=== PATIENT | female | born 1960 | race Caucasian/White ===

== ENCOUNTER 2020-04-21 12:25 | Outpatient (REF) | payer OTHER, SELFPAY | END 2020-04-21 12:26 | disposition home or self-care (01) | LOC: HO.LAB 12:25 | PROVIDERS: Visit Provider Internal Medicine | DX: Z20.828 Contact with and (suspected) exposure to other viral communicable diseases (principal) | CPT/HCPCS: 87635 ==

== ENCOUNTER 2020-09-15 10:55 | Outpatient (REF) | payer OTHER, SELFPAY | END 2020-09-15 10:56 | disposition home or self-care (01) | LOC: HO.LAB 10:55 | PROVIDERS: Visit Provider Internal Medicine | DX: Z20.822 Contact with and (suspected) exposure to COVID-19 (principal) | CPT/HCPCS: 36415; C9803; U0003; U0005 ==

== ENCOUNTER 2022-01-20 13:38 | Outpatient (REF) | payer OTHER, SELFPAY ==
[2022-01-21 10:22] LABS: Binax Internal Control QC Valid; Binax Now Covid-19 Ag Negative (Negative)
== END 2022-01-20 13:39 | disposition home or self-care (01) ==
LOC: HO.HMGCLDS 13:38
DX: Z20.822 Contact with and (suspected) exposure to COVID-19 (principal); R51.9 Headache, unspecified
CPT/HCPCS: 87811; C9803

== ENCOUNTER 2022-02-22 10:15 | Outpatient (REF) | payer OTHER, SELFPAY ==
[2022-02-22 11:00] LABS: Binax Now Covid-19 Ag Negative (Negative)
[2022-02-22 11:01] LABS: Binax Internal Control QC Valid
== END 2022-02-22 10:16 | disposition home or self-care (01) ==
LOC: HO.HMGCLDS 10:15
PROVIDERS: PCP Internal Medicine; Visit Provider Nurse Practitioner Family
DX: Z20.822 Contact with and (suspected) exposure to COVID-19 (principal)
CPT/HCPCS: 87811; C9803

== ENCOUNTER 2022-11-14 08:43 | Outpatient (REF) | payer OTHER, MEDICAID, SELFPAY ==
--- NOTE | ~2022-11-14 | XR_ITS ---
EXAMINATION: XR KNEE, RIGHT XR KNEE AP STANDING CLINICAL INFORMATION: Pain. COMPARISON: Radiographs dated 03/28/2019. TECHNIQUE: Lateral and axial of the right knee were obtained. AP bilateral standing view of the knees was obtained. FINDINGS: Bony mineralization is normal. The lateral and medial joint space compartments of the right knee are well-maintained and show mild peripheral osteophyte formation. The lateral and medial joint space compartments of the left knee are well-maintained. There is mild peripheral osteophyte formation of the lateral joint space compartment of the left knee. No fracture or dislocation is seen. There is no significant varus or valgus configuration bilaterally. Very mild bilateral tibial bowing is noted. XR/XR knee RT 2V IMPRESSION: 1. There is mild osteoarthritic change of the lateral and medial joint space compartments of the right knee, most pronounced in the lateral joint space compartment. 2. There is mild osteoarthritic change of the lateral joint space compartment of the left knee.
--- NOTE | ~2022-11-14 | XR_ITS ---
EXAMINATION: XR KNEE, RIGHT XR KNEE AP STANDING CLINICAL INFORMATION: Pain. COMPARISON: Radiographs dated 03/28/2019. TECHNIQUE: Lateral and axial of the right knee were obtained. AP bilateral standing view of the knees was obtained. FINDINGS: Bony mineralization is normal. The lateral and medial joint space compartments of the right knee are well-maintained and show mild peripheral osteophyte formation. The lateral and medial joint space compartments of the left knee are well-maintained. There is mild peripheral osteophyte formation of the lateral joint space compartment of the left knee. No fracture or dislocation is seen. There is no significant varus or valgus configuration bilaterally. Very mild bilateral tibial bowing is noted. XR/XR knee standing BI IMPRESSION: 1. There is mild osteoarthritic change of the lateral and medial joint space compartments of the right knee, most pronounced in the lateral joint space compartment. 2. There is mild osteoarthritic change of the lateral joint space compartment of the left knee.
== END 2022-11-14 08:44 | disposition home or self-care (01) ==
LOC: HO.HOSX 08:43
PROVIDERS: Visit Provider Orthopaedic Surgery
DX: M17.11 Unilateral primary osteoarthritis, right knee (principal); E11.9 Type 2 diabetes mellitus without complications; M21.061 Valgus deformity, not elsewhere classified, right knee
CPT/HCPCS: 73560; 73565; 99212

== ENCOUNTER 2023-01-03 12:45 | Outpatient (REF) | payer OTHER, MEDICAID, SELFPAY ==
--- NOTE | 2023-01-03 14:07 | ECG_ITS ---
Test Reason : PREOP Blood Pressure : / mmHG Vent. Rate : 079 BPM Atrial Rate : 079 BPM P-R Int : 142 ms QRS Dur : 090 ms QT Int : 410 ms P-R-T Axes : 068 -16 028 degrees QTc Int : 470 ms Normal sinus rhythm Normal ECG No previous ECGs available Referred By: Fadi Guerra Electronically Signed By:NABOR WORKMAN
[2023-01-03 14:28] LABS: MANUAL DIFF FLAG NO
[2023-01-03 15:20] LABS: Basophils Absolute Auto 0.1 X10*3/uL (0.0-0.2); Basophils Percent Auto 0.6 % (0-2); Eosinophils Absolute Auto 0.2 X10*3/uL (0.0-0.4); Eosinophils Percent Auto 1.8 % (0-4); Hematocrit 40.4 % (37.0-47.0); Hemoglobin 12.5 g/dl (12.0-16.0); Imm Gran Abs Auto 0.04 X10*3/uL (0.00-0.03); Imm Gran Pct Auto 0.4 % (0.0-0.4); Lymphocytes Absolute Auto 3.5 X10*3/uL (1.2-4.9); Lymphocytes Percent Auto 32.8 % (20-40); Mean Corpuscular HGB Conc 30.9 g/dl (31.0-35.0); Mean Corpuscular Hemoglobin 27.7 pg (27.0-33.0); Mean Corpuscular Volume 89.6 fL (80.0-98.0); Mean Platelet Volume 9.5 fL (9.4-12.3); Monocytes Absolute Auto 0.7 X10*3/uL (0.1-1.2); Monocytes Percent Auto 6.4 % (2-11); Neutrophils Absolute Auto 6.1 x10*3/uL (2.0-8.3); Platelet Count 283 X10*3/uL (160-400); Red Blood Count 4.51 X10*6/uL (4.20-5.50); Red Cell Distribution Width 13.1 % (11.0-16.0); White Blood Count 10.6 X10*3/uL (4.8-10.8)
[2023-01-03 15:37] LABS: Estimated Average Glucose 137 mg/dL; Hemoglobin A1c % 6.4 %
[2023-01-03 16:04] LABS: Anion Gap 13 (12-20); Blood Urea Nitrogen 15 mg/dL (9-16); Calcium 9.8 mg/dL (8.4-10.2); Carbon Dioxide 29 mmol/L (22-29); Chloride 103 mmol/L (96-108); Estimated Glomerular Filt Rate > 60; Glucose Random 85 mg/dL (60-115); Potassium 4.2 mmol/L (3.3-5.1); Sodium 141 mmol/L (135-145)
== END 2023-01-03 12:46 | disposition home or self-care (01) ==
LOC: HO.LAB 12:45
PROVIDERS: PCP Internal Medicine; Visit Provider Orthopaedic Surgery
DX: Z01.810 Encounter for preprocedural cardiovascular examination (principal); Z01.812 Encounter for preprocedural laboratory examination; M21.061 Valgus deformity, not elsewhere classified, right knee
CPT/HCPCS: 36415; 80048; 83036; 85025; 93005

== ENCOUNTER 2023-01-25 09:59 | Outpatient (RCR) | payer OTHER, MEDICAID, SELFPAY | END 2023-05-12 08:57 | disposition home or self-care (01) | LOC: HO.PT 09:59 | PROVIDERS: PCP Internal Medicine; Visit Provider Orthopaedic Surgery | DX: M21.061 Valgus deformity, not elsewhere classified, right knee (principal) ==

== ENCOUNTER 2023-01-25 15:30 | Outpatient (RCR) | payer OTHER, MEDICAID, SELFPAY ==
--- NOTE | 2023-01-25 11:36 | MHC.PT.EP ---
[facility] [place] Office [place] Office [place] Office [address] Erasm[address] Mart [address] [phone] F: [phone] F: [phone] F: [phone] F: [phone] Physical Therapy Plan of Care Date of Evaluation: Date of Surgery: 01/31/23 Diagnosis: PREHAB FOR Rt TKA Assessment: 62 YO FEMALE REF TO PT FOR PREHAB FOR SCHED Rt TKR 01/31/23 AT [facility] [place] 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 OBJECTIVELY, SHE HAS DECR ROM Rt KNEE/ ANKLE, STRENGHT DEFICITS LUMBOPELVIC/ PROX LEs, (+) LLI, GENU VALGUS COLLAPSE, AND FLUCTUATING/ LIMITING Rt KNEE PAIN. SHE IS CURRENTLY AMB W/O ASST DEVICES. HER OVERALL ADLs ARE IMPACTED BY HER Rt KNEE PAIN. THE Pt BENEFITTED FROM THE ABOVE EDUC SESSION RE TKR POST-OP COURSE, THER EXER, PREP EXER, STAIR NAVIGATION, AND USAGE ASST DEVICES. THE Pt IS DISCHARGED TODAY W HER PREHAB EXER , SHE FEELS SHE DOES NOT REQUIRE ANY ADD'L PRE-OP PT, AND IS SCHED FOR HER SURGERY NEXT WEEK, 01/31/23 Frequency and Duration: The patient will be seen NO FURTHER Short Term Goals: Pt MET HER GOALS TODAY AT HER [facility] Alf Goals: N/A Treatment Plan: Modalities to reduce pain, spasms and effusion. Manual therapy to restore motion and function. Therapeutic exercise to improve strength and flexibility. Neuromuscular re-education for posture and balance. Therapeutic activities to return to functional activities of daily living. Electronically signed by: JN DELGADILLO,PT Please sign and return to therapist. Thank you for your referral.
--- NOTE | 2023-01-25 11:41 | MHC.PT.DC ---
[facility] [place] Office [place] Office [place] Office [address] Er[address] Mart [address] [facility] [phone] F: [phone] F: [phone] F: [phone] F: [phone] Physical Therapy Discharge Report Diagnosis: PREHAB FOR Rt TKA Date of Surgery: 01/31/23 Date of Evaluation: 01/25/23 Date of Discharge: 01/25/23 Treatments to Date: 1 Cancellations to Date: 0 No Shows to Date: 0 Discharge Status: Achieved Goals Improved Function Independent with HEP Discharge Summary: THE Pt IS MOTIVATED FOR HER Rt TKR SURGERY AND HAS MET HER PRE-OP PT GOALS AT THIS TIME. SHE HAS A APPROP COMPREHENSION OF HER POST-OP PT COURSE AND FOCUS. Electronically signed by: JN DELGADILLO,PT Please sign and return to therapist. Thank you for your referral.
--- NOTE | 2023-01-26 07:43 | MHC.PT.DC ---
[facility] [place] Office [place] Office [place] Office [address] Mart [address] [phone] F: [phone] F: [phone] F: [phone] F: [phone] Physical Therapy Discharge Report Diagnosis: PREHAB FOR Rt TKA Date of Surgery: 01/31/23 Date of Evaluation: 01/25/23 Date of Discharge: 01/25/23 Treatments to Date: 1 Cancellations to Date: 0 No Shows to Date: 0 Discharge Status: Achieved Goals Improved Function Independent with HEP Discharge Summary: THE Pt IS MOTIVATED FOR HER Rt TKR SURGERY AND HAS MET HER PRE-OP PT GOALS AT THIS TIME. SHE HAS APPROP COMPREHENSION OF HER POST-OP PT COURSE AND ROM GOALS/ PAIN MGMT TECHN. Electronically signed by: JN DELGADILLO,PT Please sign and return to therapist. Thank you for your referral.
== END 2023-01-26 07:43 | disposition home or self-care (01) ==
LOC: HO.PT 15:30
PROVIDERS: PCP Internal Medicine; Visit Provider Physician Assistant
DX: M21.061 Valgus deformity, not elsewhere classified, right knee (principal)

== ENCOUNTER 2023-01-26 11:55 | Outpatient (AMB) | payer OTHER, MEDICAID, SELFPAY ==
[2023-01-26 12:37] VITALS: BMI 37.9
--- NOTE | 2023-01-26 12:37 | MHC.OFFVIS ---
Intake Vital Signs 01/26/23 12:37 Height 5 ft 4 in Weight 221 lb BMI 37.9 Intake Visit Reasons: Preop RT TKA 02/01/23 NE Intake Note: Nohemi is a 62 year old female who presents today for a pre op appointment for her right TKA, 02/01/23 NE. Allergies ibuprofen [IBUPROFEN] Allergy (Intermediate, Verified 01/26/23 12:38) exacerbates asthma oxaprozin [From DAYPRO] Allergy (Intermediate, Verified 01/26/23 12:38) exacerbates asthma Penicillins [PCN] Allergy (Intermediate, Verified 01/26/23 12:38) RASH HPI Preop RT TKA 02/01/23 NE HPI Details 62-year-old female who presents in the office today for her preoperative history and physical exam prior to a right total knee arthroplasty to be performed on 02/01/[address] Guerra. 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 Patient has an allergy history, as follows: -Oxaprozin -Ibuprofen; asthma/affects breathing -Penicillin; rash Patient is currently taking, as follows: -Albuterol sulfate 90 mcg/actuation -Atorvastatin 20 mg PO daily -Fluticasone furoate-vilanterol 200-25 mcg inhalation daily -Fluticasone propionate 50 mcg/actuation intranasal -Loratadine 10 mg PO daily -Meloxicam 15 mg PO daily -Montelukast 10 mg PO daily -Oxybutynin chloride ER 10 mg PO daily -Tramadol 50 mg PO TID PRN -Umeclidinium 62.5 mcg/actuation inhalation daily Patient has a medical history, as follows: -Diabetes mellitus -Headaches Patient has no known surgical history. 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 Review of Systems Const All systems reviewed & are unremarkable except as noted in HPI and below Physical Exam Vital Signs: BMI result Body Mass Index 37.9 Const General: cooperative and no acute distress Orientation/consciousness: patient oriented x3 HEENT Head: Yes normocephalic and Yes atraumatic Eyes EOM: EOMs intact bilaterally Neck Neck: Yes normal visual inspection and Yes no lymphadenopathy Resp Effort & Inspection: normal respiratory effort and able to speak in complete sentences Cardio Jugular venous distension: no JVD Rate: regular rate Peripheral pulses: Peripheral pulses 2+ throughout GI Inspection: Yes normal to inspection Palpation (GI): Soft to palpation Skin General skin exam: no rashes or lesions noted Lesions: no lesions Rashes: no rashes Neuro General: patient oriented x3 Extrem Other: Right Knee: TTP lateral compartment 15-20 degree valgus alignment Psych Appearance: grossly normal Affect: normal affect Attitude: cooperative Assessment & Plan Assessment & Plan (1) Osteoarthritis of right knee: Code(s): M17.11 - Unilateral primary osteoarthritis, right knee (2) Diabetes mellitus: Code(s): E11.9 - Type 2 diabetes mellitus without complications (3) Valgus deformity, not elsewhere classified, right knee: Code(s): M21.061 - Valgus deformity, not elsewhere classified, right knee Plan Ms. Jackson is a 62-year-old female who presents in the office today for her preoperative history and physical exam prior to a right total knee arthroplasty to be performed on 02/01/[address] Guerra. 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 Patient has an allergy history, as follows: -Oxaprozin -Ibuprofen; asthma/affects breathing -Penicillin; rash Patient is currently taking, as follows: -Albuterol sulfate 90 mcg/actuation -Atorvastatin 20 mg PO daily -Fluticasone furoate-vilanterol 200-25 mcg inhalation daily -Fluticasone propionate 50 mcg/actuation intranasal -Loratadine 10 mg PO daily -Meloxicam 15 mg PO daily -Montelukast 10 mg PO daily -Oxybutynin chloride ER 10 mg PO daily -Tramadol 50 mg PO TID PRN -Umeclidinium 62.5 mcg/actuation inhalation daily Patient has a medical history, as follows: -Diabetes mellitus -Headaches Patient has no known surgical history. I discussed in detail the procedure and what to expect pre and post operatively. We discussed the risks, benefits and alternatives to the surgery as well as the rehabilitation course. The risks; which include, but are not limited to infection, bleeding, nerve injury, ongoing pain, swelling, and stiffness, perioperative risk of injury to bones and soft tissues, and blood clots. I have answered all questions and with their understanding they have consented to move forward with a right total knee arthroplasty to be performed on 02/01/[address] Fadi Guerra. Follow up will be at the post operative appointment on 02/17/2023 at 12:45 pm, or sooner if needed. Patient can go on aspirin for DVT prophylactic. Patient Instructions: Scribed for Eloise Almodovar PA-C by Ashely Paz medical services assistant, on 01/26/2023 at 12:36 pm, EST. Your attestation Coding Level of Care Code Global (90778) Diagnoses Osteoarthritis of right knee M17.11 Diabetes mellitus E11.9 Valgus deformity, not elsewhere classified, right knee M21.061
== END 2023-01-26 13:37 | disposition home or self-care (01) ==
PROVIDERS: Visit Provider Physician Assistant
DX: M17.11 Unilateral primary osteoarthritis, right knee (principal); E11.9 Type 2 diabetes mellitus without complications; M21.061 Valgus deformity, not elsewhere classified, right knee
CPT/HCPCS: 99024

== ENCOUNTER → 2023-01-26 11:55 | Outpatient (BNVA) | payer OTHER, MEDICAID, SELFPAY | PROVIDERS: Visit Provider Physician Assistant ==

== ENCOUNTER 2023-01-31 07:23 | Inpatient (IN) | payer OTHER, MEDICAID, SELFPAY ==
[2023-01-25 12:02] VITALS: BP 116/81; PULSE 96; RESP 18; O2SAT 95; BMI 38.9
[2023-01-25 14:12] LABS: MRSA Nasal PCR NEGATIVE (Negative); SA Nasal PCR POSITIVE (Negative)
--- NOTE | 2023-01-30 09:34 | HO.ANESPROP2 ---
Documented by User: Avelina Ferrer NP 01/30/23 09:37 HPI - Anesthesia Eval Consult details Narrative: 62yo F for Right Knee Replacement Total Medically optimized PMFSH Active Problems Active Problems: All Active Problems (Updated 01/25/23 @ 12:01 by Geovanna Chamberlain RN) Screening examination for infectious disease (Acute) Osteoarthritis of right knee (Acute) Diabetes mellitus (Acute) Valgus deformity, not elsewhere classified, right knee (Acute) Headache (Acute) Past Medical History Medical History Asthma COPD (chronic obstructive pulmonary disease) Diabetes Elevated cholesterol Headache HTN (hypertension) Osteoarthritis Steatosis, liver Surgical History Surgical History H/O colonoscopy Hx of bilateral cataract extraction Hx of section Hx of laparoscopic gastric banding Social History Social History Are you a primary respite care provider to a significant other at home: No Do you presently have visiting nurse or other home services: No Patient Tobacco Use Status: Former Tobacco user Quit Date: 2007 Tobacco use type: Cigarette Years Smoked: 35 Smoked in Last 30 Days: No Use of substances other than those prescribed or required for medical reasons: No Have you been hit, kicked, punched, or otherwise hurt by someone within the past year? 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 Allergies Allergy/AdvReac Type Severity Reaction Status Date / Time ibuprofen [IBUPROFEN] Allergy Intermediate exacerbates Verified 01/26/23 12:38 asthma oxaprozin [From DAYPRO] Allergy Intermediate exacerbates Verified 01/26/23 12:38 asthma Penicillins [PCN] Allergy Intermediate RASH Verified 01/26/23 12:38 Home Medications Medication Instructions Recorded Confirmed Last Taken Type albuterol sulfate 90 mcg/actuation 90 mcg inhalation Q4H PRN 01/20/22 01/24/23 Unknown History aerosol inhaler (Ventolin HFA) Shortness Of Breath blood sugar diagnostic (FreeStyle #10 ea 01/20/22 01/04/23 Unknown History Lite Strips) blood-glucose meter (FreeStyle #1 ea 01/20/22 01/04/23 Unknown History [place] Lite kit) fluticasone propionate 50 1 spray intranasal DAILY 01/20/22 01/24/23 Unknown History mcg/actuation nasal spray,suspension lancets 28 gauge (FreeStyle #100 ea 01/20/22 01/04/23 Unknown History Lancets) loratadine 10 mg tablet 10 mg PO DAILY 01/20/22 01/24/23 Unknown History meloxicam 15 mg tablet 15 mg PO DAILY 01/20/22 01/25/23 01/11/23 History tramadol 50 mg tablet 50 mg PO TID PRN Pain 01/20/22 01/24/23 Unknown History atorvastatin 20 mg tablet 20 mg PO DAILY 11/14/22 01/24/23 Unknown History cholecalciferol (vitamin D3) 1,250 1,250 mcg PO QWEEK 01/24/23 01/24/23 Unknown History mcg (50,000 unit) capsule budesonide-formoterol HFA 160 1 inh inhalation BID 01/25/23 01/25/23 Unknown History mcg-4.5 mcg/actuation aerosol inhaler (Symbicort) dupilumab 200 mg/1.14 mL 200 mg subcut Q2W 01/25/23 01/25/23 Unknown History subcutaneous pen injector (Dupixent) oxybutynin chloride 5 mg tablet 5 mg PO BEDTIME 01/25/23 01/25/23 Unknown History Exam Exam Date and Time: January 30, 2023 0934 Height,Weight and Vital Signs: Height 5 ft 3 in Weight 99.6 kg Last Vital Signs Pulse 96 01/25/23 12:02 Resp 18 01/25/23 12:02 BP 116/81 01/25/23 12:02 Pulse Ox 95 01/25/23 12:02 O2 Del Method Room Air 01/25/23 12:02 Pertinent Lab Results Pertinent Lab Results: Laboratory Tests 01/25/23 01/25/23 12:20 12:58 Nasal Screen MRSA (PCR) NEGATIVE Nasal S. aureus Screen POSITIVE A Nasal MRSA/S.aureus Interp SEE NOTE Blood Type O Positive Antibody Screen NEGATIVE Laboratory Tests 01/03/23 01/03/23 14:27 14:27 WBC 10.6 Hgb 12.5 Hct 40.4 Plt Count 283 Sodium 141 Potassium 4.2 Chloride 103 Carbon Dioxide 29 BUN 15 Creatinine 0.71 Narrative Narrative: EKG 12/2022 Vent. Rate : 079 BPM ? ? Atrial Rate : 079 BPM ?? P-R Int : 142 ms? QRS Dur : 090 ms ? ? QT Int : 410 ms ? ? ? P-R-T Axes : 068 -16 028 degrees ?? QTc Int : 470 ms ? Normal sinus rhythm Normal ECG No previous ECGs available Assessment and Plan Assessment Anesthesia Assessment: Chart Reviewed Documented by User: Doc Becker MD 01/31/23 07:54 PMFSH Past Medical History Medical History Asthma COPD (chronic obstructive pulmonary disease) Diabetes Elevated cholesterol Headache HTN (hypertension) Osteoarthritis Steatosis, liver Family History Family history of problems with anesthesia: No Surgical History Surgical History H/O colonoscopy Hx of bilateral cataract extraction Hx of section Hx of laparoscopic gastric banding History of Problems with Anesthesia: No Social History Social History Are you a primary respite care provider to a significant other at home: No Do you presently have visiting nurse or other home services: No Patient Tobacco Use Status: Former Tobacco user Quit Date: 2007 Tobacco use type: Cigarette Years Smoked: 35 Smoked in Last 30 Days: No Use of substances other than those prescribed or required for medical reasons: No Have you been hit, kicked, punched, or otherwise hurt by someone within the past year? 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 Allergies Allergy/AdvReac Type Severity Reaction Status Date / Time ibuprofen [IBUPROFEN] Allergy Intermediate exacerbates Verified 01/26/23 12:38 asthma oxaprozin [From DAYPRO] Allergy Intermediate exacerbates Verified 01/26/23 12:38 asthma Penicillins [PCN] Allergy Intermediate RASH Verified 01/26/23 12:38 Home Medications Medication Instructions Recorded Confirmed Last Taken Type albuterol sulfate 90 mcg/actuation 90 mcg inhalation Q4H PRN 01/20/22 01/24/23 Unknown History aerosol inhaler (Ventolin HFA) Shortness Of Breath blood sugar diagnostic (FreeStyle #10 ea 01/20/22 01/04/23 Unknown History Lite Strips) blood-glucose meter (FreeStyle #1 ea 01/20/22 01/04/23 Unknown History [place] Lite kit) fluticasone propionate 50 1 spray intranasal DAILY 01/20/22 01/24/23 Unknown History mcg/actuation nasal spray,suspension lancets 28 gauge (FreeStyle #100 ea 01/20/22 01/04/23 Unknown History Lancets) loratadine 10 mg tablet 10 mg PO DAILY 01/20/22 01/24/23 Unknown History meloxicam 15 mg tablet 15 mg PO DAILY 01/20/22 01/25/23 01/11/23 History tramadol 50 mg tablet 50 mg PO TID PRN Pain 01/20/22 01/24/23 Unknown History atorvastatin 20 mg tablet 20 mg PO DAILY 11/14/22 01/24/23 Unknown History cholecalciferol (vitamin D3) 1,250 1,250 mcg PO QWEEK 01/24/23 01/24/23 Unknown History mcg (50,000 unit) capsule budesonide-formoterol HFA 160 1 inh inhalation BID 01/25/23 01/25/23 Unknown History mcg-4.5 mcg/actuation aerosol inhaler (Symbicort) dupilumab 200 mg/1.14 mL 200 mg subcut Q2W 01/25/23 01/25/23 Unknown History subcutaneous pen injector (Dupixent) oxybutynin chloride 5 mg tablet 5 mg PO BEDTIME 01/25/23 01/25/23 Unknown History Exam Airway Mallampati Class: II TM Dist: >3cm Neck ROM: Limited Heart: rrr Lungs: cta Assessment and Plan Assessment Anesthesia Assessment: Anesthesia Plan Discussed Final Anesthetic Review Family History of Problems with Anesthesia: No History of Problems with Anesthesia: No NPO: Yes ASA Class: III Final Preanesthetic Review: No Changes in Pt Med Stat, Consent Obtained/Reviewed and Anes Risks/Benef Reviewed Patient Risk: Intermediate Procedure Risk: Intermediate Anesthetic Plan Anesthetic Plan: Spinal, Regional Block and Agree w/ Assess. and Plan Disposition: Standard PACU
[2023-01-31] VITALS (13 sets, daily range): BP systolic 101–141; BP diastolic 61–93; PULSE 72–94; RESP 14–18; TEMP 35.8–37.1; O2SAT 94–100
--- NOTE | ~2023-01-31 | XR_ITS ---
EXAMINATION: XR KNEE, RIGHT CLINICAL INFORMATION: Right total knee replacement. COMPARISON: 11/14/2022 TECHNIQUE: Four views of the right knee. FINDINGS: Right total knee replacement has been performed. Prosthetic components appear appropriate in position without evidence of loosening. Alignment is satisfactory. Ghost tract is seen medial tibial plateau. Soft tissue air and joint effusion with surgical skin adela seen in the immediate postoperative state. XR/XR knee RT 2V IMPRESSION: Post operative right total knee replacement.
--- OUTSIDE RECORDS SUMMARY | 2023-01-31 07:31 | XMS_ITS | Continuity of Care Document ---
Author Name Unknown Organization [facility] Address [address] [place] [address]- Care Team Providers Care Sheet Metal Journeyman Name Role Phone Kath QUINN, Angy Primary Care Physician Encounter [facility] [place] Date(s): 09/20/21 - 10/20/21 [facility] [address] [place] [address]- Allergies, Adverse Reactions, Alerts Substance Reaction Severity Status ibuprofen SOB Active penicillins 1 rash Active DayQuil Resolved Daypro Rash Active 1Rash Immunizations Given and Recorded Vaccine Date Status Refusal Reason SARS-CoV-2 (COVID-19) mRNA BNT-162b2 vac 05/31/21 Recorded SARS-CoV-2 (COVID-19) mRNA BNT-162b2 vac 11/26/20 Recorded SARS-CoV-2 (COVID-19) mRNA BNT-162b2 vac 10/14/20 Recorded influenza virus vaccine, inactivated 04/17/21 Santy rded influenza virus vaccine, inactivated 04/15/20 Santy rded influenza virus vaccine, inactivated 05/20/19 Santy rded influenza virus vaccine, inactivated 04/10/18 Santy rded influenza virus vaccine, inactivated 1 03/27/17 Gi kristen influenza virus vaccine, inactivated 05/04/16 Santy rded influenza virus vaccine, inactivated 2 04/11/09 Gi kristen influenza virus vaccine, inactivated 05/26/07 Give n zoster vaccine, inactivated 01/22/19 Recorded zoster vaccine, inactivated 10/22/18 Recorded pneumococcal 23-valent vaccine 07/12/17 Given tetanus/diphtheria/pertussis, acel(Tdap) 08/05/15 Given Not Given Vaccine Date Status Refusal Reason pneumococcal 23-valent vaccine 09/05/13 Not Given Patient Refuses [facility]: vis 02/24/09 Medications buPROPion 150 mg/12 hours (SR) oral tablet, extended release 1 tablet = 150 mg, By Mouth, 2 times a day, Take once a day for the first 3 days, # 60 tablet, 1 Refills, Maintenance, 01/13/21 11:25:00 EDT, ER Tablet, [facility]/pharmacy #[id number], Partial fill upon patient request if the prescription is for a schedule II opi... Start Date: 01/13/21 Status: Ordered Freestyle Lite Lancets See Instructions, # 100 each, Refills 5, Tot. Refills 5, Maintenance, USE TO CHECK GLUCOSE ONCE DAILY, DX E11.9, 02/26/21 10:37:00 EDT, Supply, 162.3, cm, 02/10/21 7:41:00 EDT, Height, 93, kg, 11/26/19 8:56:00 EDT, Dry Weight Start Date: 02/26/21 Status: Ordered Freestyle Lite Monitor See Instructions, # 1 each, Maintenance, USE TO CHECK GLUCOSE ONCE DAILY, DX E11.9, 02/26/21 10:36:00 EDT, Supply, 162.3, cm, 02/10/21 7:41:00 EDT, Height, 93, kg, 11/26/19 8:56:00 EDT, Dry Weight Start Date: 02/26/21 Status: Ordered Freestyle Lite Test Strips See Instructions, # 100 each, Refills 5, Tot. Refills 5, Maintenance, USE TO CHECK GLUCOSE ONCE DAILY, DX E11.9, 02/26/21 10:36:00 EDT, Supply, 162.3, cm, 02/10/21 7:41:00 EDT, Height, 93, kg, 11/26/19 8:56:00 EDT, Dry Weight Start Date: 02/26/21 Status: Ordered levocetirizine 5 mg oral tablet 1 tablet = 5 mg, By Mouth, Daily in PM, # 30 tablet, 5 Refills, Maintenance, 12/10/20 12:48:00 EDT,Tablet, [facility]/pharmacy #[id number], Partial fill upon patient request if the prescription is for a scheduleII opioid drug., 1 tablet By Mouth Daily in PM, 163... Start Date: 12/10/20 Status: Ordered meloxicam 15 mg oral tablet 1 tablet, By Mouth, Daily, # 30 tablet, 5 Refills, 08/06/21 10:23:00 EST, [facility]/pharmacy #[id number], 162.3, cm, 04/16/21 8:01:00 EDT, Height, 93, kg, 11/26/19 8:56:00 EDT, Dry Weight Start Date: 08/06/21 Status: Ordered oxybutynin 10 mg/24 hr oral tablet, extended release 1 tablet, By Mouth, Daily, # 90 tablet, 2 Refills, 10/07/21 16:41:00 EDT, [facility]/pharmacy #[id number], 162.3, cm, 10/04/21 13:55:00 EDT, Height, 93, kg, 11/26/19 8:56:00 EDT, Dry Weight Start Date: 10/07/21 Status: Ordered sodium chloride 0.9% nasal spray 1 sprays, Nares, Both, Every 30 minutes, PRN for dry nasal passages, # 45 mL, 1 Refills, Maintenance, 02/10/21 8:48:00 EDT, [place], [facility]/pharmacy #[id number], Partial fill upon patient request if the prescription is for a schedule II opioid drug., 1 sprays Na... Start Date: 02/10/21 Status: Ordered Symbicort 160mcg/4.5mcg Inhaler 2, puffs, Inhalation, 2 times a day, # 1 each, Refills 5, Tot. Refills 5, Maintenance, 07/15/20 11:47:00 EST, Inhaler, Route to Pharmacy Electronically, [id number], [facility]/pharmacy #[id number], 163, cm, 07/15/20 11:23:00 EST, Height,... Start Date: 07/15/20 Status: Ordered traMADol 50 mg oral tablet 1 tablet = 50 mg, By Mouth, Every 8 hours, PRN as needed for pain, HYPERBARIC TECHNOLOGIST CHECKED, # 90 tablet, 0 Refills, Maintenance, 09/09/21 11:53:00 EST, Tablet, [facility]/pharmacy #[id number], 162.3, cm, 08/06/21 12:17:00 EST, Height, 93, kg, 11/26/19 8:56:00 EDT, Dry Weight Start Date: 09/09/21 Status: Ordered Ventolin HFA 108 mcg/inh inhalation aerosol with adapter 1 puffs, Inhalation, 4 times a day, PRN NEEDED FOR WHEEZING, # 54 each, 1 Refills, [id number], 162.3, cm, 04/16/21 8:01:00 EDT, Height, 93, kg, 11/26/19 8:56:00 EDT, Dry Weight Start Date: 07/28/21 Status: Ordered Problem List Condition Effective Dates Status Health Status Inform ant Allergic rhinitis(Confirmed) Active Asthma(Confirmed) Active Brain concussion(Confirmed) Active Hyperlipidemia(Confirmed) Active Hypertension(Confirmed) 2003 Active Injury of head or neck super ficial nerve(Confirmed) Active Microscopic hematuria(Confirmed) 2017 Active Obesity(Confirmed) Active Osteoarthritis of right knee(Confirmed) 2018 Active Paraesophageal hiatal hernia(Confirmed) Active Steatosis of liver(Confirmed) Active Diabetes type 2, controlled(Confirmed) Active Vertigo(Confirmed) 2013 Active Social History Social History Type Response Smoking Status Former smoker; Other : Quit 1994; entered on: 08/05/15 Sex
--- OUTSIDE RECORDS SUMMARY | 2023-01-31 07:31 | XMS_ITS | Continuity of Care Document ---
Author Name Unknown Organization [facility] Adult Address [address] [place] [address]- Care Team Providers Care Engineer Steam Name Role Phone Kath QUINN, [place] Primary Care Physician [place] [facility] [place]22 - 07/24/22 [facility] [address] [place] [address]- Allergies, Adverse Reactions, Alerts Substance Reaction Severity Status ibuprofen SOB Active penicillins 1 rash Active Daypro Rash Active DayQuil Resolved 1Rash Immunizations Given and Recorded Vaccine Date [...] [facility]: vis 02/24/09 Medications atorvastatin 20 mg oral tablet 1 tablet, By Mouth, Daily, # 90 tablet, 1 Refills, Maintenance, 07/04/22 14:31:00 EST, [id number], 162.3, cm, 06/16/22 14:20:00 EST, Height Start Date: 07/04/22 Status: Ordered buPROPion 150 mg/12 hours (SR) oral tablet, extended release 1 tablet = 150 mg, By Mouth, 2 times a day, Take once a day for the first 3 days, # 60 tablet, 1 Refills, Maintenance, 01/13/21 11:25:00 EDT, ER Tablet, [facility]/pharmacy #[id number], Partial fill upon patient request if [...] TO CHECK GLUCOSE ONCE DAILY, DX E11.9, 01/20/22 14:57:00 EDT, Supply, 162.3, cm, 10/04/21 13:55:00 EDT, Height Start Date: 01/20/22 Status: Ordered Freestyle Lite Test Strips See [...] tablet, 5 Refills, Maintenance, 12/10/20 12:48:00 EDT,Tablet, [facility]/pharmacy #[id number], Partial fill upon patient request if the prescription is for a scheduleII opioid drug., 1 tablet By Mouth Daily in PM, 163... Start Date: 12/10/20 Status: Ordered meloxicam 15 mg oral tablet 1 tablet, By Mouth, Daily, # 30 tablet, 4 Refills, Maintenance, 06/10/22 8:44:00 EST, [id number], 162.3, cm, 02/23/22 15:56:00 EDT, Height Start Date: 06/10/22 Status: Ordered oxybutynin 10 mg/24 hr oral tablet, extended release 1 tablet, By Mouth, Daily, # 90 tablet, 2 Refills, 10/07/21 16:41:00 EDT, [facility]/pharmacy #[id number], 162.3, cm, 10/04/21 13:55:00 EDT, Height, 93, kg, 11/26/19 8:56:00 EDT, Dry Weight Start Date: 10/07/21 Status: Ordered sodium chloride 0.9% nasal spray 1 sprays, Nares, Both, Every 30 minutes, PRN for dry nasal passages, # 45 mL, 1 Refills, Maintenance, 02/10/21 8:48:00 EDT, [place], [facility]/pharmacy #[id number], Partial fill upon patient request if the prescription is for a schedule II opioid drug., 1 sprays Na... Start Date: 02/10/21 Status: Ordered Symbicort 160mcg/4.5mcg Inhaler 2, puffs, Inhalation, 2 times a day, # 1 each, Refills 5, Tot. Refills 5, Maintenance, 07/15/20 11:47:00 EST, Inhaler, Route to Pharmacy Electronically, [id number], [facility]/pharmacy #[id number], 163, cm, 07/15/20 11:23:00 EST, Height,... Start Date: 07/15/20 Status: Ordered traMADol 50 mg oral tablet 1 tablet = 50 mg, By Mouth, Every 8 hours, PRN as needed for pain, BI TRI OPERATOR CHECKED, # 90 tablet, 0 Refills, Maintenance, 07/22/22 14:01:00 EST, Tablet, [id number], 162.3, cm, 06/16/22 14:20:00 EST, Height Start Date: 07/22/22 Status: Ordered Ventolin HFA 108 mcg/inh inhalation aerosol with adapter 1 puffs, Inhalation, 4 times a day, PRN NEEDED FOR WHEEZING, # 54 each, 1 Refills, [facility], 162.3, cm, 04/16/21 8:01:00 EDT, Height, 93, kg, 11/26/19 8:56:00 EDT, Dry Weight Start Date: 07/28/21 Status: Ordered Problem List Condition Confirmation Course Effective Dates Status H ealth Status Informant Allergic rhinitis Confirmed Active Asthma Confirmed Active Brain concussion Confirmed Active Hyperlipidemia Confirmed Active Hypertension Confirmed 2003 Active Injury of head or neck superficial nerve Confirmed Active Microscopic hematuria Confirmed 2017 Active Obese class II Confirmed Active Obesity Confirmed Active Osteoarthritis of right knee Confirmed 2017 Active Paraesophageal hiatal hernia Confirmed Active Steatosis of liver Confirmed Active Diabetes type 2, controlled Confirmed Active Vertigo Confirmed 2013 Active Social History Social History Type Response Smoking Status Former smoker; Other : Quit 1994; entered on: 08/05/15 Sex Patient Care team information Care Team Personnel Name: Kath QUINN, Angy Position: S Primary Care Physician Member Role: PCP Address: Address: [address] [place] [address]- Care Team Related Persons Name: DHRUV HSU Address: [place] [address] Name: TOMASA DUBOIS Address: [place] [address]
--- OUTSIDE RECORDS SUMMARY | 2023-01-31 07:31 | XMS_ITS | Continuity of Care Document ---
Author Name Unknown Organization [facility] Adult Address [address] [place] [address]- Care Team Providers Care Survey Technologist Name Role Phone Kath QUINN, [place] Primary Care Physician Encounter [facility] [place] Date(s): 02/19/21 - 03/21/21 [facility] [address] [place] [address]- Allergies, Adverse Reactions, Alerts Substance Reaction Severity Status ibuprofen SOB Active penicillins 1 rash Active Daypro Rash Active DayQuil Resolved 1Rash Immunizations Given and Recorded Vaccine Date Status Refusal Reason SARS-CoV-2 (COVID-19) mRNA BNT-162b2 vac 11/26/20 Recorded SARS-CoV-2 (COVID-19) mRNA BNT-162b2 vac 10/14/20 Recorded influenza virus vaccine, inactivated 04/15/20 Santy rded [...] Note: [facility] 2[facility]: vis 02/24/09 Medications albuterol 0.083% inhalation solution 3 mL = 2.5 mg, Inhalation, Every 6 hours, PRN for wheezing, # 100 each, 1 Refills, Maintenance, 11/04/20 11:49:00 EDT, Solution, [facility]/pharmacy #[id number], 163, cm, 11/03/20 13:05:00 EDT, Height, 93, kg, 11/26/19 8:56:00 EDT, Dry Weight Start Date: 11/04/20 Status: Ordered buPROPion 150 mg/12 hours (SR) oral tablet, extended release 1 tablet = 150 mg, By Mouth, 2 times a day, Take once a day for the first 3 days, # 60 tablet, 1 Refills, Maintenance, 01/13/21 11:25:00 EDT, ER Tablet, [facility]/pharmacy #[id number], Partial fill upon patient request if [...] tablet, 5 Refills, Maintenance, 12/10/20 12:48:00 EDT,Tablet, [facility]/pharmacy #[id number], Partial fill upon patient request if the prescription is for a scheduleII opioid drug., 1 tablet By Mouth Daily in PM, 163... Start Date: 12/10/20 Status: Ordered meloxicam 15 mg oral tablet 1 tablet, By Mouth, Daily, # 30 tablet, 0 Refills, [facility], 162.3, cm, 02/10/21 7:41:00 EDT, Height, 93, kg, 11/26/19 8:56:00 EDT, Dry Weight Start Date: 03/05/21 Status: Ordered oxybutynin 10 mg/24 hr oral tablet, extended release 1 tablet = 10 mg, By Mouth, Daily, # 30 tablet, 5 Refills, Maintenance, 01/11/21 8:40:00 EDT, ER Tablet, [facility]/pharmacy #[id number], Partial fill upon patient request if the prescription is for a schedule IIopioid drug., 163, cm, 11/10/20 17:34:00 EDT, Heigh... Start Date: 01/11/21 Status: Ordered sodium chloride 0.9% nasal spray 1 sprays, Nares, Both, Every 30 minutes, PRN for dry nasal passages, # 45 mL, 1 Refills, Maintenance, 02/10/21 8:48:00 EDT, [place], [facility]/pharmacy #[id number], Partial fill upon patient request if the prescription is for a schedule II opioid drug., 1 sprays Na... Start Date: 02/10/21 Status: Ordered Symbicort 160mcg/4.5mcg Inhaler 2, puffs, Inhalation, 2 times a day, # 1 each, Refills 5, Tot. Refills 5, Maintenance, 07/15/20 11:47:00 EST, Inhaler, Route to Pharmacy Electronically, [id number], [facility]/pharmacy #[id number], 163, cm, 07/15/20 11:23:00 EST, Height,... Start Date: 07/15/20 Status: Ordered traMADol 50 mg oral tablet 1 tablet = 50 mg, By Mouth, Every 8 hours, PRN as needed for pain, CIGAR HEAD HOLER CHECKED, # 90 tablet, 0 Refills, Maintenance, 02/19/21 15:31:00 EDT, Tablet, [facility]/pharmacy #[id number], 162.3, cm, 02/10/21 7:41:00 EDT, Height, 93, kg, 11/26/19 8:56:00 EDT, Dry Weight Start Date: 02/19/21 Status: Ordered Ventolin HFA 108 mcg/inh inhalation aerosol with adapter 1 puffs = 90 mcg, Inhalation, 4 times a day, PRN for wheezing, # 3 each, 1 Refills, Maintenance, 12/17/20 10:28:00 EDT, Inhaler, [facility]/pharmacy #[id number], 163, cm, 11/10/20 17:34:00 EDT, Height, 93, kg, 11/26/19 8:56:00 EDT, Dry Weight Start Date: 12/17/20 Stop Date: 06/15/21 Status: Ordered Problem List Condition Effective Dates Status Health Status Inform ant Allergic rhinitis(Confirmed) Active Asthma(Confirmed) Active Brain concussion(Confirmed) Active Hyperlipidemia(Confirmed) Active Hypertension(Confirmed) 2003 Active IFG (impaired fasting glucose)(Confirmed) Active Injury of head or neck super ficial nerve(Confirmed) Active Microscopic hematuria(Confirmed) 2017 Active Obesity(Confirmed) Active Osteoarthritis of right knee(Confirmed) 2018 Active Steatosis of liver(Confirmed) Active Diabetes type 2, controlled(Confirmed) Active Vertigo(Confirmed) 2013 Active Social History Social History Type Response Smoking Status Former smoker; Other : Quit 1994; entered on: 08/05/15 Sex
--- OUTSIDE RECORDS SUMMARY | 2023-01-31 07:31 | XMS_ITS | Continuity of Care Document ---
Author Name Unknown Organization [facility] Adult Address [address] [place] [address]- Care Team Providers Care Silica Mixer Operator Name Role Phone Kath QUINN, Angy Primary Care Physician [place] [facility] [place]25/19 [facility] [address] [place] [id number] Encounter Diagnosis Hypertension(Discharge Diagnosis) - 12/18/19 Hyperlipidemia(Discharge Diagnosis) - 12/18/19 Osteoarthritis of right knee(Discharge Diagnosis) - 12/18/19 Asthma(Discharge Diagnosis) - 12/18/19 Attending Physician: Kath QUINN, Angy Allergies, Adverse Reactions, Alerts Substance Reaction Severity Status ibuprofen SOB Active penicillins 1 rash Active Daypro Rash Active DayQuil Resolved 1Rash Immunizations Given and Recorded Vaccine Date Status Refusal Reason pneumococcal 23-valent vaccine 07/12/17 Given influenza virus vaccine, inactivated 1 03/27/17 Gi kristen influenza virus vaccine, inactivated 05/04/16 Santy rded influenza virus vaccine, inactivated 2 04/11/09 Gi kristen influenza virus vaccine, inactivated 05/26/07 Give n tetanus/diphtheria/pertussis, acel(Tdap) 08/05/15 Given Not Given Vaccine Date Status Refusal Reason pneumococcal 23-valent vaccine 09/05/13 Not Given Patient Refuses [facility]: vis 02/24/09 Medications albuterol 0.083% inhalation solution Neb, Every 6 hours, prn, 0 Refills, Maintenance, 02/11/19 11:47:59 EDT Start Date: 02/11/19 Status: Ordered meloxicam 15 mg oral tablet 1 tablet = 15 mg, TAKE 1 TABLET BY MOUTH EVERY DAY Start Date: 12/18/19 Status: Ordered montelukast 10 mg oral tablet 10 mg, 1, tablet, TAKE 1 TABLET BY MOUTH EVERY DAY IN THE EVENING Start Date: 05/28/18 Status: Ordered oxybutynin 5 mg/24 hours oral tablet, extended release 1 tablet = 5 mg, By Mouth, Daily, # 90 tablet, 1 Refills, Soft Stop, 07/25/19 14:35:00 EST, [facility]/pharmacy #[id number], 162, cm, 07/03/19 11:44:00 EST, Height, 91.3, kg, 08/17/17 8:43:00 EST, Dry Weight Start Date: 07/25/19 Status: Ordered Spiriva HandiHaler 18 mcg Inhalation Capsule INHALE 1 CAPSULE VIA HANDIHALER ONCE DAILY AT THE SAME TIME EVERY DAY Start Date: 05/28/18 Status: Ordered Symbicort 160mcg/4.5mcg Inhaler TAKE 2 PUFFS BY MOUTH TWICE A DAY Start Date: 05/28/18 Status: Ordered traMADol 50 mg oral tablet 1 tablet = 50 mg, By Mouth, Every 8 hours, PRN as needed for pain, LICENSED ARCHITECT CHECKED, # 90 tablet, 0 Refills, Maintenance, 12/11/19 14:45:00 EDT, Tablet, [facility]/pharmacy #[id number], 163, cm, 11/26/19 8:56:00 EDT, Height, 93, kg, 11/26/19 8:56:00 EDT, Dry Weight Start Date: 12/11/19 Status: Ordered Ventolin HFA 108 mcg/inh inhalation aerosol with adapter 1 puffs = 90 mcg, Inhalation, 4 times a day, PRN for wheezing, # 1 each, 0 Refills, Maintenance, 12/18/19 9:36:00 EDT, Inhaler, [facility]/pharmacy #[id number], 163, cm, 12/17/19 16:39:00 EDT, Height, 93, kg, 11/26/19 8:56:00 EDT, Dry Weight Start Date: 12/18/19 Status: Ordered Vitamin D3 2000 intl units oral tablet 1 tablet = 2,000 International_Units, By Mouth, Daily, # 30 tablet, 5 Refills, Maintenance, 11/19/19 13:43:00 EDT, Tablet, [id number], 162, cm, 07/03/19 11:44:00 EST, Height Start Date: 11/19/19 Stop Date: 05/17/20 Status: Ordered Problem List Condition Effective Dates Status Health Status Inform ant Allergic rhinitis(Confirmed) Active Asthma(Confirmed) Active Brain concussion(Confirmed) Active Hyperlipidemia(Confirmed) Active Hypertension(Confirmed) 2003 Active Injury of head or neck super ficial nerve(Confirmed) Active Microscopic hematuria(Confirmed) 2017 Active Obesity(Confirmed) Active Osteoarthritis of right knee(Confirmed) 2017 Active Steatosis of liver(Confirmed) Active Vertigo(Confirmed) 2013 Active Diagnosis Diagnosis Type Effective Dates Health Status Clinical Service Informant Hypertension Discharge Diagnosis 12/18/19 Hyperlipidemia Discharge Diagnosis 12/18/19 Osteoarthritis of right knee Discharge Diagnosis 12/18/19 Asthma Discharge Diagnosis 12/18/19 Vital Signs Most recent to oldest [Reference Range]: 1 Height 163 cm (12/17/19 4:39 PM) Social History Social History Type Response Smoking Status Former smoker; Other : Quit 1994; entered on: 08/05/15 Sex
--- OUTSIDE RECORDS SUMMARY | 2023-01-31 07:31 | XMS_ITS | Continuity of Care Document ---
Author Name Unknown Organization [facility] Address [address] [place] [address]- Care Team Providers Care Market Gardener Name Role Phone Kath QUINN, [place] Primary Care Physician Encounter [facility] [place] Date(s): 02/12/21 - 03/14/21 [facility] [address] [place] [address]- Allergies, Adverse Reactions, Alerts Substance Reaction Severity [...] 1 Refills, Maintenance, 11/04/20 11:49:00 EDT, Solution, [facility]/pharmacy #[id number], 163, cm, 11/03/20 13:05:00 EDT, Height, 93, kg, 11/26/19 8:56:00 EDT, Dry Weight Start Date: 11/04/20 Status: Ordered buPROPion 150 mg/12 hours (SR) oral tablet, extended release 1 tablet = 150 mg, By Mouth, 2 times a day, Take once a day for the first 3 days, # 60 tablet, 1 Refills, Maintenance, 01/13/21 11:25:00 EDT, ER Tablet, [facility]/pharmacy #[id number], Partial fill upon patient [...] 5 Refills, Maintenance, 12/10/20 12:48:00 EDT,Tablet, [facility]/pharmacy #[id number], Partial fill upon patient request if the prescription is for a scheduleII opioid drug., 1 tablet By Mouth Daily in PM, 163... Start Date: 12/10/20 Status: Ordered meloxicam 15 mg oral tablet 1 tablet, By Mouth, Daily, # 30 tablet, 0 Refills, [facility], 162.3, cm, 02/10/21 7:41:00 EDT, Height, 93, kg, 11/26/19 8:56:00 EDT, Dry Weight Start Date: 03/05/21 Status: Ordered oxybutynin 10 mg/24 hr oral tablet, extended release 1 tablet = 10 mg, By Mouth, Daily, # 30 tablet, 5 Refills, Maintenance, 01/11/21 8:40:00 EDT, ER Tablet, [facility]/pharmacy #[id number], Partial fill upon patient request if the prescription is for a schedule IIopioid drug., 163, cm, 11/10/20 17:34:00 EDT, Heigh... Start Date: 01/11/21 Status: Ordered sodium chloride 0.9% nasal spray 1 sprays, Nares, Both, Every 30 minutes, PRN for dry nasal passages, # 45 mL, 1 Refills, Maintenance, 02/10/21 8:48:00 EDT, [place], [facility]/pharmacy #[id number], Partial fill upon patient request if the prescription is for a schedule II opioid drug., 1 sprays Na... Start Date: 02/10/21 Status: Ordered Symbicort 160mcg/4.5mcg Inhaler 2, puffs, Inhalation, 2 times a day, # 1 each, Refills 5, Tot. Refills 5, Maintenance, 07/15/20 11:47:00 EST, Inhaler, Route to Pharmacy Electronically, [id number], [facility]/pharmacy #[id number], 163, cm, 07/15/20 11:23:00 EST, Height,... Start Date: 07/15/20 Status: Ordered traMADol 50 mg oral tablet 1 tablet = 50 mg, By Mouth, Every 8 hours, PRN as needed for pain, METAL FITTER CHECKED, # 90 tablet, 0 Refills, Maintenance, 02/19/21 15:31:00 EDT, Tablet, [facility]/pharmacy #[id number], 162.3, cm, 02/10/21 7:41:00 EDT, Height, 93, kg, 11/26/19 8:56:00 EDT, Dry Weight Start Date: 02/19/21 Status: Ordered Ventolin HFA 108 mcg/inh inhalation aerosol with adapter 1 puffs = 90 mcg, Inhalation, 4 times a day, PRN for wheezing, # 3 each, 1 Refills, Maintenance, 12/17/20 10:28:00 EDT, Inhaler, [facility]/pharmacy #[id number], 163, cm, 11/10/20 17:34:00 [...]
--- OUTSIDE RECORDS SUMMARY | 2023-01-31 07:31 | XMS_ITS | Continuity of Care Document ---
Author Name Unknown Organization [facility] Adult Address [address] [place] [address]- Care Team Providers Care Field Support Technician Name Role Phone Kath QUINN, [place] Primary Care Physician [place] [facility] [place]): 01/25/21 - 02/24/21 [facility] Adult [address] [place] [address]- Allergies, Adverse Reactions, Alerts Substance Reaction Severity [...] 1 Refills, Maintenance, 11/04/20 11:49:00 EDT, Solution, [id number], 163, cm, 11/03/20 13:05:00 EDT, Height, 93, kg, 11/26/19 8:56:00 EDT, Dry Weight Start Date: 11/04/20 Status: Ordered buPROPion 150 mg/12 hours (SR) oral tablet, extended release 1 tablet = 150 mg, By Mouth, 2 times a day, Take once a day for the first 3 days, # 60 tablet, 1 Refills, Maintenance, 01/13/21 11:25:00 EDT, ER Tablet, [id number], Partial fill upon patient request if the prescription is for a schedule II opi... Start Date: 01/13/21 Status: Ordered levocetirizine 5 mg oral tablet 1 tablet = 5 mg, By Mouth, Daily in PM, # 30 tablet, 5 Refills, Maintenance, 12/10/20 12:48:00 EDT,Tablet, [id number], Partial fill upon patient request if the prescription is for a scheduleII opioid drug., 1 tablet By Mouth Daily in PM, 163... Start Date: 12/10/20 Status: Ordered meloxicam 15 mg oral tablet 1 tablet = 15 mg, By Mouth, Daily, # 30 tablet, 0 Refills, Maintenance, 02/08/21 16:51:00 EDT, Tablet, [id number], Partial fill upon patient request if the prescription is for a schedule II opioid drug., 162.3, cm, 01/13/21 10:35:00 EDT, Heigh... Start Date: 02/08/21 Status: Ordered oxybutynin 10 mg/24 hr oral tablet, extended release 1 tablet = 10 mg, By Mouth, Daily, # 30 tablet, 5 Refills, Maintenance, 01/11/21 8:40:00 EDT, ER Tablet, [id number], Partial fill upon patient request if the prescription is for a schedule IIopioid drug., 163, cm, 11/10/20 17:34:00 EDT, Heigh... Start Date: 01/11/21 Status: Ordered sodium chloride 0.9% nasal spray 1 sprays, Nares, Both, Every 30 minutes, PRN for dry nasal passages, # 45 mL, 1 Refills, Maintenance, 02/10/21 8:48:00 EDT, [place], [facility]/pharmacy #[id number], Partial fill upon patient request if the prescription is for a schedule II opioid drug., 1 sprays Na... Start Date: 02/10/21 Status: Ordered Symbicort 160mcg/4.5mcg Inhaler 2, puffs, Inhalation, 2 times a day, # 1 each, Refills 5, Tot. Refills 5, Maintenance, 07/15/20 11:47:00 EST, Inhaler, Route to Pharmacy Electronically, [id number], [facility]/pharmacy #[id number], 163, cm, 07/15/20 11:23:00 EST, Height,... 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, # 90 tablet, 0 Refills, Maintenance, 02/19/21 15:31:00 EDT, Tablet, [facility]/pharmacy #207, 162.3, cm, 02/10/21 7:41:00 EDT, Height, 93, kg, 11/26/19 8:56:00 EDT, Dry Weight Start Date: 02/19/21 Status: Ordered Ventolin HFA 108 mcg/inh inhalation aerosol with adapter 1 puffs = 90 mcg, Inhalation, 4 times a day, PRN for wheezing, # 3 each, 1 Refills, Maintenance, 12/17/20 10:28:00 EDT, Inhaler, [facility]/pharmacy #207, 163, cm, 11/10/20 17:34:00 EDT, Height, 93, kg, 11/26/19 8:56:00 EDT, Dry Weight Start Date: 12/17/20 Stop Date: 06/15/21 Status: Ordered Problem List Condition Effective Dates Status Health Status Inform ant Allergic rhinitis(Confirmed) Active Asthma(Confirmed) Active Brain concussion(Confirmed) Active Hyperlipidemia(Confirmed) Active Hypertension(Confirmed) 2004 Active IFG (impaired fasting glucose)(Confirmed) Active Injury of head or neck super ficial nerve(Confirmed) Active Microscopic hematuria(Confirmed) 2018 Active Obesity(Confirmed) Active Osteoarthritis of right knee(Confirmed) 2018 Active Steatosis of liver(Confirmed) Active Diabetes type 2, controlled(Confirmed) Active Vertigo(Confirmed) 2013 Active Social History Social History Type Response Smoking Status Former smoker; Other : Quit 1994; entered on: 08/05/15 Sex
--- OUTSIDE RECORDS SUMMARY | 2023-01-31 07:31 | XMS_ITS | Continuity of Care Document ---
Author Name Unknown Organization [facility] Adult Address [address] [place] [address]- Care Team Providers Care Potato Grader Name Role Phone Kath QUINN, Angy Primary Care Physician [place] [facility] [place] 06/16/22 - 06/23/22 [facility] Adult [address] [place] [phone]- Encounter Diagnosis Asthma with exacerbation(Discharge Diagnosis) - 06/16/22 Headache(Discharge Diagnosis) - 06/16/22 Decreased appetite(Discharge Diagnosis) - 06/16/22 Attending Physician: Paige Guy Allergies, Adverse Reactions, Alerts Substance Reaction Severity Status penicillins 1 rash Active Daypro Rash Active ibuprofen SOB Active DayQuil Resolved 1Rash Immunizations Given and [...] Medications atorvastatin 20 mg oral tablet 1 tablet = 20 mg, By Mouth, Daily, # 30 tablet, 5 Refills, Maintenance, 03/01/22 8:08:00 EDT, Tablet, [facility]/pharmacy #[id number], Partial fill upon patient request if the prescription is for a schedule II opioid drug., 162.3, cm, 02/23/22 15:56:00 EDT, Height Start Date: 03/01/22 Status: Ordered buPROPion 150 mg/12 hours (SR) oral tablet, extended release 1 tablet = 150 mg, By Mouth, 2 times a day, Take once a day for the first 3 days, # 60 tablet, 1 Refills, Maintenance, 01/13/21 11:25:00 EDT, ER Tablet, [facility]/pharmacy #[id number], Partial fill upon patient request if the prescription is for a schedule II opi... Start Date: 01/13/21 Status: Ordered Excedrin Aspirin Free 500 mg-65 mg oral tablet 2 tablet, By Mouth, Every 6 hours, PRN for pain, # 80 tablet, 0 Refills, Acute 07/17/22 14:30:00 EST, 06/16/22 14:29:00 EST, Tablet, [facility]/pharmacy #[id number], Partial fill upon patient request if the prescription is for a schedule II opioid drug., 2 tablet... Start Date: 06/16/22 Stop Date: 07/17/22 Status: Ordered Freestyle Lite Lancets See Instructions, [...] Refills, Maintenance, 12/10/20 12:48:00 EDT,Tablet, [facility]/pharmacy #[id number], Partial fill upon patient request if the prescription is for a scheduleII opioid drug., 1 tablet By Mouth Daily in PM, 163... Start Date: 12/10/20 Status: Ordered meloxicam 15 mg oral tablet 1 tablet, By Mouth, Daily, # 30 tablet, 4 Refills, Maintenance, 06/10/22 8:44:00 EST, [facility] STORE [id number], 162.3, cm, 02/23/22 15:56:00 EDT, Height Start Date: 06/10/22 Status: Ordered oxybutynin 10 mg/24 hr oral tablet, extended release 1 tablet, By Mouth, Daily, # 90 tablet, 2 Refills, 10/07/21 16:41:00 EDT, [id number], 162.3, cm, 10/04/21 13:55:00 EDT, Height, 93, kg, 11/26/19 8:56:00 EDT, Dry Weight Start Date: 10/07/21 Status: Ordered predniSONE 20 mg oral tablet See Instructions, Take 3 tablets by mouth daily for 3 days, then take 2 tablets by mouth daily for 3 days, then take 1 tablet by mouth daily for 3 days., # 18 tablet, 0 Refills, Acute 06/25/22 14:29:00 EST, 06/16/22 14:28:00 EST, [facility]/pharmacy #[id number], P... Start Date: 06/16/22 Stop Date: 06/25/22 Status: Ordered sodium chloride 0.9% nasal spray 1 sprays, Nares, Both, Every 30 minutes, PRN for dry nasal passages, # 45 mL, 1 Refills, Maintenance, 02/10/21 8:48:00 EDT, [id number] Partial fill upon patient request if the prescription is for a schedule II opioid drug., 1 sprays Na... Start Date: 02/10/21 Status: Ordered Symbicort 160mcg/4.5mcg Inhaler 2, puffs, Inhalation, 2 times a day, # 1 each, Refills 5, Tot. Refills 5, Maintenance, 07/15/20 11:47:00 EST, Inhaler, Route to Pharmacy Electronically, [id number], [facility] 163, cm, 07/15/20 11:23:00 EST, Height,... Start Date: 07/15/20 Status: Ordered traMADol 50 mg oral tablet 1 tablet = 50 mg, By Mouth, Every 8 hours, PRN as needed for pain, CASING SEWER CHECKED, # 90 tablet, 0 Refills, Maintenance, 05/24/22 16:59:00 EST, Tablet, [facility] 162.3, cm, 02/23/22 15:56:00 EDT, Height Start Date: 05/24/22 Status: Ordered Ventolin HFA 108 mcg/inh inhalation aerosol with adapter 1 puffs, Inhalation, 4 times a day, PRN NEEDED FOR WHEEZING, # 54 each, 1 Refills, [id number], 162.3, cm, 04/16/21 8:01:00 EDT, Height, 93, kg, 11/26/19 8:56:00 EDT, Dry Weight Start Date: 07/28/21 Status: Ordered Vitamin D3 50,000 intl units oral capsule 1 capsule = 1,250 mcg, By Mouth, Every week, # 12 capsule, 0 Refills, Maintenance, 03/01/22 8:08:00EDT, Capsule, [facility]/pharmacy #[id number], Partial fill upon patient request if the prescription is for a schedule II opioid drug., 162.3, cm, 02/23/22 15:56:00... Start Date: 03/01/22 Status: Ordered Problem List Condition Confirmation Course [...] controlled Confirmed Active Vertigo Confirmed 2013 Active Diagnosis Diagnosis Type Effective Dates Health Status Clinical Service Informant Asthma with exacerbation Discharge Diagnosis 06/16/22 Headache Discharge Diagnosis 06/16/22 Decreased appetite Discharge Diagnosis 06/16/22 Vital Signs Most recent to oldest [Reference Range]: 1 2 Height 162.3 cm (06/16/22 2:20 PM) 162.3 cm (06/16/22 1:31 PM) Weight 101 kg (06/16/22 1:31 PM) Body Mass Index [18.5-24.99 kg/m2] 38.34 kg/m2 *>HHI* (06/16/22 1:31 PM) Blood Pressure [90-138/55-84 mm Hg] 119/ 80mm Hg (06/16/22 2:20 PM) 140/103mm Hg *H* (06/16/22 1:31 PM) Blood pressure sites Arm, left (06/16/22 1:31 PM) Weight Obtained Via Patient/family state d (06/16/22 1:31 PM) Social History Social History Type Response Smoking Status Former smoker; Other : Quit 1994; entered on: 08/05/15 Sex Patient Care team information Care Team Personnel Name: Angy Stockton MD Position: [facility] Primary Care Physician Member Role: PCP Address: Address: [address] [place] [address]- Care Team Related Persons Name: DHRUV HSU Address: [place] [address] Name: TOMASA DUBOIS Address: [place] [address]
--- OUTSIDE RECORDS SUMMARY | 2023-01-31 07:31 | XMS_ITS | Continuity of Care Document ---
Author Name Unknown Organization [facility] Adult Address [address] [place] [address]- Care Team Providers Care Metallographer Name Role Phone Kath QUINN, [place] Primary Care Physician [place] [facility] [place] 05/08/22 [facility] Adult [address] [place] [address]- Allergies, Adverse Reactions, Alerts Substance Reaction Severity Status Daypro Rash Active penicillins 1 rash Active ibuprofen SOB Active DayQuil Resolved 1Rash [...] Refills, Maintenance, 03/01/22 8:08:00 EDT, Tablet, [facility]/pharmacy #[id number], Partial fill upon patient request [...] 01/13/21 11:25:00 EDT, ER Tablet, [facility]/pharmacy #[id number], Partial fill upon patient request [...] Refills, Maintenance, 12/10/20 12:48:00 EDT,Tablet, [facility]/pharmacy #[id number], Partial fill upon patient request if the prescription is for a scheduleII opioid drug., 1 tablet By Mouth Daily in PM, 163... Start Date: 12/10/20 Status: Ordered meloxicam 15 mg oral tablet 1 tablet, By Mouth, Daily, # 30 tablet, 5 Refills, 08/06/21 10:23:00 EST, [facility]/pharmacy #[id number], 162.3, cm, 04/16/21 8:01:00 EDT, Height, 93, kg, 11/26/19 8:56:00 EDT, Dry Weight Start Date: 08/06/21 Status: Ordered oxybutynin 10 mg/24 hr oral tablet, extended release 1 tablet, By Mouth, Daily, # 90 tablet, 2 Refills, 10/07/21 16:41:00 EDT, [facility]/pharmacy #[id number], 162.3, cm, 10/04/21 13:55:00 EDT, Height, 93, kg, 11/26/19 8:56:00 EDT, Dry Weight Start Date: 10/07/21 Status: Ordered sodium chloride 0.9% nasal spray 1 sprays, Nares, Both, Every 30 minutes, PRN for dry nasal passages, # 45 mL, 1 Refills, Maintenance, 02/10/21 8:48:00 EDT, [place], [facility]/pharmacy #[id number], Partial fill upon patient request if the prescription is for a schedule II opioid drug., 1 sprays Na... Start Date: 02/10/21 Status: Ordered Symbicort 160mcg/4.5mcg Inhaler 2, puffs, Inhalation, 2 times a day, # 1 each, Refills 5, Tot. Refills 5, Maintenance, 07/15/20 11:47:00 EST, Inhaler, Route to Pharmacy Electronically, [id number], [facility]/pharmacy #[id number], 163, cm, 07/15/20 11:23:00 EST, Height,... 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, # 90 tablet, 0 Refills, Maintenance, 04/20/22 14:20:00 EDT, Tablet, [facility]/pharmacy #[id number], 162.3, cm, 02/23/22 15:56:00 EDT, Height Start Date: 04/20/22 Status: Ordered Ventolin HFA 108 mcg/inh inhalation aerosol with adapter 1 puffs, Inhalation, 4 times a day, PRN NEEDED FOR WHEEZING, # 54 each, 1 Refills, [id number], 162.3, cm, 04/16/21 8:01:00 EDT, Height, 93, kg, 11/26/19 8:56:00 EDT, Dry Weight Start Date: 07/28/21 Status: Ordered Vitamin D3 50,000 intl units oral capsule 1 capsule = 1,250 mcg, By Mouth, Every week, # 12 capsule, 0 Refills, Maintenance, 03/01/22 8:08:00EDT, Capsule, [id number], Partial fill upon patient request [...] on: 08/05/15 Sex Patient Care team information Personnel Name: Angy Stockton MD Address: Address: [address] [place], [place] [address]
--- OUTSIDE RECORDS SUMMARY | 2023-01-31 07:31 | XMS_ITS | Continuity of Care Document ---
Author Name Unknown Organization [facility] Adult Address [address] [place] [address]- Care Team Providers Care Department Chairperson Name Role Phone Kath QUINN, Angy Primary Care Physician [place] [facility] [place] - 07/10/19 [facility] Adult [address] [place] [address]- [facility] Encounter Diagnosis Well adult exam(Discharge Diagnosis) - 07/03/19 Hypertension(Discharge Diagnosis) - 07/03/19 Asthma(Discharge Diagnosis) - 07/03/19 Obesity(Discharge Diagnosis) - 07/03/19 Hyperlipidemia(Discharge Diagnosis) - 07/03/19 Steatosis of liver(Discharge Diagnosis) - 07/03/19 Osteoarthritis of right knee(Discharge Diagnosis) - 07/03/19 Attending Physician: Kath QUINN, Angy Allergies, Adverse [...] [facility]09 Medications acetaminophen 325 mg oral tablet 650 mg, 2, tablet, By Mouth, Every 4 hours, PRN, # 120 tablet, Refills 0, Tot. Refills 0, Maintenance, for pain, 03/14/19 14:02:24 EDT, Print Requisition Start Date: 03/14/19 Status: Ordered albuterol 0.083% inhalation solution Neb, Every 6 hours, prn, 0 Refills, Maintenance, 02/11/19 11:47:59 EDT Start Date: 02/11/19 Status: Ordered montelukast 10 mg oral tablet 10 mg, 1, tablet, TAKE 1 TABLET BY MOUTH EVERY DAY IN THE EVENING Start Date: 05/28/18 Status: Ordered oxybutynin 5 mg/24 hours oral tablet, extended release See Instructions, # 90 tablet, Refills 1 Tot. 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, # 90 tablet, 0 Refills, Maintenance, 07/04/19 14:33:00 EST, Tablet, [facility]/pharmacy #[id number], 162, cm, 07/03/19 11:44:00 EST,Height, 91.3, kg, 08/17/17 8:43:00 EST, Dry Weight Start Date: 07/04/19 Status: Ordered Ventolin HFA 108 mcg/inh inhalation aerosol with adapter 1 puffs, Inhalation, 4 times a day, PRN for wheezing, # 18 Gm, 0 Refills, Maintenance, 05/28/18 13:29:39 EST, Aerosol Start Date: 05/28/18 Status: Ordered Vitamin D3 2000 intl units oral tablet 1 tablet = 2,000 International_Units, By Mouth, Daily, 0 Refills, Maintenance, 10/21/16 9:10:37 Start Date: 10/21/16 Status: Ordered Problem List Condition Effective Dates Status Health Status Inform ant Allergic rhinitis(Confirmed) Active Asthma(Confirmed) Active Brain concussion(Confirmed) Active Hyperlipidemia(Confirmed) Active Hypertension(Confirmed) 2003 Active Injury of head or neck super ficial nerve(Confirmed) Active Microscopic hematuria(Confirmed) 2018 Active Obesity(Confirmed) Active Osteoarthritis of right knee(Confirmed) 2017 Active Steatosis of liver(Confirmed) Active Vertigo(Confirmed) 2013 Active Diagnosis Diagnosis Type Effective Dates Health Status Clinical Service Informant Well adult exam Discharge Diagnosis 07/03/19 Hypertension Discharge Diagnosis 07/03/19 Asthma Discharge Diagnosis 07/03/19 Obesity Discharge Diagnosis 07/03/19 Hyperlipidemia Discharge Diagnosis 07/03/19 Steatosis of liver Discharge Diagnosis 07/03/19 Osteoarthritis of right knee Discharge Diagnosis 07/03/19 Vital Signs Most recent to oldest [Reference Range]: 1 Height 162 cm (07/03/19 11:44 AM) Weight 94.3 kg (07/03/19 11:44 AM) Body Mass Index [18.5-24.99] 35.93 *>HHI* (07/03/19 11:44 AM) Blood Pressure [90-138/55-84 mm Hg] 122/ 78mm Hg (07/03/19 11:44 AM) Temperature [96.8-100.4 DegF] 98.2 DegF (07/03/19 11:44 AM) Blood pressure sites Arm, left (07/03/19 11:44 AM) Temperature Route Oral (07/03/19 11:44 AM) Social History Social History Type Response Smoking Status Former smoker; Other : Quit 1994; entered on: 08/05/15 Sex
--- OUTSIDE RECORDS SUMMARY | 2023-01-31 07:31 | XMS_ITS | Continuity of Care Document ---
Author Name Unknown Organization [facility] ter Address [address] [place] [address]- Care Team Providers Care Wire Spiral Binder Name Role Phone Kath QUINN, Angy Primary Care Physician Encounter [facility] [place] Date(s): 12/10/20 - 02/27/[address] [address] Attending Physician: Angy Stockton MD Admitting Physician: Angy Stockton MD Referring Physician: Angy Stockton MD Allergies, Adverse Reactions, Alerts Substance Reaction Severity [...] 1 Refills, Maintenance, 11/04/20 11:49:00 EDT, Solution, [facility]/pharmacy #[id number], 163, cm, 11/03/20 13:05:00 EDT, Height, 93, kg, 11/26/19 8:56:00 EDT, Dry Weight Start Date: 11/04/20 Status: Ordered buPROPion 150 mg/12 hours (SR) oral tablet, extended release 1 tablet = 150 mg, By Mouth, 2 times a day, Take once a day for the first 3 days, # 60 tablet, 1 Refills, Maintenance, 01/13/21 11:25:00 EDT, ER Tablet, [facility]/pharmacy #[id number], Partial fill upon patient request if [...] tablet, 5 Refills, Maintenance, 12/10/20 12:48:00 EDT,Tablet, [facility]/pharmacy #[id number], Partial fill upon patient request if the prescription is for a scheduleII opioid drug., 1 tablet By Mouth Daily in PM, 163... Start Date: 12/10/20 Status: Ordered meloxicam 15 mg oral tablet 1 tablet = 15 mg, By Mouth, Daily, # 30 tablet, 0 Refills, Maintenance, 02/08/21 16:51:00 EDT, Tablet, [facility]/pharmacy #[id number], Partial fill upon patient request if the prescription is for a schedule II opioid drug., 162.3, cm, 01/13/21 10:35:00 EDT, Heigh... Start Date: 02/08/21 Status: Ordered oxybutynin 10 mg/24 hr oral tablet, extended release 1 tablet = 10 mg, By Mouth, Daily, # 30 tablet, 5 Refills, Maintenance, 01/11/21 8:40:00 EDT, ER Tablet, [facility]/pharmacy #[id number], Partial fill upon patient request if the prescription is for a schedule IIopioid drug., 163, cm, 11/10/20 17:34:00 EDT, Heigh... Start Date: 01/11/21 Status: Ordered sodium chloride 0.9% nasal spray 1 sprays, Nares, Both, Every 30 minutes, PRN for dry nasal passages, # 45 mL, 1 Refills, Maintenance, 02/10/21 8:48:00 EDT, [place], [facility]/pharmacy #[id number], Partial fill upon patient request if the prescription is for a schedule II opioid drug., 1 sprays Na... Start Date: 02/10/21 Status: Ordered Symbicort 160mcg/4.5mcg Inhaler 2, puffs, Inhalation, 2 times a day, # 1 each, Refills 5, Tot. Refills 5, Maintenance, 07/15/20 11:47:00 EST, Inhaler, Route to Pharmacy Electronically, [id number], [facility]/pharmacy #1, 163, cm, 07/15/20 11:23:00 EST, Height,... 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
--- OUTSIDE RECORDS SUMMARY | 2023-01-31 07:31 | XMS_ITS | Continuity of Care Document ---
Author Name Unknown Organization [facility] Adult Address [address] [place] [address]- Care Team Providers Care Sales Agent Name Role Phone Kath QUINN, [place] Primary Care Physician [place] [facility] [place] [facility] Adult [address] [place] [address]- Allergies, Adverse Reactions, Alerts Substance Reaction Severity [...] Daily, # 30 tablet, 0 Refills, Maintenance, 01/13/21 11:24:00 EDT, Tablet, [id number], Partial fill upon patient request if the prescription is for a schedule II opioid drug., 162.3, cm, 01/13/21 10:35:00 EDT, Heigh... Start Date: 01/13/21 Status: Ordered oxybutynin 10 mg/24 hr oral tablet, extended release 1 tablet = 10 mg, By Mouth, Daily, # 30 tablet, 5 Refills, Maintenance, 01/11/21 8:40:00 EDT, ER Tablet, [id number], Partial fill upon patient request if the prescription is for a schedule IIopioid drug., 163, cm, 11/10/20 17:34:00 EDT, Heigh... Start Date: 01/11/21 Status: Ordered Symbicort 160mcg/4.5mcg Inhaler 2, puffs, Inhalation, 2 times a day, # 1 each, Refills 5, Tot. Refills 5, Maintenance, 07/15/20 11:47:00 EST, Inhaler, Route to Pharmacy Electronically, [id number], [facility]/pharmacy #[id number], 163, cm, 07/15/20 11:23:00 EST, Height,... Start Date: 07/15/20 Status: Ordered traMADol 50 mg oral tablet 1 tablet = 50 mg, By Mouth, Every 8 hours, PRN as needed for pain, BAGGAGE INSPECTOR CHECKED, # 90 tablet, 0 Refills, Maintenance, 12/21/20 9:37:00 EDT, Tablet, [facility]/pharmacy #[id number], 163, cm, 11/10/20 17:34:00 EDT, Height, 93, kg, 11/26/19 8:56:00 EDT, Dry Weight Start Date: 12/21/20 Status: Ordered Ventolin HFA 108 mcg/inh inhalation aerosol with adapter 1 puffs = 90 mcg, Inhalation, 4 times a day, PRN for wheezing, # 3 each, 1 Refills, Maintenance, 12/17/20 10:28:00 EDT, Inhaler, [facility]/pharmacy #[id number], 163, cm, 11/10/20 17:34:00 EDT, Height, [...] knee(Confirmed) 2018 Active Steatosis of liver(Confirmed) Active Vertigo(Confirmed) 2013 Active Social History Social History Type Response Smoking Status Former smoker; Other : Quit 1994; entered on: 08/05/15 Sex
--- OUTSIDE RECORDS SUMMARY | 2023-01-31 07:31 | XMS_ITS | Continuity of Care Document ---
Author Name Unknown Organization [facility] Address [address] [place] [address]- Care Team Providers Care Manager Business Name Role Phone Kath QUINN, Angy Primary Care Physician [id number] Date(s): 06/29/20 - 07/29/20 [facility] [address] [place] [address]- Allergies, Adverse Reactions, Alerts Substance Reaction Severity [...] [facility] vis [facility]24[facility]09 Medications meloxicam 15 mg oral tablet 1 tablet = 15 mg, TAKE 1 TABLET BY MOUTH EVERY DAY Start Date: 12/18/19 Status: Ordered montelukast 10 mg oral tablet 10 mg, 1, tablet, By Mouth, Daily, # 30 tablet, Refills 5, Tot. Refills 5, Maintenance, 07/15/20 11:47:00 EST, Route to Pharmacy Electronically, [facility]/pharmacy #[id number], Partial fill upon patient request if the prescription is for a schedule II opioid drug... Start Date: 07/15/20 Status: Ordered oxybutynin 10 mg/24 hr oral tablet, extended release 1 tablet = 10 mg, By Mouth, Daily, # 30 tablet, 5 Refills, Maintenance, 07/15/20 11:48:00 EST, ER Tablet, [facility]/pharmacy #207, Partial fill upon patient request if the prescription is for a schedule II opioid drug., 163, cm, 07/15/20 11:23:00 EST, [place]... Start Date: 07/15/20 Status: Ordered Symbicort 160mcg/4.5mcg Inhaler 2, puffs, Inhalation, 2 times a day, # 1 each, Refills 5, Tot. Refills 5, Maintenance, 07/15/20 11:47:00 EST, Inhaler, Route to Pharmacy Electronically, [id number], [facility]/pharmacy #207, 163, cm, 07/15/20 11:23:00 EST, Height,... Start Date: 07/15/20 Status: Ordered traMADol 50 mg oral tablet 1 tablet = 50 mg, By Mouth, Every 8 hours, PRN as needed for pain, EXHIBITION ORGANISER CHECKED, # 90 tablet, 0 Refills, Maintenance, 06/29/20 16:48:00 EST, Tablet, [facility]/pharmacy #207, 163, cm, 03/10/20 11:59:00 EDT,Height, 93, kg, 11/26/19 8:56:00 EDT, Dry Weight Start Date: 06/29/20 Status: Ordered Ventolin HFA 108 mcg/inh inhalation aerosol with adapter 1 puffs = 90 mcg, Inhalation, 4 times a day, PRN for wheezing, # 3 each, 0 Refills, Maintenance, 07/20/20 12:01:00 EST, Inhaler, [facility]/pharmacy #207, 163, cm, 07/15/20 11:23:00 EST, Height, 93, kg, 11/26/19 8:56:00 EDT, Dry Weight Start Date: 07/20/20 Stop Date: 10/18/20 Status: Ordered Vitamin D3 2000 intl units oral tablet 1 tablet = 2,000 International_Units, By Mouth, Daily, # 90 tablet, 1 Refills, Maintenance, 05/17/20 13:43:00 EST, Tablet, [id number], 163, cm, 03/10/20 11:59:00 EDT, Height, 93, kg, 208:56:00 EDT, Dry Weight Start Date: 05/17/20 Stop Date: 11/13/20 Status: Ordered Problem List Condition Effective Dates [...]
--- OUTSIDE RECORDS SUMMARY | 2023-01-31 07:31 | XMS_ITS | Continuity of Care Document ---
Author Name Unknown Organization [facility] Address [address] [place] [address]- Care Team Providers Care Access Database Developer Name Role Phone Kath QUINN, Angy Primary Care Physician [place] [facility] [place] 10/04/21 - 11/03/21 [facility] [address] [place] [address]- Attending Physician: Admtr, Ar8 Allergies, Adverse Reactions, Alerts Substance Reaction Severity Status penicillins 1 rash Active ibuprofen SOB Active DayQuil Resolved Daypro Rash Active 1Rash [...] Refills, Maintenance, 01/13/21 11:25:00 EDT, ER Tablet, [facility]/pharmacy #[id number], Partial fill upon patient request [...] tablet, 5 Refills, Maintenance, 12/10/20 12:48:00 EDT,Tablet, [facility]/pharmacy #[id number], Partial fill upon patient request if the prescription is for a scheduleII opioid drug., 1 tablet By Mouth Daily in PM, 163... Start Date: 12/10/20 Status: Ordered meloxicam 15 mg oral tablet 1 tablet, By Mouth, Daily, # 30 tablet, 5 Refills, 08/06/21 10:23:00 EST, [facility]/pharmacy #0373, 162.3, cm, 04/16/21 8:01:00 EDT, Height, 93, kg, 11/26/19 8:56:00 EDT, Dry Weight Start Date: 08/06/21 Status: Ordered oxybutynin 10 mg/24 hr oral tablet, extended release 1 tablet, By Mouth, Daily, # 90 tablet, 2 Refills, 10/07/21 16:41:00 EDT, [facility]/pharmacy #0373, 162.3, cm, 10/04/21 13:55:00 EDT, Height, 93, kg, 11/26/19 8:56:00 EDT, Dry Weight Start Date: 10/07/21 Status: Ordered sodium chloride 0.9% nasal spray 1 sprays, Nares, Both, Every 30 minutes, PRN for dry nasal passages, # 45 mL, 1 Refills, Maintenance, 02/10/21 8:48:00 EDT, [place], [facility]/pharmacy #[id number], Partial fill upon patient request if the prescription is for a schedule II opioid drug., 1 sprays Na... Start Date: 02/10/21 Status: Ordered Symbicort 160mcg/4.5mcg Inhaler 2, puffs, Inhalation, 2 times a day, # 1 each, Refills 5, Tot. Refills 5, Maintenance, 07/15/20 11:47:00 EST, Inhaler, Route to Pharmacy Electronically, [id number], [facility]/pharmacy #[id number], 163, cm, 07/15/20 11:23:00 EST, Height,... Start Date: 07/15/20 Status: Ordered traMADol 50 mg oral tablet 1 tablet = 50 mg, By Mouth, Every 8 hours, PRN as needed for pain, BELT SPLICER CHECKED, # 90 tablet, 0 Refills, Maintenance, 10/26/21 14:36:00 EDT, Tablet, [facility]/pharmacy #[id number], 162.3, cm, 10/04/21 13:55:00 EDT, Height, 93, kg, 11/26/19 8:56:00 EDT, Dry Weight Start Date: 10/26/21 Status: Ordered Ventolin HFA 108 mcg/inh inhalation aerosol with adapter 1 puffs, Inhalation, 4 times a day, PRN NEEDED FOR WHEEZING, # 54 each, 1 Refills, [id number], 162.3, cm, 04/16/21 8:01:00 EDT, Height, 93, [...]
--- OUTSIDE RECORDS SUMMARY | 2023-01-31 07:31 | XMS_ITS | Continuity of Care Document ---
Author Name Unknown Organization [facility] Address [address] [place] [address]- Care Team Providers Care Recovery Rn Name Role Phone Kath QUINN, Angy Primary Care Physician [place] [facility] [place] 07/07/20 - 07/14/20 [facility] [address] [place] [phone]- Encounter Diagnosis COVID-19 virus detected(Discharge Diagnosis) - 07/07/20 Asthma(Discharge Diagnosis) - 07/07/20 Attending Physician: Kath QUINN, Angy Allergies, Adverse [...] # 90 tablet, 1 Refills, Soft Stop, 01/21/20 14:11:00 EDT, [id number], 163, cm, 12/17/19 16:39:00 EDT, Height, 93, kg, 11/26/19 8:56:00 EDT, Dry Weight Start Date: 01/21/20 Status: Ordered Spiriva HandiHaler 18 mcg Inhalation Capsule INHALE 1 CAPSULE VIA HANDIHALER ONCE DAILY AT THE SAME TIME EVERY DAY Start Date: 05/28/18 Status: Ordered Symbicort 160mcg/4.5mcg Inhaler TAKE 2 PUFFS BY MOUTH TWICE A DAY Start Date: 05/28/18 Status: Ordered traMADol 50 mg oral tablet 1 tablet = 50 mg, By Mouth, Every 8 hours, PRN as needed for pain, PRINTER SLOTTER OPERATOR CHECKED, # 90 tablet, 0 Refills, Maintenance, 06/29/20 16:48:00 EST, Tablet, [facility]/pharmacy #[id number], 163, cm, 03/10/20 11:59:00 EDT,Height, 93, kg, 11/26/19 8:56:00 EDT, Dry Weight Start Date: 06/29/20 Status: Ordered Ventolin HFA 108 mcg/inh inhalation aerosol with adapter 1 puffs = 90 mcg, Inhalation, 4 times a day, PRN for wheezing, # 3 each, 0 Refills, Maintenance, 03/10/20 11:51:00 EDT, Inhaler, [id number], 163, cm, 03/10/20 11:45:00 EDT, Height, 93, kg, 11/26/19 8:56:00 EDT, Dry Weight Start Date: 03/10/20 Stop Date: 06/08/20 Status: Ordered Vitamin D3 2000 intl units [...] Diagnosis Diagnosis Type Effective Dates Health Status Cl inical Service Informant COVID-19 virus detected Discharge Diagnosis 07/07/20 Asthma Discharge Diagnosis 07/07/20 Vital Signs Most recent to oldest [Reference Range]: 1 Height 163 cm (07/07/20 2:56 PM) Social History Social History Type Response Smoking Status Former smoker; Other : Quit 1994; entered on: 08/05/15 Sex
--- OUTSIDE RECORDS SUMMARY | 2023-01-31 07:32 | XMS_ITS | Continuity of Care Document ---
Author Name Unknown Organization [facility] Address [address] [place] [address]- Care Team Providers Care Store Team Member Name Role Phone Kath QIUNN, Angy Primary Care Physician [place] [facility] [place] 04[place]/20 [facility] [address] [place] [phone]- [facility] Allergies, Adverse Reactions, Alerts Substance Reaction Severity [...] 1 Refills, Soft Stop, 01/21/20 14:11:00 EDT, [facility]/pharmacy #[id number], 163, cm, 12/17/19 16:39:00 EDT, Height, [...] 8 hours, PRN as needed for pain, LAND SURVEYING MANAGER CHECKED, # 90 tablet, 0 Refills, Maintenance, 03/30/20 14:00:00 EDT, Tablet, [facility]/pharmacy #[id number], 163, cm, 03/10/20 11:59:00 EDT,Height, 93, kg, 11/26/19 8:56:00 EDT, Dry Weight Start Date: 03/30/20 Status: Ordered Ventolin HFA 108 mcg/inh inhalation aerosol with adapter 1 puffs = 90 mcg, Inhalation, 4 times a day, PRN for wheezing, # 3 each, 0 Refills, Maintenance, 03/10/20 11:51:00 EDT, Inhaler, [facility]/pharmacy #1, 163, cm, 03/10/20 11:45:00 EDT, Height, 93, kg, 11/26/19 8:56:00 EDT, Dry Weight Start Date: 03/10/20 Stop Date: 06/08/20 Status: Ordered Vitamin D3 2000 intl units oral tablet 1 tablet = 2,000 International_Units, By Mouth, Daily, for 30 days, # 30 tablet, 5 Refills, Hard Stop 05/17/20 13:43:00 EST, 11/19/19 13:43:00 EDT, Tablet, [facility]/pharmacy #[id number], 162, cm, 07/03/19 11:44:00 EST, Height Start Date: 11/19/19 Stop Date: 05/17/20 Status: Ordered Vitamin D3 2000 intl units [...]
--- OUTSIDE RECORDS SUMMARY | 2023-01-31 07:32 | XMS_ITS | Continuity of Care Document ---
Author Name Unknown Organization [facility] Address [address] [place] [address]- Care Team Providers Care Service Vehicle Operator Name Role Phone Kath QUINN, Angy Primary Care Physician En[place] [facility] [place] Date(s): 03/10/20 - 04/09/20 [facility] [address] [place] [phone]- [facility] Attending Physician: Admtr, Prem Allergies, Adverse Reactions, Alerts Substance Reaction Severity [...] 1 Refills, Soft Stop, 01/21/20 14:11:00 EDT, [facility]/pharmacy #[id number], 163, cm, 12/17/19 16:39:00 EDT, Height, [...] 8 hours, PRN as needed for pain, SALES LEDGER CLERK CHECKED, # 90 tablet, 0 Refills, Maintenance, 03/30/20 14:00:00 EDT, Tablet, [facility]/pharmacy #[id number], 163, cm, 03/10/20 11:59:00 EDT,Height, 93, kg, 11/26/19 8:56:00 EDT, Dry Weight Start Date: 03/30/20 Status: Ordered Ventolin HFA 108 mcg/inh inhalation aerosol with adapter 1 puffs = 90 mcg, Inhalation, 4 times a day, PRN for wheezing, # 3 each, 0 Refills, Maintenance, 03/10/20 11:51:00 EDT, Inhaler, [facility], 163, cm, 03/10/20 11:45:00 EDT, Height, 93, kg, 11/26/19 8:56:00 EDT, Dry Weight Start Date: 03/10/20 Stop Date: 06/08/20 Status: Ordered Vitamin D3 2000 intl units oral tablet 1 tablet = 2,000 International_Units, By Mouth, Daily, for 30 days, # 30 tablet, 5 Refills, Hard Stop 05/17/20 13:43:00 EST, 11/19/19 13:43:00 EDT, Tablet, [facility], 162, cm, 07/03/19 11:44:00 EST, Height [...]
--- OUTSIDE RECORDS SUMMARY | 2023-01-31 07:32 | XMS_ITS | Continuity of Care Document ---
Author Name Unknown Organization [facility] Address [address] [place] [address]- Care Team Providers Care Assistant Accounting Manager Name Role Phone Kath QUINN, Angy Primary Care Physician [place] [facility] [place] 08/06/21 - 08/13/21 [facility] [address] [place] [address]- Encounter Diagnosis Well adult exam(Discharge Diagnosis) - 08/06/21 Diabetes type 2, controlled(Discharge Diagnosis) - 08/06/21 Asthma(Discharge Diagnosis) - 08/06/21 Hyperlipidemia(Discharge Diagnosis) - 08/06/21 Hypertension(Discharge Diagnosis) - 08/06/21 Steatosis of liver(Discharge Diagnosis) - 08/06/21 Osteoarthritis of right knee(Discharge Diagnosis) - 08/06/21 Obesity(Discharge Diagnosis) - 08/06/21 Attending Physician: Kath QUINN, Angy Allergies, Adverse [...] Maintenance, 01/13/21 11:25:00 EDT, ER Tablet, [id number], Partial fill upon patient request if the [...] tablet, 5 Refills, Maintenance, 12/10/20 12:48:00 EDT,Tablet, [facility]/pharmacy #[id number], Partial fill upon patient request if the prescription is for a scheduleII opioid drug., 1 tablet By Mouth Daily in PM, 163... Start Date: 12/10/20 Status: Ordered meloxicam 15 mg oral tablet 1 tablet, By Mouth, Daily, # 30 tablet, 5 Refills, 08/06/21 10:23:00 EST, [facility]/pharmacy #0373, 162.3, cm, 04/16/21 8:01:00 EDT, Height, 93, kg, 11/26/19 8:56:00 EDT, Dry Weight Start Date: 08/06/21 Status: Ordered oxybutynin 10 mg/24 hr oral tablet, extended release 1 tablet, By Mouth, Daily, # 90 tablet, 0 Refills, [facility] [id number], 162.3, cm, 04/16/21 8:01:00 EDT, Height, 93, kg, 11/26/19 8:56:00 EDT, Dry Weight Start Date: 07/05/21 Status: Ordered sodium chloride 0.9% nasal spray 1 sprays, Nares, Both, Every 30 minutes, PRN for dry nasal passages, # 45 mL, 1 Refills, Maintenance, 02/10/21 8:48:00 EDT, [place], [facility]/pharmacy #[id number], Partial fill upon patient request if the prescription is for a schedule II opioid drug., 1 sprays Na... Start Date: 02/10/21 Status: Ordered Symbicort 160mcg/4.5mcg Inhaler 2, puffs, Inhalation, 2 times a day, # 1 each, Refills 5, Tot. Refills 5, Maintenance, 07/15/20 11:47:00 EST, Inhaler, Route to Pharmacy Electronically, [id number], [facility]/pharmacy #[id number], 163, cm, 07/15/20 11:23:00 EST, Height,... Start Date: 07/15/20 Status: Ordered traMADol 50 mg oral tablet 1 tablet = 50 mg, By Mouth, Every 8 hours, PRN as needed for pain, THERAPEUTIC CONSULTANT CHECKED, # 90 tablet, 0 Refills, Maintenance, 08/03/21 14:11:00 EST, Tablet, [id number], 162.3, cm, 04/16/21 8:01:00 EDT, Height, 93, kg, 11/26/19 8:56:00 EDT, Dry Weight Start Date: 08/03/21 Status: Ordered Ventolin HFA 108 mcg/inh inhalation aerosol with adapter 1 puffs, Inhalation, 4 times a day, PRN NEEDED FOR WHEEZING, # 54 each, 1 Refills, [facility], 162.3, cm, 04/16/21 8:01:00 EDT, Height, 93, [...] Active Diabetes type 2, controlled(Confirmed) Active Vertigo(Confirmed) 2014 Active Diagnosis Diagnosis Type Effective Dates Health Status Clinical Service Informant Well adult exam Discharge Diagnosis 08/06/21 Diabetes type 2, controlled Discharge Diagnosis 08/06/21 Asthma Discharge Diagnosis 08/06/21 Hyperlipidemia Discharge Diagnosis 08/06/21 Hypertension Discharge Diagnosis 08/06/21 Steatosis of liver Discharge Diagnosis 08/06/21 Osteoarthritis of right knee Discharge Diagnosis 08/06/21 Obesity Discharge Diagnosis 08/06/21 Vital Signs Most recent to oldest [Reference Range]: 1 Height 162.3 cm (08/06/21 12:17 PM) Social History Social History Type Response Smoking Status Former smoker; Other : Quit 1994; entered on: 08/05/15 Sex
--- OUTSIDE RECORDS SUMMARY | 2023-01-31 07:32 | XMS_ITS | Continuity of Care Document ---
Author Name Unknown Organization [facility] Address [address] [place] [address]- Care Team Providers Care Twister Tender Name Role Phone Kath QUINN, [place] Primary Care Physician [place] [facility] [place](s): 01/19/21 - 02/18/21 [facility] [address] [place] [address]- Allergies, Adverse Reactions, Alerts Substance Reaction Severity [...] mL, 1 Refills, Maintenance, 02/10/21 8:48:00 EDT, [place], [facility]/pharmacy #207, Partial fill upon patient request if the prescription is for a schedule II opioid drug., 1 sprays Na... Start Date: 02/10/21 Status: Ordered Symbicort 160mcg/4.5mcg Inhaler 2, puffs, Inhalation, 2 times a day, # 1 each, Refills 5, Tot. Refills 5, Maintenance, 07/15/20 11:47:00 EST, Inhaler, Route to Pharmacy Electronically, [id number], [facility]/pharmacy #2070, 163, cm, 07/15/20 11:23:00 EST, Height,... Start Date: 07/15/20 Status: Ordered traMADol 50 mg oral tablet 1 tablet = 50 mg, By Mouth, Every 8 hours, PRN as needed for pain, MANNEQUIN MOLD MAKER CHECKED, # 90 tablet, 0 Refills, Maintenance, 12/21/20 9:37:00 EDT, Tablet, [facility]/pharmacy #1, 163, cm, 11/10/20 17:34:00 EDT, Height, 93, kg, 11/26/19 8:56:00 EDT, Dry Weight Start Date: 12/21/20 Status: Ordered Ventolin HFA 108 mcg/inh inhalation aerosol with adapter 1 puffs = 90 mcg, Inhalation, 4 times a day, PRN for wheezing, # 3 each, 1 Refills, Maintenance, 12/17/20 10:28:00 EDT, Inhaler, [facility]/pharmacy #207, 163, cm, 11/10/20 17:34:00 EDT, Height, [...] knee(Confirmed) 2017 Active Steatosis of liver(Confirmed) Active Diabetes type 2, controlled(Confirmed) Active Vertigo(Confirmed) 2013 Active Social History Social History Type Response Smoking Status Former smoker; Other : Quit 1994; entered on: 08/05/15 Sex
--- OUTSIDE RECORDS SUMMARY | 2023-01-31 07:32 | XMS_ITS | Continuity of Care Document ---
Author Name Unknown Organization [facility] Address [address] [place] [address]- Care Team Providers Care Coupon Clerk Name Role Phone Kath QUINN, Angy Primary Care Physician [place] [facility] [place] 02/21/20 - 03/22/20 [facility] [address] [place] [phone]- [facility] Allergies, Adverse Reactions, Alerts Substance Reaction Severity [...] 1 Refills, Soft Stop, 01/21/20 14:11:00 EDT, [facility]/pharmacy #[id number], 163, cm, 12/17/19 16:39:00 EDT, [...] 8 hours, PRN as needed for pain, EVENTS MANAGER CHECKED, # 90 tablet, 0 Refills, Maintenance, 01/28/20 9:39:00 EDT, Tablet, [facility]/pharmacy #1, 163, cm, 12/17/19 16:39:00 EDT, Height, 93, kg, 11/26/19 8:56:00 EDT, Dry Weight Start Date: 01/28/20 Status: Ordered Ventolin HFA 108 mcg/inh inhalation aerosol with adapter 1 puffs = 90 mcg, Inhalation, 4 times a day, PRN for wheezing, # 3 each, 0 Refills, Maintenance, 03/10/20 11:51:00 EDT, Inhaler, [facility]/pharmacy #1, 163, cm, 03/10/20 11:45:00 EDT, Height, 93, kg, 11/26/19 8:56:00 EDT, Dry Weight Start Date: 03/10/20 Stop Date: 06/08/20 Status: Ordered Vitamin D3 2000 intl units oral tablet 1 tablet = 2,000 International_Units, By Mouth, Daily, for 30 days, # 30 tablet, 5 Refills, Hard Stop 05/17/20 13:43:00 EST, 11/19/19 13:43:00 EDT, Tablet, [facility]/pharmacy #1, 162, cm, 07/03/19 11:44:00 EST, Height Start [...]
--- OUTSIDE RECORDS SUMMARY | 2023-01-31 07:32 | XMS_ITS | Continuity of Care Document ---
Author Name Unknown Organization [facility] Address [address] [place] [address]- Care Team Providers Care Orthodontist Vice President Name Role Phone Kath QUINN, [place] Primary Care Physician Encounter [facility] Date(s): 10/20/22 - 11/19/22 [facility] [address] [place] [address]- Allergies, Adverse Reactions, Alerts Substance Reaction Severity Status ibuprofen SOB Active penicillins 1 rash Active Daypro Rash Active DayQuil Resolved 1Rash Immunizations Given and Recorded Vaccine Date Status Refusal Reason [id number] 12y+ bivalent booster vax 06/14/22 Recorded influenza virus vaccine, inactivated 05/19/22 Santy rded influenza virus vaccine, inactivated 04/17/21 Santy rded influenza virus vaccine, inactivated 04/15/20 Santy rded influenza virus vaccine, inactivated 05/20/19 Santy rded influenza virus vaccine, inactivated 04/10/18 Santy rded influenza virus vaccine, inactivated 1 03/27/17 Gi kristen influenza virus vaccine, inactivated 05/04/16 Santy rded influenza virus vaccine, inactivated 2 04/11/09 Gi kristen influenza virus vaccine, inactivated 05/26/07 Give n SARS-CoV-2 (COVID-19) mRNA BNT-162b2 vac 05/31/21 Recorded SARS-CoV-2 (COVID-19) mRNA BNT-162b2 vac 11/26/20 Recorded SARS-CoV-2 (COVID-19) mRNA BNT-162b2 vac 10/14/20 Recorded zoster vaccine, inactivated 01/22/19 Recorded zoster vaccine, inactivated 10/22/18 Recorded pneumococcal 23-valent vaccine 07/12/17 Given tetanus/diphtheria/pertussis, acel(Tdap) 08/05/15 Given Not Given Vaccine Date Status Refusal Reason pneumococcal 23-valent vaccine 09/05/13 Not Given Patient Refuses [facility] vis 02/24/09 Medications atorvastatin 20 mg oral tablet 1 tablet, By Mouth, Daily, # 90 tablet, 1 Refills, Maintenance, 07/04/22 14:31:00 EST, [id number], 162.3, cm, 06/16/22 14:20:00 EST, Height Start Date: 07/04/22 Status: Ordered Freestyle Lite Lancets See Instructions, [...] Dry Weight Start Date: 02/26/21 Status: Ordered meloxicam 15 mg oral tablet 1 tablet, By Mouth, Daily, # 30 tablet, 4 Refills, Maintenance, 06/10/22 8:44:00 EST, [facility], 162.3, cm, 02/23/22 15:56:00 EDT, Height Start Date: 06/10/22 Status: Ordered oxybutynin 10 mg/24 hr oral tablet, extended release 1 tablet, By Mouth, Daily, # 90 tablet, 0 Refills, 08/12/22 12:40:00 EST, [facility]/pharmacy #[id number], 162.3, cm, 06/16/22 14:20:00 EST, Height Start Date: 08/12/22 Status: Ordered sodium chloride 0.9% nasal spray 1 sprays, Nares, Both, Every 30 minutes, PRN for dry nasal passages, # 45 mL, 1 Refills, Maintenance, 02/10/21 8:48:00 EDT, [place], [facility]/pharmacy #[id number], Partial fill upon patient request if the prescription is for a schedule II opioid drug., 1 sprays Na... Start Date: 02/10/21 Status: Ordered Symbicort 160mcg/4.5mcg Inhaler 2, puffs, Inhalation, 2 times a day, # 1 each, Refills 5, Tot. Refills 5, Maintenance, 10/21/22 15:14:00 EDT, Inhaler, Route to Pharmacy Electronically, [id number], [facility]/pharmacy #[id number], 162.2, cm, 08/29/22 12:06:00 EST, Height Start Date: 10/21/22 Status: Ordered traMADol 50 mg oral tablet 1 tablet = 50 mg, By Mouth, Every 8 hours, PRN as needed for pain, DELINQUENCY PREVENTION OFFICER CHECKED, # 90 tablet, 0 Refills, Maintenance, 10/20/22 19:23:00 EDT, Tablet, [facility]/pharmacy #[id number], 162.2, cm, 08/29/22 12:06:00 EST, Height Start Date: 10/20/22 Stop Date: 11/19/22 Status: Ordered Ventolin HFA 108 mcg/inh inhalation aerosol with adapter 1 puffs, Inhalation, 4 times a day, PRN NEEDED FOR WHEEZING, # 54 each, 1 Refills, 10/21/22 15:14:00 EDT, [facility]/pharmacy #[id number], 162.2, cm, 08/29/22 12:06:00 EST, Height Start Date: 10/21/22 Status: Ordered VITAMIN D VITAMIN D, Refills 0, Maintenance, 08/29/22 11:36:00 EST, Supply Start Date: 08/29/22 Status: Ordered Problem List Condition Confirmation Course Effective Dates Status H ealth Status Informant Allergic rhinitis Confirmed Active Asthma Confirmed Active Brain concussion Confirmed Active Hyperlipidemia Confirmed Active Hypertension Confirmed 2003 Active Injury of head or neck superficial nerve Confirmed Active Microscopic hematuria Confirmed 2017 Active Obesity Confirmed Active Osteoarthritis of right knee Confirmed 2017 Active Paraesophageal hiatal hernia Confirmed Active Severe obesity (BMI 35.0-39.9) with comorbidity Confirmed Active Steatosis of liver Confirmed Active Diabetes type 2, controlled Confirmed Active Vertigo Confirmed 2013 Active Social History Social History Type Response Smoking Status Former smoker; Other : Quit 1994; entered on: 08/05/15 Sex Patient Care team information Care Team Personnel Name: Angy Stockton MD Position: [facility] Primary Care Physician Member Role: PCP Address: Address: [address] [place] [address] [address] [place] [address]- Care Team Related Persons Name: DHRUV HSU Address: [place] [address] Name: TOMASA DUBOIS Address: [place] [address]
--- OUTSIDE RECORDS SUMMARY | 2023-01-31 07:32 | XMS_ITS | Continuity of Care Document ---
Author Name Unknown Organization [facility] Address [address] [place] [address]- Care Team Providers Care Scoreboard Operator Name Role Phone Kath QUINN, [place] Primary Care Physician Encounter [facility] [place] Date(s): 06/16/22 - 07/16/22 [facility] [address] [place] [address]- Attending Physician: Admtr, Ar8 Allergies, Adverse Reactions, [...] tablet, 1 Refills, Maintenance, 07/04/22 14:31:00 EST, [facility] STORE [address]1141, 162.3, cm, 06/16/22 14:20:00 EST, Height Start Date: 07/04/22 Status: Ordered buPROPion 150 mg/12 hours (SR) oral tablet, extended release 1 tablet = 150 mg, By Mouth, 2 times a day, Take once a day for the first 3 days, # 60 tablet, 1 Refills, Maintenance, 01/13/21 11:25:00 EDT, ER Tablet, [facility]/pharmacy #[id number], Partial fill upon patient request if the prescription is for a schedule II opi... Start Date: 01/13/21 Status: Ordered Excedrin Aspirin Free 500 mg-65 mg oral tablet 2 tablet, By Mouth, Every 6 hours, PRN for pain, # 80 tablet, 0 Refills, Acute 07/17/22 14:30:00 EST, 06/16/22 14:29:00 EST, Tablet, [facility]/pharmacy #[id number], Partial fill upon patient request if [...] tablet, 5 Refills, Maintenance, 12/10/20 12:48:00 EDT,Tablet, [facility]/pharmacy #[id number], Partial fill upon patient request if the prescription is for a scheduleII opioid drug., 1 tablet By Mouth Daily in PM, 163... Start Date: 12/10/20 Status: Ordered meloxicam 15 mg oral tablet 1 tablet, By Mouth, Daily, # 30 tablet, 4 Refills, Maintenance, 06/10/22 8:44:00 EST, [facility] STORE [address]88, 162.3, cm, 02/23/22 15:56:00 EDT, Height Start [...] mL, 1 Refills, Maintenance, 02/10/21 8:48:00 EDT, [place], [facility]/pharmacy #[id number], Partial fill upon patient request if the prescription is for a schedule II opioid drug., 1 sprays Na... Start Date: 02/10/21 Status: Ordered Symbicort 160mcg/4.5mcg Inhaler 2, puffs, Inhalation, 2 times a day, # 1 each, Refills 5, Tot. Refills 5, Maintenance, 07/15/20 11:47:00 EST, Inhaler, Route to Pharmacy Electronically, [id number], [facility]/pharmacy #[id number], 163, cm, 07/15/20 11:23:00 EST, Height,... Start Date: 07/15/20 Status: Ordered traMADol 50 mg oral tablet 1 tablet = 50 mg, By Mouth, Every 8 hours, PRN as needed for pain, GAME ROOM ATTENDANT CHECKED, # 90 tablet, 0 Refills, Maintenance, 05/24/22 16:59:00 EST, Tablet, [facility]/pharmacy #[id number], 162.3, cm, 02/23/22 15:56:00 EDT, Height Start Date: 05/24/22 Status: Ordered Ventolin HFA 108 mcg/inh inhalation aerosol with adapter 1 puffs, Inhalation, 4 times a day, PRN NEEDED FOR WHEEZING, # 54 each, 1 Refills, [facility] STORE 71455, 162.3, cm, 04/16/21 8:01:00 EDT, Height, 93, [...] : Quit 1994; entered on: 08/05/15 Sex Note * Event Display: Laboratory Result Scanned Authored Date: MR Brain * Event Display: MRI Head Authored Date: Patient Care team information Care Team Personnel Name: Angy Stockton MD Position: S Primary Care Physician Member Role: PCP Address: Address: [employer] [facility] [address]rd [place] [address]- Care Team Related Persons Name: DHRUV HSU Address: [place] [address] Name: TOMASA DUBOIS Address: [place] [address]
--- OUTSIDE RECORDS SUMMARY | 2023-01-31 07:32 | XMS_ITS | Continuity of Care Document ---
Author Name Unknown Organization [facility] Address [address] [place] [address]- Care Team Providers Care Alteration Manager Name Role Phone Kath QUINN, [place] Primary Care Physician [place] [facility] [place] Date(s): 06/16/22 - 07/16/22 [facility] [address] [place] [address]- Allergies, Adverse Reactions, Alerts Substance Reaction Severity Status penicillins 1 rash Active ibuprofen SOB Active DayQuil Resolved Daypro Rash Active 1Rash Immunizations Given and Recorded Vaccine Date Status Refusal Reason SARS-CoV-2 (COVID-19) mRNA BNT-162b2 vac 05/31/21 Recorded SARS-CoV-2 (COVID-19) mRNA BNT-162b2 vac 11/26/20 Recorded SARS-CoV-2 (COVID-19) mRNA BNT-162b2 vac 10/14/20 Recorded influenza virus vaccine, inactivated 04/17/21 Santy rded influenza virus vaccine, inactivated 04/15/20 Snaty rded influenza virus vaccine, inactivated 05/20/19 Santy [...] tablet, 1 Refills, Maintenance, 07/04/22 14:31:00 EST, [facility] STORE 81963, 162.3, cm, 06/16/22 14:20:00 EST, Height Start Date: 07/04/22 Status: Ordered buPROPion 150 mg/12 hours (SR) oral tablet, extended release 1 tablet = 150 mg, By Mouth, 2 times a day, Take once a day for the first 3 days, # 60 tablet, 1 Refills, Maintenance, 01/13/21 11:25:00 EDT, ER Tablet, [facility]/pharmacy #[id number], Partial fill upon patient request if the prescription is for a schedule II opi... Start Date: 01/13/21 Status: Ordered Excedrin Aspirin Free 500 mg-65 mg oral tablet 2 tablet, By Mouth, Every 6 hours, PRN for pain, # 80 tablet, 0 Refills, Acute 07/17/22 14:30:00 EST, 06/16/22 14:29:00 EST, Tablet, [facility]/pharmacy #[id number], Partial fill upon patient [...] tablet, 5 Refills, Maintenance, 12/10/20 12:48:00 EDT,Tablet, [facility]/pharmacy #[id number], Partial fill upon patient request if the prescription is for a scheduleII opioid drug., 1 tablet By Mouth Daily in PM, 163... Start Date: 12/10/20 Status: Ordered meloxicam 15 mg oral tablet 1 tablet, By Mouth, Daily, # 30 tablet, 4 Refills, Maintenance, 06/10/22 8:44:00 EST, [facility] STORE 58406, 162.3, cm, 02/23/22 15:56:00 EDT, Height Start Date: 06/10/22 Status: Ordered oxybutynin 10 mg/24 hr oral tablet, extended release 1 tablet, By Mouth, Daily, # 90 tablet, 2 Refills, 10/07/21 16:41:00 EDT, [facility]/pharmacy #0373, 162.3, cm, 10/04/21 13:55:00 EDT, Height, 93, kg, 11/26/19 8:56:00 EDT, Dry Weight Start Date: 10/07/21 Status: Ordered sodium chloride 0.9% nasal spray 1 sprays, Nares, Both, Every 30 minutes, PRN for dry nasal passages, # 45 mL, 1 Refills, Maintenance, 02/10/21 8:48:00 EDT, [place], [facility]/pharmacy #[id number], Partial fill upon patient request if the prescription is for a schedule II opioid drug., 1 sprays Na... Start Date: 02/10/21 Status: Ordered Symbicort 160mcg/4.5mcg Inhaler 2, puffs, Inhalation, 2 times a day, # 1 each, Refills 5, Tot. Refills 5, Maintenance, 07/15/20 11:47:00 EST, Inhaler, Route to Pharmacy Electronically, [id number], [facility]/pharmacy #[id number], 163, cm, 07/15/20 11:23:00 EST, Height,... Start Date: 07/15/20 Status: Ordered traMADol 50 mg oral tablet 1 tablet = 50 mg, By Mouth, Every 8 hours, PRN as needed for pain, RFID ANALYST CHECKED, # 90 tablet, 0 Refills, Maintenance, 05/24/22 16:59:00 EST, Tablet, [facility]/pharmacy #[id number], 162.3, cm, 02/23/22 15:56:00 EDT, Height Start Date: 05/24/22 Status: Ordered Ventolin HFA 108 mcg/inh inhalation aerosol with adapter 1 puffs, Inhalation, 4 times a day, PRN NEEDED FOR WHEEZING, # 54 each, 1 Refills, [facility] STORE 87675, 162.3, cm, 04/16/21 8:01:00 EDT, Height, 93, [...] Team Personnel Name: Angy Stockton MD Position: [facility] Primary Care Physician Member Role: PCP Address: Address: [address] [place] [address] [address] [place] [address]- Care Team Related Persons Name: DHRUV HSU Address: [place] [address] Name: TOMASA DUBOIS Address: [place] [address]
--- OUTSIDE RECORDS SUMMARY | 2023-01-31 07:32 | XMS_ITS | Continuity of Care Document ---
Author Name Unknown Organization [facility] Address [address] [place] [address]- Care Team Providers Care Deployment Specialist Name Role Phone Kath QUINN, Angy Primary Care Physician Encounter [facility] [place] Date(s): 11/10/20 - 11/17/[address] [address]- Encounter Diagnosis Asthma exacerbation(Discharge Diagnosis) - 11/10/20 Obesity(Discharge Diagnosis) - 11/10/20 Attending Physician: Kath QUINN, Angy Allergies, Adverse Reactions, Alerts Substance Reaction Severity Status ibuprofen SOB Active penicillins 1 rash Active Daypro Rash Active DayQuil Resolved 1Rash Immunizations Given and Recorded Vaccine Date Status Refusal Reason SARS-CoV-2 (COVID-19) mRNA BNT-162b2 vac 10/14/20 Recorded pneumococcal 23-valent vaccine 07/12/17 Given influenza virus [...] Dry Weight Start Date: 11/04/20 Status: Ordered oxybutynin 10 mg/24 hr oral tablet, extended release 1 tablet = 10 mg, By Mouth, Daily, # 30 tablet, 5 Refills, Maintenance, 07/15/20 11:48:00 EST, ER Tablet, [facility]/pharmacy #207, Partial fill upon patient request if the prescription is for a schedule II opioid drug., 163, cm, 07/15/20 11:23:00 EST, [place]... Start Date: 07/15/20 Status: Ordered Symbicort 160mcg/4.5mcg Inhaler 2, puffs, Inhalation, 2 times a day, # 1 each, Refills 5, Tot. Refills 5, Maintenance, 07/15/20 11:47:00 EST, Inhaler, Route to Pharmacy Electronically, [id number], [facility]/pharmacy #207, 163, cm, 07/15/20 11:23:00 EST, Height,... Start Date: 07/15/20 Status: Ordered traMADol 50 mg oral tablet 1 tablet = 50 mg, By Mouth, Every 8 hours, PRN as needed for pain, RECREATION MANAGER CHECKED, # 90 tablet, 0 Refills, Maintenance, 10/02/20 14:14:00 EDT, Tablet, [facility]/pharmacy #[id number], 163, cm, 07/15/20 11:23:00 EST,Height, 93, kg, 11/26/19 8:56:00 EDT, Dry Weight Start Date: 10/02/20 Status: Ordered Ventolin HFA 108 mcg/inh inhalation aerosol with adapter 1 puffs = 90 mcg, Inhalation, 4 times a day, PRN for wheezing, # 3 each, 0 Refills, Maintenance, 07/20/20 12:01:00 EST, Inhaler, [facility]/pharmacy #207, 163, cm, 07/15/20 11:23:00 EST, Height, 93, kg, 11/26/19 8:56:00 EDT, Dry Weight Start Date: 07/20/20 Stop Date: 10/18/20 Status: Ordered Problem List Condition Effective Dates [...] Dates Health Status Clinical Service Informant Asthma exacerbation Discharge Diagnosis 11/10/20 Obesity Discharge Diagnosis 11/10/20 Vital Signs Most recent to oldest [Reference Range]: 1 2 Height 163 cm (11/10/20 5:34 PM) 163 cm (11/10/20 4:14 PM) Weight 101 kg (11/10/20 5:34 PM) Body Mass Index [18.5-24.99] 38.01 *>HHI* (11/10/20 5:34 PM) Weight Obtained Via Patient/family state d (11/10/20 5:34 PM) Social History Social History Type Response Smoking Status Former smoker; Other : Quit 1994; entered on: 08/05/15 Sex
--- OUTSIDE RECORDS SUMMARY | 2023-01-31 07:32 | XMS_ITS | Continuity of Care Document ---
Author Name Unknown Organization [facility] Address [address] [place] [address]- Care Team Providers Care Railroad Commissioner Name Role Phone Kath QUINN, [place] Primary Care Physician Encounter [facility] [place] Date(s): 12/19/22 - 01/18/23 [facility] [address] [place] [address]- Allergies, Adverse Reactions, Alerts Substance Reaction Severity Status ibuprofen SOB Active penicillins 1 rash Active Daypro Rash Active DayQuil Resolved 1Rash Immunizations Given and Recorded Vaccine Date Status Refusal Reason [id number] 12y+ bivalent booster vax 06/14/22 Recorded influenza [...] [facility] vis 02/24/09 Medications Dupixent Pre-filled Pen Subcutaneous Infusion, Once, 0 Refills, Maintenance, 01/11/23 11:33:00 EDT, Partial fill upon patient request if the prescription is for a schedule II opioid drug. Start Date: 01/11/23 Status: Ordered Freestyle Lite Lancets See Instructions, [...] Dry Weight Start Date: 02/26/21 Status: Ordered sodium chloride 0.9% nasal spray 1 sprays, Nares, Both, Every 30 minutes, PRN for dry nasal passages, # 45 mL, 1 Refills, Maintenance, 02/10/21 8:48:00 EDT, [place], [id number], Partial fill upon patient request if the prescription is for a schedule II opioid drug., 1 sprays Na... Start Date: 02/10/21 Status: Ordered Symbicort 160mcg/4.5mcg Inhaler 2, puffs, Inhalation, 2 times a day, # 1 each, Refills 5, Tot. Refills 5, Maintenance, 10/21/22 15:14:00 EDT, Inhaler, Route to Pharmacy Electronically, [id number], [facility]/pharmacy #[id number], 162.2, cm, 08/29/22 12:06:00 EST, Height Start Date: 10/21/22 Status: Ordered traMADol 50 mg oral tablet 1 tablet = 50 mg, By Mouth, Every 8 hours, PRN as needed for pain, EDUCATION DEAN CHECKED, # 90 tablet, 0 Refills, Maintenance, 12/20/22 10:54:00 EDT, Tablet, [facility]/pharmacy #[id number], 162.2, cm, 08/29/22 12:06:00 EST, Height Start Date: 12/20/22 Stop Date: 01/19/23 Status: Ordered Ventolin HFA 108 mcg/inh inhalation aerosol with adapter 1 puffs, Inhalation, 4 times a day, PRN NEEDED FOR WHEEZING, # 54 each, 1 Refills, 10/21/22 15:14:00 EDT, [facility]/pharmacy #[id number], 162.2, cm, 08/29/22 12:06:00 EST, Height Start Date: 10/21/22 Status: Ordered VITAMIN D VITAMIN D, Refills 0, Maintenance, 08/29/22 11:36:00 EST, Supply Start Date: 08/29/22 Status: Ordered Problem List Condition Confirmation Course Effective Dates Status H ealth Status Informant Allergic rhinitis Confirmed Active Severe Persistent Asthma Confirmed Active Brain concussion Confirmed Active [...] Personnel Name: Angy Stockton MD Position: S Physician - Primary Care Member Role: PCP Address: Address: [address] [place] [address] [address] [place] [address]- Care Team Related Persons Name: DHRUV HSU Address: [place] [address] Name: TOMASA DUBOIS Address: [place] [address]
--- OUTSIDE RECORDS SUMMARY | 2023-01-31 07:32 | XMS_ITS | Continuity of Care Document ---
Author Name Unknown Organization [facility] Address [address] [place] [address]- Care Team Providers Care Ditching Machine Operator Name Role Phone Kath QUINN, [place] Primary Care Physician Encounter [facility] [place] Date(s): 08/01/22 - 08/31/22 [facility] [address] [place] [address]- Allergies, Adverse Reactions, Alerts Substance Reaction Severity Status ibuprofen SOB Active penicillins 1 rash Active Daypro Rash Active DayQuil Resolved 1Rash Immunizations Given and Recorded Vaccine Date Status Refusal Reason [id number] 12y+ bivalent booster vax 06/14/22 Recorded influenza [...] Refills, Maintenance, 07/04/22 14:31:00 EST, [facility], 162.3, cm, 06/16/22 14:20:00 EST, Height Start [...] Refills, Maintenance, 06/10/22 8:44:00 EST, [facility], 162.3, cm, 02/23/22 15:56:00 EDT, Height Start Date: 06/10/22 Status: Ordered oxybutynin 10 mg/24 hr oral tablet, extended release 1 tablet, By Mouth, Daily, # 90 tablet, 0 Refills, 08/12/22 12:40:00 EST, [facility]/pharmacy #207, 162.3, cm, 06/16/22 14:20:00 EST, Height Start Date: 08/12/22 Status: Ordered sodium chloride 0.9% nasal spray 1 sprays, Nares, Both, Every 30 minutes, PRN for dry nasal passages, # 45 mL, 1 Refills, Maintenance, 02/10/21 8:48:00 EDT, [place], [facility]/pharmacy #207, Partial fill upon patient request if the prescription is for a schedule II opioid drug., 1 sprays Na... Start Date: 02/10/21 Status: Ordered Symbicort 160mcg/4.5mcg Inhaler 2, puffs, Inhalation, 2 times a day, # 1 each, Refills 5, Tot. Refills 5, Maintenance, 07/15/20 11:47:00 EST, Inhaler, Route to Pharmacy Electronically, [id number], [facility]/pharmacy #[id number], 163, cm, 07/15/20 11:23:00 EST, Height,... Start Date: 07/15/20 Status: Ordered traMADol 50 mg oral tablet 1 tablet = 50 mg, By Mouth, Every 8 hours, PRN as needed for pain, PETROPHYSICIST CHECKED, # 90 tablet, 0 Refills, Maintenance, 07/22/22 14:01:00 EST, Tablet, [facility]/pharmacy #[id number], 162.3, cm, 06/16/22 14:20:00 EST, Height Start Date: 07/22/22 Status: Ordered Ventolin HFA 108 mcg/inh inhalation aerosol with adapter 1 puffs, Inhalation, 4 times a day, PRN NEEDED FOR WHEEZING, # 54 each, 1 Refills, [facility] STORE 47681, 162.3, cm, 04/16/21 8:01:00 EDT, Height, 93, kg, 11/26/19 8:56:00 EDT, Dry Weight Start Date: 07/28/21 Status: Ordered VITAMIN D VITAMIN D, Refills [...] Team Personnel Name: Angy Stockton MD Position: [facility] Primary Care Physician Member Role: PCP Address: Address: [address] [place] [address] [address]rd [place] [address]- Care Team Related Persons Name: DHRUV HSU Address: [place] [address] Name: TOMASA DUBOIS Address: [place] [address]
--- OUTSIDE RECORDS SUMMARY | 2023-01-31 07:32 | XMS_ITS | Continuity of Care Document ---
Author Name Unknown Organization [facility] Address [address] [place] [address]- Care Team Providers Care Heavy Forging Machine Operator Name Role Phone Kath QUINN, [place] Primary Care Physician Encounter [facility] [place] Date(s): 02/17/22 - 03/19/22 [facility] [address] [place] [address]- Attending Physician: Prem Thacker Admitting Physician: Prem Thacker Referring Physician: AdmtrPrem Allergies, Adverse Reactions, Alerts Substance Reaction Severity [...] 5 Refills, Maintenance, 03/01/22 8:08:00 EDT, Tablet, [facility]/pharmacy #[id number], Partial fill upon patient request if [...] Refills, Maintenance, 01/13/21 11:25:00 EDT, ER Tablet, [facility]/pharmacy #[id number], Partial fill upon patient request if [...] tablet, 5 Refills, Maintenance, 12/10/20 12:48:00 EDT,Tablet, [facility]/pharmacy #[id number], Partial fill upon patient request if the prescription is for a scheduleII opioid drug., 1 tablet By Mouth Daily in PM, 163... Start Date: 12/10/20 Status: Ordered meloxicam 15 mg oral tablet 1 tablet, By Mouth, Daily, # 30 tablet, 5 Refills, 08/06/21 10:23:00 EST, [facility]/pharmacy #0373, 162.3, cm, 04/16/21 8:01:00 EDT, Height, 93, kg, 11/26/19 8:56:00 EDT, Dry Weight Start Date: 08/06/21 Status: Ordered oxybutynin 10 mg/24 hr oral tablet, extended release 1 tablet, By Mouth, Daily, # 90 tablet, 2 Refills, 10/07/21 16:41:00 EDT, [facility]/pharmacy #0373, 162.3, cm, 10/04/21 13:55:00 EDT, Height, 93, kg, 11/26/19 8:56:00 EDT, Dry Weight Start Date: 10/07/21 Status: Ordered sodium chloride 0.9% nasal spray 1 sprays, Nares, Both, Every 30 minutes, PRN for dry nasal passages, # 45 mL, 1 Refills, Maintenance, 02/10/21 8:48:00 EDT, [place], [facility]/pharmacy #[id number], Partial fill upon patient request if the prescription is for a schedule II opioid drug., 1 sprays Na... Start Date: 02/10/21 Status: Ordered Symbicort 160mcg/4.5mcg Inhaler 2, puffs, Inhalation, 2 times a day, # 1 each, Refills 5, Tot. Refills 5, Maintenance, 07/15/20 11:47:00 EST, Inhaler, Route to Pharmacy Electronically, [id number], [facility]/pharmacy #[id number], 163, cm, 07/15/20 11:23:00 EST, Height,... Start Date: 07/15/20 Status: Ordered traMADol 50 mg oral tablet 1 tablet = 50 mg, By Mouth, Every 8 hours, PRN as needed for pain, SEED TRUCKER CHECKED, # 90 tablet, 0 Refills, Maintenance, 02/23/22 15:59:00 EDT, Tablet, [facility]/pharmacy #[id number], 162.3, cm, 02/23/22 15:56:00 EDT, Height Start Date: 02/23/22 Status: Ordered Ventolin HFA 108 mcg/inh inhalation aerosol with adapter 1 puffs, Inhalation, 4 times a day, PRN NEEDED FOR WHEEZING, # 54 each, 1 Refills, [facility] STORE 11808, 162.3, cm, 04/16/21 8:01:00 EDT, Height, 93, [...] Date: 03/01/22 Status: Ordered Problem List Condition Effective Dates Status Health Status Inform ant Allergic rhinitis(Confirmed) Active Asthma(Confirmed) Active Brain concussion(Confirmed) Active Hyperlipidemia(Confirmed) Active Hypertension(Confirmed) 2003 Active Injury of head or neck super ficial nerve(Confirmed) Active Microscopic hematuria(Confirmed) 2017 Active Obese class II(Confirmed) Active Obesity(Confirmed) Active Osteoarthritis of right knee(Confirmed) 2017 Active Paraesophageal hiatal hernia(Confirmed) Active Steatosis of liver(Confirmed) Active Diabetes type 2, controlled(Confirmed) Active Vertigo(Confirmed) 2013 Active Social History Social History Type Response Smoking Status Former smoker; Other : Quit 1994; entered on: 08/05/15 Sex Care Team Personnel Name: Angy Stockton MD Address: [address] [place] [address]
--- OUTSIDE RECORDS SUMMARY | 2023-01-31 07:32 | XMS_ITS | Continuity of Care Document ---
Author Name Unknown Organization [facility] ter Address [address] [place] [address]- Care Team Providers Care Search Marketing Analyst Name Role Phone Kath QUINN, Angy Primary Care Phys[id number] Date[facility] 02/24[facility] - 04/15/[address] [address]- Attending Physician: Ken Tamez MD Admitting Physician: Ken Tamez MD Referring Physician: Ken Tamez MD Allergies, Adverse Reactions, Alerts Substance Reaction [...] 1 Refills, Maintenance, 11/04/20 11:49:00 EDT, [place], [facility]/pharmacy #[id number], 163, cm, 11/03/20 13:05:00 EDT, Height, 93, kg, 11/26/19 8:56:00 EDT, Dry Weight Start Date: 11/04/20 Status: Ordered buPROPion 150 mg/12 hours (SR) oral tablet, extended release 1 tablet = 150 mg, By Mouth, 2 times a day, Take once a day for the first 3 days, # 60 tablet, 1 Refills, Maintenance, 01/13/21 11:25:00 EDT, ER Tablet, [facility]/pharmacy #[id number], Partial fill upon patient request if [...] tablet, 5 Refills, Maintenance, 12/10/20 12:48:00 EDT,Tablet, [facility]/pharmacy #[id number], Partial fill upon patient request if the prescription is for a scheduleII opioid drug., 1 tablet By Mouth Daily in PM, 163... Start Date: 12/10/20 Status: Ordered meloxicam 15 mg oral tablet 1 tablet, By Mouth, Daily, # 30 tablet, 2 Refills, 04/01/21 8:40:00 EDT, [facility]/pharmacy #[id number], 162.3,cm, 02/10/21 7:41:00 EDT, Height, 93, kg, 11/26/19 8:56:00 EDT, Dry Weight Start Date: 04/01/21 Status: Ordered oxybutynin 10 mg/24 hr oral tablet, extended release 1 tablet = 10 mg, By Mouth, Daily, # 30 tablet, 5 Refills, Maintenance, 01/11/21 8:40:00 EDT, ER Tablet, [facility]/pharmacy #[id number], Partial fill upon patient request if the prescription is for a schedule IIopioid drug., 163, cm, 11/10/20 17:34:00 EDT, Heigh... Start Date: 01/11/21 Status: Ordered sodium chloride 0.9% nasal spray 1 sprays, Nares, Both, Every 30 minutes, PRN for dry nasal passages, # 45 mL, 1 Refills, Maintenance, 02/10/21 8:48:00 EDT, [place], [facility]/pharmacy #[id number], Partial fill upon patient request if the prescription is for a schedule II opioid drug., 1 sprays Na... Start Date: 02/10/21 Status: Ordered Symbicort 160mcg/4.5mcg Inhaler 2, puffs, Inhalation, 2 times a day, # 1 each, Refills 5, Tot. Refills 5, Maintenance, 07/15/20 11:47:00 EST, Inhaler, Route to Pharmacy Electronically, [id number], [id number], 163, cm, 07/15/20 11:23:00 EST, Height,... Start Date: 07/15/20 Status: Ordered traMADol 50 mg oral tablet 1 tablet = 50 mg, By Mouth, Every 8 hours, PRN as needed for pain, MARKETING SUPPORT SPECIALIST CHECKED, # 90 tablet, 0 Refills, Maintenance, 02/19/21 15:31:00 EDT, Tablet, [facility]/pharmacy #[id number], 162.3, cm, 02/10/21 7:41:00 EDT, Height, 93, kg, 11/26/19 8:56:00 EDT, Dry Weight Start Date: 02/19/21 Status: Ordered Ventolin HFA 108 mcg/inh inhalation aerosol with adapter 1 puffs = 90 mcg, Inhalation, 4 times a day, PRN for wheezing, # 3 each, 1 Refills, Maintenance, 12/17/20 10:28:00 EDT, Inhaler, [id number], 163, cm, 11/10/20 17:34:00 EDT, Height, [...]
--- OUTSIDE RECORDS SUMMARY | 2023-01-31 07:32 | XMS_ITS | Continuity of Care Document ---
Author Name Unknown Organization [facility] Address [address] [place] [address]- Care Team Providers Care Theoretical Physics Teacher Name Role Phone Kath QUINN, [place] Primary Care Physician [place] [facility] [place] 10/20/22 - 11/19/22 [facility] [address] [place] [address]- Allergies, Adverse Reactions, Alerts Substance Reaction Severity Status ibuprofen SOB Active penicillins 1 rash Active Daypro Rash Active DayQuil Resolved 1Rash Immunizations Given and Recorded Vaccine Date Status Refusal Reason [id number] 12y+ bivalent booster vax 06/14/22 Recorded influenza [...] Refills, Maintenance, 07/04/22 14:31:00 EST, [id number], 162.3, cm, 06/16/22 14:20:00 EST, Height Start [...] Refills, Maintenance, 06/10/22 8:44:00 EST, [facility], 162.3, cm, 02/23/22 15:56:00 EDT, Height Start Date: 06/10/22 Status: Ordered oxybutynin 10 mg/24 hr oral tablet, extended release 1 tablet, By Mouth, Daily, # 90 tablet, 0 Refills, 08/12/22 12:40:00 EST, [facility]/pharmacy #[id number], 162.3, cm, 06/16/22 14:20:00 EST, Height Start Date: 08/12/22 Status: Ordered sodium chloride 0.9% nasal spray 1 sprays, Nares, Both, Every 30 minutes, PRN for dry nasal passages, # 45 mL, 1 Refills, Maintenance, 02/10/21 8:48:00 EDT, [place], [facility]/pharmacy #[id number], Partial fill upon patient request if the prescription is for a schedule II opioid drug., 1 sprays Na... Start Date: 02/10/21 Status: Ordered Symbicort 160mcg/4.5mcg Inhaler 2, puffs, Inhalation, 2 times a day, # 1 each, Refills 5, Tot. Refills 5, Maintenance, 10/21/22 15:14:00 EDT, Inhaler, Route to Pharmacy Electronically, [id number], [facility]/pharmacy #[id number], 162.2, cm, 08/29/22 12:06:00 EST, Height Start Date: 10/21/22 Status: Ordered traMADol 50 mg oral tablet 1 tablet = 50 mg, By Mouth, Every 8 hours, PRN as needed for pain, COMMERCIAL CENTER MANAGER CHECKED, # 90 tablet, 0 Refills, Maintenance, 10/20/22 19:23:00 EDT, Tablet, [facility]/pharmacy #[id number], 162.2, cm, 08/29/22 12:06:00 EST, Height Start Date: 10/20/22 Stop Date: 11/19/22 Status: Ordered Ventolin HFA 108 mcg/inh inhalation aerosol with adapter 1 puffs, Inhalation, 4 times a day, PRN NEEDED FOR WHEEZING, # 54 each, 1 Refills, 10/21/22 15:14:00 EDT, [facility]/pharmacy #[id number], 162.2, cm, 08/29/22 12:06:00 EST, Height [...] Team Personnel Name: Angy Stockton MD Position: [facility] Primary Care Physician Member Role: PCP Address: Address: [address] [place] [address] [address] [place] [address]- Care Team Related Persons Name: DHRUV HSU Address: [place] [address] Name: TOMASA DUBOIS Address: [place] [address]
--- OUTSIDE RECORDS SUMMARY | 2023-01-31 07:32 | XMS_ITS | Continuity of Care Document ---
Author Name Unknown Organization [facility] Address [address] [place] [address]- Care Team Providers Care Software Project Lead Name Role Phone Kath QUINN, [place] Primary Care Physician [place] [facility] [place] 09/06/22 - 10/06/22 [facility] Adult [address] [place] [address]- Allergies, Adverse Reactions, Alerts Substance Reaction Severity Status ibuprofen SOB Active DayQuil Resolved penicillins 1 rash Active Daypro Rash Active 1Rash Immunizations Given and Recorded Vaccine Date Status Refusal Reason [id number] 12y+ bivalent booster vax 06/14/22 Recorded influenza [...] Refills, Maintenance, 07/04/22 14:31:00 EST, [facility], 162.3, cm, 06/16/22 14:20:00 EST, Height Start [...] Refills, Maintenance, 06/10/22 8:44:00 EST, [facility], 162.3, cm, 02/23/22 15:56:00 EDT, Height Start Date: 06/10/22 Status: Ordered oxybutynin 10 mg/24 hr oral tablet, extended release 1 tablet, By Mouth, Daily, # 90 tablet, 0 Refills, 08/12/22 12:40:00 EST, [facility]/pharmacy #[id number], 162.3, cm, 06/16/22 14:20:00 EST, Height Start Date: 08/12/22 Status: Ordered sodium chloride 0.9% nasal spray 1 sprays, Nares, Both, Every 30 minutes, PRN for dry nasal passages, # 45 mL, 1 Refills, Maintenance, 02/10/21 8:48:00 EDT, [place], [facility]/pharmacy #[id number], Partial fill upon patient request if the prescription is for a schedule II opioid drug., 1 sprays Na... Start Date: 02/10/21 Status: Ordered Symbicort 160mcg/4.5mcg Inhaler 2, puffs, Inhalation, 2 times a day, # 1 each, Refills 5, Tot. Refills 5, Maintenance, 07/15/20 11:47:00 EST, Inhaler, Route to Pharmacy Electronically, [id number], [facility]/pharmacy #[id number], 163, cm, 07/15/20 11:23:00 EST, Height,... Start Date: 07/15/20 Status: Ordered traMADol 50 mg oral tablet 1 tablet = 50 mg, By Mouth, Every 8 hours, PRN as needed for pain, CORONER FORENSIC TECHNICIAN CHECKED, # 90 tablet, 0 Refills, Maintenance, 09/14/22 16:47:00 EST, Tablet, [facility]/pharmacy #[id number], 162.2, cm, 08/29/22 12:06:00 EST, Height Start Date: 09/14/22 Status: Ordered Ventolin HFA 108 mcg/inh inhalation aerosol with adapter 1 puffs, Inhalation, 4 times a day, PRN NEEDED FOR WHEEZING, # 54 each, 1 Refills, 09/14/22 16:26:00 EST, [id number], 162.2, cm, 08/29/22 12:06:00 EST, Height Start Date: 09/14/22 Status: Ordered VITAMIN D VITAMIN D, Refills [...] Team Personnel Name: Angy Stockton MD Position: [facility] Primary Care Physician Member Role: PCP Address: Address: [address] [place] [address] [address] [place] [address]- Care Team Related Persons Name: DHRUV HSU Address: [place] [address] Name: TOMASA DUBOIS Address: [place] [address]
--- OUTSIDE RECORDS SUMMARY | 2023-01-31 07:32 | XMS_ITS | Continuity of Care Document ---
Author Name Unknown Organization [facility] Address [address] [place] [address]- Care Team Providers Care Tobacco Scrap Sifter Name Role Phone Kath QUINN, [place] Primary Care Physician Encounter [facility] [place] Date(s): 02/10/21 - 02/17/21 [facility] [address] [place] [address]- Attending Physician: Not on Staff, Attending MD Allergies, Adverse Reactions, Alerts Substance Reaction [...] Refills, Maintenance, 01/13/21 11:25:00 EDT, ER Tablet, [facility]/pharmacy #2071, Partial fill upon patient request if the prescription is for a schedule II opi... Start Date: 01/13/21 Status: Ordered levocetirizine 5 mg oral tablet 1 tablet = 5 mg, By Mouth, Daily in PM, # 30 tablet, 5 Refills, Maintenance, 12/10/20 12:48:00 EDT,[place], [facility]/pharmacy #[id number], Partial fill upon patient request if the prescription is for a scheduleII opioid drug., 1 tablet By Mouth Daily in PM, 163... Start Date: 12/10/20 Status: Ordered meloxicam 15 mg oral tablet 1 tablet = 15 mg, By Mouth, Daily, # 30 tablet, 0 Refills, Maintenance, 02/08/21 16:51:00 EDT, Tablet, [facility]/pharmacy #2071, Partial fill upon patient request [...] mL, 1 Refills, Maintenance, 02/10/21 8:48:00 EDT, [place], [facility]/pharmacy #2071, Partial fill upon patient request if the prescription is for a schedule II opioid drug., 1 sprays Na... Start Date: 02/10/21 Status: Ordered Symbicort 160mcg/4.5mcg Inhaler 2, puffs, Inhalation, 2 times a day, # 1 each, Refills 5, Tot. Refills 5, Maintenance, 07/15/20 11:47:00 EST, Inhaler, Route to Pharmacy Electronically, [id number], [facility]/pharmacy #2070, 163, cm, 07/15/20 11:23:00 EST, Height,... Start Date: 07/15/20 Status: Ordered traMADol 50 mg oral tablet 1 tablet = 50 mg, By Mouth, Every 8 hours, PRN as needed for pain, ORTHOPEDIC RADIOLOGIC TECHNOLOGIST CHECKED, # 90 tablet, 0 Refills, Maintenance, 12/21/20 9:37:00 EDT, Tablet, [facility]/pharmacy #[id number], 163, cm, 11/10/20 17:34:00 EDT, Height, 93, kg, 11/26/19 8:56:00 EDT, Dry Weight Start Date: 12/21/20 Status: Ordered Ventolin HFA 108 mcg/inh inhalation aerosol with adapter 1 puffs = 90 mcg, Inhalation, 4 times a day, PRN for wheezing, # 3 each, 1 Refills, Maintenance, 12/17/20 10:28:00 EDT, Inhaler, [facility]/pharmacy #[id number], 163, cm, 11/10/20 17:34:00 EDT, Height, [...] type 2, controlled(Confirmed) Active Vertigo(Confirmed) 2013 Active Vital Signs Most recent to oldest [Reference Range]: 1 Height 162.3 cm (02/10/21 7:41 AM) Social History Social History Type Response Smoking Status Former smoker; Other : Quit 1994; entered on: 08/05/15 Sex
--- OUTSIDE RECORDS SUMMARY | 2023-01-31 07:32 | XMS_ITS | Continuity of Care Document ---
Author Name Unknown Organization [facility] Address [address] [place] [id number]- Care Team Providers Care Heavy Equipment Rental Manager Name Role Phone Kath QUINN, Angy Primary Care Physician [place] [facility] [place] 10/08/19 - 10/18/19 [facility] [address] [place] [address]- [facility] Attending Physician: Prem Thacker Admitting Physician: AdmPrem hayden Referring Physician: AdmPrem hayden Allergies, Adverse Reactions, Alerts Substance Reaction Severity [...] 1 Refills, Soft Stop, 07/25/19 14:35:00 EST, [facility]/pharmacy #[id number], 162, cm, 07/03/19 11:44:00 EST, Height, [...] 8 hours, PRN as needed for pain, ELECTRICAL LINEMAN CHECKED, # 90 tablet, 0 Refills, Maintenance, 09/20/19 10:39:00 EST, Tablet, [facility]/pharmacy #[id number], 162, cm, 07/03/19 11:44:00 EST,Height, Dry Weight Start Date: 09/20/19 Status: Ordered Ventolin HFA 108 mcg/inh inhalation [...]
--- OUTSIDE RECORDS SUMMARY | 2023-01-31 07:32 | XMS_ITS | Continuity of Care Document ---
Author Name Unknown Organization [facility] Address [address] [place] [address]- Care Team Providers Care Shaft Tender Name Role Phone Kath QUINN, [place] Primary Care Physician [place] [facility] [place] 01/23/22 - 02/22/22 [facility] [address] [place] [address]- Allergies, Adverse Reactions, Alerts Substance Reaction Severity [...] Refills, Maintenance, 01/13/21 11:25:00 EDT, ER Tablet, [facility]/pharmacy #[id number], Partial fill upon patient request [...] tablet, 5 Refills, Maintenance, 12/10/20 12:48:00 EDT,Tablet, [facility]/pharmacy #[id number], Partial fill upon patient request if the prescription is for a scheduleII opioid drug., 1 tablet By Mouth Daily in PM, 163... Start Date: 12/10/20 Status: Ordered meloxicam 15 mg oral tablet 1 tablet, By Mouth, Daily, # 30 tablet, 5 Refills, 08/06/21 10:23:00 EST, [facility]/pharmacy #0373, 162.3, cm, 04/16/21 8:01:00 EDT, Height, 93, kg, 11/26/19 8:56:00 EDT, Dry Weight Start Date: 08/06/21 Status: Ordered oxybutynin 10 mg/24 hr oral tablet, extended release 1 tablet, By Mouth, Daily, # 90 tablet, 2 Refills, 10/07/21 16:41:00 EDT, [facility]/pharmacy #0373, 162.3, cm, 10/04/21 13:55:00 EDT, Height, 93, kg, 11/26/19 8:56:00 EDT, Dry Weight Start Date: 10/07/21 Status: Ordered Paxlovid 150 mg-100 mg oral tablet See Instructions, take 2 nirmatrelvir (150mg tablets) with 1 ritonavir (100 mg tablet) twice a day for 5 days, # 30 tablet, 0 Refills, Maintenance, 02/17/22 17:52:00 EDT, [facility]/pharmacy #[id number], Partial fill upon patient request if the prescription is for... Start Date: 02/17/22 Status: Ordered sodium chloride 0.9% nasal spray 1 sprays, Nares, Both, Every 30 minutes, PRN for dry nasal passages, # 45 mL, 1 Refills, Maintenance, 02/10/21 8:48:00 EDT, [place], [facility]/pharmacy #[id number], Partial fill upon patient request if the prescription is for a schedule II opioid drug., 1 sprays Na... Start Date: 02/10/21 Status: Ordered Symbicort 160mcg/4.5mcg Inhaler 2, puffs, Inhalation, 2 times a day, # 1 each, Refills 5, Tot. Refills 5, Maintenance, 07/15/20 11:47:00 EST, Inhaler, Route to Pharmacy Electronically, [id number], [facility]/pharmacy #[id number], 163, cm, 07/15/20 11:23:00 EST, Height,... Start Date: 07/15/20 Status: Ordered traMADol 50 mg oral tablet 1 tablet = 50 mg, By Mouth, Every 8 hours, PRN as needed for pain, OCEANOGRAPHER GEOLOGICAL CHECKED, # 90 tablet, 0 Refills, Maintenance, 01/03/22 12:16:00 EDT, Tablet, [facility]/pharmacy #[id number], 162.3, cm, 10/04/21 13:55:00 EDT, Height Start Date: 01/03/22 Status: Ordered Ventolin HFA 108 mcg/inh inhalation aerosol with adapter 1 puffs, Inhalation, 4 times a day, PRN NEEDED FOR WHEEZING, # 54 each, 1 Refills, [facility], 162.3, cm, 04/16/21 8:01:00 EDT, Height, 93, [...]
--- OUTSIDE RECORDS SUMMARY | 2023-01-31 07:32 | XMS_ITS | Continuity of Care Document ---
Author Name Unknown Organization [facility] Address [address] [place] [address]- Care Team Providers Care Fiber Design Engineer Name Role Phone Angy Stockton MD Primary Care Physician Encounter [facility] [place] Date(s): 10/04/21 - 10/11/21 [facility] [address] [place] [phone]- [place] Encounter Diagnosis Steatosis of liver(Discharge Diagnosis) - 10/04/21 Obesity(Discharge Diagnosis) - 10/04/21 Attending Physician: Angy Stockton MD Allergies, Adverse Reactions, [...] Gi kristen influenza virus vaccine, inactivated 05/04/16 Sanyt rded influenza virus vaccine, inactivated 2 04/11/09 [...] Maintenance, 01/13/21 11:25:00 EDT, ER Tablet, [facility]/pharmacy #[id number], Partial fill upon patient request if [...] 5 Refills, Maintenance, 12/10/20 12:48:00 EDT,Tablet, [facility]/pharmacy #2071, Partial fill upon patient request if the prescription is for a scheduleII opioid drug., 1 tablet By Mouth Daily in PM, 163... Start Date: 12/10/20 Status: Ordered meloxicam 15 mg oral tablet 1 tablet, By Mouth, Daily, # 30 tablet, 5 Refills, 08/06/21 10:23:00 EST, [facility]/pharmacy #0373, 162.3, cm, 04/16/21 8:01:00 EDT, Height, 93, kg, 11/26/19 8:56:00 EDT, Dry Weight Start Date: 08/06/21 Status: Ordered oxybutynin 10 mg/24 hr oral tablet, extended release 1 tablet, By Mouth, Daily, # 90 tablet, 2 Refills, 10/07/21 16:41:00 EDT, [facility]/pharmacy #0373, 162.3, cm, 10/04/21 13:55:00 EDT, Height, 93, kg, 11/26/19 8:56:00 EDT, Dry Weight Start Date: 10/07/21 Status: Ordered sodium chloride 0.9% nasal spray 1 sprays, Nares, Both, Every 30 minutes, PRN for dry nasal passages, # 45 mL, 1 Refills, Maintenance, 02/10/21 8:48:00 EDT, [place], [facility]/pharmacy #2071, Partial fill upon patient request if the prescription is for a schedule II opioid drug., 1 sprays Na... Start Date: 02/10/21 Status: Ordered Symbicort 160mcg/4.5mcg Inhaler 2, puffs, Inhalation, 2 times a day, # 1 each, Refills 5, Tot. Refills 5, Maintenance, 07/15/20 11:47:00 EST, Inhaler, Route to Pharmacy Electronically, [id number], [facility]/pharmacy #2071, 163, cm, 07/15/20 11:23:00 EST, Height,... Start Date: 07/15/20 Status: Ordered traMADol 50 mg oral tablet 1 tablet = 50 mg, By Mouth, Every 8 hours, PRN as needed for pain, MEAT LOINER CHECKED, # 90 tablet, 0 Refills, Maintenance, 09/09/21 11:53:00 EST, [facility]t, [facility], 162.3, cm, 08/06/21 12:17:00 EST, Height, 93, kg, 11/26/19 8:56:00 EDT, Dry Weight Start Date: 09/09/21 Status: Ordered Ventolin HFA 108 mcg/inh inhalation aerosol with adapter 1 puffs, Inhalation, 4 times a day, PRN NEEDED FOR WHEEZING, # 54 each, 1 Refills, [facility], 162.3, cm, 04/16/21 8:01:00 EDT, Height, 93, [...] type 2, controlled(Confirmed) Active Vertigo(Confirmed) 2013 Active Diagnosis Diagnosis Type Effective Dates Health Status Cl inical Service Informant Steatosis of liver Discharge Diagnosis 10/04/21 Obesity Discharge Diagnosis 10/04/21 Vital Signs Most recent to oldest [Reference Range]: 1 Height 162.3 cm (10/04/21 1:55 PM) Social History Social History Type Response Smoking Status Former smoker; Other : Quit 1994; entered on: 08/05/15 Sex
--- OUTSIDE RECORDS SUMMARY | 2023-01-31 07:32 | XMS_ITS | Continuity of Care Document ---
Author Name Unknown Organization [facility] Address [address] [place] [address]- Care Team Providers Care Shoe Puller Name Role Phone Kath QUINN, [place] Primary Care Physician En[place] [facility] [place] 11/10/20 - 12/10/20 [facility] [address] [place] [address]- Attending Physician: Admtr, Ar8 Allergies, Adverse Reactions, [...] Dry Weight Start Date: 11/04/20 Status: Ordered levocetirizine 5 mg oral tablet 1 tablet = 5 mg, By Mouth, Daily in PM, # 30 tablet, 5 Refills, Maintenance, 12/10/20 12:48:00 EDT,Tablet, [facility]/pharmacy #207, Partial fill upon patient request if the prescription is for a scheduleII opioid drug., 1 tablet By Mouth Daily in PM, 163... Start Date: 12/10/20 Status: Ordered oxybutynin 10 mg/24 hr oral tablet, extended release 1 tablet = 10 mg, By Mouth, Daily, # 30 tablet, 5 Refills, Maintenance, 07/15/20 11:48:00 EST, ER Tablet, [facility]/pharmacy #2071, Partial fill upon patient request if the prescription is for a schedule II opioid drug., 163, cm, 07/15/20 11:23:00 EST, [place]... Start Date: 07/15/20 Status: Ordered Symbicort 160mcg/4.5mcg Inhaler 2, puffs, Inhalation, 2 times a day, # 1 each, Refills 5, Tot. Refills 5, Maintenance, 07/15/20 11:47:00 EST, Inhaler, Route to Pharmacy Electronically, [id number], [facility]/pharmacy #207, 163, cm, 07/15/20 11:23:00 EST, Height,... Start Date: 07/15/20 Status: Ordered traMADol 50 mg oral tablet 1 tablet = 50 mg, By Mouth, Every 8 hours, PRN as needed for pain, LATHE OPERATOR CONTACT LENS CHECKED, # 90 tablet, 0 Refills, Maintenance, 11/19/20 11:02:00 EDT, Tablet, [facility]/pharmacy #[id number], 163, cm, 11/10/20 17:34:00 EDT,Height, 93, kg, 11/26/19 8:56:00 EDT, Dry Weight Start Date: 11/19/20 Status: Ordered Ventolin HFA 108 mcg/inh inhalation aerosol with adapter 1 puffs = 90 mcg, Inhalation, 4 times a day, PRN for wheezing, # 3 each, 0 Refills, Maintenance, 07/20/20 12:01:00 EST, Inhaler, [id number], 163, cm, 07/15/20 11:23:00 EST, Height, 93, [...]
--- OUTSIDE RECORDS SUMMARY | 2023-01-31 07:32 | XMS_ITS | Continuity of Care Document ---
Author Name Unknown Organization [facility] Adult Address [address] [place] [address]- Care Team Providers Care Fire Hose Curer Name Role Phone Kath QUINN, [place] Primary Care Physician Encounter [facility] [place] Date(s): 03/01/22 - 03/31/[address] [facility] [address] [place] [address]- Allergies, Adverse Reactions, Alerts Substance Reaction Severity [...] Ref[facility] 8/11[facility]09 Medications atorvastatin 20 mg oral tablet 1 tablet = 20 mg, By Mouth, Daily, # 30 tablet, 5 Refills, Maintenance, 03/01/22 8:08:00 EDT, Tablet, [facility]/pharmacy #[id number], Partial fill [...] 30 tablet, 5 Refills, 08/06/21 10:23:00 EST, [facility]/pharmacy #0373, 162.3, cm, 04/16/21 8:01:00 EDT, Height, 93, kg, 11/26/19 8:56:00 EDT, Dry Weight Start Date: 08/06/21 Status: Ordered oxybutynin 10 mg/24 hr oral tablet, extended release 1 tablet, By Mouth, Daily, # 90 tablet, 2 Refills, 10/07/21 16:41:00 EDT, [facility]/pharmacy #0373, 162.3, cm, 10/04/21 13:55:00 EDT, Height, 93, kg, 11/26/19 8:56:00 EDT, Dry Weight Start Date: 10/07/21 Status: Ordered sodium chloride 0.9% nasal spray 1 sprays, Nares, Both, Every 30 minutes, PRN for dry nasal passages, # 45 mL, 1 Refills, Maintenance, 02/10/21 8:48:00 EDT, [place], [facility]/pharmacy #2071, Partial fill upon patient request if the prescription is for a schedule II opioid drug., 1 sprays Na... Start Date: 02/10/21 Status: Ordered Symbicort 160mcg/4.5mcg Inhaler 2, puffs, Inhalation, 2 times a day, # 1 each, Refills 5, Tot. Refills 5, Maintenance, 07/15/20 11:47:00 EST, Inhaler, Route to Pharmacy Electronically, [id number], [facility]/pharmacy #[id number], 163, cm, 07/15/20 11:23:00 EST, Height,... Start Date: 07/15/20 Status: Ordered traMADol 50 mg oral tablet 1 tablet = 50 mg, By Mouth, Every 8 hours, PRN as needed for pain, GENETICS PHYSICIAN CHECKED, # 90 tablet, 0 Refills, Maintenance, 02/23/22 15:59:00 EDT, Tablet, [id number], 162.3, cm, 02/23/22 15:56:00 EDT, Height Start Date: 02/23/22 Status: Ordered Ventolin HFA 108 mcg/inh inhalation aerosol with adapter 1 puffs, Inhalation, 4 times a day, PRN NEEDED FOR WHEEZING, # 54 each, 1 Refills, [facility], 162.3, cm, 04/16/21 8:01:00 EDT, Height, 93, [...] Team Personnel Name: Angy Stockton MD [facility] [address]
--- OUTSIDE RECORDS SUMMARY | 2023-01-31 07:32 | XMS_ITS | Continuity of Care Document ---
Author Name Unknown Organization [facility] Address [address] [place] [address]- Care Team Providers Care Styrene Dehydration Reactor Operator Name Role Phone Kath QUINN, Angy Primary Care Physician Encounter [facility] [place] Date(s): 03/10/20 - 03/17/20 [facility] [address] [place] [id number] [facility] Encounter Diagnosis Preop examination(Discharge Diagnosis) - 03/10/20 Allergic rhinitis(Discharge Diagnosis) - 03/10/20 Hyperlipidemia(Discharge Diagnosis) - 03/10/20 Hypertension(Discharge Diagnosis) - 03/10/20 Asthma(Discharge Diagnosis) - 03/10/20 Attending Physician: Avelina Jama NP Referring Physician: Agus Lozano MD Allergies, Adverse Reactions, Alerts Substance Reaction [...] 8 hours, PRN as needed for pain, FLIGHT TEST SHOP MECHANIC CHECKED, # 90 tablet, 0 Refills, Maintenance, 01/28/20 9:39:00 EDT, Tablet, [facility]/pharmacy #[id number], 163, cm, 12/17/19 16:39:00 EDT, [...] Effective Dates Health Status Clinical Service Informant Preop examination Discharge Diagnosis 03/10/20 Allergic rhinitis Discharge Diagnosis 03/10/20 Hyperlipidemia Discharge Diagnosis 03/10/20 Hypertension Discharge Diagnosis 03/10/20 Asthma Discharge Diagnosis 03/10/20 Vital Signs Most recent to oldest [Reference Range]: 1 2 Height 163 cm (03/10/20 11:59 AM) 163 cm (03/10/20 11:45 AM) Weight 103.3 kg (03/10/20 11:45 AM) Oxygen Saturation [94-100 %] 96 % (03/10/20 11:45 AM) Pulse Rate [55-90 bpm] 93 bpm *H* (03/10/20 11:45 AM) Body Mass Index [18.5-24.99] 38.88 *>HHI* (03/10/20 11:45 AM) Blood Pressure [90-138/55-84 mm Hg] 122/ 84mm Hg (03/10/20 11:59 AM) 102/80mm Hg (03/10/20 11:45 AM) Mode of Delivery (Oxygen) Room air (03/10/20 11:45 AM) Blood pressure sites Arm, left (03/10/20 11:59 AM) Arm, left (03/10/20 11:45 AM) Weight Obtained Via Standing scale (03/10/20 11:45 AM) Social History Social History Type Response Smoking Status Former smoker; Other : Quit 1994; entered on: 08/05/15 Sex
--- OUTSIDE RECORDS SUMMARY | 2023-01-31 07:32 | XMS_ITS | Continuity of Care Document ---
Author Name Unknown Organization [facility] ter Address [address] [place] [phone]- Care Team Providers Care Associate Theatre Professor Name Role Phone Kath QUINN, Angy Primary Care Physician Encounter [facility] [place] Date(s): 11/26/19 - 11/26/[address] [address]- [facility] Encounter Diagnosis Knee pain(Final) - 11/26/19 Discharge Disposition: A-D/C Home Attending Physician: Stacey Sutton MD Admitting Physician: Stacey Sutton MD Referring Physician: Not on Staff, Referring MD Allergies, Adverse Reactions, Alerts Substance Reaction [...] 1 Refills, Soft Stop, 07/25/19 14:35:00 EST, [id number], 162, cm, 07/03/19 11:44:00 EST, Height, [...] hours, PRN as needed for pain, DIRECTOR PART CHECKED, # 90 tablet, 0 Refills, Maintenance, 10/24/19 14:16:00 EDT, Tablet, [facility]/pharmacy #[id number], 162, cm, 07/03/19 11:44:00 EST,Height, Dry Weight Start Date: 10/24/19 Status: Ordered Ventolin HFA 108 mcg/inh inhalation aerosol with adapter 1 puffs, Inhalation, 4 times a day, PRN for wheezing, # 18 Gm, 0 Refills, Maintenance, 05/28/18 13:29:39 EST, Aerosol Start Date: 05/28/18 Status: Ordered Vitamin D3 2000 intl units oral tablet 1 tablet = 2,000 International_Units, By Mouth, Daily, # 30 tablet, 5 Refills, Maintenance, 11/19/19 13:43:00 EDT, Tablet, [facility]/pharmacy #[id number], 162, cm, 07/03/19 11:44:00 EST, Height [...] Steatosis of liver(Confirmed) Active Vertigo(Confirmed) 2013 Active Results Orders for Microbiology Reports Name Date Sterile Body Fluid Culture W/ Gram Smear 11/26/19 Microbiology Reports TEST:Sterile Fluid Culture STATUS:Unauthenticated BODY SITE: SOURCE:JOINT COLLECTED DATE/TIME:11/26/19 9:50 AM Sterile Fluid Culture SPECIMEN DESCRIPTION : JOINT FLUID SPECIAL REQUESTS : NONE GRAM STAIN : 2+ RBC'S 1+ POLYMORPHONUCLEAR LEUKOCYTES NO ORGANISMS SEEN REPORT STATUS : PRELIMINARY REPORT Radiology Reports * Exam Date Time Procedure Performing Provider Status 11/26/19 8:50 AM Knee 1 or 2 Views Right America Quanene; Auth (Verified) Notes: (Knee 1 or 2 Views Right) Reason For Exam: with Pain;Trauma RESULT: Knee 1 or 2 Views Right Knee 1 or 2 Views Right, 2 views Refer to EMR; Reason: Trauma; with Pain; Clinical Question(s): Fracture; Special Instructions: Thisis a protocol film and radiologist should call any findings to the Charge Nurse; Hx of Present Illness: Pt reports right knee discomfort, pt reports she has had the pain for almost 2 weeks. Pt reports she thinks she has fluid on her right knee. Pt is able to ambulate with sli COMPARISON: 03/14/2019 right knee radiographs. FINDINGS: There is no evidence of acute or healing fracture, dislocation or bone lesion. Mild tricompartmental degenerative osteoarthritis with predominantly lateral compartment narrowing but no evidence of osteochondral defect or intra-articular loose body. Enthesophyte at the quadriceps and patellar tendon insertions. Small joint effusion, similar to prior study. IMPRESSION: 1. No acute fracture or malalignment. 2. Small joint effusion, unchanged. WSN: [id number] Ordering Physician: Jarvis Mcneil Dictated By: Yehuda Maldonado MD Dictated Date/Time: 11/26/19 8:53 am Reviewed By: Yehuda Maldonado MD Signed By: Yehuda Maldonado MD Signed Date/Time: 11/26/19 8:53 am Transcribed By: EYAL Transcribed Date/Time: 11/26/19 8:51 am Vital Signs Most recent to oldest [Reference Range]: 1 2 3 Height 163 cm (11/26/19 8:56 AM) 163 cm (11/26/19 7:59 AM) Weight 93 kg (11/26/19 8:56 AM) 93 kg (11/26/19 7:59 AM) Oxygen Saturation [94-100 %] 98 % (11/26/19 8:56 AM) 99 % (11/26/19 7:59 AM) 99 % (11/26/19 7:55 AM) Pulse Rate [55-90 bpm] 95 bpm *H* (11/26/19 8:56 AM) 77 bpm (11/26/19 7:59 AM) 82 bpm (11/26/19 7:55 AM) Body Mass Index [18.5-24.99] 35 *>HHI* (11/26/19 8:56 AM) 35 *>HHI* (11/26/19 7:59 AM) Blood Pressure [90-138/55-84 mm Hg] 140/84mm Hg *H* (11/26/19 8:56 AM) 149/99mm Hg *H* (11/26/19 7:59 AM) Respiratory Rate [16-30 br/min] 18 br/min (11/26/19 8:56 AM) 18 br/min (11/26/19 7:59 AM) Temperature [96.8-100.4 DegF] 97.8 DegF (11/26/19 7:59 AM) Mode of Delivery (Oxygen) Room air (11/26/19 8:56 AM) Room air (11/26/19 7:59 AM) Room air (11/26/19 7:55 AM) Blood pressure sites Arm, right (11/26/19 8:56 AM) Arm, right (11/26/19 7:59 AM) Temperature Route Oral (11/26/19 7:59 AM) Dry Weight 93 kg (11/26/19 8:56 AM) 93 kg (11/26/19 7:59 AM) Weight Obtained Via Patient/family state d (11/26/19 7:59 AM) Dry Weight Obtained Via Patient/family s tated (11/26/19 7:59 AM) Social History Social History Type Response Smoking Status Former smoker; Other : Quit 1994; entered on: 08/05/15 Sex
--- OUTSIDE RECORDS SUMMARY | 2023-01-31 07:32 | XMS_ITS | Continuity of Care Document ---
Author Name Unknown Organization [facility] Address [address] [place] [address]- Care Team Providers Care Gas Leak Inspector Name Role Phone Kath QUINN, Angy Primary Care Physician Encounter [facility] Date(s): 03/25/21 - 04/24/21 [facility] [address] [place] [phone]- Attending Physician: Prem Thacker Admitting Physician: Prem [...] 1 Refills, Maintenance, 11/04/20 11:49:00 EDT, Solution, [facility]/pharmacy #[id number], 163, cm, 11/03/20 13:05:00 EDT, Height, 93, kg, 11/26/19 8:56:00 EDT, Dry Weight Start Date: 11/04/20 Status: Ordered buPROPion 150 mg/12 hours (SR) oral tablet, extended release 1 tablet = 150 mg, By Mouth, 2 times a day, Take once a day for the first 3 days, # 60 tablet, 1 Refills, Maintenance, 01/13/21 11:25:00 EDT, ER Tablet, [facility]/pharmacy #[id number], Partial fill upon patient request if [...] tablet, 5 Refills, Maintenance, 12/10/20 12:48:00 EDT,Tablet, [facility]/pharmacy #[id number], Partial fill upon patient request if the prescription is for a scheduleII opioid drug., 1 tablet By Mouth Daily in PM, 163... Start Date: 12/10/20 Status: Ordered meloxicam 15 mg oral tablet 1 tablet, By Mouth, Daily, # 30 tablet, 2 Refills, 04/01/21 8:40:00 EDT, [facility]/pharmacy #207, 162.3,cm, 02/10/21 7:41:00 EDT, Height, 93, kg, 11/26/19 8:56:00 EDT, Dry Weight Start Date: 04/01/21 Status: Ordered oxybutynin 10 mg/24 hr oral tablet, extended release 1 tablet = 10 mg, By Mouth, Daily, # 30 tablet, 5 Refills, Maintenance, 01/11/21 8:40:00 EDT, ER Tablet, [facility]/pharmacy #[id number], Partial fill upon patient request if the prescription is for a schedule IIopioid drug., 163, cm, 11/10/20 17:34:00 EDT, Heigh... Start Date: 01/11/21 Status: Ordered sodium chloride 0.9% nasal spray 1 sprays, Nares, Both, Every 30 minutes, PRN for dry nasal passages, # 45 mL, 1 Refills, Maintenance, 02/10/21 8:48:00 EDT, [place], [facility]/pharmacy #[id number], Partial fill upon patient request if the prescription is for a schedule II opioid drug., 1 sprays Na... Start Date: 02/10/21 Status: Ordered Symbicort 160mcg/4.5mcg Inhaler 2, puffs, Inhalation, 2 times a day, # 1 each, Refills 5, Tot. Refills 5, Maintenance, 07/15/20 11:47:00 EST, Inhaler, Route to Pharmacy Electronically, [id number], [id number], 163, cm, 07/15/20 11:23:00 EST, Height,... Start Date: 07/15/20 Status: Ordered traMADol 50 mg oral tablet 1 tablet = 50 mg, By Mouth, Every 8 hours, PRN as needed for pain, MANAGER PHILOSOPHY CHECKED, # 90 tablet, 0 Refills, Maintenance, 04/16/21 8:26:00 EDT, Tablet, [facility]/pharmacy #[id number], 162.3, cm, 04/16/21 8:01:00 EDT,Height, 93, kg, 11/26/19 8:56:00 EDT, Dry Weight Start Date: 04/16/21 Status: Ordered Ventolin HFA 108 mcg/inh inhalation [...]
--- OUTSIDE RECORDS SUMMARY | 2023-01-31 07:32 | XMS_ITS | Continuity of Care Document ---
Author Name Unknown Organization [facility] Address [address] [place] [address]- Care Team Providers Care Shop Router Name Role Phone Kath QUINN, Angy Primary Care Physician Encounter [facility] [place] Date(s): 08/25/21 - 09/24/21 [facility] [address] [place] [address]- Allergies, Adverse Reactions, Alerts Substance Reaction Severity [...] Refills, Maintenance, 01/13/21 11:25:00 EDT, ER Tablet, [facility]/pharmacy #[id number], Partial fill upon patient [...] tablet, 5 Refills, Maintenance, 12/10/20 12:48:00 EDT,Tablet, [facility]/pharmacy #[id number], Partial fill upon patient request if the prescription is for a scheduleII opioid drug., 1 tablet By Mouth Daily in PM, 163... Start Date: 12/10/20 Status: Ordered meloxicam 15 mg oral tablet 1 tablet, By Mouth, Daily, # 30 tablet, 5 Refills, 08/06/21 10:23:00 EST, [facility]/pharmacy #[id number], 162.3, cm, 04/16/21 8:01:00 EDT, Height, 93, kg, 11/26/19 8:56:00 EDT, Dry Weight Start Date: 08/06/21 Status: Ordered oxybutynin 10 mg/24 hr oral tablet, extended release 1 tablet, By Mouth, Daily, # 90 tablet, 0 Refills, [id number], 162.3, cm, 04/16/21 8:01:00 EDT, Height, 93, kg, 11/26/19 8:56:00 EDT, Dry Weight Start Date: 07/05/21 Status: Ordered sodium chloride 0.9% nasal spray 1 sprays, Nares, Both, Every 30 minutes, PRN for dry nasal passages, # 45 mL, 1 Refills, Maintenance, 02/10/21 8:48:00 EDT, [place], [facility]/pharmacy #[id number], Partial fill upon patient request if the prescription is for a schedule II opioid drug., 1 sprays Na... Start Date: 02/10/21 Status: Ordered Symbicort 160mcg/4.5mcg Inhaler 2, puffs, Inhalation, 2 times a day, # 1 each, Refills 5, Tot. Refills 5, Maintenance, 07/15/20 11:47:00 EST, Inhaler, Route to Pharmacy Electronically, [id number], [facility]/pharmacy #[id number], 163, cm, 07/15/20 11:23:00 EST, Height,... Start Date: 07/15/20 Status: Ordered traMADol 50 mg oral tablet 1 tablet = 50 mg, By Mouth, Every 8 hours, PRN as needed for pain, LAYER OUT CHECKED, # 90 tablet, 0 Refills, Maintenance, 09/09/21 11:53:00 EST, Tablet, [facility]/pharmacy #[id number], 162.3, cm, 08/06/21 12:17:00 EST, Height, 93, kg, 11/26/19 8:56:00 EDT, Dry Weight Start Date: 09/09/21 Status: Ordered Ventolin HFA 108 mcg/inh inhalation aerosol with adapter 1 puffs, Inhalation, 4 times a day, PRN NEEDED FOR WHEEZING, # 54 each, 1 Refills, [id number], 162.3, cm, 04/16/21 8:01:00 EDT, Height, 93, [...]
--- OUTSIDE RECORDS SUMMARY | 2023-01-31 07:32 | XMS_ITS | Continuity of Care Document ---
Author Name Unknown Organization [facility] Address [address] [place] [address]- Care Team Providers Care Data Compiler Name Role Phone Kath QUINN, Angy Primary Care Physician [id number] Date(s): 07/15/20 - 07/22/20 [facility] [address] [place] [address]- Encounter Diagnosis Well adult exam(Discharge Diagnosis) - 07/15/20 Hypertension(Discharge Diagnosis) - 07/15/20 Hyperlipidemia(Discharge Diagnosis) - 07/15/20 Asthma(Discharge Diagnosis) - 07/15/20 Obesity(Discharge Diagnosis) - 07/15/20 Steatosis of liver(Discharge Diagnosis) - 07/15/20 Allergic rhinitis(Discharge Diagnosis) - 07/15/20 Attending Physician: Angy Stockton MD Allergies, Adverse [...] 07/15/20 11:47:00 EST, [facility] Partial fill upon patient request if the prescription is for a schedule II opioid drug... Start Date: 07/15/20 Status: Ordered oxybutynin 10 mg/24 hr oral tablet, extended release 1 tablet = 10 mg, By Mouth, Daily, # 30 tablet, 5 Refills, Maintenance, 07/15/20 11:48:00 EST, ER Tablet, [facility]/pharmacy #207, Partial fill upon patient request if the prescription is for a schedule II opioid drug., 163, cm, 07/15/20 11:23:00 EST, [place]... Start Date: 07/15/20 Status: Ordered Symbicort 160mcg/4.5mcg Inhaler 2, puffs, Inhalation, 2 times a day, # 1 each, Refills 5, Tot. Refills 5, Maintenance, 07/15/20 11:47:00 EST, Inhaler, Route to Pharmacy Electronically, [id number], [facility]/pharmacy #207, 163, cm, 07/15/20 11:23:00 EST, Height,... Start Date: 07/15/20 Status: Ordered traMADol 50 mg oral tablet 1 tablet = 50 mg, By Mouth, Every 8 hours, PRN as needed for pain, SALES RECRUITING COORDINATOR CHECKED, # 90 tablet, 0 Refills, Maintenance, 06/29/20 16:48:00 EST, Tablet, [facility]/pharmacy #207, 163, cm, 03/10/20 11:59:00 EDT,Height, 93, [...] 2018 Active Steatosis of liver(Confirmed) Active Vertigo(Confirmed) 2014 Active Diagnosis Diagnosis Type Effective Dates Health Status Clinical Service Informant Well adult exam Discharge Diagnosis 07/15/20 Hypertension Discharge Diagnosis 07/15/20 Hyperlipidemia Discharge Diagnosis 07/15/20 Asthma Discharge Diagnosis 07/15/20 Obesity Discharge Diagnosis 07/15/20 Steatosis of liver Discharge Diagnosis 07/15/20 Allergic rhinitis Discharge Diagnosis 07/15/20 Vital Signs Most recent to oldest [Reference Range]: 1 Height 163 cm (07/15/20 11:23 AM) Social History Social History Type Response Smoking Status Former smoker; Other : Quit 1994; entered on: 08/05/15 Sex
--- OUTSIDE RECORDS SUMMARY | 2023-01-31 07:33 | XMS_ITS | Continuity of Care Document ---
Author Name Unknown Organization [facility] Address [address] [place] [address]- Care Team Providers Care Perlite Grinder Name Role Phone Kath QUINN, Angy Primary Care Physician Encounter [facility] [place] Date(s): 01/13/21 - 01/20/21 [facility] [address] [place] [address]- Encounter Diagnosis Hypertension(Discharge Diagnosis) - 01/13/21 Asthma(Discharge Diagnosis) - 01/13/21 Hyperlipidemia(Discharge Diagnosis) - 01/13/21 Low sexual desire disorder(Discharge Diagnosis) - 01/13/21 Osteoarthritis of right knee(Discharge Diagnosis) - 01/13/21 Steatosis of liver(Discharge Diagnosis) - 01/13/21 Obesity(Discharge Diagnosis) - 01/13/21 Attending Physician: Kath QUINN, Angy Allergies, Adverse [...] 1 Refills, Maintenance, 11/04/20 11:49:00 EDT, Solution, [facility]/pharmacy #[id number], 163, cm, 11/03/20 13:05:00 EDT, Height, 93, kg, 11/26/19 8:56:00 EDT, Dry Weight Start Date: 11/04/20 Status: Ordered buPROPion 150 mg/12 hours (SR) oral tablet, extended release 1 tablet = 150 mg, By Mouth, 2 times a day, Take once a day for the first 3 days, # 60 tablet, 1 Refills, Maintenance, 01/13/21 11:25:00 EDT, ER Tablet, [facility]/pharmacy #[id number], Partial fill upon patient request if the prescription is for a schedule II opi... Start Date: 01/13/21 Status: Ordered levocetirizine 5 mg oral tablet 1 tablet = 5 mg, By Mouth, Daily in PM, # 30 tablet, 5 Refills, Maintenance, 12/10/20 12:48:00 EDT,Tablet, [facility]/pharmacy #[id number], Partial fill upon patient request if the prescription is for a scheduleII opioid drug., 1 tablet By Mouth Daily in PM, 163... Start Date: 12/10/20 Status: Ordered meloxicam 15 mg oral tablet 1 tablet = 15 mg, By Mouth, Daily, # 30 tablet, 0 Refills, Maintenance, 01/13/21 11:24:00 EDT, Tablet, [facility]/pharmacy #[id number], Partial fill upon patient request if the prescription is for a schedule II opioid drug., 162.3, cm, 01/13/21 10:35:00 EDT, Heigh... Start Date: 01/13/21 Status: Ordered oxybutynin 10 mg/24 hr oral tablet, extended release 1 tablet = 10 mg, By Mouth, Daily, # 30 tablet, 5 Refills, Maintenance, 01/11/21 8:40:00 EDT, ER Tablet, [facility]/pharmacy #207, Partial fill upon patient request if the prescription is for a schedule IIopioid drug., 163, cm, 11/10/20 17:34:00 EDT, Heigh... Start Date: 01/11/21 Status: Ordered Symbicort 160mcg/4.5mcg Inhaler 2, puffs, Inhalation, 2 times a day, # 1 each, Refills 5, Tot. Refills 5, Maintenance, 07/15/20 11:47:00 EST, Inhaler, Route to Pharmacy Electronically, [id number], [facility]/pharmacy #[id number], 163, cm, 07/15/20 11:23:00 EST, Height,... Start Date: 07/15/20 Status: Ordered traMADol 50 mg oral tablet 1 tablet = 50 mg, By Mouth, Every 8 hours, PRN as needed for pain, FLUID JET CUTTER OPERATOR CHECKED, # 90 tablet, 0 Refills, Maintenance, 12/21/20 9:37:00 EDT, Tablet, [facility]/pharmacy #[id number], 163, cm, 11/10/20 17:34:00 EDT, Height, 93, kg, 11/26/19 8:56:00 EDT, Dry Weight Start Date: 12/21/20 Status: Ordered Ventolin HFA 108 mcg/inh inhalation aerosol with adapter 1 puffs = 90 mcg, Inhalation, 4 times a day, PRN for wheezing, # 3 each, 1 Refills, Maintenance, 12/17/20 10:28:00 EDT, Inhaler, [facility]/pharmacy #[id number], 163, cm, 11/10/20 17:34:00 EDT, Height, [...] Status Clinical Service Informant Hypertension Discharge Diagnosis 01/13/21 Asthma Discharge Diagnosis 01/13/21 Hyperlipidemia Discharge Diagnosis 01/13/21 Low sexual desire disorder Discharge Diagnosis 01/13/21 Osteoarthritis of right knee Discharge Diagnosis 01/13/21 Steatosis of liver Discharge Diagnosis 01/13/21 Obesity Discharge Diagnosis 01/13/21 Vital Signs Most recent to oldest [Reference Range]: 1 Height 162.3 cm (01/13/21 10:35 AM) Weight 100.2 kg (01/13/21 10:35 AM) Oxygen Saturation [94-100 %] 97 % (01/13/21 10:35 AM) Pulse Rate [55-90 bpm] 96 bpm *H* (01/13/21 10:35 AM) Body Mass Index [18.5-24.99] 38.04 *>HHI* (01/13/21 10:35 AM) Blood Pressure [90-138/55-84 mm Hg] 128/ 88mm Hg (01/13/21 10:35 AM) Temperature [96.8-100.4 DegF] 98 DegF (01/13/21 10:35 AM) Mode of Delivery (Oxygen) Room air (01/13/21 10:35 AM) Blood pressure sites Arm, left (01/13/21 10:35 AM) Temperature Route Oral (01/13/21 10:35 AM) Social History Social History Type Response Smoking Status Former smoker; Other : Quit 1994; entered on: 08/05/15 Sex
--- OUTSIDE RECORDS SUMMARY | 2023-01-31 07:33 | XMS_ITS | Continuity of Care Document ---
Author Name Unknown Organization [facility] Address [address] [place] [address]- Care Team Providers Care Reimbursement Consultant Name Role Phone Kath QUINN, [place] Primary Care Physician [place] [facility] 03/04/21 [facility] [address] [place] [phone]- Allergies, Adverse Reactions, Alerts Substance Reaction Severity [...] 1 Refills, Maintenance, 11/04/20 11:49:00 EDT, Solution, [facility]/pharmacy #[id number], 163, cm, 11/03/20 13:05:00 EDT, Height, 93, kg, 11/26/19 8:56:00 EDT, Dry Weight Start Date: 11/04/20 Status: Ordered buPROPion 150 mg/12 hours (SR) oral tablet, extended release 1 tablet = 150 mg, By Mouth, 2 times a day, Take once a day for the first 3 days, # 60 tablet, 1 Refills, Maintenance, 01/13/21 11:25:00 EDT, ER Tablet, [facility]/pharmacy #[id number], Partial fill upon patient [...] tablet, 5 Refills, Maintenance, 12/10/20 12:48:00 EDT,Tablet, [facility]/pharmacy #207, Partial fill upon patient request if the prescription is for a scheduleII opioid drug., 1 tablet By Mouth Daily in PM, 163... Start Date: 12/10/20 Status: Ordered meloxicam 15 mg oral tablet 1 tablet = 15 mg, By Mouth, Daily, # 30 tablet, 0 Refills, Maintenance, 02/08/21 16:51:00 EDT, Tablet, [facility]/pharmacy #207, Partial fill upon patient request if the prescription is for a schedule II opioid drug., 162.3, cm, 01/13/21 10:35:00 EDT, Heigh... Start Date: 02/08/21 Status: Ordered oxybutynin 10 mg/24 hr oral tablet, extended release 1 tablet = 10 mg, By Mouth, Daily, # 30 tablet, 5 Refills, Maintenance, 01/11/21 8:40:00 EDT, ER Tablet, [facility]/pharmacy #207, Partial fill upon patient request if the prescription is for a schedule IIopioid drug., 163, cm, 11/10/20 17:34:00 EDT, Heigh... Start Date: 01/11/21 Status: Ordered sodium chloride 0.9% nasal spray 1 sprays, Nares, Both, Every 30 minutes, PRN for dry nasal passages, # 45 mL, 1 Refills, Maintenance, 02/10/21 8:48:00 EDT, [place], [facility]/pharmacy #207, Partial fill upon patient request if the prescription is for a schedule II opioid drug., 1 sprays Na... Start Date: 02/10/21 Status: Ordered Symbicort 160mcg/4.5mcg Inhaler 2, puffs, Inhalation, 2 times a day, # 1 each, Refills 5, Tot. Refills 5, Maintenance, 07/15/20 11:47:00 EST, Inhaler, Route to Pharmacy Electronically, [id number], [facility]/pharmacy #[id number], 163, cm, 07/15/20 11:23:00 EST, Height,... Start Date: 07/15/20 Status: Ordered traMADol 50 mg oral tablet 1 tablet = 50 mg, By Mouth, Every 8 hours, PRN as needed for pain, SUPERVISOR WHIPPED TOPPING CHECKED, # 90 tablet, 0 Refills, Maintenance, 02/19/21 15:31:00 EDT, Tablet, [facility]/pharmacy #[id number], 162.3, cm, 02/10/21 7:41:00 EDT, Height, 93, kg, 11/26/19 8:56:00 EDT, Dry Weight Start Date: 02/19/21 Status: Ordered Ventolin HFA 108 mcg/inh inhalation aerosol with adapter 1 puffs = 90 mcg, Inhalation, 4 times a day, PRN for wheezing, # 3 each, 1 Refills, Maintenance, 12/17/20 10:28:00 EDT, Inhaler, [facility]/pharmacy #[id number], 163, cm, 11/10/20 17:34:00 EDT, [...]
--- OUTSIDE RECORDS SUMMARY | 2023-01-31 07:33 | XMS_ITS | Continuity of Care Document ---
Author Name Unknown Organization [facility] Adult Address [address] [place] [address]- Care Team Providers Care Medical Assistant Ob Gyn Name Role Phone Kath QUINN, Angy Primary Care Physician Encounter [facility] Date(s): 08/29/22 - 09/05/22 [facility] Adult [address] [place] [address]- Encounter Diagnosis Well adult exam(Discharge Diagnosis) - 08/29/22 Diabetes type 2, controlled(Discharge Diagnosis) - 08/29/22 Severe obesity (BMI 35.0-39.9) with comorbidity(Discharge Diagnosis) - 08/29/22 Hypertension(Discharge Diagnosis) - 08/29/22 Hyperlipidemia(Discharge Diagnosis) - 08/29/22 Elevated parathyroid hormone(Discharge Diagnosis) - 08/29/22 Attending Physician: Kath QUINN, [place] Allergies, Adverse Reactions, Alerts Substance Reaction Severity Status ibuprofen SOB Active penicillins 1 rash Active Daypro Rash Active DayQuil Resolved 1Rash Immunizations Given and Recorded Vaccine Date Status Refusal Reason [id number] 12y+ bivalent booster vax 06/14/22 Recorded influenza [...] Refills, Maintenance, 07/04/22 14:31:00 EST, [id number], 162.3, cm, 06/16/22 14:20:00 EST, Height Start [...] Refills, Maintenance, 06/10/22 8:44:00 EST, [id number], 162.3, cm, 02/23/22 15:56:00 EDT, Height Start Date: 06/10/22 Status: Ordered oxybutynin 10 mg/24 hr oral tablet, extended release 1 tablet, By Mouth, Daily, # 90 tablet, 0 Refills, 08/12/22 12:40:00 EST, [facility]/pharmacy #[id number], 162.3, cm, 06/16/22 14:20:00 EST, Height Start Date: 08/12/22 Status: Ordered sodium chloride 0.9% nasal spray 1 sprays, Nares, Both, Every 30 minutes, PRN for dry nasal passages, # 45 mL, 1 Refills, Maintenance, 02/10/21 8:48:00 EDT, [place], [facility]/pharmacy #[id number], Partial fill upon patient request if the prescription is for a schedule II opioid drug., 1 sprays Na... Start Date: 02/10/21 Status: Ordered Symbicort 160mcg/4.5mcg Inhaler 2, puffs, Inhalation, 2 times a day, # 1 each, Refills 5, Tot. Refills 5, Maintenance, 07/15/20 11:47:00 EST, Inhaler, Route to Pharmacy Electronically, [id number], [facility]/pharmacy #[id number], 163, cm, 07/15/20 11:23:00 EST, Height,... Start Date: 07/15/20 Status: Ordered traMADol 50 mg oral tablet 1 tablet = 50 mg, By Mouth, Every 8 hours, PRN as needed for pain, COMMODITY MERCHANT CHECKED, # 90 tablet, 0 Refills, Maintenance, 07/22/22 14:01:00 EST, Tablet, [facility]/pharmacy #[id number], 162.3, cm, 06/16/22 14:20:00 EST, Height Start Date: 07/22/22 Status: Ordered Ventolin HFA 108 mcg/inh inhalation aerosol with adapter 1 puffs, Inhalation, 4 times a day, PRN NEEDED FOR WHEEZING, # 54 each, 1 Refills, [id number], 162.3, cm, 04/16/21 8:01:00 EDT, Height, 93, [...] Service Informant Well adult exam Discharge Diagnosis 08/29/22 Diabetes type 2, controlled Discharge Diagnosis 08/29/22 Severe obesity (BMI 35.0-39.9) with comorbidity Discharge Diagnosis 08/29/22 Hypertension Discharge Diagnosis 08/29/22 Hyperlipidemia Discharge Diagnosis 08/29/22 Elevated parathyroid hormone Discharge Diagnosis 08/29/22 Vital Signs Most recent to oldest [Reference Range]: 1 2 3 Height 162.2 cm (08/29/22 12:06 PM) 162.2 cm (08/29/22 11:35 AM) 162.2 cm (08/29/22 11:22 AM) Weight 102.2 kg (08/29/22 11:22 AM) Oxygen Saturation [94-100 %] 97 % (08/29/22 11:22 AM) Pulse Rate [55-90 bpm] 88 bpm (08/29/22 11:22 AM) Body Mass Index [18.5-24.99 kg/m2] 38.85 kg/m2 *>HHI* (08/29/22 11:22 AM) Blood Pressure [90-138/55-84 mm Hg] 128/82mm Hg (08/29/22 12:06 PM) 142/90mm Hg *H* (08/29/22 11:35 AM) 145/90mm Hg *H* (08/29/22 11:22 AM) Temperature [96.8-100.4 DegF] 98.3 DegF (08/29/22 11:22 AM) Mode of Delivery (Oxygen) Room air (08/29/22 11:22 AM) Blood pressure sites Arm, right (08/29/22 11:35 AM) Arm, right (08/29/22 11:22 AM) Temperature Route Oral (08/29/22 11:22 AM) Social History Social History Type Response Smoking Status Former smoker; Other : Quit 1994; entered on: 08/05/15 Sex Note * Marga Gonzales: PERFORM, SIGN, VERIFY Event Display: Patient Education/Instruction Authored Date: [id number] [facility] *[facility] [place] [facility] Clinical Summary Name CATHY MINAYA Age 62 Years 1960 PCP Angy Stockton MD PCP Visit Date 08/29/2022 11:11:00 Additional Instructions: Scheduled Appointments?? Future Appointments ?No Future Appointments Scheduled Follow-Up Instructions ?? With: Address: When: Angy Stockton MD Within 1 year With: Address: When: Kath QUINN, Angy Within 6 months Diagnosis Type 2 diabetes mellitus without complications; Hyperlipidemia, unspecified; Encounter for general adult medical examination without abnormal findings; Morbid (severe) obesity due to excess calories;Endocrine disorder, unspecified; Essential (primary) hypertension Medications: Please continue your medications until treatment is completed or stopped by your provider. Discuss any questions related to medications with your provider. Medications to Continue with No Changes [id number], [address] [place], [place] [id number], [phone] Meloxicam (meloxicam 15 mg oral tablet) 1 tab(s) Oral Daily. Refills: 4. Next Dose: These medications were not printed or sent to your pharmacy Albuterol (Ventolin HFA 108 mcg/inh inhalation aerosol with adapter) 1 puff(s) Inhalation 4 times aday as needed NEEDED FOR WHEEZING. Refills: 1. Next Dose: Atorvastatin (atorvastatin 20 mg oral tablet) 1 tab(s) Oral Daily. Refills: 1. Next Dose: Budesonide-Formoterol (Symbicort 160mcg/4.5mcg Inhaler) 2 puff(s) Inhalation twice a day. Refills: 5. Next Dose: Durable Medical Equipment (Freestyle Lite Lancets) USE TO CHECK GLUCOSE ONCE DAILY, DX E11.9. Refills: 5. Next Dose: Durable Medical Equipment (Freestyle Lite Monitor) USE TO CHECK GLUCOSE ONCE DAILY, DX E11.9. Refills: 0. Next Dose: Durable Medical Equipment (Freestyle Lite Test Strips) USE TO CHECK GLUCOSE ONCE DAILY, DX E11.9. Refills: 5. Next Dose: Miscellaneous Rx (VITAMIN D) Next Dose: Oxybutynin (oxybutynin 10 mg/24 hr oral tablet, extended release) 1 tab(s) Oral Daily. Refills: 0. Next Dose: Sodium Chloride Nasal (sodium chloride 0.9% nasal spray) 1 spray(s) Nares, Both every 30 minutes asneeded for dry nasal passages. Refills: 1. Next Dose: Tramadol (traMADol 50 mg oral tablet) 1 tab(s) Oral every 8 hours as needed as needed for pain. PMPCHECKED. Refills: 0. Next Dose: No Longer Take the Following Medications BuPROpion (buPROPion 150 mg/12 hours (SR) oral tablet, extended release) 1 tab(s) Oral twice a day.Take once a day for the first 3 days. Refills: 1. levocetirizine (levocetirizine 5 mg oral tablet) 1 tab(s) Oral Daily in PM. Refills: 5. Allergy Info:?? DayQuil; Daypro; penicillins; ibuprofen Medications Given This Visit Future Orders ?Renal Panel? Order Date:08/29/22?- Complete on or after?08/29/22 ?PTH Intact? Order Date:08/29/22?- Complete on or after?08/29/22 ?Vitamin D 25 Hydroxy Level? Order Date:08/29/22?- Complete on or after?08/29/22 Vital Signs Height 162.2 cm Weight 102.2 kg BMI 38.85 kg/m2 Blood Pressure 128 mm Hg/82 mm Hg Temperature 98.3 DegF Pulse Rate 88 bpm Respiratory Rate 02 Sat Mode of Delivery 97 %/Room air You can now view a summary of your hospital visit from the comfort of your home through a free online portal called [employer]. [employer] is a website that allows you to securely view your medical information including discharge summary, medications and follow-up visits. ??You can alsosend a secure electronic message to your doctor???s office to request appointments, renew medications or just ask a question. You can enroll at [email or web address] or register during your next office visit. Disclaimer:?? The information provided is of a general nature and is intended to be used in conjunction with the recommendations and advice of your health care practitioner. ??Every effort has been made to ensure that the information provided is accurate and complete at the time it is provided to you however, as your needs change, or, as new ??information becomes available, different or additional instructions may be required. If you have questions, please consult with your primary care provider or pharmacist, as appropriate. ??This information is not intended to serve as substitution for assessment and evaluation by a qualified health care provider. If you do not have a primary care provider, you may find a [facility] provider by calling [facility] [employer] Link at [phone]. For information about the plan of care including goals and instructions for your diagnosis, please see the patient education orders section of this document. Patient Education Materials?? The content of this educational material or handout may have been modified, supplemented, or adapted from its original content and format to support your individualized medical care. Prevention Guidelines, Women Ages 50 to 64 Screening tests and vaccines are an important part of managing your health. Health counseling is essential, too. Below are guidelines for these, for women ages 50 to 64. Talk with your healthcare provider to make sure you???re up to date on what you need. Screening Who needs it How often Type 2 diabetes or prediabetes All adults beginning at age 45 and adults without symptoms at any age who are overweight or obese and have 1 or more additional risk factors for diabetes. At?? least every 3 years Alcohol misuse All women in this age group At routine exams Blood pressure All women in this age group Every 2 years if your blood pressure is less than 120/80 mm Hg; yearly if your systolic blood pressure is 120 to 139 mm Hg, or your diastolic blood pressure reading is 80 to 89 mm Hg Breast cancer All women in this age group Yearly mammogram and clinical breast exam1 Cervical cancer All women in this age group, except women who have had a complete hysterectomy Pap test every 3 years or Pap test with human papillomavirus (HPV) test every 5 years Chlamydia Women at increased risk for infection At routine exams Colorectal cancer All women in this age group Flexible sigmoidoscopy every 5 years, or colonoscopy every 10 years, or double- contrast barium enema every 5 years; yearly fecal occult blood test or fecal immunochemical test; or a stool DNA test asoften as your health care provider advises; talk with your health care provider about which tests are best for you Depression All women in this age group At routine exams Gonorrhea Sexually active women at increased risk for infection At routine exams Hepatitis C Anyone at increased risk; 1 time for those born between 1945 and 1965 At routine exams High cholesterol or triglycerides All women in this age group who are at risk for coronary artery disease At least every 5 years HIV All women At routine exams Lung cancer Adults age 55 to 80 who have smoked Yearly screening in smokers with 30 pack-year history of smoking or who quit within 15 years Obesity All women in this age group At routine exams Osteoporosis Women who are postmenopausal Ask your healthcare provider Syphilis Women at increased risk for infection ??? talk with your healthcare provider At routine exams Tuberculosis Women at increased risk for infection ??? talk with your healthcare provider Ask your healthcare provider Vision All women in this age group Ask your healthcare provider Vaccine Who needs it How often Chickenpox (varicella) All women in this age group who have no record of this infection or vaccine 2 doses; the second dose should be given at least 4 weeks after the first dose Hepatitis A Women at increased risk for infection ??? talk with your healthcare provider 2 doses given at least 6 months apart Hepatitis B Women at increased risk for infection ??? talk with your healthcare provider 3 doses over 6 months; second dose should be given 1 month after the first dose; the third dose should be given at least 2 months after the second dose and at least 4 months after the first dose Haemophilus influenzaeType B (HIB) Women at increased risk for infection ??? talk with your healthcare provider 1 to 3 doses Influenza (flu) All women in this age group Once a year Measles, mumps, rubella (MMR) Women in this age group through their late 50s who have no record of these infections or vaccines 1 dose Meningococcal Women at increased risk for infection ??? talk with your healthcare provider 1 or more doses Pneumococcal conjugate vaccine (PCV13) and pneumococcal polysaccharide vaccine (PPSV23) Women at increased risk for infection ??? talk with your healthcare provider PCV13: 1 dose ages 19 to 65 (protects against 13 types of pneumococcal bacteria) PPSV23: 1 to 2 doses through age 64, or 1 dose at 65 or older (protects against 23 types of pneumococcal bacteria) Tetanus/diphtheria/pertussis (Td/Tdap) booster All women in this age group Td every 10 years, or a one-time dose of Tdap instead of a Td booster after age 18, then Td every 10 years Zoster All women ages 60 and older 1 dose Counseling Who needs it How often BRCA gene mutation testing for breast and ovarian cancer susceptibility Women with increased risk for having gene mutation When your risk is known Breast cancer and chemoprevention Women at high risk for breast cancer When your risk is known Diet and exercise Women who are overweight or obese When diagnosed, and then at routine exams Sexually transmitted infection prevention Women at increased risk for infection ??? talk with your healthcare provider At routine exams Use of daily aspirin Women ages 55 and up in this age group who are at risk for cardiovascular health problems such as stroke When your risk is known Use of tobacco and the health effects it can cause All women in this age group Every exam 1American Cancer Society ?? [id number] [employer]. [address] [place] [address]. All rights reserved. This information is not intended as a substitute for professional medical care. Always follow your healthcare professional's instructions. Patient Care team information Care Team Personnel Name: Angy Stockton MD Position: [facility] Primary Care Physician Member Role: PCP Address: Address: [address] [place] [address] [address] [place] [address]- Care Team Related Persons Name: DHRUV HSU Address: [place] [address] Name: TOMASA DUBOIS Address: [place] [address]
--- OUTSIDE RECORDS SUMMARY | 2023-01-31 07:33 | XMS_ITS | Continuity of Care Document ---
Author Name Unknown Organization [facility] Adult Address [address] [place] [address]- Care Team Providers Care Complaints Coordinator Name Role Phone Kath QUINN, Angy Primary Care Physician Encounter [facility] Date(s): 08/14/20 - 09/13/20 [facility] Adult [address] [place] [address]- Allergies, Adverse Reactions, Alerts Substance Reaction Severity [...] 07/15/20 11:47:00 EST, Route to Pharmacy Electronically, [facility]/pharmacy #[id number], Partial fill upon patient request if the prescription is for a schedule II opioid drug... Start Date: 07/15/20 Status: Ordered oxybutynin 10 mg/24 hr oral tablet, extended release 1 tablet = 10 mg, By Mouth, Daily, # 30 tablet, 5 Refills, Maintenance, 07/15/20 11:48:00 EST, ER Tablet, [facility]/pharmacy #207, Partial fill upon patient request if the prescription is for a schedule II opioid drug., 163, cm, 07/15/20 11:23:00 EST, [place]... Start Date: 07/15/20 Status: Ordered Symbicort 160mcg/4.5mcg Inhaler 2, puffs, Inhalation, 2 times a day, # 1 each, Refills 5, Tot. Refills 5, Maintenance, 07/15/20 11:47:00 EST, Inhaler, Route to Pharmacy Electronically, [id number], [facility]/pharmacy #207, 163, cm, 07/15/20 11:23:00 EST, Height,... Start Date: 07/15/20 Status: Ordered traMADol 50 mg oral tablet 1 tablet = 50 mg, By Mouth, Every 8 hours, PRN as needed for pain, MANAGER IN TRAINING CHECKED, # 90 tablet, 0 Refills, Maintenance, 08/17/20 11:45:00 EST, Tablet, [facility]/pharmacy #207, 163, cm, 07/15/20 11:23:00 EST,Height, 93, kg, 11/26/19 8:56:00 EDT, Dry Weight Start Date: 08/17/20 Status: Ordered Ventolin HFA 108 mcg/inh inhalation aerosol with adapter 1 puffs = 90 mcg, Inhalation, 4 times a day, PRN for wheezing, # 3 each, 0 Refills, Maintenance, 07/20/20 12:01:00 EST, Inhaler, [facility]/pharmacy #207, 163, cm, 07/15/20 11:23:00 EST, [...]
--- OUTSIDE RECORDS SUMMARY | 2023-01-31 07:33 | XMS_ITS | Continuity of Care Document ---
Author Name Unknown Organization [facility] Adult Address [address] [place] [address]- Care Team Providers Care Concrete Mixer Truck Driver Name Role Phone Kath QUINN, [place] Primary Care Physician Encounter [facility] Date(s): 02/09/21 - 03/11/21 [facility] Adult [address] [place] [id number]- Allergies, Adverse Reactions, Alerts Substance Reaction Severity [...] 1 Refills, Maintenance, 11/04/20 11:49:00 EDT, Solution, [facility]/pharmacy #[id number], 163, cm, 11/03/20 13:05:00 EDT, Height, 93, kg, 11/26/19 8:56:00 EDT, Dry Weight Start Date: 11/04/20 Status: Ordered buPROPion 150 mg/12 hours (SR) oral tablet, extended release 1 tablet = 150 mg, By Mouth, 2 times a day, Take once a day for the first 3 days, # 60 tablet, 1 Refills, Maintenance, 01/13/21 11:25:00 EDT, ER Tablet, [facility]/pharmacy #[id number], Partial fill upon patient [...] tablet, 5 Refills, Maintenance, 12/10/20 12:48:00 EDT,Tablet, [facility]/pharmacy #[id number], Partial fill upon patient request if the prescription is for a scheduleII opioid drug., 1 tablet By Mouth Daily in PM, 163... Start Date: 12/10/20 Status: Ordered meloxicam 15 mg oral tablet 1 tablet, By Mouth, Daily, # 30 tablet, 0 Refills, [facility], 162.3, cm, 02/10/21 7:41:00 EDT, Height, 93, kg, 11/26/19 8:56:00 EDT, Dry Weight Start Date: 03/05/21 Status: Ordered oxybutynin 10 mg/24 hr oral tablet, extended release 1 tablet = 10 mg, By Mouth, Daily, # 30 tablet, 5 Refills, Maintenance, 01/11/21 8:40:00 EDT, ER Tablet, [facility]/pharmacy #[id number], Partial fill upon patient request if the prescription is for a schedule IIopioid drug., 163, cm, 11/10/20 17:34:00 EDT, Heigh... Start Date: 01/11/21 Status: Ordered sodium chloride 0.9% nasal spray 1 sprays, Nares, Both, Every 30 minutes, PRN for dry nasal passages, # 45 mL, 1 Refills, Maintenance, 02/10/21 8:48:00 EDT, [place], [facility]/pharmacy #[id number], Partial fill upon patient request if the prescription is for a schedule II opioid drug., 1 sprays Na... Start Date: 02/10/21 Status: Ordered Symbicort 160mcg/4.5mcg Inhaler 2, puffs, Inhalation, 2 times a day, # 1 each, Refills 5, Tot. Refills 5, Maintenance, 07/15/20 11:47:00 EST, Inhaler, Route to Pharmacy Electronically, [id number], [facility]/pharmacy #[id number], 163, cm, 07/15/20 11:23:00 EST, Height,... 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
--- OUTSIDE RECORDS SUMMARY | 2023-01-31 07:33 | XMS_ITS | Continuity of Care Document ---
Author Name Unknown Organization [facility] Adult Address [address] [place] [address]- Care Team Providers Care Solar Sales Representative Name Role Phone Kath QUINN, [place] Primary Care Physician [place] [facility] Date(s): 01/03/22 - 02/02/22 [facility] Adult [address] [place] [address]- Allergies, Adverse Reactions, Alerts Substance Reaction Severity [...] Refills, Maintenance, 01/13/21 11:25:00 EDT, ER Tablet, [facility]/pharmacy #[id number], Partial fill upon patient request if [...] tablet, 5 Refills, Maintenance, 12/10/20 12:48:00 EDT,Tablet, [facility]/pharmacy #[id number], Partial fill upon patient request if the prescription is for a scheduleII opioid drug., 1 tablet By Mouth Daily in PM, 163... Start Date: 12/10/20 Status: Ordered meloxicam 15 mg oral tablet 1 tablet, By Mouth, Daily, # 30 tablet, 5 Refills, 08/06/21 10:23:00 EST, [facility]/pharmacy #[id number], 162.3, cm, 04/16/21 8:01:00 EDT, Height, [...] mL, 1 Refills, Maintenance, 02/10/21 8:48:00 EDT, [place], [facility]/pharmacy #[id number], Partial fill upon patient request if the prescription is for a schedule II opioid drug., 1 sprays Na... Start Date: 02/10/21 Status: Ordered Symbicort 160mcg/4.5mcg Inhaler 2, puffs, Inhalation, 2 times a day, # 1 each, Refills 5, Tot. Refills 5, Maintenance, 07/15/20 11:47:00 EST, Inhaler, Route to Pharmacy Electronically, [id number], [facility]/pharmacy #[id number], 163, cm, 07/15/20 11:23:00 EST, Height,... 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
--- OUTSIDE RECORDS SUMMARY | 2023-01-31 07:33 | XMS_ITS | Continuity of Care Document ---
Author Name Unknown Organization [facility] Adult Address [address] [place] [address]- Care Team Providers Care Medicine Assistant Name Role Phone Kath QUINN, [place] Primary Care Physician Encounter [facility] Date(s): 09/12/22 - 10/12/22 [facility] Adult [address] [place] [address]- Allergies, Adverse Reactions, Alerts Substance Reaction Severity Status penicillins 1 rash Active ibuprofen SOB Active DayQuil Resolved Daypro Rash Active 1Rash Immunizations Given and Recorded Vaccine Date Status Refusal Reason [id number] 12y+ bivalent booster vax 06/14/22 Recorded influenza [...] Refills, Maintenance, 07/04/22 14:31:00 EST, [facility], 162.3, cm, 06/16/22 14:20:00 EST, Height Start [...] Refills, Maintenance, 06/10/22 8:44:00 EST, [facility], 162.3, cm, 02/23/22 15:56:00 EDT, Height Start Date: 06/10/22 Status: Ordered oxybutynin 10 mg/24 hr oral tablet, extended release 1 tablet, By Mouth, Daily, # 90 tablet, 0 Refills, 08/12/22 12:40:00 EST, [facility]/pharmacy #[id number], 162.3, cm, 06/16/22 14:20:00 EST, Height Start Date: 08/12/22 Status: Ordered sodium chloride 0.9% nasal spray 1 sprays, Nares, Both, Every 30 minutes, PRN for dry nasal passages, # 45 mL, 1 Refills, Maintenance, 02/10/21 8:48:00 EDT, [place], [facility]/pharmacy #[id number], Partial fill upon patient request if the prescription is for a schedule II opioid drug., 1 sprays Na... Start Date: 02/10/21 Status: Ordered Symbicort 160mcg/4.5mcg Inhaler 2, puffs, Inhalation, 2 times a day, # 1 each, Refills 5, Tot. Refills 5, Maintenance, 07/15/20 11:47:00 EST, Inhaler, Route to Pharmacy Electronically, [id number], [facility]/pharmacy #[id number], 163, cm, 07/15/20 11:23:00 EST, Height,... Start Date: 07/15/20 Status: Ordered traMADol 50 mg oral tablet 1 tablet = 50 mg, By Mouth, Every 8 hours, PRN as needed for pain, SHIFT SUPERVISOR MELTING CHECKED, # 90 tablet, 0 Refills, Maintenance, 09/14/22 16:47:00 EST, Tablet, [facility]/pharmacy #[id number], 162.2, cm, 08/29/22 [...] Team Personnel Name: Angy Stockton MD Position: [facility] Primary Care Physician Member Role: PCP Address: Address: [address] [place] [address] [address]rd [place] [address]- Care Team Related Persons Name: DHRUV HSU Address: [place] [address] Name: TOMASA DUBOIS Address: [place] [address]
--- OUTSIDE RECORDS SUMMARY | 2023-01-31 07:33 | XMS_ITS | Continuity of Care Document ---
Author Name Unknown Organization [facility] Address [address] [place] [address]- Care Team Providers Care Veterinary Microbiologist Name Role Phone Kath QUINN, Angy Primary Care Physician Encounter [facility] Date(s): 11/04/20 - 12/04/20 [facility] [address] [place] [address]- Allergies, Adverse Reactions, Alerts Substance Reaction Severity [...] Mouth, Daily in PM, # 30 tablet, 0 Refills, Maintenance, 11/18/20 17:18:00 EDT,Tablet, [facility]/pharmacy #[id number], Partial fill upon patient request if the prescription is for a scheduleII opioid drug., 1 tablet By Mouth Daily in PM, 163... Start Date: 11/18/20 Status: Ordered oxybutynin 10 mg/24 hr oral tablet, extended release 1 tablet = 10 mg, By Mouth, Daily, # 30 tablet, 5 Refills, Maintenance, 07/15/20 11:48:00 EST, ER Tablet, [facility]/pharmacy #[id number], Partial fill upon patient request if the prescription is for a schedule II opioid drug., 163, cm, 07/15/20 11:23:00 EST, [place]... Start Date: 07/15/20 Status: Ordered Symbicort 160mcg/4.5mcg Inhaler 2, puffs, Inhalation, 2 times a day, # 1 each, Refills 5, Tot. Refills 5, Maintenance, 07/15/20 11:47:00 EST, Inhaler, Route to Pharmacy Electronically, [id number], [facility]/pharmacy #207, 163, cm, 07/15/20 11:23:00 EST, Height,... Start Date: 07/15/20 Status: Ordered traMADol 50 mg oral tablet 1 tablet = 50 mg, By Mouth, Every 8 hours, PRN as needed for pain, LITERACY TEACHER CHECKED, # 90 tablet, 0 Refills, Maintenance, 11/19/20 11:02:00 EDT, Tablet, [facility]/pharmacy #[id number], 163, cm, 11/10/20 17:34:00 EDT,Height, [...] Steatosis of liver(Confirmed) Active Vertigo(Confirmed) 2013 Active Vital Signs Most recent to oldest [Reference Range]: 1 Pulse Rate [55-90 bpm] 102 bpm *H* (11/04/20 9:44 AM) Blood Pressure [90-138/55-84 mm Hg] 121/ 89mm Hg 1 (11/04/20 9:44 AM) 1Result Comment: Cathy obtained her BP at home and called it into [facility] Social History Social History Type Response Smoking Status Former smoker; Other : Quit 1994; entered on: 08/05/15 Sex
--- OUTSIDE RECORDS SUMMARY | 2023-01-31 07:33 | XMS_ITS | Continuity of Care Document ---
Author Name Unknown Organization [facility] Address [address] [place] [address]- Care Team Providers Care Chip Mucker Name Role Phone Kath QUINN, [place] Primary Care Physician [place] [facility] - 07/20/22 [facility] [address] [place] [address]- Allergies, Adverse Reactions, Alerts Substance Reaction Severity [...] Refills, Maintenance, 07/04/22 14:31:00 EST, [facility], 162.3, cm, 06/16/22 14:20:00 EST, Height Start Date: 07/04/22 Status: Ordered buPROPion 150 mg/12 hours (SR) oral tablet, extended release 1 tablet = 150 mg, By Mouth, 2 times a day, Take once a day for the first 3 days, # 60 tablet, 1 Refills, Maintenance, 01/13/21 11:25:00 EDT, ER Tablet, [facility]/pharmacy #[id number], Partial fill upon patient [...] 5 Refills, Maintenance, 12/10/20 12:48:00 EDT,Tablet, [facility]/pharmacy #[id number], Partial fill upon patient request if the prescription is for a scheduleII opioid drug., 1 tablet By Mouth Daily in PM, 163... Start Date: 12/10/20 Status: Ordered meloxicam 15 mg oral tablet 1 tablet, By Mouth, Daily, # 30 tablet, 4 Refills, Maintenance, 06/10/22 8:44:00 EST, [facility], 162.3, cm, 02/23/22 15:56:00 EDT, Height Start Date: 06/10/22 Status: Ordered oxybutynin 10 mg/24 hr oral tablet, extended release 1 tablet, By Mouth, Daily, # 90 tablet, 2 Refills, 10/07/21 16:41:00 EDT, [facility]/pharmacy #[id number], 162.3, cm, 10/04/21 13:55:00 EDT, Height, 93, kg, 11/26/19 8:56:00 EDT, Dry Weight Start Date: 10/07/21 Status: Ordered sodium chloride 0.9% nasal spray 1 sprays, Nares, Both, Every 30 minutes, PRN for dry nasal passages, # 45 mL, 1 Refills, Maintenance, 02/10/21 8:48:00 EDT, [place], [facility]/pharmacy #[id number], Partial fill upon patient request if the prescription is for a schedule II opioid drug., 1 sprays Na... Start Date: 02/10/21 Status: Ordered Symbicort 160mcg/4.5mcg Inhaler 2, puffs, Inhalation, 2 times a day, # 1 each, Refills 5, Tot. Refills 5, Maintenance, 07/15/20 11:47:00 EST, Inhaler, Route to Pharmacy Electronically, [id number], [facility]/pharmacy #[id number], 163, cm, 07/15/20 11:23:00 EST, Height,... Start Date: 07/15/20 Status: Ordered traMADol 50 mg oral tablet 1 tablet = 50 mg, By Mouth, Every 8 hours, PRN as needed for pain, FURNITURE MANAGER CHECKED, # 90 tablet, 0 Refills, Maintenance, 05/24/22 16:59:00 EST, [facility]t, [id number], 162.3, cm, 02/23/22 15:56:00 EDT, Height Start Date: 05/24/22 Status: Ordered Ventolin HFA 108 mcg/inh inhalation aerosol with adapter 1 puffs, Inhalation, 4 times a day, PRN NEEDED FOR WHEEZING, # 54 each, 1 Refills, [facility], 162.3, cm, 04/16/21 8:01:00 EDT, Height, 93, [...] Physician Member Role: PCP Address: Address: [address] [place] [address]- Care Team Related Persons Name: DHRUV HSU Address: [place] [address] Name: TOMASA DUBOIS Address: [place] [address]
--- OUTSIDE RECORDS SUMMARY | 2023-01-31 07:33 | XMS_ITS | Continuity of Care Document ---
Author Name Unknown Organization [facility] Address [address] [place] [address]- Care Team Providers Care Machine Tool Designer Name Role Phone Kath QUINN, Angy Primary Care Physician [place] [facility] [place]/13/21 [place] 09/12/21 [facility] [address] [place] [address]- Allergies, Adverse Reactions, Alerts Substance Reaction Severity [...] Refills, Maintenance, 01/13/21 11:25:00 EDT, ER Tablet, [facility]/pharmacy #[id number], Partial fill upon patient request [...] tablet, 5 Refills, Maintenance, 12/10/20 12:48:00 EDT,Tablet, [facility]/pharmacy #[id number], Partial fill upon patient request if the prescription is for a scheduleII opioid drug., 1 tablet By Mouth Daily in PM, 163... Start Date: 12/10/20 Status: Ordered meloxicam 15 mg oral tablet 1 tablet, By Mouth, Daily, # 30 tablet, 5 Refills, 08/06/21 10:23:00 EST, [facility]/pharmacy #[id number], 162.3, cm, 04/16/21 8:01:00 EDT, Height, 93, kg, 11/26/19 8:56:00 EDT, Dry Weight Start Date: 08/06/21 Status: Ordered oxybutynin 10 mg/24 hr oral tablet, extended release 1 tablet, By Mouth, Daily, # 90 tablet, 0 Refills, [facility], 162.3, cm, 04/16/21 8:01:00 EDT, Height, 93, kg, 11/26/19 8:56:00 EDT, Dry Weight Start Date: 07/05/21 Status: Ordered sodium chloride 0.9% nasal spray 1 sprays, Nares, Both, Every 30 minutes, PRN for dry nasal passages, # 45 mL, 1 Refills, Maintenance, 02/10/21 8:48:00 EDT, [place], [facility]/pharmacy #[id number], Partial fill upon patient request if the prescription is for a schedule II opioid drug., 1 sprays Na... Start Date: 02/10/21 Status: Ordered Symbicort 160mcg/4.5mcg Inhaler 2, puffs, Inhalation, 2 times a day, # 1 each, Refills 5, Tot. Refills 5, Maintenance, 07/15/20 11:47:00 EST, Inhaler, Route to Pharmacy Electronically, [id number], [facility]/pharmacy #[id number], 163, cm, 07/15/20 11:23:00 EST, Height,... Start Date: 07/15/20 Status: Ordered traMADol 50 mg oral tablet 1 tablet = 50 mg, By Mouth, Every 8 hours, PRN as needed for pain, OWNER CONSULTING ENGINEER CHECKED, # 90 tablet, 0 Refills, Maintenance, 09/09/21 11:53:00 EST, Tablet, [facility]/pharmacy #[id number], 162.3, cm, 08/06/21 12:17:00 EST, Height, 93, kg, 11/26/19 8:56:00 EDT, Dry Weight Start Date: 09/09/21 Status: Ordered Ventolin HFA 108 mcg/inh inhalation aerosol with adapter 1 puffs, Inhalation, 4 times a day, PRN NEEDED FOR WHEEZING, # 54 each, 1 Refills, [facility], 162.3, cm, 04/16/21 8:01:00 EDT, Height, 93, [...]
--- OUTSIDE RECORDS SUMMARY | 2023-01-31 07:33 | XMS_ITS | Continuity of Care Document ---
Author Name Unknown Organization [facility] Address [address] [place] [address]- Care Team Providers Care Independent Driver Name Role Phone Kath QUINN, Angy Primary Care Physician [place] [facility] [place] 02/24/22 [facility] [address] [place] [address]- Encounter Diagnosis COVID-19(Discharge Diagnosis) - 02/17/22 Asthma(Discharge Diagnosis) - 02/17/22 Attending Physician: Not on Staff, Attending MD Referring Physician: Kath QUINN, Angy Allergies, Adverse Reactions, [...] 01/13/21 11:25:00 EDT, ER Tablet, [facility]/pharmacy #[id number], Partial fill upon patient request if [...] Refills, Maintenance, 12/10/20 12:48:00 EDT,Tablet, [facility]/pharmacy #[id number], Partial fill upon patient request if the prescription is for a scheduleII opioid drug., 1 tablet By Mouth Daily in PM, 163... Start Date: 12/10/20 Status: Ordered meloxicam 15 mg oral tablet 1 tablet, By Mouth, Daily, # 30 tablet, 5 Refills, 08/06/21 10:23:00 EST, [facility]/pharmacy #[id number], 162.3, cm, 04/16/21 8:01:00 EDT, Height, 93, kg, 11/26/19 8:56:00 EDT, Dry Weight Start Date: 08/06/21 Status: Ordered oxybutynin 10 mg/24 hr oral tablet, extended release 1 tablet, By Mouth, Daily, # 90 tablet, 2 Refills, 10/07/21 16:41:00 EDT, [facility]/pharmacy #[id number], 162.3, cm, 10/04/21 13:55:00 EDT, Height, 93, kg, 11/26/19 8:56:00 EDT, Dry Weight Start Date: 10/07/21 Status: Ordered sodium chloride 0.9% nasal spray 1 sprays, Nares, Both, Every 30 minutes, PRN for dry nasal passages, # 45 mL, 1 Refills, Maintenance, 02/10/21 8:48:00 EDT, [place], [facility]/pharmacy #207, Partial fill upon patient request if the prescription is for a schedule II opioid drug., 1 sprays Na... Start Date: 02/10/21 Status: Ordered Symbicort 160mcg/4.5mcg Inhaler 2, puffs, Inhalation, 2 times a day, # 1 each, Refills 5, Tot. Refills 5, Maintenance, 07/15/20 11:47:00 EST, Inhaler, Route to Pharmacy Electronically, [id number], [facility]/pharmacy #[id number], 163, cm, 07/15/20 11:23:00 EST, Height,... Start Date: 07/15/20 Status: Ordered traMADol 50 mg oral tablet 1 tablet = 50 mg, By Mouth, Every 8 hours, PRN as needed for pain, OCCUPATIONAL HEALTH AND SAFETY MANAGER CHECKED, # 90 tablet, 0 Refills, Maintenance, 02/23/22 15:59:00 EDT, Tablet, [id number], 162.3, cm, 02/23/22 15:56:00 EDT, Height Start Date: 02/23/22 Status: Ordered Ventolin HFA 108 mcg/inh inhalation aerosol with adapter 1 puffs, Inhalation, 4 times a day, PRN NEEDED FOR WHEEZING, # 54 each, 1 Refills, [facility], 162.3, cm, 04/16/21 8:01:00 EDT, Height, 93, [...] Diagnosis Diagnosis Type Effective Dates Health Status Clini gale Service Informant COVID-19 Discharge Diagnosis 02/17/22 Asthma Discharge Diagnosis 02/17/22 Social History Social History Type Response Smoking Status Former smoker; Other : Quit 1994; entered on: 08/05/15 Sex
--- OUTSIDE RECORDS SUMMARY | 2023-01-31 07:33 | XMS_ITS | Continuity of Care Document ---
Author Name Unknown Organization [facility] Adult Address [address] [place] [address]- Care Team Providers Care Block Paver Name Role Phone Kath QUINN, [place] Primary Care Physician Encounter [facility] Date(s): 01/20/22 - 02/19/22 [facility] [address] [place] [address]- Allergies, Adverse Reactions, Alerts Substance Reaction Severity [...] Refills, Maintenance, 01/13/21 11:25:00 EDT, ER Tablet, [facility]/pharmacy #[id number], Partial fill upon [...] tablet, 5 Refills, Maintenance, 12/10/20 12:48:00 EDT,Tablet, [facility]/pharmacy #[id number], Partial fill upon patient request if the prescription is for a scheduleII opioid drug., 1 tablet By Mouth Daily in PM, 163... Start Date: 12/10/20 Status: Ordered meloxicam 15 mg oral tablet 1 tablet, By Mouth, Daily, # 30 tablet, 5 Refills, 08/06/21 10:23:00 EST, [facility]/pharmacy #[id number], 162.3, cm, 04/16/21 8:01:00 EDT, Height, 93, kg, 11/26/19 8:56:00 EDT, Dry Weight Start Date: 08/06/21 Status: Ordered oxybutynin 10 mg/24 hr oral tablet, extended release 1 tablet, By Mouth, Daily, # 90 tablet, 2 Refills, 10/07/21 16:41:00 EDT, [facility]/pharmacy #[id number], 162.3, cm, 10/04/21 13:55:00 EDT, Height, 93, kg, 11/26/19 8:56:00 EDT, Dry Weight Start Date: 10/07/21 Status: Ordered Paxlovid 150 mg-100 mg oral tablet See Instructions, take 2 nirmatrelvir (150mg tablets) with 1 ritonavir (100 mg tablet) twice a day for 5 days, # 30 tablet, 0 Refills, Maintenance, 02/17/22 17:52:00 EDT, [facility]/pharmacy #[id number], Partial fill upon patient request if the prescription is for... Start Date: 02/17/22 Status: Ordered sodium chloride 0.9% nasal spray 1 sprays, Nares, Both, Every 30 minutes, PRN for dry nasal passages, # 45 mL, 1 Refills, Maintenance, 02/10/21 8:48:00 EDT, [place], [facility]/pharmacy #[id number], Partial fill upon patient request if the prescription is for a schedule II opioid drug., 1 sprays Na... Start Date: 02/10/21 Status: Ordered Symbicort 160mcg/4.5mcg Inhaler 2, puffs, Inhalation, 2 times a day, # 1 each, Refills 5, Tot. Refills 5, Maintenance, 07/15/20 11:47:00 EST, Inhaler, Route to Pharmacy Electronically, [id number], [facility]/pharmacy #[id number], 163, cm, 07/15/20 11:23:00 EST, Height,... Start Date: 07/15/20 Status: Ordered traMADol 50 mg oral tablet 1 tablet = 50 mg, By Mouth, Every 8 hours, PRN as needed for pain, THERAPIST PHYS CHECKED, # 90 tablet, 0 Refills, Maintenance, 01/03/22 12:16:00 EDT, Tablet, [facility]/pharmacy #[id number], 162.3, cm, 10/04/21 13:55:00 EDT, Height Start Date: 01/03/22 Status: Ordered Ventolin HFA 108 mcg/inh inhalation aerosol with adapter 1 puffs, Inhalation, 4 times a day, PRN NEEDED FOR WHEEZING, # 54 each, 1 Refills, [facility], 162.3, cm, 04/16/21 8:01:00 EDT, Height, 93, [...]
--- OUTSIDE RECORDS SUMMARY | 2023-01-31 07:33 | XMS_ITS | Continuity of Care Document ---
Author Name Unknown Organization [facility] Adult Address [address] [place] [address]- Care Team Providers Care Bag Machine Operator Helper Name Role Phone Kath QUINN, Angy Primary Care Physician Encounter [facility] [place] Date(s): 02/25/21 - 03/27/21 [facility] [address] [place] [address]- Allergies, Adverse Reactions, Alerts Substance Reaction Severity [...] 1 Refills, Maintenance, 11/04/20 11:49:00 EDT, Solution, [facility]/pharmacy #[id number], 163, cm, 11/03/20 13:05:00 EDT, Height, 93, kg, 11/26/19 8:56:00 EDT, Dry Weight Start Date: 11/04/20 Status: Ordered buPROPion 150 mg/12 hours (SR) oral tablet, extended release 1 tablet = 150 mg, By Mouth, 2 times a day, Take once a day for the first 3 days, # 60 tablet, 1 Refills, Maintenance, 01/13/21 11:25:00 EDT, ER Tablet, [facility]/pharmacy #[id number], Partial fill upon patient [...] tablet, 5 Refills, Maintenance, 12/10/20 12:48:00 EDT,Tablet, [facility]/pharmacy #[id number], Partial fill upon patient request if the prescription is for a scheduleII opioid drug., 1 tablet By Mouth Daily in PM, 163... Start Date: 12/10/20 Status: Ordered meloxicam 15 mg oral tablet 1 tablet, By Mouth, Daily, # 30 tablet, 0 Refills, [facility]326, 162.3, cm, 02/10/21 7:41:00 EDT, Height, 93, kg, 11/26/19 8:56:00 EDT, Dry Weight Start Date: 03/05/21 Status: Ordered oxybutynin 10 mg/24 hr oral tablet, extended release 1 tablet = 10 mg, By Mouth, Daily, # 30 tablet, 5 Refills, Maintenance, 01/11/21 8:40:00 EDT, ER Tablet, [facility]/pharmacy #[id number], Partial fill upon patient request if the prescription is for a schedule IIopioid drug., 163, cm, 11/10/20 17:34:00 EDT, [place]... Start Date: 01/11/21 Status: Ordered sodium chloride 0.9% nasal spray 1 sprays, Nares, Both, Every 30 minutes, PRN for dry nasal passages, # 45 mL, 1 Refills, Maintenance, 02/10/21 8:48:00 EDT, [place], [facility]/pharmacy #[id number], Partial fill upon patient request if the prescription is for a schedule II opioid drug., 1 sprays Na... Start Date: 02/10/21 Status: Ordered Symbicort 160mcg/4.5mcg Inhaler 2, puffs, Inhalation, 2 times a day, # 1 each, Refills 5, Tot. Refills 5, Maintenance, 07/15/20 11:47:00 EST, Inhaler, Route to Pharmacy Electronically, [id number], [facility]/pharmacy #[id number], 163, cm, 07/15/20 11:23:00 EST, Height,... Start Date: 07/15/20 Status: Ordered traMADol 50 mg oral tablet 1 tablet = 50 mg, By Mouth, Every 8 hours, PRN as needed for pain, CUTTING DEPARTMENT SUPERVISOR CHECKED, # 90 tablet, 0 Refills, Maintenance, 02/19/21 15:31:00 EDT, Tablet, [facility]/pharmacy #[id number], 162.3, cm, 02/10/21 7:41:00 EDT, Height, 93, kg, 11/26/19 8:56:00 EDT, Dry Weight Start Date: 02/19/21 Status: Ordered Ventolin HFA 108 mcg/inh inhalation aerosol with adapter 1 puffs = 90 mcg, Inhalation, 4 times a day, PRN for wheezing, # 3 each, 1 Refills, Maintenance, 12/17/20 10:28:00 EDT, Inhaler, [facility]/pharmacy #[id number], 163, cm, 11/10/20 17:34:00 EDT, Height, [...]
--- OUTSIDE RECORDS SUMMARY | 2023-01-31 07:33 | XMS_ITS | Continuity of Care Document ---
Author Name Unknown Organization [facility] Address [address] [place] [address]- Care Team Providers Care Patient Centered Care Specialist Name Role Phone Kath QUINN, [place] Primary Care Physician [place] [facility] [place] 04/24/21 [facility] [address] [place] [id number]- Attending Physician: Not on Staff, Attending MD [...] 1 Refills, Maintenance, 11/04/20 11:49:00 EDT, Solution, [facility]/pharmacy #[id number], 163, cm, 11/03/20 13:05:00 EDT, Height, 93, kg, 11/26/19 8:56:00 EDT, Dry Weight Start Date: 11/04/20 Status: Ordered buPROPion 150 mg/12 hours (SR) oral tablet, extended release 1 tablet = 150 mg, By Mouth, 2 times a day, Take once a day for the first 3 days, # 60 tablet, 1 Refills, Maintenance, 01/13/21 11:25:00 EDT, ER Tablet, [facility]/pharmacy #[id number], Partial fill upon patient [...] tablet, 5 Refills, Maintenance, 12/10/20 12:48:00 EDT,Tablet, [facility]/pharmacy #[id number], Partial fill upon patient request if the prescription is for a scheduleII opioid drug., 1 tablet By Mouth Daily in PM, 163... Start Date: 12/10/20 Status: Ordered meloxicam 15 mg oral tablet 1 tablet, By Mouth, Daily, # 30 tablet, 2 Refills, 04/01/21 8:40:00 EDT, [facility], 162.3,cm, 02/10/21 7:41:00 EDT, Height, 93, kg, 11/26/19 8:56:00 EDT, Dry Weight Start Date: 04/01/21 Status: Ordered oxybutynin 10 mg/24 hr oral tablet, extended release 1 tablet = 10 mg, By Mouth, Daily, # 30 tablet, 5 Refills, Maintenance, 01/11/21 8:40:00 EDT, ER Tablet, [facility]/pharmacy #[id number], Partial fill upon patient request if the prescription is for a schedule IIopioid drug., 163, cm, 11/10/20 17:34:00 EDT, Heigh... Start Date: 01/11/21 Status: Ordered sodium chloride 0.9% nasal spray 1 sprays, Nares, Both, Every 30 minutes, PRN for dry nasal passages, # 45 mL, 1 Refills, Maintenance, 02/10/21 8:48:00 EDT, [place], [facility]/pharmacy #207, Partial fill upon patient request if the prescription is for a schedule II opioid drug., 1 sprays Na... Start Date: 02/10/21 Status: Ordered Symbicort 160mcg/4.5mcg Inhaler 2, puffs, Inhalation, 2 times a day, # 1 each, Refills 5, Tot. Refills 5, Maintenance, 07/15/20 11:47:00 EST, Inhaler, Route to Pharmacy Electronically, [id number], [facility]/pharmacy #[id number], 163, cm, 07/15/20 11:23:00 EST, Height,... Start Date: 07/15/20 Status: Ordered traMADol 50 mg oral tablet 1 tablet = 50 mg, By Mouth, Every 8 hours, PRN as needed for pain, MANAGER OF OPERATIONS CHECKED, # 90 tablet, 0 Refills, Maintenance, 04/16/21 8:26:00 EDT, Tablet, [facility]/pharmacy #[id number], 162.3, cm, 04/16/21 8:01:00 EDT,Height, 93, kg, 11/26/19 8:56:00 EDT, Dry Weight Start Date: 04/16/21 Status: Ordered Ventolin HFA 108 mcg/inh inhalation aerosol with adapter 1 puffs = 90 mcg, Inhalation, 4 times a day, PRN for wheezing, # 3 each, 1 Refills, Maintenance, 12/17/20 10:28:00 EDT, Inhaler, [facility]/pharmacy #[id number], 163, cm, 11/10/20 17:34:00 [...]
--- OUTSIDE RECORDS SUMMARY | 2023-01-31 07:33 | XMS_ITS | Continuity of Care Document ---
Author Name Unknown Organization [facility] Address [address] [place] [address]- Care Team Providers Care Associate Juvenile Court Judge Name Role Phone Kath QUINN, Angy Primary Care Physician Encounter [facility] Date(s): 02/23/22 - 03/02/22 [facility] [address] [place] [address]- Encounter Diagnosis Diabetes type 2, controlled(Discharge Diagnosis) - 02/23/22 Hypertension(Discharge Diagnosis) - 02/23/22 Hyperlipidemia(Discharge Diagnosis) - 02/23/22 Obesity(Discharge Diagnosis) - 02/23/22 Asthma(Discharge Diagnosis) - 02/23/22 Attending Physician: Kath QUINN, Angy Allergies, Adverse [...] Refills, Maintenance, 03/01/22 8:08:00 EDT, Tablet, [facility]/pharmacy #[id number], Partial fill upon patient request [...] Maintenance, 01/13/21 11:25:00 EDT, ER Tablet, [facility]/pharmacy #[id number], Partial fill upon patient request [...] 5 Refills, Maintenance, 12/10/20 12:48:00 EDT,Tablet, [facility]/pharmacy #[id number], Partial fill upon patient request if the prescription is for a scheduleII opioid drug., 1 tablet By Mouth Daily in PM, 163... Start Date: 12/10/20 Status: Ordered meloxicam 15 mg oral tablet 1 tablet, By Mouth, Daily, # 30 tablet, 5 Refills, 08/06/21 10:23:00 EST, [facility]/pharmacy #[id number], 162.3, cm, 04/16/21 8:01:00 EDT, Height, 93, kg, 11/26/19 8:56:00 EDT, Dry Weight Start Date: 08/06/21 Status: Ordered oxybutynin 10 mg/24 hr oral tablet, extended release 1 tablet, By Mouth, Daily, # 90 tablet, 2 Refills, 10/07/21 16:41:00 EDT, [facility]/pharmacy #[id number], 162.3, cm, 10/04/21 13:55:00 EDT, Height, 93, kg, 11/26/19 8:56:00 EDT, Dry Weight Start Date: 10/07/21 Status: Ordered sodium chloride 0.9% nasal spray 1 sprays, Nares, Both, Every 30 minutes, PRN for dry nasal passages, # 45 mL, 1 Refills, Maintenance, 02/10/21 8:48:00 EDT, [place], [facility]/pharmacy #[id number], Partial fill upon patient request if the prescription is for a schedule II opioid drug., 1 sprays Na... Start Date: 02/10/21 Status: Ordered Symbicort 160mcg/4.5mcg Inhaler 2, puffs, Inhalation, 2 times a day, # 1 each, Refills 5, Tot. Refills 5, Maintenance, 07/15/20 11:47:00 EST, Inhaler, Route to Pharmacy Electronically, [id number], [facility]/pharmacy #[id number], 163, cm, 07/15/20 11:23:00 EST, Height,... Start Date: 07/15/20 Status: Ordered traMADol 50 mg oral tablet 1 tablet = 50 mg, By Mouth, Every 8 hours, PRN as needed for pain, INTERNATIONAL AFFAIRS VICE PRESIDENT CHECKED, # 90 tablet, 0 Refills, Maintenance, 02/23/22 15:59:00 EDT, Tablet, [facility]/pharmacy #[id number], 162.3, cm, 02/23/22 15:56:00 EDT, Height Start Date: 02/23/22 Status: Ordered Ventolin HFA 108 mcg/inh inhalation aerosol with adapter 1 puffs, Inhalation, 4 times a day, PRN NEEDED FOR WHEEZING, # 54 each, 1 Refills, [facility], 162.3, cm, 04/16/21 8:01:00 EDT, Height, 93, kg, 11/26/19 8:56:00 EDT, Dry Weight Start Date: 07/28/21 Status: Ordered Vitamin D3 50,000 intl units oral capsule 1 capsule = 1,250 mcg, By Mouth, Every week, # 12 capsule, 0 Refills, Maintenance, 03/01/22 8:08:00EDT, Capsule, [facility]/pharmacy #[id number], Partial fill upon patient request [...] Effective Dates Health Status Clinical Service Informant Diabetes type 2, controlled Discharge Diagnosis 02/23/22 Hypertension Discharge Diagnosis 02/23/22 Hyperlipidemia Discharge Diagnosis 02/23/22 Obesity Discharge Diagnosis 02/23/22 Asthma Discharge Diagnosis 02/23/22 Vital Signs Most recent to oldest [Reference Range]: 1 2 3 Height 162.3 cm (02/23/22 3:56 PM) 162.3 cm (02/23/22 3:40 PM) 162.3 cm (02/23/22 3:28 PM) Weight 101.1 kg (02/23/22 3:28 PM) Oxygen Saturation [94-100 %] 95 % (02/23/22 3:28 PM) Pulse Rate [55-90 bpm] 94 bpm *H* (02/23/22 3:28 PM) Body Mass Index [18.5-24.99] 38.38 *>HHI* (02/23/22 3:28 PM) Blood Pressure [90-138/55-84 mm Hg] 132/86mm Hg (02/23/22 3:56 PM) 137/90mm Hg (02/23/22 3:40 PM) 150/91mm Hg *H* (02/23/22 3:28 PM) Temperature [96.8-100.4 DegF] 98 DegF (02/23/22 3:28 PM) Mode of Delivery (Oxygen) Room air (02/23/22 3:28 PM) Blood pressure sites Arm, left (02/23/22 3:40 PM) Arm, left (02/23/22 3:28 PM) Temperature Route Oral (02/23/22 3:28 PM) Weight Obtained Via Standing scale (02/23/22 3:28 PM) Social History Social History Type Response Smoking Status Former smoker; Other : Quit 1994; entered on: 08/05/15 Sex
--- OUTSIDE RECORDS SUMMARY | 2023-01-31 07:33 | XMS_ITS | Continuity of Care Document ---
Author Name Unknown Organization [facility] Address [address] [place] [address]- Care Team Providers Care Quilt Sewer Name Role Phone Kath QUINN, Felton Primary Care Physician Encounter [facility] Date(s): 08/30/22 - 09/29/22 [facility] [address] [place] [address]- Allergies, Adverse Reactions, Alerts Substance Reaction Severity Status ibuprofen SOB Active penicillins 1 rash Active Daypro Rash Active DayQuil Resolved 1Rash Immunizations Given and Recorded Vaccine Date Status Refusal Reason [id number] 12y+ bivalent booster vax 06/14/22 Recorded influenza [...] Refills, Maintenance, 07/04/22 14:31:00 EST, [id number], 162.3, cm, 06/16/22 14:20:00 EST, Height Start [...] Refills, Maintenance, 06/10/22 8:44:00 EST, [facility], 162.3, cm, 02/23/22 15:56:00 EDT, Height Start Date: 06/10/22 Status: Ordered oxybutynin 10 mg/24 hr oral tablet, extended release 1 tablet, By Mouth, Daily, # 90 tablet, 0 Refills, 08/12/22 12:40:00 EST, [facility]/pharmacy #[id number], 162.3, cm, 06/16/22 14:20:00 EST, Height Start Date: 08/12/22 Status: Ordered sodium chloride 0.9% nasal spray 1 sprays, Nares, Both, Every 30 minutes, PRN for dry nasal passages, # 45 mL, 1 Refills, Maintenance, 02/10/21 8:48:00 EDT, [place], [facility]/pharmacy #[id number], Partial fill upon patient request if the prescription is for a schedule II opioid drug., 1 sprays Na... Start Date: 02/10/21 Status: Ordered Symbicort 160mcg/4.5mcg Inhaler 2, puffs, Inhalation, 2 times a day, # 1 each, Refills 5, Tot. Refills 5, Maintenance, 07/15/20 11:47:00 EST, Inhaler, Route to Pharmacy Electronically, [id number], [facility]/pharmacy #[id number], 163, cm, 07/15/20 11:23:00 EST, Height,... Start Date: 07/15/20 Status: Ordered traMADol 50 mg oral tablet 1 tablet = 50 mg, By Mouth, Every 8 hours, PRN as needed for pain, RETAIL COMMISSION SALES ASSOCIATE CHECKED, # 90 tablet, 0 Refills, Maintenance, 09/14/22 16:47:00 EST, Tablet, [facility]/pharmacy #[id number], 162.2, cm, 08/29/22 12:06:00 EST, Height [...] Team Personnel Name: Angy Stockton MD Position: [facility] Primary Care Physician Member Role: PCP Address: Address: [address] [place] [address] [address] [place] [address]- Care Team Related Persons Name: DHRUV HSU Address: [place] [address] Name: TOMASA DUBOIS Address: [place] [address]
--- OUTSIDE RECORDS SUMMARY | 2023-01-31 07:33 | XMS_ITS | Continuity of Care Document ---
Author Name Unknown Organization [facility] Address [address] [place] [address]- Care Team Providers Care Stack Matcher Name Role Phone Kath QUINN, Ligonier Primary Care Physician Encounter [facility] Date(s): 09/01/22 - 10/01/22 [facility] [address] [place] [address]- Allergies, Adverse Reactions, Alerts Substance Reaction Severity Status penicillins 1 rash Active ibuprofen SOB Active DayQuil Resolved Daypro Rash Active 1Rash Immunizations Given and Recorded Vaccine Date Status Refusal Reason [id number] 12y+ bivalent booster vax 06/14/22 Recorded influenza [...] Refills, Maintenance, 07/04/22 14:31:00 EST, [facility], 162.3, cm, 06/16/22 14:20:00 EST, Height Start [...] Refills, Maintenance, 06/10/22 8:44:00 EST, [facility], 162.3, cm, 02/23/22 15:56:00 EDT, Height Start Date: 06/10/22 Status: Ordered oxybutynin 10 mg/24 hr oral tablet, extended release 1 tablet, By Mouth, Daily, # 90 tablet, 0 Refills, 08/12/22 12:40:00 EST, [facility]/pharmacy #2070, 162.3, cm, 06/16/22 14:20:00 EST, Height Start Date: 08/12/22 Status: Ordered sodium chloride 0.9% nasal spray 1 sprays, Nares, Both, Every 30 minutes, PRN for dry nasal passages, # 45 mL, 1 Refills, Maintenance, 02/10/21 8:48:00 EDT, [place], [facility]/pharmacy #[id number], Partial fill upon patient request if the prescription is for a schedule II opioid drug., 1 sprays Na... Start Date: 02/10/21 Status: Ordered Symbicort 160mcg/4.5mcg Inhaler 2, puffs, Inhalation, 2 times a day, # 1 each, Refills 5, Tot. Refills 5, Maintenance, 07/15/20 11:47:00 EST, Inhaler, Route to Pharmacy Electronically, [id number], [facility]/pharmacy #[id number], 163, cm, 07/15/20 11:23:00 EST, Height,... Start Date: 07/15/20 Status: Ordered traMADol 50 mg oral tablet 1 tablet = 50 mg, By Mouth, Every 8 hours, PRN as needed for pain, HUMAN RESOURCE ADVISER CHECKED, # 90 tablet, 0 Refills, Maintenance, 09/14/22 16:47:00 EST, Tablet, [facility]/pharmacy #[id number], 162.2, cm, 08/29/22 12:06:00 [...] Team Personnel Name: Angy Stockton MD Position: [facility] Primary Care Physician Member Role: PCP Address: Address: [address] [place] [address] [address] [place] [address]- Care Team Related Persons Name: DHRUV HSU Address: [place] [address] Name: TOMASA DUBOIS Address: [place] [address]
--- OUTSIDE RECORDS SUMMARY | 2023-01-31 07:33 | XMS_ITS | Continuity of Care Document ---
Author Name Unknown Organization [facility] Address [address] [place] [address]- Care Team Providers Care Conference Planning Manager Name Role Phone Kath QUINN, Angy Primary Care Physician Encounter [facility] Date(s): 04/16/21 - 04/23/21 [facility] [address] [place] [address]- Encounter Diagnosis Diabetes type 2, controlled(Discharge Diagnosis) - 04/16/21 Steatosis of liver(Discharge Diagnosis) - 04/16/21 Obesity(Discharge Diagnosis) - 04/16/21 Attending Physician: Kath QUINN, Angy Allergies, Adverse [...] 1 Refills, Maintenance, 11/04/20 11:49:00 EDT, [place], [facility]/pharmacy #[id number], 163, cm, 11/03/20 13:05:00 EDT, Height, 93, kg, 11/26/19 8:56:00 EDT, Dry Weight Start Date: 11/04/20 Status: Ordered buPROPion 150 mg/12 hours (SR) oral tablet, extended release 1 tablet = 150 mg, By Mouth, 2 times a day, Take once a day for the first 3 days, # 60 tablet, 1 Refills, Maintenance, 01/13/21 11:25:00 EDT, ER Tablet, [facility]/pharmacy #[id number], Partial fill upon patient request [...] tablet, 5 Refills, Maintenance, 12/10/20 12:48:00 EDT,Tablet, [facility]/pharmacy #2071, Partial fill upon patient request if the prescription is for a scheduleII opioid drug., 1 tablet By Mouth Daily in PM, 163... Start Date: 12/10/20 Status: Ordered meloxicam 15 mg oral tablet 1 tablet, By Mouth, Daily, # 30 tablet, 2 Refills, 04/01/21 8:40:00 EDT, [facility]/pharmacy #2071, 162.3,cm, 02/10/21 7:41:00 EDT, Height, 93, kg, 11/26/19 8:56:00 EDT, Dry Weight Start Date: 04/01/21 Status: Ordered oxybutynin 10 mg/24 hr oral tablet, extended release 1 tablet = 10 mg, By Mouth, Daily, # 30 tablet, 5 Refills, Maintenance, 01/11/21 8:40:00 EDT, ER Tablet, [facility]/pharmacy #2071, Partial fill upon patient request if the prescription is for a schedule IIopioid drug., 163, cm, 11/10/20 17:34:00 EDT, [place]igh... Start Date: 01/11/21 Status: Ordered sodium chloride 0.9% nasal spray 1 sprays, Nares, Both, Every 30 minutes, PRN for dry nasal passages, # 45 mL, 1 Refills, Maintenance, 02/10/21 8:48:00 EDT, [place], [facility]/pharmacy #[id number], Partial fill upon patient request if the prescription is for a schedule II opioid drug., 1 sprays Na... Start Date: 02/10/21 Status: Ordered Symbicort 160mcg/4.5mcg Inhaler 2, puffs, Inhalation, 2 times a day, # 1 each, Refills 5, Tot. Refills 5, Maintenance, 07/15/20 11:47:00 EST, Inhaler, Route to Pharmacy Electronically, [id number], [facility]/pharmacy #[id number], 163, cm, 07/15/20 11:23:00 EST, Height,... Start Date: 07/15/20 Status: Ordered traMADol 50 mg oral tablet 1 tablet = 50 mg, By Mouth, Every 8 hours, PRN as needed for pain, MEDICAL AND HEALTH SERVICES MANAGER CHECKED, # 90 tablet, 0 Refills, Maintenance, 04/16/21 8:26:00 EDT, Tablet, [facility]/pharmacy #[id number], 162.3, cm, 04/16/21 8:01:00 EDT,Height, 93, kg, 11/26/19 8:56:00 EDT, Dry Weight Start Date: 04/16/21 Status: Ordered Ventolin HFA 108 mcg/inh inhalation aerosol with adapter 1 puffs = 90 mcg, Inhalation, 4 times a day, PRN for wheezing, # 3 each, 1 Refills, Maintenance, 12/17/20 10:28:00 EDT, Inhaler, [facility]/pharmacy #1, 163, cm, 11/10/20 17:34:00 EDT, Height, [...] Informant Diabetes type 2, controlled Discharge Diagnosis 04/16/21 Steatosis of liver Discharge Diagnosis 04/16/21 Obesity Discharge Diagnosis 04/16/21 Vital Signs Most recent to oldest [Reference Range]: 1 Height 162.3 cm (04/16/21 8:01 AM) Social History Social History Type Response Smoking Status Former smoker; Other : Quit 1994; entered on: 08/05/15 Sex
--- OUTSIDE RECORDS SUMMARY | 2023-01-31 07:33 | XMS_ITS | Continuity of Care Document ---
Author Name Unknown Organization [facility] Address [address] [place] [address]- Care Team Providers Care Public Address Technician Name Role Phone Kath QUINN, Angy Primary Care Physician Encounter [facility] [id number] Date(s): 07/23/21 - 08/22/[address] [address]- Attending Physician: Admcatracho, Prem Admitting Physician: Admtr, Ar8 Referring Physician: Admtr, Ar8 Allergies, Adverse Reactions, Alerts [...] Refills, Maintenance, 01/13/21 11:25:00 EDT, ER Tablet, [facility]/pharmacy #[id number], Partial fill upon patient [...] tablet, 5 Refills, Maintenance, 12/10/20 12:48:00 EDT,Tablet, [facility]/pharmacy #[id number], Partial fill upon patient request if the prescription is for a scheduleII opioid drug., 1 tablet By Mouth Daily in PM, 163... Start Date: 12/10/20 Status: Ordered meloxicam 15 mg oral tablet 1 tablet, By Mouth, Daily, # 30 tablet, 5 Refills, 08/06/21 10:23:00 EST, [facility]/pharmacy #0373, 162.3, cm, 04/16/21 8:01:00 EDT, Height, 93, kg, 11/26/19 8:56:00 EDT, Dry Weight Start Date: 08/06/21 Status: Ordered oxybutynin 10 mg/24 hr oral tablet, extended release 1 tablet, By Mouth, Daily, # 90 tablet, 0 Refills, [facility], 162.3, cm, 04/16/21 8:01:00 EDT, Height, 93, kg, 11/26/19 8:56:00 EDT, Dry Weight Start Date: 07/05/21 Status: Ordered sodium chloride 0.9% nasal spray 1 sprays, Nares, Both, Every 30 minutes, PRN for dry nasal passages, # 45 mL, 1 Refills, Maintenance, 02/10/21 8:48:00 EDT, [place], [facility]/pharmacy #[id number], Partial fill upon patient request if the prescription is for a schedule II opioid drug., 1 sprays Na... Start Date: 02/10/21 Status: Ordered Symbicort 160mcg/4.5mcg Inhaler 2, puffs, Inhalation, 2 times a day, # 1 each, Refills 5, Tot. Refills 5, Maintenance, 07/15/20 11:47:00 EST, Inhaler, Route to Pharmacy Electronically, [id number], [facility]/pharmacy #[id number], 163, cm, 07/15/20 11:23:00 EST, Height,... Start Date: 07/15/20 Status: Ordered traMADol 50 mg oral tablet 1 tablet = 50 mg, By Mouth, Every 8 hours, PRN as needed for pain, PATROL CAPTAIN CHECKED, # 90 tablet, 0 Refills, Maintenance, 08/03/21 14:11:00 EST, Tablet, [facility]/pharmacy #0373, 162.3, cm, 04/16/21 8:01:00 EDT, Height, 93, kg, 11/26/19 8:56:00 EDT, Dry Weight Start Date: 08/03/21 Status: Ordered Ventolin HFA 108 mcg/inh inhalation aerosol with adapter 1 puffs, Inhalation, 4 times a day, PRN NEEDED FOR WHEEZING, # 54 each, 1 Refills, [facility], 162.3, cm, 04/16/21 8:01:00 EDT, Height, 93, [...]
--- OUTSIDE RECORDS SUMMARY | 2023-01-31 07:33 | XMS_ITS | Continuity of Care Document ---
Author Name Unknown Organization [facility] Address [address] [place] [address]- Care Team Providers Care Pharmacist Name Role Phone Kath QUINN, Angy Primary Care Physician [place] [facility] [place] 07/[place]21 - 08/29/21 [facility] [address] [place] [address]- Allergies, Adverse Reactions, Alerts Substance Reaction Severity [...] Maintenance, 01/13/21 11:25:00 EDT, ER Tablet, [facility]/pharmacy #[id number], Partial fill upon patient request if [...] 5 Refills, Maintenance, 12/10/20 12:48:00 EDT,Tablet, [facility]/pharmacy #[id number], Partial fill upon patient request if the prescription is for a scheduleII opioid drug., 1 tablet By Mouth Daily in PM, 163... Start Date: 12/10/20 Status: Ordered meloxicam 15 mg oral tablet 1 tablet, By Mouth, Daily, # 30 tablet, 5 Refills, 08/06/21 10:23:00 EST, [facility]/pharmacy #[id number], 162.3, cm, 04/16/21 8:01:00 EDT, Height, 93, kg, 11/26/19 8:56:00 EDT, Dry Weight Start Date: 08/06/21 Status: Ordered oxybutynin 10 mg/24 hr oral tablet, extended release 1 tablet, By Mouth, Daily, # 90 tablet, 0 Refills, [facility] [address], 162.3, cm, 04/16/21 8:01:00 EDT, Height, 93, kg, 11/26/19 8:56:00 EDT, Dry Weight Start Date: 07/05/21 Status: Ordered sodium chloride 0.9% nasal spray 1 sprays, Nares, Both, Every 30 minutes, PRN for dry nasal passages, # 45 mL, 1 Refills, Maintenance, 02/10/21 8:48:00 EDT, [place], [facility]/pharmacy #[id number], Partial fill upon patient request if the prescription is for a schedule II opioid drug., 1 sprays Na... Start Date: 02/10/21 Status: Ordered Symbicort 160mcg/4.5mcg Inhaler 2, puffs, Inhalation, 2 times a day, # 1 each, Refills 5, Tot. Refills 5, Maintenance, 07/15/20 11:47:00 EST, Inhaler, Route to Pharmacy Electronically, [id number], [facility]/pharmacy #[id number], 163, cm, 07/15/20 11:23:00 EST, Height,... Start Date: 07/15/20 Status: Ordered traMADol 50 mg oral tablet 1 tablet = 50 mg, By Mouth, Every 8 hours, PRN as needed for pain, CONFIGURATION SPECIALIST CHECKED, # 90 tablet, 0 Refills, Maintenance, 08/03/21 14:11:00 EST, Tablet, [facility]/pharmacy #[id number], 162.3, cm, 04/16/21 8:01:00 EDT, Height, 93, kg, 11/26/19 8:56:00 EDT, Dry Weight Start Date: 08/03/21 Status: Ordered Ventolin HFA 108 mcg/inh inhalation aerosol with adapter 1 puffs, Inhalation, 4 times a day, PRN NEEDED FOR WHEEZING, # 54 each, 1 Refills, [facility], 162.3, cm, 04/16/21 8:01:00 EDT, Height, 93, [...]
--- OUTSIDE RECORDS SUMMARY | 2023-01-31 07:33 | XMS_ITS | Continuity of Care Document ---
Author Name Unknown Organization [facility] Address [address] [place] [address]- Care Team Providers Care Movie Actor Name Role Phone Kath QUINN, Angy Primary Care Physician [place] [facility] [place]): [place]10[place]20 [facility] [address] [place] [address]- Encounter Diagnosis Exacerbation of asthma(Discharge Diagnosis) - 11/03/20 Attending Physician: Angy Stockton MD Allergies, Adverse [...] Refills, Maintenance, 07/15/20 11:48:00 EST, ER Tablet, [facility]/pharmacy #[id number], Partial fill upon patient request if the prescription is for a schedule II opioid drug., 163, cm, 07/15/20 11:23:00 EST, [place]... Start Date: 07/15/20 Status: Ordered Symbicort 160mcg/4.5mcg Inhaler 2, puffs, Inhalation, 2 times a day, # 1 each, Refills 5, Tot. Refills 5, Maintenance, 07/15/20 11:47:00 EST, Inhaler, Route to Pharmacy Electronically, [id number], [facility]/pharmacy #207, 163, cm, 07/15/20 11:23:00 EST, Height,... Start Date: 07/15/20 Status: Ordered traMADol 50 mg oral tablet 1 tablet = 50 mg, By Mouth, Every 8 hours, PRN as needed for pain, REMOTE MEDICAL CODER CHECKED, # 90 tablet, 0 Refills, Maintenance, 10/02/20 14:14:00 EDT, Tablet, [facility]/pharmacy #207, 163, cm, 07/15/20 11:23:00 EST,Height, 93, kg, 11/26/19 8:56:00 EDT, Dry Weight Start Date: 10/02/20 Status: Ordered Ventolin HFA 108 mcg/inh inhalation aerosol with adapter 1 puffs = 90 mcg, Inhalation, 4 times a day, PRN for wheezing, # 3 each, 0 Refills, Maintenance, 07/20/20 12:01:00 EST, Inhaler, [facility]/pharmacy #207, 163, cm, 07/15/20 11:23:00 EST, Height, [...] Effective Dates Health Status Clinical Service Informant Exacerbation of asthma Discharge Diagnosis 11/03/20 Vital Signs Most recent to oldest [Reference Range]: 1 Height 163 cm (11/03/20 1:05 PM) Social History Social History Type Response Smoking Status Former smoker; Other : Quit 1994; entered on: 08/05/15 Sex
--- OUTSIDE RECORDS SUMMARY | 2023-01-31 07:33 | XMS_ITS | Continuity of Care Document ---
Author Name Unknown Organization [facility] Address [address] [place] [address]- Care Team Providers Care Collector Of Aquarium Specimens Name Role Phone Kath QUINN, Angy Primary Care Physician Encounter [facility] Date(s): 10/02/20 - 11/01/20 [facility] [address] [place] [address]- Allergies, Adverse Reactions, Alerts Substance Reaction Severity [...] 07/15/20 11:47:00 EST, Route to Pharmacy Electronically, [id number], Partial fill upon patient request if the prescription is for a schedule II opioid drug... Start Date: 07/15/20 Status: Ordered oxybutynin 10 mg/24 hr oral tablet, extended release 1 tablet = 10 mg, By Mouth, Daily, # 30 tablet, 5 Refills, Maintenance, 07/15/20 11:48:00 EST, ER Tablet, [facility]/pharmacy #207, Partial fill upon patient request if the prescription is for a schedule II opioid drug., 163, cm, 07/15/20 11:23:00 EST, [place]... Start Date: 07/15/20 Status: Ordered Symbicort 160mcg/4.5mcg Inhaler 2, puffs, Inhalation, 2 times a day, # 1 each, Refills 5, Tot. Refills 5, Maintenance, 07/15/20 11:47:00 EST, Inhaler, Route to Pharmacy Electronically, [id number], [facility]/pharmacy #[id number], 163, cm, 07/15/20 11:23:00 EST, Height,... Start Date: 07/15/20 Status: Ordered traMADol 50 mg oral tablet 1 tablet = 50 mg, By Mouth, Every 8 hours, PRN as needed for pain, RESIDENTIAL LIVING ASSISTANT CHECKED, # 90 tablet, 0 Refills, Maintenance, 10/02/20 14:14:00 EDT, Tablet, [facility]/pharmacy #[id number], 163, cm, 07/15/20 11:23:00 EST,Height, 93, kg, 11/26/19 8:56:00 EDT, Dry Weight Start Date: 10/02/20 Status: Ordered Ventolin HFA 108 mcg/inh inhalation aerosol with adapter 1 puffs = 90 mcg, Inhalation, 4 times a day, PRN for wheezing, # 3 each, 0 Refills, Maintenance, 07/20/20 12:01:00 EST, Inhaler, [facility]/pharmacy #207, 163, cm, 07/15/20 11:23:00 EST, Height, 93, kg, 11/26/19 8:56:00 EDT, Dry Weight Start Date: 07/20/20 Stop Date: 10/18/20 Status: Ordered Vitamin D3 2000 intl units oral tablet 1 tablet = 2,000 International_Units, By Mouth, Daily, for 90 days, # 90 tablet, 1 Refills, Hard Stop 11/13/20 13:43:00 EDT, 05/17/20 13:43:00 EST, Tablet, [id number], 163, cm, 03/10/20 11:59:00 EDT, Height, 93, kg, 11/26/19 8:56:00 EDT, Dry W... Start Date: 05/17/20 Stop Date: 11/13/20 Status: Ordered Vitamin D3 2000 intl units oral tablet 1 tablet = 2,000 International_Units, By Mouth, Daily, # 90 tablet, 1 Refills, Maintenance, 11/13/20 13:43:00 EDT, Tablet, [id number], 163, cm, 07/15/20 11:23:00 EST, Height, 93, kg, :56:00 EDT, Dry Weight Start Date: 11/13/20 Stop Date: 05/12/21 Status: Ordered Problem List Condition Effective Dates [...]
[2023-01-31] MEDS: Lactated Ringers 1,000 ML 100 ML IVCONT ×2 (08:01→15:08)
[2023-01-31 08:12] LABS: Hematocrit 41.1 % (37.0-47.0); Hemoglobin 13.1 g/dl (12.0-16.0)
[2023-01-31 08:29] LABS: Glucose, Whole Blood 156 mg/dL (60-115)
[2023-01-31] MEDS: Albuterol Sulfate (0.083%) 2.5 MG/3 ML VIAL.NEB INHALE (09:40)
--- NOTE | 2023-01-31 10:12 | PC.NURSE ---
Dr. Becker updated that patient had an asthma attack. Sats were 92%RA. dry cough noted. bilateral bases diminished. Patient sitting upright. Patient states this happens often with no know triggers. Respiratory treatment given as previously ordered. Patient notes good improvement. O2 Sat is 94%RA.
--- NOTE | 2023-01-31 10:13 | MHC.SHP ---
Pre-Procedural Eval Section A Date of Service: 01/31/23 The patient is an INPATIENT: No Changes since office visit: No Cold of Flu in the past 2 weeks, No New Medical Problems, No Changes in Medication and No Patient answered all questions The History & Physical has been completed within 30 days and I have reviewed it.: Yes Section B Chief Complaint: s/p RTKA Allergies: Allergies Allergy/AdvReac Type Severity Reaction Status Date / Time ibuprofen [IBUPROFEN] Allergy Intermediate exacerbates Verified 01/31/23 08:30 asthma oxaprozin [From DAYPRO] Allergy Intermediate exacerbates Verified 01/31/23 08:30 asthma Penicillins [PCN] Allergy Intermediate RASH Verified 01/31/23 08:30 Plan I have reviewed the history and physical and performed a pertinent physical examination on my patient. No changes have occurred unless specified. Time Spent With Patient Time: Total time managing care of this patient today ____ minutes.
--- NOTE | 2023-01-31 10:51 | PC.NURSE ---
regarding previous note - per dr. michelet sood to proceed.
[2023-01-31] MEDS: Clindamycin Phosphate/D5W 600 MG/50 ML PIGGYBACK 100 MG IV ×2 (11:06→18:45)
--- NOTE | 2023-01-31 12:43 | PM.OP ---
Brief Operative Note Date of Service: 01/31/23 Pre-op diagnosis: Right knee OA Post-op diagnosis: same Procedure: Right TKA Implants: [employer] cruciate retaining press fit 09/16/10 Surgeon: Fadi Guerra MD Anesthesia: regional and spinal Was an Pesticide Control Inspector used for this Procedure?: Yes Pesticide Control Inspector: Juma Buckley Estimated blood loss (mL): 20 Tourniquet time (min): 47 IV fluids (mL): 1,000 Pathology: other Condition: stable Disposition: PACU
--- NOTE | 2023-01-31 15:00 | PC.NURSE ---
Pt received into room 347 at 1430. Pt alert jaimie
--- NOTE | 2023-01-31 15:02 | PC.NURSE ---
Pt received into room 347 at 1430. Oriented to unit. High fall risk explained. Right knee dsg d&I
[2023-01-31] MEDS: Acetaminophen 325 MG TABLET 650 MG PO (15:04)
[2023-01-31] MEDS: oxyCODONE HCl Immed Release 5 MG TABLET PO ×2 (15:05→18:06)
[2023-01-31] MEDS: 0.9 % Sodium Chloride Flush 3 ML SYRINGE IVFLUSH (15:11)
[2023-01-31] MEDS: ceFAZolin Sodium/Dextrose,Iso 2 GM/50 ML PIGGYBACK IV (15:12)
--- NOTE | 2023-01-31 16:51 | P.CONHOSP_ITS ---
History of Present Illness Data of Consult Service Date: 01/31/23 Requesting physician: Fadi Guerra Primary Care Provider: Angy Veliz MD [facility] Reason for consult: medical management 62-year-old female with history of hypertension, diet-controlled type 2 diabetes, asthma/COPD overlap, hyperlipidemia admitted to Orthopedic surgery for management of osteoarthritis of the right knee with consult placed hospitalist service for medical management. She is reporting 9/10 pain in the right knee but otherwise has complaints. She did have post-operateive hypoxia and continues on 2L supplemental O2 but has been using incentive spirometer and is currently 100% on 2L. She is not oxygen dependent at home. She is a former smoker who quit 27 years ago. No etoh use or illicit drug use. Review of Systems Review of Systems: General: No fevers, malaise, unintentional weight loss HEENT: No blurred vision, diplopia. No sore throat, nasal congestion, rhinorrhea, sinus pain, ear pain Cardiovascular: No chest pain, palpitations, or leg edema Respiratory: No shortness of breath, wheezing, cough GI: No abdominal pain, nausea, vomiting, diarrhea, constipation, melena, hematochezia : No dysuria, hematuria, increased urinary frequency, decreased urinary output MSK: No myalgia, back pain. +right knee pain Neuro: No headaches, weakness, paresthesias Skin: No rashes or lesions PMF Medical History Asthma COPD (chronic obstructive pulmonary disease) Diabetes Elevated cholesterol Headache HTN (hypertension) Osteoarthritis Steatosis, liver Surgical History H/O colonoscopy Hx of bilateral cataract extraction Hx of section Hx of laparoscopic gastric banding Social History Household Members: None Housing: Apartment Are you a primary long term acute care registered nurse to a significant other at home: No Do you presently have visiting nurse or other home services: No Patient Tobacco Use Status: Former Tobacco user Quit Date: 1994 Tobacco use type: Cigarette Years Smoked: 35 Smoked in Last 30 Days: No Patient Interested in Nicotine Replacement: No Patient Given Instructions on How to Stop Smoking: No Second Hand Smoke Exposure: No Use of substances other than those prescribed or required for medical reasons: No Have you been hit, kicked, punched, or otherwise hurt by someone within the past year? If so, by whom?: No Do you feel safe in your current relationship?: Yes Is there a partner from a previous relationship who is making you feel unsafe now?: No Are you made to feel afraid or neglected: No Are you DNR?: No Advance Directives: No (son is primary contact) Advance Directives Information Provided: Yes (brochure given) Advance Directives on File: No Do you have thoughts of harming others: None Do you have a plan to hurt others: No Plan Recently lost weight without trying: No How much weight loss: Not applicable Eating poorly because of decreased appetite: No Nutrition screen score: 0 Nutrition Risks: No Nutritional Risk Patient : No : No Poor oral hygiene: No Current occupational status: employed 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 Meds Allergies Allergy/AdvReac Type Severity Reaction Status Date / Time ibuprofen [IBUPROFEN] Allergy Intermediate exacerbates Verified 01/31/23 08:30 asthma oxaprozin [From DAYPRO] Allergy Intermediate exacerbates Verified 01/31/23 08:30 asthma Penicillins [PCN] Allergy Intermediate RASH Verified 01/31/23 08:30 Active Medications: Current Medications Acetaminophen (Acetaminophen 325 Mg Tablet) 650 mg PO Q6H PRN PRN Reason: Pain, Mild (Pain Scale 1-3) Last Admin: 01/31/23 15:04 Dose: 650 mg Albuterol Sulfate (Albuterol Sulfate 90 Mcg 8 Gm Inhaler) 1 puff INHALE Q4H PRN PRN Reason: Shortness Of Breath Aspirin (Aspirin 325 Mg Tablet) 325 mg PO BID [facility] Celecoxib (Celecoxib 200 Mg Capsule) 200 mg PO BID [facility] Docusate Sodium (Docusate Sodium 100 Mg Capsule) 100 mg PO BID [facility] Fluticasone Propionate (Fluticasone Propionate Nasal 16 Gm [place]) 1 spray NOSTRIL-B DAILY [facility] Fluticasone/Vilanterol (Fluticasone/Vilanterol 200/25 Blst.W.Dev) 1 puff INHALE RDAILY [facility] Hydromorphone HCl (Hydromorphone Hcl 0.5 Mg/0.5 Ml Syringe) 0.25 mg IVPUSH Q4H PRN; Protocol PRN Reason: Pain, Severe (Pain Scale 7-10) Lactated Ringer's (Lr) 1,000 mls @ 100 mls/hr IVCONT .Q10H [facility] Stop: 02/01/23 12:30 Last Admin: 01/31/23 15:08 Dose: 100 mls/hr Clindamycin Phosphate (Cleocin) 600 mg in 50 mls @ 100 mls/hr IV POSTOP ONE Stop: 01/31/23 19:29 Loratadine (Loratadine 10 Mg Tablet) 10 mg PO DAILY [facility] Ondansetron HCl (Ondansetron Hcl 4 Mg/2 Ml Vial) 4 mg IVPUSH Q8H PRN PRN Reason: Nausea and Vomiting Oxybutynin Chloride (Oxybutynin Chloride Er 5 Mg Tab.Er.24) 5 mg PO BEDTIME CHUCK Oxycodone HCl (Oxycodone Hcl Immed Release 5 Mg Tablet) 5 mg PO Q4H PRN PRN Reason: Pain, Moderate(Pain Scale 4-6) Last Admin: 01/31/23 15:05 Dose: 5 mg Oxycodone HCl (Oxycodone Hcl Er 10 Mg Tab.Er.12h) 10 mg PO BID [facility] Sodium Chloride (0.9 % Sodium Chloride Flush 3 Ml Syringe) 3 ml IVFLUSH QSHIFT [facility] Last Admin: 01/31/23 15:11 Dose: 3 ml Home Medications Medication Instructions Recorded Confirmed Last Taken Type albuterol sulfate 90 mcg/actuation 90 mcg inhalation Q4H PRN 01/20/22 01/24/23 01/31/23 History aerosol inhaler (Ventolin HFA) Shortness Of Breath blood sugar diagnostic (FreeStyle #10 ea 01/20/22 01/04/23 Unknown History Lite Strips) blood-glucose meter (FreeStyle #1 ea 01/20/22 01/04/23 Unknown History [place]iu Lite kit) fluticasone propionate 50 1 spray intranasal DAILY 01/20/22 01/24/23 Unknown History mcg/actuation nasal spray,suspension lancets 28 gauge (FreeStyle #100 ea 01/20/22 01/04/23 Unknown History Lancets) loratadine 10 mg tablet 10 mg PO DAILY 01/20/22 01/24/23 Unknown History meloxicam 15 mg tablet 15 mg PO DAILY 01/20/22 01/25/23 01/10/23 History tramadol 50 mg tablet 50 mg PO TID PRN Pain 01/20/22 01/24/23 Unknown History atorvastatin 20 mg tablet 20 mg PO DAILY 11/14/22 01/24/23 Unknown History cholecalciferol (vitamin D3) 1,250 1,250 mcg PO QWEEK 01/24/23 01/24/23 Unknown History mcg (50,000 unit) capsule budesonide-formoterol HFA 160 1 inh inhalation BID 01/25/23 01/25/23 Unknown History mcg-4.5 mcg/actuation aerosol inhaler (Symbicort) dupilumab 200 mg/1.14 mL 200 mg subcut Q2W 01/25/23 01/25/23 Unknown History subcutaneous pen injector ([employer]) oxybutynin chloride 5 mg tablet 10 mg PO BEDTIME 01/25/23 01/31/23 Unknown History Physical Exam Vital Signs and Narrative: Vital Signs: Last Vital Signs Temp 96.5 F L 01/31/23 14:53 Pulse 73 01/31/23 14:53 Resp 17 01/31/23 14:53 BP 130/70 01/31/23 14:53 Pulse Ox 100 01/31/23 14:53 O2 Del Method Nasal Cannula 01/31/23 14:53 O2 Flow Rate 2.0 01/31/23 14:53 BMI result Body Mass Index 38.9 Constitutional - Awake and Alert, No apparent distress Eyes - PERRLA, EOMI Cardiovascular - S1S2, RRR, No edema Respiratory - Normal lung expansion, Normal respiratory effort, No respiratory distress, CTA bilaterally Gastrointestinal - NT / ND; +BS; No rebound or guarding Extremities - no calf tenderness bilaterally, no swelling Skin - Warm/Dry Neurological - Alert & oriented x3 Psychological - Appropriate affect Results Labs 01/31/23 07:49 Labs: Laboratory Results - last 24 hr 01/31/23 08:24 POC Glucose 156 H Imaging Radiologist's Impressions: Impressions Knee X-Ray 01/31/23 12:55 IMPRESSION: Post operative right total knee replacement. Assessment and Plan (1) Osteoarthritis of right knee: Status: Acute Plan 62-year-old female with history of hypertension, diet-controlled type 2 diabetes, asthma/COPD overlap, hyperlipidemia admitted to Orthopedic surgery for management of osteoarthritis of the right knee with consult placed hospitalist service for medical management. # osteoarthritis right knee s/p right TKA -pod 0 -plan per ortho surgery #post-operative hypoxia -Maintaining 100% on 2L currently -Titrate supplemental O2 -continue IS #HTN -reasonably controlled -monitor bp, not on antihypertensives #HLD -continue statin #diet-controlled type 2 diabetes -POC glucose -diabetic diet -Humalog on sliding scale # COPD -no acute exacerbation -continue maintenance inhalers, albuterol p.r.n. Thank you for this consult. Will continue to follow. Time Spent With Patient Time: Total time managing care of this patient today ____ minutes.
[2023-01-31] MEDS: HYDROmorphone HCl 0.5 MG/0.5 ML SYRINGE 0.25 MG IVPUSH (17:08)
--- NOTE | 2023-01-31 17:44 | P.F2F_ITS ---
Service Date Service Date: 01/31/23 Encounter Date of encounter: 02/01/23 Reasons for Services Signs and symptoms assessed: s/p RTKA Reason for physical therapy: home safety and mobility, therapeutic exercises, restore joint function, gait/transfer training, assess need for DME and ADL training Homebound: Leaving the home is medically contraindicated at this time without the asist of a device and/or another person due th the listed conditions above and below. Reason homebound: unsteady gait / fall risk, leg weakness, pain with ambulation, pain with transfers, poor balance / fall risk and unable to drive Certification: Based on the above findings, I certify that this patient is confined to the home and needs intermittent retirement care, physical therapy and/or speech therapy, or continues to need occupational therapy. The patient is under my care, and I have initiated the establishment of the plan of care. The patient will be followed by a physician who will periodically review the plan of care. Time Spent With Patient Time: Total time managing care of this patient today ____ minutes.
--- NOTE | 2023-01-31 17:45 | PM.DS ---
DS: Providers Provider Date of Service: 02/03/23 Date of admission: 01/31/23 07:23 Primary care physician: Angy Veliz MD Consults: 01/31/23 14:28 Consult to Hospitalist Routine Comment: Consulting Provider: Hospitalist Reason For Exam: medical management DS: Diagnosis Discharge Diagnosis (1) Osteoarthritis of right knee: Status: Inactive DS: Summary Hospital Course Hospital Course: The patient underwent a successful right total knee arthroplasty, they were transferred to PACU and then to the floor to recover. During their stay, their vitals were stable, afebrile at (98.6). Labs were unremarkable, H/H (10.0/32.5). POD 1 they were started on Aspirin 325mg po bid for DVT ppx, they also received Physical Therapy services twice a day. Prior to discharge, their dressing was changed, incision clean dry and intact, new dressing applied and the plan was to be discharged to rehab. Time Spent with Patient Time attestation: Total time managing care of this patient today ____ minutes. Discharge coordination time: Less than 30 minutes Quality: Safe Use of Opioids Does Pt have an Active Cancer Diagnosis on the Problem List?: No Quality: Stroke Does the patient have a stroke diagnosis?: No Physical Exam Vital Signs: Vital Signs: Last Vital Signs Temp 96.5 F L 01/31/23 14:53 Pulse 73 01/31/23 14:53 Resp 17 01/31/23 14:53 BP 130/70 01/31/23 14:53 Pulse Ox 100 01/31/23 14:53 O2 Del Method Nasal Cannula 01/31/23 14:53 O2 Flow Rate 2.0 01/31/23 14:53 BMI result Body Mass Index 38.9 Const: General: cooperative and no acute distress Orientation/consciousness: patient oriented x3 HEENT: Head: Yes normocephalic and Yes atraumatic Eyes: EOM: EOMs intact bilaterally Neck: Neck: Yes normal visual inspection and Yes no lymphadenopathy Resp: Effort & Inspection: normal respiratory effort and able to speak in complete sentences Cardio: Jugular venous distension: no JVD Rate: regular rate Peripheral pulses: Peripheral pulses 2+ throughout GI: Inspection: Yes normal to inspection Palpation (GI): Soft to palpation Skin: General skin exam: no rashes or lesions noted Lesions: no lesions Rashes: no rashes Neuro: General: patient oriented x3 Extrem: Other: Right Knee: Dressings c/d/i. Able to dorsi/plantar flex. NVI. Psych: Appearance: grossly normal Affect: normal affect Attitude: cooperative DS: Data Data Completed and Pending Pending studies at discharge: Pending at discharge 01/31/23 11:58 Surgical [PTH] Routine Labs on day of discharge: Laboratory Results - last 24 hr 01/31/23 01/31/23 07:49 08:24 Hgb 13.1 Hct 41.1 POC Glucose 156 H Discharge Plan Discharge Anticipated Discharge Date/Time: 02/01/23 15:00 Patient Disposition: Home Health Service Discharge Diagnosis: s/p RTKA Referrals: Juma Buckley PA-C [Physician Lead Database Administrator] - 02/16/23 8:45 am Discharge Medications: New acetaminophen 325 mg Tablet 650 mg PO Q6H PRN (Reason: Pain, Mild (Pain Scale 1-3)) 30 Days Qty: 240 0RF aspirin 325 mg Tablet 325 mg PO BID 42 Days Qty: 84 0RF celecoxib 200 mg Capsule 200 mg PO BID 30 Days Qty: 60 0RF docusate sodium 100 mg Capsule 100 mg PO BID 30 Days Qty: 60 0RF oxycodone 10 mg tablet 10 mg PO Q6H PRN (Reason: pain) 7 Days Qty: 28 0RF Rx Instructions: Partial Fill upon patient request. Continued cholecalciferol (vitamin D3) 1,250 mcg (50,000 unit) capsule 1,250 mcg PO QWEEK budesonide-formoterol [Symbicort] 160-4.5 mcg/actuation HFA aerosol inhaler 1 inh INHALATION BID oxybutynin chloride 5 mg Tablet 10 mg PO BEDTIME Dupixent Pen 200 mg/1.14 mL Pen Injector 200 mg SUBCUT Q2W loratadine 10 mg tablet 10 mg PO DAILY meloxicam 15 mg tablet 15 mg PO DAILY albuterol sulfate [Ventolin HFA] 90 mcg/actuation HFA aerosol inhaler 90 mcg inhalation Q4H PRN (Reason: Shortness Of Breath) fluticasone propionate 50 mcg/actuation spray,suspension 1 spray intranasal DAILY (DME) lancets [FreeStyle Lancets] 28 gauge misc See Rx Instructions topical DAILY Qty: 100 Rx Instructions: As directed (DME) blood-glucose meter [FreeStyle [place] Lite] Kit See Rx Instructions .ROUTE DAILY Qty: 1 Rx Instructions: As directed (DME) FreeStyle Lite Strips Strip See Rx Instructions Not Applicable DAILY Qty: 10 Rx Instructions: As directed atorvastatin 20 mg tablet 20 mg PO DAILY Held tramadol 50 mg tablet 50 mg PO TID PRN (Reason: Pain) Hold Instructions: Resume on 03/13/23. Discharge Orders: Discharge Order (Routine); Ordered 02/03/23 Ordered By: Eloise Almodovar Diet: Advance to usual diet Activity on Discharge: Use cane or walker Stand Alone Forms: Patient Portal Discharge page Care Plan Goals: Restore fxn to right knee Health Concerns: None Plan of Treatment: Physical Therapy for ROM 0-120, quad strength, gait training. Use walker for ambulation Limit stair climbing, No shower, No tub bath, No driving Continue anticoagulant Keep dressing clean, dry and intact. Follow up with orthopedics in 2 weeks Assessment: Stable for d/c
[2023-01-31 20:20] LABS: Glucose, Whole Blood 253 mg/dL (60-115)
[2023-01-31] MEDS: Acetaminophen 1,000 MG/100 ML PIGGYBACK 400 MG IV (20:55)
[2023-01-31] MEDS: Insulin Lispro 100 UNIT/ML 3 ML VIAL SUBCUT (20:56)
[2023-01-31] MEDS: oxyBUTYnin chloride ER 5 MG TAB.ER.24 PO (20:57)
[2023-01-31] MEDS: oxyCODONE HCl ER 10 MG TAB.ER.12H PO (20:57)
[2023-01-31] MEDS: Celecoxib 200 MG CAPSULE PO (20:57)
[2023-01-31] MEDS: oxyCODONE HCl Immed Release 5 MG TABLET 10 MG PO (20:58)
[2023-01-31] MEDS: Docusate Sodium 100 MG CAPSULE PO (20:58)
[2023-01-31] MEDS: traZODone HCL 50 MG TABLET PO (22:03)
[2023-01-31] MEDS: HYDROmorphone HCl 0.5 MG/0.5 ML SYRINGE IVPUSH (22:10)
[2023-02-01] VITALS (11 sets, daily range): BP systolic 103–123; BP diastolic 59–70; PULSE 65–82; RESP 16–20; TEMP 36.3–36.8; O2SAT 93–97
[2023-02-01] MEDS: traZODone HCL 50 MG TABLET PO ×2 (01:01→20:31)
[2023-02-01] MEDS: oxyCODONE HCl Immed Release 5 MG TABLET 10 MG PO ×6 (01:03→23:38)
[2023-02-01] MEDS: Lactated Ringers 1,000 ML 100 ML IVCONT (01:04)
[2023-02-01] MEDS: Acetaminophen 1,000 MG/100 ML PIGGYBACK 400 MG IV ×3 (03:59→14:15)
[2023-02-01 05:29] LABS: MANUAL DIFF FLAG NO
[2023-02-01 05:33] LABS: Basophils Percent Auto 0.1 % (0-2); Hematocrit 34.4 % (37.0-47.0); Hemoglobin 10.8 g/dl (12.0-16.0); Imm Gran Abs Auto 0.08 X10*3/uL (0.00-0.03); Imm Gran Pct Auto 0.6 % (0.0-0.4); Lymphocytes Absolute Auto 1.2 X10*3/uL (1.2-4.9); Lymphocytes Percent Auto 8.7 % (20-40); Mean Corpuscular HGB Conc 31.4 g/dl (31.0-35.0); Mean Corpuscular Volume 89.1 fL (80.0-98.0); Mean Platelet Volume 9.7 fL (9.4-12.3); Monocytes Absolute Auto 0.8 X10*3/uL (0.1-1.2); Monocytes Percent Auto 5.7 % (2-11); Neutrophils Absolute Auto 11.9 x10*3/uL (2.0-8.3); Neutrophils Percent Auto 84.9 % (45-73); Platelet Count 236 X10*3/uL (160-400); Red Blood Count 3.86 X10*6/uL (4.20-5.50)
[2023-02-01 05:45] LABS: Anion Gap 10 (12-20); Blood Urea Nitrogen 14 mg/dL (9-16); Calcium 9.1 mg/dL (8.4-10.2); Carbon Dioxide 29 mmol/L (22-29); Chloride 101 mmol/L (96-108); Creatinine Clr Calc Pharmacy 93.8; Estimated Glomerular Filt Rate > 60; Glucose Fasting 185 mg/dL (60-99); Potassium 4.7 mmol/L (3.3-5.1); Sodium 135 mmol/L (135-145)
[2023-02-01] MEDS: Celecoxib 200 MG CAPSULE PO ×2 (07:10→20:31)
[2023-02-01] MEDS: Loratadine 10 MG TABLET PO (07:11)
[2023-02-01] MEDS: oxyCODONE HCl ER 10 MG TAB.ER.12H PO ×2 (07:11→20:31)
[2023-02-01] MEDS: Docusate Sodium 100 MG CAPSULE PO ×2 (07:11→20:30)
--- NOTE | 2023-02-01 07:25 | PM.PNORT ---
Subjective Subjective Date of Service: 02/01/23 Interval history: POD1 s/p RTKA. Patient is resting in bed comfortably. No overnight events. Pain is managed. No additional complaints. Physical Exam Vital Signs: Vital Signs: Last Vital Signs Temp 97.5 F 02/01/23 04:00 Pulse 81 02/01/23 04:00 Resp 18 02/01/23 04:00 BP 123/59 L 02/01/23 04:00 Pulse Ox 95 02/01/23 04:00 O2 Del Method Room Air 02/01/23 04:00 O2 Flow Rate 2 02/01/23 00:00 BMI result Body Mass Index 38.9 Const: General: cooperative, healthy appearing and no acute distress Resp: Effort & Inspection: normal respiratory effort and able to speak in complete sentences Cardio: Rate: regular rate Peripheral pulses: Peripheral pulses 2+ throughout GI: Palpation (GI): Soft to palpation Skin: Lesions: no lesions Rashes: no rashes Extrem: Other: Right knee Aquacell is c/d/i. Able to dorsi/plantar flex. NVI. Procedures Date of Service Date of Service: 02/01/23 Progress Note: A&P Assessment and plan (1) Status post total knee replacement, right: Status: Acute Plan Continue pain mgmnt begin ASA for dvt ppx begin PT for RTKA Dispo planning-Pending PT eval, pain mgmnt Time Spent With Patient Time: Total time managing care of this patient today ____ minutes. Quality Stroke Does the patient have a stroke diagnosis?: No VTE Prior VTE?: No VTE Risk Level:: Medical - moderate - high VTE Device Contraindication: N/A - Device Ordered VTE Drug Contraindication: N/A - Med Ordered
[2023-02-01 07:36] LABS: Glucose, Whole Blood 175 mg/dL (60-115)
[2023-02-01] MEDS: Insulin Lispro 100 UNIT/ML 3 ML VIAL SUBCUT ×2 (07:43→11:46)
[2023-02-01] MEDS: Fluticasone/Vilanterol 200/25 BLST.W.DEV 1 PUFF INHALE (07:45)
[2023-02-01] MEDS: Albuterol Sulfate 90 MCG 8 GM INHALER 1 PUFF INHALE (07:48)
--- NOTE | 2023-02-01 10:51 | MHC.CM.PN ---
pt lives alone will be dcd tomorrow pt going home with hvns for home pt and rn
[2023-02-01 11:28] LABS: Glucose, Whole Blood 192 mg/dL (60-115)
[2023-02-01] MEDS: Aspirin 325 MG TABLET PO ×2 (11:28→20:30)
[2023-02-01] MEDS: HYDROmorphone HCl 0.5 MG/0.5 ML SYRINGE IVPUSH ×3 (13:36→21:33)
--- NOTE | 2023-02-01 14:10 | HO.POSTANES ---
Post Anesthesia Evaluation Post Anesthesia Evaluation Date of Service: 02/01/23 Vital Signs: Vital Signs Temp Pulse Resp BP Pulse Ox O2 Del Method 02/01/23 13:48 65 120/64 94 02/01/23 11:41 97.8 F 65 18 120/64 94 Room Air 02/01/23 08:17 74 02/01/23 07:51 74 18 02/01/23 07:42 97.7 F 75 17 117/66 96 Room Air 02/01/23 04:00 97.5 F 81 18 123/59 L 95 Room Air Anesthesia: Spinal and Nerve Block Mental Status: Awake Pain Control: Satisfactory Nausea/Vomiting: None Hydration: Adequate Anesthesia-Related Issues: No Anes. Related Issues
[2023-02-01] MEDS: 0.9 % Sodium Chloride Flush 3 ML SYRINGE IVFLUSH ×2 (15:32→23:39)
[2023-02-01 16:43] LABS: Glucose, Whole Blood 142 mg/dL (60-115)
[2023-02-01 20:31] LABS: Glucose, Whole Blood 136 mg/dL (60-115)
[2023-02-01] MEDS: oxyBUTYnin chloride ER 5 MG TAB.ER.24 PO (20:31)
[2023-02-01] MEDS: Acetaminophen 325 MG TABLET 650 MG PO (21:07)
[2023-02-02] VITALS (7 sets, daily range): BP systolic 120–149; BP diastolic 57–80; PULSE 78–97; RESP 18–20; TEMP 36.4–36.8; O2SAT 91–95
[2023-02-02] MEDS: HYDROmorphone HCl 0.5 MG/0.5 ML SYRINGE IVPUSH (03:10)
[2023-02-02] MEDS: oxyCODONE HCl Immed Release 5 MG TABLET 10 MG PO ×5 (04:24→21:07)
[2023-02-02 05:43] LABS: MANUAL DIFF FLAG NO
[2023-02-02 05:51] LABS: Basophils Absolute Auto 0.1 X10*3/uL (0.0-0.2); Basophils Percent Auto 0.5 % (0-2); Eosinophils Absolute Auto 0.2 X10*3/uL (0.0-0.4); Eosinophils Percent Auto 1.7 % (0-4); Hematocrit 32.5 % (37.0-47.0); Imm Gran Abs Auto 0.04 X10*3/uL (0.00-0.03); Imm Gran Pct Auto 0.3 % (0.0-0.4); Lymphocytes Absolute Auto 2.4 X10*3/uL (1.2-4.9); Lymphocytes Percent Auto 20.5 % (20-40); Mean Corpuscular HGB Conc 30.8 g/dl (31.0-35.0); Mean Corpuscular Hemoglobin 27.8 pg (27.0-33.0); Mean Corpuscular Volume 90.3 fL (80.0-98.0); Mean Platelet Volume 9.7 fL (9.4-12.3); Monocytes Absolute Auto 0.8 X10*3/uL (0.1-1.2); Monocytes Percent Auto 6.7 % (2-11); Neutrophils Absolute Auto 8.2 x10*3/uL (2.0-8.3); Neutrophils Percent Auto 70.3 % (45-73); Platelet Count 213 X10*3/uL (160-400); Red Cell Distribution Width 13.1 % (11.0-16.0); White Blood Count 11.6 X10*3/uL (4.8-10.8)
[2023-02-02 06:14] LABS: Anion Gap 10 (12-20); Blood Urea Nitrogen 17 mg/dL (9-16); Calcium 8.8 mg/dL (8.4-10.2); Carbon Dioxide 30 mmol/L (22-29); Chloride 100 mmol/L (96-108); Creatinine Clr Calc Pharmacy 84.2; Estimated Glomerular Filt Rate > 60; Glucose Fasting 181 mg/dL (60-99); Potassium 4.2 mmol/L (3.3-5.1); Sodium 136 mmol/L (135-145)
[2023-02-02 07:30] LABS: Glucose, Whole Blood 129 mg/dL (60-115)
[2023-02-02] MEDS: Celecoxib 200 MG CAPSULE PO ×2 (07:54→20:16)
[2023-02-02] MEDS: oxyCODONE HCl ER 10 MG TAB.ER.12H PO ×2 (07:54→20:16)
[2023-02-02] MEDS: Aspirin 325 MG TABLET PO ×2 (07:54→20:15)
[2023-02-02] MEDS: Docusate Sodium 100 MG CAPSULE PO ×2 (07:55→20:16)
[2023-02-02] MEDS: Acetaminophen 325 MG TABLET 650 MG PO ×2 (07:55→15:55)
[2023-02-02] MEDS: 0.9 % Sodium Chloride Flush 3 ML SYRINGE IVFLUSH ×2 (07:55→15:50)
[2023-02-02] MEDS: Loratadine 10 MG TABLET PO (07:55)
[2023-02-02] MEDS: Fluticasone/Vilanterol 200/25 BLST.W.DEV 1 PUFF INHALE (08:03)
--- NOTE | 2023-02-02 09:07 | PM.PNORT ---
Subjective Subjective Date of Service: 02/02/23 Interval history: POD2 s/p RTKA. Patient is resting in bed comfortably. No overnight events. Pain is managed. No additional complaints. Physical Exam Vital Signs: Vital Signs: Last Vital Signs Temp 98.1 F 02/02/23 08:00 Pulse 78 02/02/23 08:38 Resp 18 02/02/23 08:03 BP 128/63 02/02/23 08:00 Pulse Ox 91 L 02/02/23 08:00 O2 Del Method Room Air 02/02/23 08:00 O2 Flow Rate 2 02/01/23 00:00 BMI result Body Mass Index 38.9 Const: General: cooperative, healthy appearing and no acute distress Resp: Effort & Inspection: normal respiratory effort and able to speak in complete sentences Cardio: Rate: regular rate Peripheral pulses: Peripheral pulses 2+ throughout GI: Palpation (GI): Soft to palpation Skin: Lesions: no lesions Rashes: no rashes Extrem: Other: Right knee Aquacell is c/d/i. Able to dorsi/plantar flex. NVI. Procedures Date of Service Date of Service: 02/02/23 Progress Note: A&P Assessment and plan (1) Status post total knee replacement, right: Status: Acute Plan Continue pain mgmnt ASA for dvt ppx cont PT for RTKA Dispo planning-PT recommending STR Time Spent With Patient Time: Total time managing care of this patient today ____ minutes. Quality Stroke Does the patient have a stroke diagnosis?: No VTE Prior VTE?: No VTE Risk Level:: Medical - moderate - high VTE Device Contraindication: N/A - Device Ordered VTE Drug Contraindication: N/A - Med Ordered
[2023-02-02 11:37] LABS: Glucose, Whole Blood 126 mg/dL (60-115)
--- NOTE | 2023-02-02 15:56 | W.PM.OPN ---
Operative Note Operative Note Date of Service: 01/31/23 Narrative: Date of Service: 01/31/23 Pre-op diagnosis: Right knee OA Post-op diagnosis: same Procedure: Right TKA Implants: [place] [employer] cruciate retaining press fit 09/16/10 Surgeon: Fadi Guerra MD Anesthesia: regional and spinal Was an Cytotechnologist/Cytology Supervisor used for this Procedure?: Yes Cytotechnologist/Cytology Supervisor: Juma Buckley Estimated blood loss (mL): 20 Tourniquet time (min): 47 IV fluids (mL): 1,000 Pathology: other Condition: stable Disposition: PACU Procedure in detail: The patient was brought to the operating room and prepped and draped in standard sterile fashion. A time-out was called to identify proper site proper procedure proper surgeon and IV antibiotics were administered. 1 g of IV tranexamic acid was administered. I began by making a midline incision to the retinaculum and performed a medial parapatellar arthrotomy. The patella was translated laterally and the knee was flexed up. The lateral plateau was eburnated laterally and , to a lesser extent, the femur. I performed a small medial peel and resected the infrapatellar fat pad. [place]'s line was then used to drill my intramedullary femoral guide and my distal femur cut of 10 mm was made in 5 degrees of valgus while protecting the soft tissues. I then measured a # 3 femur and placed my cutting guide and made my anterior posterior and chamfer cuts protecting the soft tissues at all times. Once I was satisfied with my cuts I turned my attention to the tibia. I removed the meniscus medially and laterally and , using an external cutting guide, in line with the tibial crest and the third ray, I made my distal tibial cut in 3 deg slope of while protecting the PCL the posterior soft tissues at all times. An extension block was used to confirm appropriate amount of bony resection. I then sized a # 3 tibia and once I was satisfied that there was complete tibial coverage I placed my trial and with the trial femur in place took the knee through range of motion. I was satisfied with the extension and flexion as well as the stability and balance at 0, 30 and 90 degrees. I then turned my attention to the patella which tracked laterally. I removed 1 cm from the undersurface of the patella and then trialed a 32a patellar button and was satisfied with the tracking. Again the knee was taken through range of motion I was satisfied with the tracking. I then returned to the femur and drilled my femoral lug holes and prepared the tibia. A femoral bone plug was placed and the knee was irrigated copiously. I then press fit the patella, tibia and femur in standard fashion. I trialed different inserts until I selected a #11 insert. The final insert was placed and a 3 minutes iodine soak with local TXA was performed. A Werewolf cautery wand was used to maintain hemostasis over the capsule and meniscal beds, the gutters and peripatellar soft tissues. The knee was then closed with a running Quill suture, a 3 0 Vicryl and adela on the skin. Patient was then placed in sterile dressing and brought to recovery room in stable condition there were no known complications.
[2023-02-02 16:23] LABS: Glucose, Whole Blood 99 mg/dL (60-115)
[2023-02-02] MEDS: oxyBUTYnin chloride ER 5 MG TAB.ER.24 PO (20:17)
[2023-02-02 20:28] LABS: Glucose, Whole Blood 135 mg/dL (60-115)
[2023-02-02] MEDS: traZODone HCL 50 MG TABLET PO (21:08)
[2023-02-03] VITALS: RESP 16
[2023-02-03] MEDS: 0.9 % Sodium Chloride Flush 3 ML SYRINGE IVFLUSH ×2 (00:46→07:14)
[2023-02-03 00:48] VITALS: RESP 18
[2023-02-03 03:05] VITALS: BP 128/71; PULSE 93; RESP 14; TEMP 36.4; O2SAT 93
[2023-02-03] MEDS: oxyCODONE HCl Immed Release 5 MG TABLET 10 MG PO ×3 (03:24→11:06)
[2023-02-03] MEDS: Acetaminophen 325 MG TABLET 650 MG PO (05:56)
[2023-02-03 05:59] LABS: Anion Gap 10 (12-20); Blood Urea Nitrogen 13 mg/dL (9-16); Calcium 8.5 mg/dL (8.4-10.2); Carbon Dioxide 31 mmol/L (22-29); Chloride 100 mmol/L (96-108); Creatinine Clr Calc Pharmacy 98.2; Estimated Glomerular Filt Rate > 60; Glucose Fasting 124 mg/dL (60-99); Potassium 3.9 mmol/L (3.3-5.1); Sodium 137 mmol/L (135-145)
[2023-02-03] MEDS: oxyCODONE HCl ER 10 MG TAB.ER.12H PO (07:14)
[2023-02-03] MEDS: Aspirin 325 MG TABLET PO (07:14)
[2023-02-03] MEDS: Loratadine 10 MG TABLET PO (07:15)
[2023-02-03] MEDS: Docusate Sodium 100 MG CAPSULE PO (07:15)
[2023-02-03] MEDS: Celecoxib 200 MG CAPSULE PO (07:15)
[2023-02-03 07:22] VITALS: BP 144/74; PULSE 86; RESP 18; TEMP 37; O2SAT 95
[2023-02-03 07:22] LABS: Glucose, Whole Blood 126 mg/dL (60-115)
[2023-02-03 07:51] VITALS: PULSE 84; RESP 16; O2SAT 96
[2023-02-03] MEDS: Fluticasone/Vilanterol 200/25 BLST.W.DEV 1 PUFF INHALE (07:51)
[2023-02-03 08:06] VITALS: PULSE 84
[2023-02-03 11:15] LABS: Glucose, Whole Blood 122 mg/dL (60-115)
--- NOTE | 2023-02-03 12:21 | MHC.CM.PN ---
pt dcd to [facility]
== END 2023-02-03 14:03 | disposition skilled nursing facility (03) | DRG 470 ==
LOC: HO.SSSA 07:29 → HO.S3 13:22
PROVIDERS: Orthopaedic Surgery; Physician Assistant; Admitting Provider Physician Assistant; PCP Internal Medicine; Visit Provider Physician Assistant
PROC: 0SRC0JA Replacement of Right Knee Joint with Synthetic Substitute, Uncemented, Open Approach (ICD-10-PCS; CPT 27447; principal; 2023-01-31 09:40)
DX: M17.11 Unilateral primary osteoarthritis, right knee (principal); R09.02 Hypoxemia; J44.9 Chronic obstructive pulmonary disease, unspecified; E78.00 Pure hypercholesterolemia, unspecified; G89.18 Other acute postprocedural pain; I10 Essential (primary) hypertension; K76.0 Fatty (change of) liver, not elsewhere classified; Z87.891 Personal history of nicotine dependence; Z88.0 Allergy status to penicillin; Z79.51 Long term (current) use of inhaled steroids; Z79.899 Other long term (current) drug therapy
CPT/HCPCS: 36415; 73560; 80048; 82947; 85014; 85018; 85025; 86850; 86900; 86901; 87640; 87641; 88305; 88311; 97110; 97116; 97161; C1776; J0131; J0690; J1100; J1170; J1885; J2250; J2405; J2795; J3010

== ENCOUNTER → 2023-01-31 07:23 | Outpatient (BNV) | payer OTHER, MEDICAID, SELFPAY | PROVIDERS: Admitting Provider Physician Assistant; PCP Internal Medicine; Visit Provider Orthopaedic Surgery | DX: Z00.00 Encounter for general adult medical examination without abnormal findings (principal) | CPT/HCPCS: 27447; 99024; 99212; 99238 ==

== ENCOUNTER → 2023-01-31 07:23 | Outpatient (BNV) | payer OTHER, MEDICAID, SELFPAY | PROVIDERS: Admitting Provider Physician Assistant; PCP Internal Medicine; Visit Provider Physician Assistant | DX: M17.11 Unilateral primary osteoarthritis, right knee (principal) | CPT/HCPCS: 99222 ==

== ENCOUNTER 2023-02-16 15:28 | Outpatient (AMB) | payer OTHER, MEDICAID, SELFPAY ==
--- NOTE | 2023-02-16 15:31 | A.OFFVIS_ITS ---
Intake Intake Visit Reasons: PO-RT TKA 02/01/23 NE Intake Note: Nohemi 63 yr old female presents today for her P/O visit for her Right TKA from 02/01/23. States she has mild pain. patient came in using a walker for support. Allergies ibuprofen [IBUPROFEN] Allergy (Intermediate, Verified 02/16/23 15:32) exacerbates asthma oxaprozin [From DAYPRO] Allergy (Intermediate, Verified 02/16/23 15:32) exacerbates asthma Penicillins [PCN] Allergy (Intermediate, Verified 02/16/23 15:32) RASH HPI PO-RT TKA 02/01/23 NE HPI Details 63-year-old female who returns to the office today with a walker for post-op right TKA, 02/01/[address] Guerra. She continues to have mild pain in her knee but is doing well otherwise. She has no concerns today. [facility] Medical History Asthma COPD (chronic obstructive pulmonary disease) Diabetes Elevated cholesterol Headache HTN (hypertension) Osteoarthritis Osteoarthritis of right knee Steatosis, liver Surgical History H/O colonoscopy Hx of bilateral cataract extraction Hx of section Hx of laparoscopic gastric banding Social History Household Members: None Housing: Apartment Are you a primary home care and home health aides teacher to a significant other at home: No Do you presently have visiting nurse or other home services: No Patient Tobacco Use Status: Former Tobacco user Quit Date: 1994 Tobacco use type: Cigarette Years Smoked: 35 Second Hand Smoke Exposure: No service: No Current occupational status: employed 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 No erythema, mild swelling. ROM is 5-90 degrees. Calf supple, nontender. NVI. Assessment & Plan Assessment & Plan (1) Status post total knee replacement, right: Code(s): Z96.651 - Presence of right artificial knee joint Plan Jolo removed, steri strips applied. She will begin to transition to Outpatient PT to continue working on Gait training, ROM and quad strength. No driving for another 4 weeks. She will require ppx abx for dental procedures. She will f/u in 4 weeks, sooner if needed. Patient Instructions: Scribed for Juma Buckley PA-C, by Mo Barbosa medical device assembler, on 02/16/2023 at 3:45 PM EST. I, Juma Buckley PA-C, have personally reviewed and agree with the information entered by the scribe. Coding Level of Care Code Global (61851) Diagnoses Status post total knee replacement, right Z96.651
== END 2023-02-16 16:00 | disposition home or self-care (01) ==
PROVIDERS: PCP Internal Medicine; Visit Provider Physician Assistant
DX: Z96.651 Presence of right artificial knee joint (principal)
CPT/HCPCS: 99024

== ENCOUNTER → 2023-02-16 15:28 | Outpatient (BNVA) | payer OTHER, MEDICAID, SELFPAY | PROVIDERS: PCP Internal Medicine; Visit Provider Physician Assistant ==

== ENCOUNTER 2023-03-16 13:57 | Outpatient (AMB) | payer OTHER, MEDICAID, SELFPAY ==
--- NOTE | 2023-03-16 14:11 | MHC.OFFVIS ---
Intake Intake Visit Reasons: PO-RT TKA 02/01/23 NE Intake Note: Nohemi 63 yr old female presents today for her P/O visit for her Right TKA from 02/01/23. Patient reports she has been doing PT, but PT is a little concerned because her knee is unable to bend. She states that there is discoloration on her knee. Allergies ibuprofen [IBUPROFEN] Allergy (Intermediate, Verified 03/16/23 14:15) exacerbates asthma oxaprozin [From DAYPRO] Allergy (Intermediate, Verified 03/16/23 14:15) exacerbates asthma Penicillins [PCN] Allergy (Intermediate, Verified 03/16/23 14:15) RASH HPI PO-RT TKA 02/01/23 NE HPI Details 63-year-old female who returns to the office today for post-op right TKA, 02/01/[address] Guerra. She denies any pain but does c/o discoloration on her knee. She continues to work with physical therapy but is currently unable to bend her knee. She is doing well otherwise and has no other concerns. [facility] Medical History Asthma COPD (chronic obstructive pulmonary disease) Diabetes Elevated cholesterol Headache HTN (hypertension) Osteoarthritis Osteoarthritis of right knee Steatosis, liver Surgical History H/O colonoscopy Hx of bilateral cataract extraction Hx of section Hx of laparoscopic gastric banding Social History Household Members: None Housing: Apartment Are you a primary career development coordinator to a significant other at home: No Do you presently have visiting nurse or other home services: No Patient Tobacco Use Status: Former Tobacco user Quit Date: 1994 Tobacco use type: Cigarette Years Smoked: 35 Second Hand Smoke Exposure: No service: No Current occupational status: employed 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 No erythema. ROM is -5 to 95 degrees. Calf supple, nontender. NVI. Assessment & Plan Assessment & Plan (1) Status post total knee replacement, right: Code(s): Z96.651 - Presence of right artificial knee joint (2) Postoperative stiffness of total knee replacement: Code(s): T84.89XA - Other specified complication of internal orthopedic prosthetic devices, implants and grafts, initial encounter; M25.669 - Stiffness of unspecified knee, not elsewhere classified; Z96.659 - Presence of unspecified artificial knee joint Plan Dr. Guerra was available to see the patient with me today. Due to her lack of flexion beyond 95 degrees and ongoing pain, we discussed potentially proceeding with manipulation under anesthesia for right knee. She is going to work with physical therapy to try and gain more motion over the next 3 weeks. We will tentatively book her for right knee manipulation under anesthesia. We did discuss the risks, benefits and alternatives. Risks including but not limited to ongoing pain, stiffness and need for further surgery. She does understand all this and would like to proceed. She will see me back in 3 weeks for a ROM check, sooner if needed. Patient Instructions: Scribed for Juma Buckley PA-C, by Mo Barbosa medical information officer, on 03/16/2023 at 2:00 PM EST. I, Juma Buckley PA-C, have personally reviewed and agree with the information entered by the scribe. Coding Level of Care Code Global (89496) Diagnoses Status post total knee replacement, right Z96.651 Postoperative stiffness of total knee replacement T84.89XA; M25.669; Z96.659
== END 2023-03-16 14:45 | disposition home or self-care (01) ==
PROVIDERS: PCP Internal Medicine; Visit Provider Physician Assistant
DX: Z96.651 Presence of right artificial knee joint (principal); T84.89XA Other specified complication of internal orthopedic prosthetic devices, implants and grafts, initial encounter; M25.669 Stiffness of unspecified knee, not elsewhere classified; Z96.659 Presence of unspecified artificial knee joint
CPT/HCPCS: 99024

== ENCOUNTER → 2023-03-16 13:57 | Outpatient (BNVA) | payer OTHER, MEDICAID, SELFPAY | PROVIDERS: PCP Internal Medicine; Visit Provider Physician Assistant ==

== ENCOUNTER 2023-04-06 10:15 | Outpatient (AMB) | payer OTHER, SELFPAY ==
--- NOTE | 2023-04-06 10:36 | MHC.OFFVIS ---
Intake Intake Visit Reasons: PO- RT TKA 02/01/23 NE rom check Intake Note: Nohemi a 63 year old female who presents today for a post operative right TKA, DOS 02/01/23. Patient reports she is doing well, occasional mild pain but finds relief with Tylenol. She continues to attend PT and states at Monday's visit she measured at 116. Allergies ibuprofen [IBUPROFEN] Allergy (Intermediate, Verified 04/06/23 10:41) exacerbates asthma oxaprozin [From DAYPRO] Allergy (Intermediate, Verified 04/06/23 10:41) exacerbates asthma Penicillins [PCN] Allergy (Intermediate, Verified 04/06/23 10:41) RASH HPI PO- RT TKA 02/01/23 NE rom check HPI Details 63-year-old female who returns to the office today for post-op right TKA, 02/01/[address] Guerra. He states he has occasional mild pain in his knee but is doing well otherwise. She continues to work with physical therapy as instructed. She finds relief with Tylenol. He has no other concerns today. [facility] Medical History Asthma COPD (chronic obstructive pulmonary disease) Diabetes Elevated cholesterol Headache HTN (hypertension) Osteoarthritis Osteoarthritis of right knee Steatosis, liver Surgical History Hx of bilateral cataract extraction Hx of section Hx of laparoscopic gastric banding H/O colonoscopy Social History Household Members: None Housing: Apartment Are you a primary rn coronary care unit to a significant other at home: No Do you presently have visiting nurse or other home services: No Patient Tobacco Use Status: Former Tobacco user Quit Date: 1994 Tobacco use type: Cigarette Years Smoked: 35 Second Hand Smoke Exposure: No service: No Current occupational status: employed 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 No erythema or joint effusion. ROM is 0-110 degrees. Calf supple, nontender. NVI. Assessment & Plan Assessment & Plan (1) Status post total knee replacement, right: Code(s): Z96.651 - Presence of right artificial knee joint Plan The case was discussed with Dr. Guerra. Given her significant improvement with ROM, we will cancel her surgery on Monday for manipulation under anesthesia. She will continue to work with aggressive ROM and physical therapy and she will see us back in 3 months for her routine post-op appointment with Dr. Guerra, sooner if needed. Patient Instructions: Scribed for Juma Buckley PA-C, by Mo Barbosa medical administrator, on 04/06/2023 at 10:30 AM EST. I, Juma Buckley PA-C, have personally reviewed and agree with the information entered by the scribe. Coding Level of Care Code Global (51692) Diagnoses Status post total knee replacement, right Z96.651
== END 2023-04-06 11:35 | disposition home or self-care (01) ==
PROVIDERS: PCP Internal Medicine; Visit Provider Physician Assistant
DX: Z96.651 Presence of right artificial knee joint (principal)
CPT/HCPCS: 99024

== ENCOUNTER → 2023-04-06 10:15 | Outpatient (BNVA) | payer OTHER, MEDICAID, SELFPAY | PROVIDERS: PCP Internal Medicine; Visit Provider Physician Assistant ==

== ENCOUNTER 2023-05-02 11:00 | Outpatient (RCR) | payer OTHER, SELFPAY ==
--- NOTE | 2023-02-20 11:52 | MHC.PT.EP ---
[facility] [place] [facility] [place] [facility] [place] Office [address] Erasm[address] [phone] F: [phone] F: [phone] F: [phone] F: [phone] Physical Therapy Plan of Care Date of Evaluation: Date of Surgery: 02/01/23 Diagnosis: R TKA on 02/01/23 (RL) Assessment: pt is a 63 y/o female presenting to physical therapy w/ referring diagnosis of R TKA on 02/01/23. Impairments include pain, decreased range of motion, decreased strength, impaired functional mobility, impaired postural awareness, and altered ambulation mechanics. pt is a good candidate for skilled PT due to age, potential remediation of impairments, typical disease/condition progression and prognosis, comorbidities, and motivation. pt would benefit from skilled PT intervention to provide a tailored strengthening and stretching exercise program, functional training, gait training, postural re-training, neuromuscular re-education, modalities as needed for pain, equipment safety demonstration. Frequency and Duration: The patient will be seen 2x/wk for 5 wks Short Term Goals: pt will be I w/ HEP to promote self-management of condition. pt will improve R knee flexion by 10 degrees to promote ease in stair navigation. Intermediate Goals: pt will ambulate I level household distances w/o AD to promote ease in access to bedroom/bathroom. pt will ascend/descend 18 stairs w/ reciprocal pattern using railing. Treatment Plan: Modalities to reduce pain, spasms and effusion. Manual therapy to restore motion and function. Therapeutic exercise to improve strength and flexibility. Neuromuscular re-education for posture and balance. Therapeutic activities to return to functional activities of daily living. Electronically signed by: Dyan Bajwa PT, DPT Please sign and return to therapist. Thank you for your referral.
--- NOTE | 2023-06-12 15:27 | MHC.PT.DC ---
[facility] [place] Office [place] Office [place] Office [address] [facility] [phone] F: [phone] F: [phone] F: [phone] F: [phone] Physical Therapy Discharge Report Diagnosis: R TKA on 02/01/23 (RL) Date of Surgery: 02/01/23 Date of Evaluation: 02/20/23 Date of Discharge: 06/12/23 Treatments to Date: 17 Cancellations to Date: 8 No Shows to Date: 1 Discharge Status: Improved Function Visit Non-compliance Discharge Summary: The patient was achieving approximately 110-115* knee flexion with stretching and bike warm up. She was reporting overall less stiffness of her knee. She has custody of her two grandchildren so was having difficulty with attendance. She reported she would call to get back on the schedule; however, she has not reached out in 40 days. She is being discharged at this time. Electronically signed by: Dyan Bajwa PT, DPT Please sign and return to therapist. Thank you for your referral.
== END 2023-06-12 15:27 | disposition home or self-care (01) ==
LOC: HO.PT 11:00
PROVIDERS: PCP Internal Medicine; Visit Provider Physician Assistant
DX: Z96.651 Presence of right artificial knee joint (principal)
CPT/HCPCS: 97110; 97140; 97162

== ENCOUNTER 2023-06-15 08:36 | Emergency (ER) | payer OTHER, SELFPAY ==
[2023-06-15 08:37] VITALS: BP 148/92; PULSE 112; RESP 26; TEMP 36.4; O2SAT 95; BMI 36.4
--- NOTE | 2023-06-15 09:33 | ED.URI ---
HPI - URI/Sore Throat General Chief Complaint: Upper Respiratory Symptoms Stated Complaint: asthma Time Seen by Provider: 06/15/23 09:08 Source: patient Mode of arrival: ambulatory Limitations: no limitations History of Present Illness HPI Narrative: 63-year-old female who presents emergency department for evaluation exacerbation of her asthma. The patient states she has been having difficulty with her asthma times months and this usually happens to her twice a year when the weather changes. She states the last 2 weeks she has been short of breath and having dyspnea on exertion. She has had a cough which is productive of yellow sputum. She has had headache. She denied fever but did have chills. She has rhinorrhea. She denies sore throat, chest pain, nausea, vomiting, diarrhea, myalgias arthralgias. She states she was seen yesterday by her asthma specialist who advised to go to the emergency department for IV therapy. Patient states she was not able to come to the emergency department yesterday but did come today for evaluation. She states that 2 weeks prior she was started on prednisone course of antibiotics with only minimal improvement of her symptoms. The patient states that she has multiple inhalers but she cannot tell me the names of these inhalers. She did show me a Flovent inhaler but she states that she is not using it because it does not help her shortness of breath. She states that she has been using her albuterol nebulizer every 4 hours for the last 2 days with relief of her shortness of breath. She states that in the past she had been on Advair in she believes this medicine did help her but this is not a medication that she has at this time. Related Data Home Medications Medication Instructions Recorded Confirmed albuterol sulfate 90 mcg/actuation 90 mcg inhalation Q4H PRN 01/20/22 01/24/23 aerosol inhaler (Ventolin HFA) Shortness Of Breath blood sugar diagnostic (FreeStyle #10 ea 01/20/22 01/04/23 Lite Strips) blood-glucose meter (FreeStyle #1 ea 01/20/22 01/04/23 [place] Lite kit) fluticasone propionate 50 1 spray intranasal DAILY 01/20/22 01/24/23 mcg/actuation nasal spray,suspension lancets 28 gauge (FreeStyle #100 ea 01/20/22 01/04/23 Lancets) loratadine 10 mg tablet 10 mg PO DAILY 01/20/22 01/24/23 meloxicam 15 mg tablet 15 mg PO DAILY 01/20/22 01/25/23 tramadol 50 mg tablet 50 mg PO TID PRN Pain 01/20/22 01/24/23 atorvastatin 20 mg tablet 20 mg PO DAILY 11/14/22 01/24/23 cholecalciferol (vitamin D3) 1,250 1,250 mcg PO QWEEK 01/24/23 01/24/23 mcg (50,000 unit) capsule budesonide-formoterol HFA 160 1 inh inhalation BID 01/25/23 01/25/23 mcg-4.5 mcg/actuation aerosol inhaler (Symbicort) dupilumab 200 mg/1.14 mL 200 mg subcut Q2W 01/25/23 01/25/23 subcutaneous pen injector ([employer]) oxybutynin chloride 5 mg tablet 10 mg PO BEDTIME 01/25/23 01/31/23 dupilumab 300 mg/2 mL subcutaneous mg subcut 04/06/23 pen injector ([employer]) metformin 500 mg tablet 500 mg PO BID 04/06/23 Previous Rx's Medication Instructions Recorded acetaminophen 325 mg tablet 650 mg (2 x 325 mg) PO Q6H PRN 01/31/23 Pain, Mild (Pain Scale 1-3) 30 days #240 tabs aspirin 325 mg tablet 325 mg PO BID 42 days #84 tabs 01/31/23 docusate sodium 100 mg capsule 100 mg PO BID 30 days #60 caps 01/31/23 celecoxib 200 mg capsule 200 mg PO BID #60 caps 06/06/23 prednisone 10 mg tablet 10 mg PO DIRECTED #60 tabs 06/15/23 Allergies Allergy/AdvReac Type Severity Reaction Status Date / Time ibuprofen [IBUPROFEN] Allergy Intermediate exacerbates Verified 04/06/23 10:41 asthma oxaprozin [From DAYPRO] Allergy Intermediate exacerbates Verified 04/06/23 10:41 asthma Penicillins [PCN] Allergy Intermediate RASH Verified 04/06/23 10:41 Review of Systems Review of Systems: Yes all other systems are reviewed and are negative [facility] Past Medical History [facility] Narrative: Social history: She denies tobacco, alcohol and drug use. Medical History COPD (chronic obstructive pulmonary disease) Diabetes Steatosis, liver Elevated cholesterol HTN (hypertension) Asthma Osteoarthritis Osteoarthritis of right knee Headache Surgical History Hx of bilateral cataract extraction Hx of section Hx of laparoscopic gastric banding H/O colonoscopy Social History Social History Household Members: None Housing: Apartment Are you a primary care process manager to a significant other at home: No Do you presently have visiting nurse or other home services: No Patient Tobacco Use Status: Former Tobacco user Quit Date: 1994 Tobacco use type: Cigarette Years Smoked: 35 Second Hand Smoke Exposure: No Advance Directives: No Advance Directives Information Provided: No service: No Current occupational status: employed 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 Exam: General: Awake, alert in no distress Head: Normocephalic, atraumatic EENT: PERRL, Lids normal, sclera normal, conjunctiva normal, nose normal , ears normal, throat without erythema or exudates Neck: Supple, no adenopathy, no trachea midline or C-spine tenderness Lung: breath sounds symmetric, diffuse wheezing with good inspiratory expiratory flow, no rales or no rhonchi Chest: symmetric movement, nontender Heart: regular rate and rhythm, normal S1, S2 no murmurs or rubs Abdomen: soft, non-tender, nondistended, normal bowel sounds Back: no vertebral tenderness, no CVAT Extremities: no deformities, moves all extremities symmetrically Neuro: Awake, alert, oriented, normal speech,moves all extremities symmetrically Psych: Pleasant, cooperative Medical Decision Making Medical Decision Making MDM Narrative: 63-year-old female history of diabetes mellitus, asthma and COPD who presents emergency department for evaluation of shortness of breath x2 months with symptoms worse over the last 2 weeks. Patient states that 2 weeks prior she did complete a course of antibiotics and steroids with only minimal improvement of her symptoms. She states she was seen yesterday by her asthma specialist and was advised to go to the emergency department for IV therapy but did not, till today. Patient's vital signs did reveal tachycardia and elevated blood pressure. Patient's lung exam did reveal diffuse wheezing with good inspiratory and expiratory flow with no rales or rhonchi. A viral panel was ordered at triage and this is pending. Patient's symptoms are consistent with an asthma exacerbation most likely secondary to a high inflammatory component I did discuss this with the patient. Patient was given prednisone 60 mg orally here in the emergency department. She started on prednisone 60 mg once a day for 5 days then taper by 10 mg every 2 days. She was advised to follow-up with her asthma specialist under bring in all of her inhalers so that her asthma specialist can tell her which are the rescue inhalers and which are the preventative inhalers. I also told her to discuss starting Advair with her asthma specialist if her provider felt that would be appropriate. She was given printed and verbal instructions and discharged home Differential Diagnosis Differential Diagnoses: The differential diagnosis associated with the presentation includes Differential diagnosis includes was not limited to asthma exacerbation, COPD exacerbation, pneumonia, URI, viral infection Admission/Observation Consideration of admission/observation: Escalation of care including admission/observation considered Independent Historian Clinical information obtained from an independent historian. History obtained from or confirmed by: Spouse Prescription Management I considered prescription management with: Other (Prednisone) Chronic Conditions Patient?s care impacted by: Diabetes and Other (Asthma, COPD) Discharge Plan Discharge Clinical Impression: Acute upper respiratory infection Asthma exacerbation Qualifiers: Asthma severity: moderate Asthma persistence: persistent Qualified Code(s): J45.41 - Moderate persistent asthma with (acute) exacerbation Patient Disposition: Home, Self-Care Instructions: Asthma (ED), Upper Respiratory Infection (ED) Additional Instructions: Your symptoms today are caused by exacerbation of your asthma most likely caused by a viral infection. Your viral tests are pending-I will call you with these results. This may take several hours to come back. Your wheezing on your lung exam, this is most likely caused by increased inflammation of your breathing tubes. Take prednisone 60 mg once a day for 5 days and then decrease by 10 mg every 2 days until you complete the prescription. I want you to follow-up with your asthma specialist and when you see this provider bring all your inhalers at all your medications with you. Ask your asthma provider to tell you which inhalers you need to use on a regular basis (preventative inhaler) and which inhalers you need to use when your short of breath (rescue inhaler). You should also discuss with your provider whether not you can be started on Advair again since you seemed to do better while your taking this medication. Follow-up with your doctor in 2 days. Please return to the emergency department if your symptoms get worse or if you develop any symptoms that are concerning to you. If you are using your albuterol nebulizer frequently and you are still feeling short of breath, then you need to call 911 and come back to the emergency department to be evaluated. Over treating yourself at home can be dangerous and can cause you to from an asthma exacerbation. Prescriptions: New prednisone 10 mg tablet 10 mg PO DIRECTED Qty: 60 0RF Rx Instructions: Day 1 through 5 take 6 pills then decrease by 1 pill every 2 days until you complete prescription No Action celecoxib 200 mg capsule 200 mg PO BID Qty: 60 0RF cholecalciferol (vitamin D3) 1,250 mcg (50,000 unit) capsule 1,250 mcg PO QWEEK budesonide-formoterol [Symbicort] 160-4.5 mcg/actuation HFA aerosol inhaler 1 inh INHALATION BID oxybutynin chloride 5 mg Tablet 10 mg PO BEDTIME Dupixent Pen 200 mg/1.14 mL Pen Injector 200 mg SUBCUT Q2W acetaminophen 325 mg Tablet 650 mg PO Q6H PRN (Reason: Pain, Mild (Pain Scale 1-3)) 30 Days Qty: 240 0RF aspirin 325 mg Tablet 325 mg PO BID 42 Days Qty: 84 0RF docusate sodium 100 mg Capsule 100 mg PO BID 30 Days Qty: 60 0RF loratadine 10 mg tablet 10 mg PO DAILY meloxicam 15 mg tablet 15 mg PO DAILY tramadol 50 mg tablet 50 mg PO TID PRN (Reason: Pain) Hold Instructions: Resume on 03/13/23. albuterol sulfate [Ventolin HFA] 90 mcg/actuation HFA aerosol inhaler 90 mcg inhalation Q4H PRN (Reason: Shortness Of Breath) fluticasone propionate 50 mcg/actuation spray,suspension 1 spray intranasal DAILY (DME) lancets [FreeStyle Lancets] 28 gauge misc See Rx Instructions topical DAILY Qty: 100 Rx Instructions: As directed (DME) blood-glucose meter [FreeStyle [place] Lite] Kit See Rx Instructions .ROUTE DAILY Qty: 1 Rx Instructions: As directed (DME) FreeStyle Lite Strips Strip See Rx Instructions Not Applicable DAILY Qty: 10 Rx Instructions: As directed atorvastatin 20 mg tablet 20 mg PO DAILY Dupixent Pen 300 mg/2 mL pen injector subcut metformin 500 mg tablet 500 mg PO BID
[2023-06-15 09:52] LABS: Influenza A PCR NEGATIVE (Negative); Influenza B PCR NEGATIVE (Negative); Resp Syncy Virus RNA Qual PCR NEGATIVE (Negative); SARS COV2 PCR INHOUSE POSITIVE (Negative)
[2023-06-15 09:54] VITALS: BP 137/81; PULSE 102; RESP 16; TEMP 36.9; O2SAT 95
[2023-06-15] MEDS: predniSONE 20 MG TABLET 60 MG PO (10:07)
--- NOTE | 2023-06-15 10:16 | PC.NURSE ---
LUNGS - EXP WHEEZING ALL LOBES.
[2023-06-15 12:51] LABS: Adenovirus PCR Not Detected (Not Detect.); Bordetella parapertussis PCR Not Detected (Not Detect.); Bordetella pertussis PCR Not Detected (Not Detect.); Chlamydia pneumoniae PCR Not Detected (Not Detect.); Coronavirus 229E PCR Not Detected (Not Detect.); Coronavirus HKU1 PCR Not Detected (Not Detect.); Coronavirus NL63 PCR Not Detected (Not Detect.); Coronavirus OC43 PCR Not Detected (Not Detect.); Human metapneumovirus PCR Not Detected (Not Detect.); Influenza A PCR Not Detected (Not Detect.); Influenza B PCR Not Detected (Not Detect.); Mycoplasma pneumoniae PCR Not Detected (Not Detect.); Parainfluenza 1 PCR Not Detected (Not Detect.); Parainfluenza 2 PCR Not Detected (Not Detect.); Parainfluenza 3 PCR Not Detected (Not Detect.); Parainfluenza 4 PCR Not Detected (Not Detect.); RSV PCR Not Detected (Not Detect.); Rhino/Enterovirus PCR Not Detected (Not Detect.)
[2023-06-15 13:46] LABS: SARS-CoV-2 PCR Detected (Not Detect.)
== END 2023-06-15 10:18 | disposition home or self-care (01) ==
PROVIDERS: Emergency Provider Emergency Medicine Emergency Medical Services; PCP Internal Medicine
DX: J06.9 Acute upper respiratory infection, unspecified (principal); J45.41 Moderate persistent asthma with (acute) exacerbation; Z20.822 Contact with and (suspected) exposure to COVID-19; Z11.52 Encounter for screening for COVID-19
CPT/HCPCS: 0241U; 87633; 99283; 99284

== ENCOUNTER 2024-01-15 10:03 | Emergency (ER) | payer OTHER, SELFPAY ==
--- NOTE | ~2024-01-15 | XR_ITS ---
EXAMINATION: XR CHEST CLINICAL INFORMATION: Shortness of breath COMPARISON: 12/30/2018 TECHNIQUE: 2 views of the chest were obtained. FINDINGS: Some minimal ill-defined new patchy densities are seen in the right mid and right lower lung. Compared to 12/30/2018 study, findings are otherwise unchanged. Heart size normal. There is mild bronchial thickening. No pleural effusions. XR/XR chest 2V IMPRESSION: New patchy densities right mid and lower lung. Findings may represent atypical pneumonia.
[2024-01-15 10:21] VITALS: BP 159/103; PULSE 110; RESP 18; TEMP 37.3; O2SAT 94; BMI 36.6
[2024-01-15 12:35] LABS: Influenza A PCR NEGATIVE (Negative); Influenza B PCR NEGATIVE (Negative); Resp Syncy Virus RNA Qual PCR NEGATIVE (Negative); SARS COV2 PCR INHOUSE NEGATIVE (Negative)
[2024-01-15 12:39] VITALS: BP 140/75; PULSE 107; RESP 20; TEMP 37.2; O2SAT 89
--- NOTE | 2024-01-15 12:41 | ED.GENADULT ---
HPI - General Adult General Chief complaint: Upper Respiratory Symptoms Stated complaint: asthma Time Seen by Provider: 01/15/24 12:58 Source: patient Mode of arrival: ambulatory Limitations: no limitations History of Present Illness ED Provider: Marianne OBANDO narrative: Patient is a 63-year-old female with history of COPD, DM, HTN, asthma, osteoarthritis presenting to the emergency department with complaint cough and shortness of breath since Memorial day. States symptoms have worsened over the past few days. Reports fever 100.8? last night. Denies chest pain or palpitations. Denies any abdominal pain, nausea, vomiting, diarrhea. Was prescribed a course of steroids but states this did not improve her symptoms. MD complaint: Cough, shortness of breath Onset (ago): week(s) Associated symptoms: cough and fever/chills Treatments prior to arrival: other Related Data Home Medications ?Medication ?Instructions ?Recorded ?Confirmed albuterol sulfate 90 mcg/actuation 90 mcg inhalation Q4H PRN 01/20/22 01/24/23 aerosol inhaler (Ventolin HFA) Shortness Of Breath blood sugar diagnostic (FreeStyle #10 ea 01/20/22 01/04/23 Lite Strips) blood-glucose meter (FreeStyle #1 ea 01/20/22 01/04/23 [place] Lite kit) fluticasone propionate 50 1 spray intranasal DAILY 01/20/22 01/24/23 mcg/actuation nasal spray,suspension lancets 28 gauge (FreeStyle #100 ea 01/20/22 01/04/23 Lancets) loratadine 10 mg tablet 10 mg PO DAILY 01/20/22 01/24/23 meloxicam 15 mg tablet 15 mg PO DAILY 01/20/22 01/25/23 tramadol 50 mg tablet 50 mg PO TID PRN Pain 01/20/22 01/24/23 atorvastatin 20 mg tablet 20 mg PO DAILY 11/14/22 01/24/23 cholecalciferol (vitamin D3) 1,250 1,250 mcg PO QWEEK 01/24/23 01/24/23 mcg (50,000 unit) capsule budesonide-formoterol HFA 160 1 inh inhalation BID 01/25/23 01/25/23 mcg-4.5 mcg/actuation aerosol inhaler (Symbicort) dupilumab 200 mg/1.14 mL 200 mg subcut Q2W 01/25/23 01/25/23 subcutaneous pen injector (Dupixent) oxybutynin chloride 5 mg tablet 10 mg PO BEDTIME 01/25/23 01/31/23 dupilumab 300 mg/2 mL subcutaneous mg subcut 04/06/23 pen injector (Dupixent) metformin 500 mg tablet 500 mg PO BID 04/06/23 Previous Rx's ?Medication ?Instructions ?Recorded acetaminophen 325 mg tablet 650 mg (2 x 325 mg) PO Q6H PRN 01/31/23 Pain, Mild (Pain Scale 1-3) 30 days #240 tabs aspirin 325 mg tablet 325 mg PO BID 42 days #84 tabs 01/31/23 docusate sodium 100 mg capsule 100 mg PO BID 30 days #60 caps 01/31/23 prednisone 10 mg tablet 10 mg PO DIRECTED #60 tabs 06/15/23 celecoxib 200 mg capsule 200 mg PO BID #60 caps 07/17/23 albuterol sulfate 2.5 mg/3 mL 2.5 mg (3 mL) inhalation Q6H #75 mL 01/15/24 (0.083 %) solution for nebulization albuterol sulfate 90 mcg/actuation 2 puff inhalation Q4-6H PRN 01/15/24 aerosol inhaler shortness of breath or wheezing #6.7 grams amoxicillin 875 mg-potassium 1 tab PO BID #14 tabs 01/15/24 clavulanate 125 mg tablet benzonatate 100 mg capsule 100 mg PO TID PRN cough #20 caps 01/15/24 doxycycline hyclate 100 mg capsule 100 mg PO BID #10 caps 01/15/24 prednisone 20 mg tablet 40 mg (2 x 20 mg) PO DAILY #10 tabs 01/15/24 Allergies Allergy/AdvReac Type Severity Reaction Status Date / Time ibuprofen [IBUPROFEN] Allergy Intermediate exacerbates Verified 01/15/24 10:24 asthma oxaprozin [From DAYPRO] Allergy Intermediate exacerbates Verified 01/15/24 10:24 asthma Penicillins [PCN] Allergy Intermediate RASH Verified 01/15/24 10:24 Review of Systems Review of Systems: aS PER hpi. Yes all other systems are reviewed and are negative Constitutional: Constitutional: Reports as per HPI PMFSH Past Medical History Medical History COPD (chronic obstructive pulmonary disease) Diabetes Steatosis, liver Elevated cholesterol HTN (hypertension) Asthma Osteoarthritis Osteoarthritis of right knee Headache Surgical History Hx of bilateral cataract extraction Hx of section Hx of laparoscopic gastric banding H/O colonoscopy Social History Social History Household Members: None Housing: Apartment Are you a primary career coordinator to a significant other at home: No Do you presently have visiting nurse or other home services: No Patient Tobacco Use Status: Former Tobacco user Tobacco use type: Cigarette Years Smoked: 35 Smoked in Last 30 Days: No Second Hand Smoke Exposure: No Use of substances other than those prescribed or required for medical reasons: No Advance Directives: No Advance Directives Information Provided: Yes Do you have a plan to hurt others: No Plan service: No Current occupational status: employed 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 Blood pressure elevated. Heart rate mildly tachycardic. Respiratory rate normal. Temperature normal. Oxygen saturation hypoxic on room air. Const General: cooperative, healthy appearing and no acute distress Orientation/consciousness: oriented to person, oriented to place, oriented to time and patient oriented x3 Limitations: no limitations HENMT Head: Yes normocephalic and Yes atraumatic Ears: external ears normal General nose exam: Normal external nose present Face and sinus: Yes face symmetric Mouth: oropharynx normal and moist mucous membranes Throat: Yes uvula midline Eyes Pupils: Equal, round and reactive pupils present Neck Neck: Yes normal visual inspection and Yes supple Resp Other: Increased work of breathing, speaking in short sentences. Auscultation: clear to auscultation bilaterally Cardio Rate: regular rate Rhythm: regular rhythm Heart sounds: S1 normal heart sound present and S2 normal heart sound present GI Palpation (GI): Soft to palpation and nontender Auscultation: normoactive bowel sounds General: Yes no CVA tenderness Back/Spine/Pelvis Back: no CVA tenderness Skin General skin exam: elasticity normal and turgor normal Neuro General: oriented to person, oriented to place, oriented to time, patient oriented x3, moves all extremities, no focal motor deficits and CN's II-XI intact bilaterally Cranial nerves: Yes Equal, round and reactive pupils present Cognition (Neuro): normal cognition Extrem General: Yes full ROM, Yes no pedal edema and Yes no calf tenderness Psych Mental Status: mental status grossly normal Affect: normal affect Thought process: Normal thought process present Course Course Course Narrative: RME performed by Sanjaan Jessica PA-C. Patient is a 63 year old assigned female at presenting to the emergency department with a history of COPD coming in with a cough and feeling generally unwell. Patient states she has been sick for a few days and is getting progressively worse. Detailed physical exam and review of systems are deferred to the director of assessing. Labs ordered. Patient placed back in the waiting room pending room availability and results. Medications Administered Discontinued Medications Generic Name Dose Route Start Last Admin Trade Name Freq PRN Reason Stop Dose Admin Albuterol Sulfate 2.5 mg/ 5 mg 01/15/24 13:26 01/15/24 13:40 Albuterol Sulfate 2.5 mg INHALE 01/15/24 13:27 Not Given ONCE ONE Albuterol Sulfate 2.5 mg/ 5 mg 01/15/24 13:27 01/15/24 13:41 Albuterol Sulfate 2.5 mg INHALE 01/15/24 13:28 Not Given ONCE ONE Albuterol Sulfate 2.5 mg 01/15/24 13:46 01/15/24 13:49 Albuterol Sulfate (0.083%) 2.5 Mg/3 Ml Vial.Neb INHALE 01/15/24 13:47 2.5 mg ONCE ONE Administration Medical Decision Making Medical Decision Making MDM Narrative: Patient is a 63-year-old female with history of COPD, DM, HTN, asthma, osteoarthritis presenting to the emergency department with complaint cough and shortness of breath since . On exam patient is awake, A+Ox3, initially hypoxic on room air requiring oxygen via NC, mildly tachycardic, afebrile, normal neurological exam without focal deficits, physical exam findings as above. Given reported symptoms and physical exam findings, initial differential includes COPD exacerbation, viral illness, bronchitis, pneumonia. Labs notable for leukocytosis, no other significant abnormalities. X-ray notable for new patchy densities to right mid and lower lung consistent with atypical pneumonia. My interpretation is in agreement with the radiologist's interpretation. Patient reports significant improvement in symptoms after breathing treatments given in the ED. Patient able to maintain oxygen saturation of 95% on room air during ambulation trial. She is tolerating PO. Feel she is stable for discharge home at this time on antibiotics, prednisone, will send albuterol for nebulizer as well as inhaler, benzonatate. Patient has documented penicillin allergy, however, patient states that she has purchased [id number] penicillin in [place] since and taken it without any adverse effect. Discussed with patient treatment with Augmentin and advised her to stop medication immediately if she develops rash or other allergic reaction symptoms and follow-up with PCP or return to the ED. Instructed patient to follow-up with PCP. Return precautions discussed at bedside. Patient verbalized understanding of and agreement with plan. Differential Diagnosis Differential Diagnoses: The differential diagnosis associated with the presentation includes As per [facility] Admission/Observation Consideration of admission/observation: Escalation of care including admission/observation considered Patient would have been admitted to the hospital had their work up had any findings where hospital admission was appropriate and their clinical presentation warranted hospital admission. Lab Data [facility] Lab Attestation statement: I reviewed the patient's lab results. As per [facility] 01/15/24 13:01 01/15/24 13:01 Labs: Lab Results 01/15/24 01/15/24 Range/Units 11:46 13:01 WBC 19.8 H (4.8-10.8) X10*3/uL RBC 4.29 (4.20-5.50) X10*6/uL Hgb 11.2 L (12.0-16.0) g/dl Hct 36.4 L (37.0-47.0) % MCV 84.8 (80.0-98.0) fL MCH 26.1 L (27.0-33.0) pg MCHC 30.8 L (31.0-35.0) g/dl RDW 15.9 (11.0-16.0) % Plt Count 317 D (160-400) X10*3/uL MPV 9.5 (9.4-12.3) fL Immature Gran % (Auto) 0.6 H (0.0-0.4) % Neut % (Auto) 77.6 H (45-73) % Lymph % (Auto) 13.8 L (20-40) % [place] % (Auto) 6.2 (2-11) % Eos % (Auto) 1.3 (0-4) % Baso % (Auto) 0.5 (0-2) % Lymph # (Auto) 2.7 (1.2-4.9) X10*3/uL [place] # (Auto) 1.2 (0.1-1.2) X10*3/uL Eos # (Auto) 0.3 (0.0-0.4) X10*3/uL Baso # (Auto) 0.1 (0.0-0.2) X10*3/uL Abs Immat Gran (auto) 0.11 H (0.00-0.03) X10*3/uL Absolute Neuts (auto) 15.4 H (2.0-8.3) x10*3/uL Absolute Nucleated RBC 0.000 (0.0-0.012) X10*3/uL Nucleated RBC % (auto) 0.0 (0.0-0.2) /100WBC Sodium 139 (135-145) mmol/L Potassium 4.3 (3.3-5.1) mmol/L Chloride 99 (96-108) mmol/L Carbon Dioxide 31 H (22-29) mmol/L Anion Gap 13 (12-20) BUN 12 (9-16) mg/dL Creatinine 0.72 (0.5-1.4) mg/dL Estim Creat Clear Calc 89.0 Estimated GFR > 60 Random Glucose 124 H (60-115) mg/dL Lactic Acid 1.5 (0.5-2.0) mmol/L Calcium 10.0 D (8.4-10.2) mg/dL Magnesium 2.1 (1.6-2.6) mg/dL Total Bilirubin 0.7 (0.0-1.0) mg/dL AST 17 (5-31) U/L ALT 15 (0-31) U/L Alkaline Phosphatase 107 (39-117) U/L Total Protein 8.4 H (6.5-8.0) g/dL Albumin 4.3 (3.5-5.0) g/dL Influenza Type A (PCR) NEGATIVE (Negative) Influenza Type B (PCR) NEGATIVE (Negative) RSV RNA Qual (PCR) NEGATIVE (Negative) SARS-CoV-2 RNA (RT-PCR) NEGATIVE (Negative) Independent Interpretation I performed an independent interpretation of an: Plain X-Ray Interpretation: Atypical pneumonia. Radiology Impression Discussion of test interpretation with radiology: I have reviewed the radiologist's reading. Radiologist Impression: XR/XR chest 2V IMPRESSION: New patchy densities right mid and lower lung. Findings may represent atypical pneumonia. External Record Review External record reviewed: Inpatient record, Office record and Outpatient record Prescription Management I considered prescription management with: Antibiotic and Other Discharge Plan Discharge Clinical Impression: Pneumonia Patient Disposition: Home, Self-Care Instructions: Community Acquired Pneumonia (DC) Additional Instructions: You were evaluated in the emergency department today for cough and shortness of breath. Your chest x-ray shows evidence of pneumonia. You are being treated with antibiotics, please complete the full course as prescribed. You are also being prescribed an inhaler, steroids, and cough medicine which you can use per instructions. Please call your primary care provider within the next 2-3 days to schedule a follow-up appointment. You will need a repeat chest x-ray to confirm resolution of your pneumonia. Return to the emergency department if you develop worsening shortness of breath, chest pain, palpitations, fever 100.4? F or greater, or any other concerning symptoms. Prescriptions: New amoxicillin-pot clavulanate 875-125 mg tablet 1 tab PO BID Qty: 14 0RF doxycycline hyclate 100 mg capsule 100 mg PO BID Qty: 10 0RF albuterol sulfate 90 mcg/actuation HFA aerosol inhaler 2 puff inhalation Q4-6H PRN (Reason: shortness of breath or wheezing) Qty: 6.7 0RF albuterol sulfate 2.5 mg /3 mL (0.083 %) solution for nebulization 2.5 mg inhalation Q6H Qty: 75 0RF benzonatate 100 mg capsule 100 mg PO TID PRN (Reason: cough) Qty: 20 0RF prednisone 20 mg tablet 40 mg PO DAILY Qty: 10 0RF No Action celecoxib 200 mg capsule 200 mg PO BID Qty: 60 6RF cholecalciferol (vitamin D3) 1,250 mcg (50,000 unit) capsule 1,250 mcg PO QWEEK budesonide-formoterol [Symbicort] 160-4.5 mcg/actuation HFA aerosol inhaler 1 inh INHALATION BID oxybutynin chloride 5 mg Tablet 10 mg PO BEDTIME Dupixent Pen 200 mg/1.14 mL Pen Injector 200 mg SUBCUT Q2W acetaminophen 325 mg Tablet 650 mg PO Q6H PRN (Reason: Pain, Mild (Pain Scale 1-3)) 30 Days Qty: 240 0RF aspirin 325 mg Tablet 325 mg PO BID 42 Days Qty: 84 0RF docusate sodium 100 mg Capsule 100 mg PO BID 30 Days Qty: 60 0RF prednisone 10 mg tablet 10 mg PO DIRECTED Qty: 60 0RF Rx Instructions: Day 1 through 5 take 6 pills then decrease by 1 pill every 2 days until you complete prescription loratadine 10 mg tablet 10 mg PO DAILY meloxicam 15 mg tablet 15 mg PO DAILY tramadol 50 mg tablet 50 mg PO TID PRN (Reason: Pain) Hold Instructions: Resume on 03/13/23. albuterol sulfate [Ventolin HFA] 90 mcg/actuation HFA aerosol inhaler 90 mcg inhalation Q4H PRN (Reason: Shortness Of Breath) fluticasone propionate 50 mcg/actuation spray,suspension 1 spray intranasal DAILY (DME) lancets [FreeStyle Lancets] 28 gauge misc See Rx Instructions topical DAILY Qty: 100 Rx Instructions: As directed (DME) blood-glucose meter [FreeStyle [place] Lite] Kit See Rx Instructions .ROUTE DAILY Qty: 1 Rx Instructions: As directed (DME) FreeStyle Lite Strips Strip See Rx Instructions Not Applicable DAILY Qty: 10 Rx Instructions: As directed atorvastatin 20 mg tablet 20 mg PO DAILY Dupixent Pen 300 mg/2 mL pen injector subcut metformin 500 mg tablet 500 mg PO BID Print Language: Australian
[2024-01-15 13:07] VITALS: O2SAT 89
[2024-01-15 13:08] LABS: MANUAL DIFF FLAG NO
[2024-01-15 13:09] LABS: Basophils Absolute Auto 0.1 X10*3/uL (0.0-0.2); Basophils Percent Auto 0.5 % (0-2); Eosinophils Absolute Auto 0.3 X10*3/uL (0.0-0.4); Eosinophils Percent Auto 1.3 % (0-4); Hematocrit 36.4 % (37.0-47.0); Hemoglobin 11.2 g/dl (12.0-16.0); Imm Gran Abs Auto 0.11 X10*3/uL (0.00-0.03); Imm Gran Pct Auto 0.6 % (0.0-0.4); Lymphocytes Absolute Auto 2.7 X10*3/uL (1.2-4.9); Lymphocytes Percent Auto 13.8 % (20-40); Mean Corpuscular HGB Conc 30.8 g/dl (31.0-35.0); Mean Corpuscular Hemoglobin 26.1 pg (27.0-33.0); Mean Corpuscular Volume 84.8 fL (80.0-98.0); Mean Platelet Volume 9.5 fL (9.4-12.3); Monocytes Absolute Auto 1.2 X10*3/uL (0.1-1.2); Monocytes Percent Auto 6.2 % (2-11); Neutrophils Absolute Auto 15.4 x10*3/uL (2.0-8.3); Neutrophils Percent Auto 77.6 % (45-73); Platelet Count 317 X10*3/uL (160-400); Red Blood Count 4.29 X10*6/uL (4.20-5.50); Red Cell Distribution Width 15.9 % (11.0-16.0); White Blood Count 19.8 X10*3/uL (4.8-10.8)
--- NOTE | 2024-01-15 13:16 | PC.NURSE ---
Reports SOB and cough since weekend. Had a course of prednisone that she finished, using her inhalers and nebs with no relief. Has hx of asthma. No home baseline O2, no smoking. +cough with yellow phlegm and intermittent fevers. Denies pain. Noted to be 89-91% on RA, placed on 2L O2 NC. Alert and oriented, increased WOB.
[2024-01-15 13:21] LABS: Lactic Acid 1.5 mmol/L (0.5-2.0)
[2024-01-15 13:32] LABS: Albumin Level 4.3 g/dL (3.5-5.0); Alkaline Phosphatase 107 U/L (39-117); Anion Gap 13 (12-20); Aspartate Amino Transferase 17 U/L (5-31); Bilirubin Total 0.7 mg/dL (0.0-1.0); Blood Urea Nitrogen 12 mg/dL (9-16); Carbon Dioxide 31 mmol/L (22-29); Chloride 99 mmol/L (96-108); Estimated Glomerular Filt Rate > 60; Glucose Random 124 mg/dL (60-115); Magnesium 2.1 mg/dL (1.6-2.6); Potassium 4.3 mmol/L (3.3-5.1); Sodium 139 mmol/L (135-145); Total Protein 8.4 g/dL (6.5-8.0)
[2024-01-15] MEDS: Albuterol Sulfate (0.083%) 2.5 MG/3 ML VIAL.NEB INHALE (13:49)
[2024-01-15 13:51] VITALS: PULSE 107; RESP 22; O2SAT 98
[2024-01-15 13:55] LABS: Alanine Aminotransferase 15 U/L (0-31)
--- NOTE | 2024-01-15 15:05 | PC.NURSE ---
Pt tolerated ambulation trial well, maintained sat of 95% on RA with ambulation. Reports she overall feels better, appears to be breathing better overall. Provider aware
[2024-01-15 15:17] VITALS: BP 115/71; PULSE 111; RESP 20; TEMP 37.2; O2SAT 95
[2024-01-15 15:55] VITALS: BP 115/71; PULSE 102; RESP 20; TEMP 37.2; O2SAT 95
== END 2024-01-15 15:55 | disposition home or self-care (01) ==
PROVIDERS: Physician Assistant Medical; Emergency Provider Emergency Medicine; PCP Internal Medicine
DX: J18.9 Pneumonia, unspecified organism (principal); R06.02 Shortness of breath; Z03.818 Encounter for observation for suspected exposure to other biological agents ruled out; Z79.899 Other long term (current) drug therapy
CPT/HCPCS: 0241U; 36415; 71046; 80053; 83605; 83735; 85025; 87040; 94640; 99284; 99285

== ENCOUNTER 2024-02-16 00:48 | Inpatient (IN) | payer OTHER, SELFPAY ==
[2024-02-16] VITALS (12 sets, daily range): BP systolic 114–152; BP diastolic 65–92; PULSE 91–122; RESP 14–30; TEMP 36.1–36.9; O2SAT 89–98; BMI 35.7; BMI 36.7
--- NOTE | ~2024-02-16 | CT_ITS ---
EXAMINATION: CT ANGIOGRAM OF THE CHEST WITH CONTRAST (CT PULMONARY ANGIOGRAM FOR PE) CLINICAL INFORMATION: Reason for Exam chest pain, tachy, hypoxia COMPARISON: Chest radiograph from the same day. TECHNIQUE: Multidetector volumetric imaging was performed from the thoracic inlet to below the diaphragms following the administration of 85 mL Omnipaque 350 intravenous contrast. No contrast reaction reported Sagittal, coronal, and MIP oblique sagittal reformatted images were obtained on the CT workstation, uploaded to PACS, and reviewed. This CT examination was performed using dose optimization techniques as appropriate, variously including the following: *Automated exposure control *Adjustment of mA and/or kV according to patient size (this includes techniques or standardized protocols for targeted exams where dose is matched to indication/reason for exam; i.e. extremities or head) *Use of iterative reconstruction technique Total exam dose-length product 364 mGy-cm FINDINGS: QUALITY OF STUDY/CONTRAST BOLUS: Satisfactory. PULMONARY ARTERIES: No pulmonary emboli. THORACIC AORTA: No aneurysm. LUNG: The central airways are clear. There is bronchial wall thickening, more pronounced in the lower lobes with a few areas of endoluminal opacification peripherally. Numerous clusters of tree-in-bud airspace opacities are present throughout both lungs, more notable in the lower lobes. No larger areas of dense airspace consolidation are identified. A few calcified granulomas are identified. Sensitivity for noncalcified pulmonary nodules is limited given the background of tree-in-bud opacities. PLEURA: No pleural effusion or pneumothorax. MEDIASTINUM: Normal heart size. No pericardial effusion. There is a 0.9 cm (short axis) left lower paratracheal lymph node which is at the upper limits of normal in size. Similarly, there are hilar lymph nodes bilaterally measuring up to 1.2 cm in short axis on the right and 1.1 centimeters in short axis on the left, likely reactive in nature. There is fluid within the esophagus. Small sliding-type hiatal hernia. Eccentric wall thickening is noted at the GE junction. CORONARY ARTERY CALCIFICATION: None visualized on this study. CHEST WALL/AXILLA: No axillary or internal mammary lymphadenopathy. OSSEOUS STRUCTURES: Mild hyperkyphosis with mild multilevel degenerative disc disease. No fractures. UPPER ABDOMEN: Status post cholecystectomy. No acute findings. No reflux of contrast into the hepatic veins to suggest elevated right heart pressures. CT/CT angio chest PE protocol IMPRESSION: 1. No evidence of pulmonary emboli. 2. Bronchial wall thickening with numerous clusters of tree-in-bud airspace opacities throughout both lungs, more pronounced in the lower lobes. These findings can be seen within infectious or inflammatory bronchiolitis. Aspiration is less likely given the distribution. Mycobacterial infection is also on the differential. 3. Small sliding-type hiatal hernia with eccentric wall thickening at the GE junction. Consider follow-up endoscopy or barium swallow esophagram for further assessment. VTE: negative.
--- NOTE | ~2024-02-16 | XR_ITS ---
EXAMINATION: XR CHEST CLINICAL INFORMATION: Dyspnea COMPARISON: 01/15/2024 TECHNIQUE: Frontal view of the chest was obtained. FINDINGS: Lung volumes are symmetric. Mildly coarsened appearance of the interstitium. No dense focal consolidation is seen. No evidence of pneumothorax or significant pleural effusion. The cardiomediastinal contour is unremarkable. No acute osseous findings are seen. XR/XR chest 1V IMPRESSION: Mildly coarsened appearance of the interstitium, which may reflect airways disease. No focal consolidation identified.
--- NOTE | 2024-02-16 00:58 | ECG_ITS ---
Test Reason : SOB Blood Pressure : / mmHG Vent. Rate : 121 BPM Atrial Rate : 121 BPM P-R Int : 124 ms QRS Dur : 090 ms QT Int : 342 ms P-R-T Axes : 055 -20 027 degrees QTc Int : 485 ms Sinus tachycardia Moderate voltage criteria for LVH, may be normal variant ( R in aVL , Eh product ) Borderline ECG When compared with ECG of 03-JAN-2023 14:09, Vent. rate has increased BY 42 BPM Referred By: [place] Electronically Signed By:Catrachito Stout
[2024-02-16] MEDS: methylPREDNISolone Sod Succ 125 MG/2 ML VIAL 60 MG IVPUSH (01:09)
[2024-02-16] MEDS: Magnesium Sulfate/H2O 2 GM/50 ML PIGGYBACK IV (01:09)
[2024-02-16] MEDS: Albuterol Sulfate 7.5 MG, Albuterol Sulfate (0.083%) 2.5 MG 10 MG INHALE (01:18)
[2024-02-16] MEDS: Albuterol Sulfate 7.5 MG, Albuterol/Iprat 2.5/0.5MG 3 ML 3 ML INHALE (01:37)
--- NOTE | 2024-02-16 01:40 | ED_ITS ---
HPI - Asthma General Chief Complaint: Asthma Stated Complaint: asthma Time Seen by Provider: 02/16/24 00:58 Source: patient and old records reviewed Mode of arrival: ambulatory Limitations: no limitations History of Present Illness ED Provider: JEANNE OBANDO Narrative: 64 yo female with PMH of HTN, DM, COPD not on home O2, asthma last on oral prednisone January 14 and augmentin/doxy after CXR done showing atypical opacities R mid and R lower lung, osteoarthritis here with c/o persistent wheezing and dyspnea. No longer having fevers. She reports she is still having a cough. She blames the humidity. She does have some sputum. She is using INH and nebs but no relief. Was intubated at age 36. MD complaint: asthma attack , shortness of breath and wheezing Onset (ago): week(s) (1) Severity: severe Context: recent URI Associated symptoms: productive cough Asthma History: childhood onset Treatments Prior to Arrival: inhaled bronchodilator Related Data Home Medications ?Medication ?Instructions ?Recorded ?Confirmed albuterol sulfate 90 mcg/actuation 90 mcg inhalation Q4H PRN 01/20/22 01/24/23 aerosol inhaler (Ventolin HFA) Shortness Of Breath blood sugar diagnostic (FreeStyle #10 ea 01/20/22 01/04/23 Lite Strips) blood-glucose meter (FreeStyle #1 ea 01/20/22 01/04/23 [place] Lite kit) fluticasone propionate 50 1 spray intranasal DAILY 01/20/22 01/24/23 mcg/actuation nasal spray,suspension lancets 28 gauge (FreeStyle #100 ea 01/20/22 01/04/23 Lancets) loratadine 10 mg tablet 10 mg PO DAILY 01/20/22 01/24/23 meloxicam 15 mg tablet 15 mg PO DAILY 01/20/22 01/25/23 tramadol 50 mg tablet 50 mg PO TID PRN Pain 01/20/22 01/24/23 atorvastatin 20 mg tablet 20 mg PO DAILY 11/14/22 01/24/23 cholecalciferol (vitamin D3) 1,250 1,250 mcg PO QWEEK 01/24/23 01/24/23 mcg (50,000 unit) capsule budesonide-formoterol HFA 160 1 inh inhalation BID 07/12/23 07/12/23 mcg-4.5 mcg/actuation aerosol inhaler (Symbicort) dupilumab 200 mg/1.14 mL 200 mg subcut Q2W 01/25/23 01/25/23 subcutaneous pen injector (Dupixent) oxybutynin chloride 5 mg tablet 10 mg PO BEDTIME 01/25/23 01/31/23 dupilumab 300 mg/2 mL subcutaneous mg subcut 04/06/23 pen injector (Dupixent) metformin 500 mg tablet 500 mg PO BID 04/06/23 Previous Rx's ?Medication ?Instructions ?Recorded acetaminophen 325 mg tablet 650 mg (2 x 325 mg) PO Q6H PRN 01/31/23 Pain, Mild (Pain Scale 1-3) 30 days #240 tabs aspirin 325 mg tablet 325 mg PO BID 42 days #84 tabs 01/31/23 docusate sodium 100 mg capsule 100 mg PO BID 30 days #60 caps 01/31/23 prednisone 10 mg tablet 10 mg PO DIRECTED #60 tabs 06/15/23 celecoxib 200 mg capsule 200 mg PO BID #60 caps 07/17/23 albuterol sulfate 2.5 mg/3 mL 2.5 mg (3 mL) inhalation Q6H #75 mL 01/15/24 (0.083 %) solution for nebulization albuterol sulfate 90 mcg/actuation 2 puff inhalation Q4-6H PRN 01/15/24 aerosol inhaler shortness of breath or wheezing #6.7 grams amoxicillin 875 mg-potassium 1 tab PO BID #14 tabs 01/15/24 clavulanate 125 mg tablet benzonatate 100 mg capsule 100 mg PO TID PRN cough #20 caps 01/15/24 doxycycline hyclate 100 mg capsule 100 mg PO BID #10 caps 01/15/24 prednisone 20 mg tablet 40 mg (2 x 20 mg) PO DAILY #10 tabs 01/15/24 Allergies Allergy/AdvReac Type Severity Reaction Status Date / Time ibuprofen [IBUPROFEN] Allergy Intermediate exacerbates Verified 02/16/24 00:51 asthma oxaprozin [From DAYPRO] Allergy Intermediate exacerbates Verified 02/16/24 00:51 asthma Penicillins [PCN] Allergy Intermediate RASH Verified 02/16/24 00:51 Review of Systems 2 Review of Systems: Constitutional : No Fever, No Chills ENT/Mouth : No Hoarseness, No sore throat, No Rhinorrhea Eyes: No Redness, No Discharge, No Vision Changes Cardiovascular : No Chest Pain, positive SOB, positive Dyspnea on Exertion, No Edema Respiratory : positive Cough, pos Sputum, positive Wheezing, Gastrointestinal : No Nausea, No Vomiting, No Diarrhea, No abdominal Pain Genitourinary : No Dysuria, No Hematuria Musculoskeletal : No joint pain, No Myalgias Skin : No rash Neuro : No Weakness, No Numbness, No Headache Psych : No anxiety, depression All other systems reviewed and are negative [facility] Past Medical History Attestation statement: The following information was validated with the patient. Source: old records reviewed Medical History COPD (chronic obstructive pulmonary disease) Diabetes Steatosis, liver Elevated cholesterol HTN (hypertension) Asthma Osteoarthritis Osteoarthritis of right knee Headache Surgical History Hx of bilateral cataract extraction Hx of section Hx of laparoscopic gastric banding H/O colonoscopy Social History Social History Household Members: None Housing: Apartment Are you a primary rn care manager to a significant other at home: No Do you presently have visiting nurse or other home services: No Patient Tobacco Use Status: Former Tobacco user Tobacco use type: Cigarette Years Smoked: 35 Second Hand Smoke Exposure: No Use of substances other than those prescribed or required for medical reasons: No Advance Directives: No Advance Directives Information Provided: Yes Do you have a plan to hurt others: No Plan service: No Current occupational status: employed 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 Oriented X3. Moderate acute distress. Eyes: Pupils equal, round and reactive to light. ENT: Pharynx normal. Neck: Normal inspection. Neck supple. CVS: tachycardic heart rate and rhythm. Pulses normal. Respiratory: Moderate respiratory distress tachypnea and retractions. Breath sounds diminished and wheezes throughout Abdomen: Soft and nontender. Skin: Skin warm and dry. Normal skin color. Normal skin turgor. Extremities: No lower extremity edema. Neuro: Oriented X 3. No motor deficit. No sensory deficit. Course Course Course Narrative: tachycardia due to neb use and not infection or severe sepsis wbc count is chronic and possibly due to side effect use of steroid and not infection or severe sepsis Medications Administered Discontinued Medications Generic Name Dose Route Start Last Admin Trade Name Freq PRN Reason Stop Dose Admin Albuterol Sulfate 7.5 mg/ 10 mg 02/16/24 01:12 02/16/24 01:18 Albuterol Sulfate 2.5 mg INHALE 02/16/24 01:13 10 mg ONCE ONE Administration Albuterol Sulfate 7.5 mg/ 0 mg 02/16/24 01:29 02/16/24 01:37 Albuterol/Ipratropium 3 ml INHALE 02/16/24 01:30 10 each ONCE ONE Administration Magnesium Sulfate 2 gm in 50 mls @ 150 mls/hr 02/16/24 00:59 02/16/24 01:36 Magnesium Sulfate/H2o IV 02/16/24 01:18 Infused ONCE ONE Infusion Methylprednisolone Sodium Succinate 60 mg 02/16/24 00:58 02/16/24 01:09 Methylprednisolone Sod Succ 125 Mg/2 Ml Vial IVPUSH 02/16/24 00:59 60 mg ONCE ONE Administration Medical Decision Making Medical Decision Making [facility] Narrative: 64 yo female with PMH of HTN, DM, COPD not on home O2, asthma with recent treatment of CAP on 01/14 augmentin/doxy and 5 day steroid burst here with c/o 1 week worsening asthma but no fevers she blames the humidity at this time will need basic labs, VBG, hour long nebs, IV steroids and IV magnesium. Likely admit given hypoxia she is wheezing and is tight I do not suspect ACS or VTE this seems all respiratory related. Differential Diagnosis Differential Diagnoses: The differential diagnosis associated with the presentation includes asthma exacerbation, hypoxia, status asthmaticus Admission/Observation Consideration of admission/observation: Escalation of care including admission/observation considered given hypoxia will admit Consult Healthcare Provider Management of the patient was discussed with: Hospitalist (will admit) Lab Data [facility] Lab Attestation statement: I reviewed the patient's lab results. 02/16/24 01:34 02/16/24 01:34 Labs: Lab Results 02/16/24 02/16/24 Range/Units 01:34 01:38 WBC 17.9 H (4.8-10.8) X10*3/uL RBC 3.99 L (4.20-5.50) X10*6/uL Hgb 10.5 L (12.0-16.0) g/dl Hct 33.2 L (37.0-47.0) % MCV 83.2 (80.0-98.0) fL MCH 26.3 L (27.0-33.0) pg MCHC 31.6 (31.0-35.0) g/dl RDW 15.2 (11.0-16.0) % Plt Count 339 (160-400) X10*3/uL MPV 9.3 L (9.4-12.3) fL Immature Gran % (Auto) 0.5 H (0.0-0.4) % Neut % (Auto) 69.1 (45-73) % Lymph % (Auto) 20.9 (20-40) % Morton % (Auto) 6.5 (2-11) % Eos % (Auto) 2.5 (0-4) % Baso % (Auto) 0.5 (0-2) % Lymph # (Auto) 3.7 (1.2-4.9) X10*3/uL Morton # (Auto) 1.2 (0.1-1.2) X10*3/uL Eos # (Auto) 0.4 (0.0-0.4) X10*3/uL Baso # (Auto) 0.1 (0.0-0.2) X10*3/uL Abs Immat Gran (auto) 0.09 H (0.00-0.03) X10*3/uL Absolute Neuts (auto) 12.4 H (2.0-8.3) x10*3/uL Absolute Nucleated RBC 0.000 (0.0-0.012) X10*3/uL Nucleated RBC % (auto) 0.0 (0.0-0.2) /100WBC VBG pH 7.40 (7.32-7.43) VBG pCO2 49 mmHg VBG pO2 51 mmHg VBG HCO3 31 H (22-26) mmol/L VBG O2 Saturation 77.0 % VBG Base Excess 5.7 mmol/L Sodium 139 (135-145) mmol/L Potassium 4.0 (3.3-5.1) mmol/L Chloride 100 (96-108) mmol/L Carbon Dioxide 29 (22-29) mmol/L Anion Gap 14 (12-20) BUN 16 (9-16) mg/dL Creatinine 0.66 (0.5-1.4) mg/dL Estim Creat Clear Calc 94.6 Estimated GFR > 60 Random Glucose 128 H (60-115) mg/dL Calcium 10.2 (8.4-10.2) mg/dL Magnesium 2.6 (1.6-2.6) mg/dL Total Bilirubin 0.5 (0.0-1.0) mg/dL Direct Bilirubin 0.2 (0.0-0.5) mg/dL AST 19 (5-31) U/L ALT 17 (0-31) U/L Alkaline Phosphatase 107 (39-117) U/L Troponin I High Sens < 2.7 (<3.5-17.0) ng/L B-Natriuretic Peptide < 10 (<100) pg/mL Total Protein 8.2 H (6.5-8.0) g/dL Albumin 4.2 (3.5-5.0) g/dL Influenza Type A (PCR) NEGATIVE (Negative) Influenza Type B (PCR) NEGATIVE (Negative) RSV RNA Qual (PCR) NEGATIVE (Negative) SARS-CoV-2 RNA (RT-PCR) NEGATIVE (Negative) Independent Interpretation I performed an independent interpretation of an: EKG and Plain X-Ray (no pneumonia) Interpretation: Rate: 121 Rhythm: sinus tach Godfrey: left Normal P waves. Normal MENDOZA. Normal QRS complex. ST T wave : no ELIZABETH, normal qTC: 485 prior studies: no acute ischemia The study has been interpreted contemporaneously by me. . Radiology Impression Discussion of test interpretation with radiology: I have reviewed the radiologist's reading. External Record Review External record reviewed: Inpatient record Critical Care Time Critical Care Time Critical Care Time: Yes Total Critical Care Time: 60 Attestation: IV magnesium, repeat hour long nebs, review of records, admission I attest to this time spent taking care of the patient Discharge Plan Discharge Clinical Impression: Hypoxia Asthma with acute exacerbation Qualifiers: Asthma severity: severe Asthma persistence: persistent Qualified Code(s): J 45.51 - Severe persistent asthma with (acute) exacerbation Patient Disposition: Admitted As Inpatient Print Language: Ukrainian
[2024-02-16 01:41] LABS: MANUAL DIFF FLAG NO
[2024-02-16 01:42] LABS: Basophils Absolute Auto 0.1 X10*3/uL (0.0-0.2); Basophils Percent Auto 0.5 % (0-2); Eosinophils Absolute Auto 0.4 X10*3/uL (0.0-0.4); Eosinophils Percent Auto 2.5 % (0-4); Hematocrit 33.2 % (37.0-47.0); Hemoglobin 10.5 g/dl (12.0-16.0); Imm Gran Abs Auto 0.09 X10*3/uL (0.00-0.03); Imm Gran Pct Auto 0.5 % (0.0-0.4); Lymphocytes Absolute Auto 3.7 X10*3/uL (1.2-4.9); Lymphocytes Percent Auto 20.9 % (20-40); Mean Corpuscular HGB Conc 31.6 g/dl (31.0-35.0); Mean Corpuscular Hemoglobin 26.3 pg (27.0-33.0); Mean Corpuscular Volume 83.2 fL (80.0-98.0); Mean Platelet Volume 9.3 fL (9.4-12.3); Monocytes Absolute Auto 1.2 X10*3/uL (0.1-1.2); Monocytes Percent Auto 6.5 % (2-11); Neutrophils Absolute Auto 12.4 x10*3/uL (2.0-8.3); Neutrophils Percent Auto 69.1 % (45-73); Platelet Count 339 X10*3/uL (160-400); Red Blood Count 3.99 X10*6/uL (4.20-5.50); Red Cell Distribution Width 15.2 % (11.0-16.0); White Blood Count 17.9 X10*3/uL (4.8-10.8)
--- NOTE | 2024-02-16 01:43 | MHC.EDTECH ---
Patient receiving nebulizer treatment at this moment. Patient is very shaky Will try again after treatment. DR christina
[2024-02-16 01:45] LABS: Venous Blood Gas Refer to POC result
[2024-02-16 01:46] LABS: VBG Base Excess 5.7 mmol/L; VBG HCO3 31 mmol/L (22-26); VBG pCO2 49 mmHg; VBG pO2 51 mmHg
[2024-02-16 01:59] LABS: Alanine Aminotransferase 17 U/L (0-31); Albumin Level 4.2 g/dL (3.5-5.0); Alkaline Phosphatase 107 U/L (39-117); Anion Gap 14 (12-20); Aspartate Amino Transferase 19 U/L (5-31); Bilirubin Direct 0.2 mg/dL (0.0-0.5); Bilirubin Total 0.5 mg/dL (0.0-1.0); Blood Urea Nitrogen 16 mg/dL (9-16); Calcium 10.2 mg/dL (8.4-10.2); Carbon Dioxide 29 mmol/L (22-29); Chloride 100 mmol/L (96-108); Creatinine Clr Calc Pharmacy 94.6; Estimated Glomerular Filt Rate > 60; Glucose Random 128 mg/dL (60-115); Magnesium 2.6 mg/dL (1.6-2.6); Sodium 139 mmol/L (135-145); Total Protein 8.2 g/dL (6.5-8.0)
[2024-02-16 02:03] LABS: B Type Natriuretic Peptide < 10 pg/mL (<100)
[2024-02-16 02:07] LABS: Troponin-I High Sensitivity < 2.7 ng/L (<3.5-17.0)
[2024-02-16 02:20] LABS: Influenza A PCR NEGATIVE (Negative); Influenza B PCR NEGATIVE (Negative); Resp Syncy Virus RNA Qual PCR NEGATIVE (Negative); SARS COV2 PCR INHOUSE NEGATIVE (Negative)
--- NOTE | 2024-02-16 02:22 | PM.IMHP ---
History of Present Illness Date of Service: 02/16/24 Chief Complaint: Dyspnea This is a 64-year-old female with pertinent history of asthma/COPD overlap syndrome not on home oxygen, [id number] diabetes mellitus, hypertension, mixed hyperlipidemia who presents to the emergency department for evaluation of dyspnea. Patient states symptoms started 4 days prior to presentation. She has been having dyspnea which is worse with exertion. Also has been having nonproductive cough and wheezing. Patient tried home inhaler without relief. No fever, chills, palpitations, chest pain, abdominal pain, nausea, vomiting, changes in urinary or bowel habits. In the emergency department, patient requiring 2 L supplemental oxygen and was wheezing despite multiple DuoNeb treatments. She was given IV magnesium and IV Solu-Medrol Review of Systems Constitutional: Constitutional: Reports fatigue and Reports malaise Cardiovascular: Cardiovascular: Reports dyspnea on exertion Respiratory: Respiratory: Reports cough, Reports dyspnea on exertion and Reports wheezing Gastrointestinal: Gastrointestinal: Reports no additional gastrointestinal complaints Genitourinary: Genitourinary: Reports no additional female genitourinary complaints Endocrine: Endocrine: Reports fatigue Allergic/Immunologic: Allergic/Immunologic: Reports wheezing [facility] Medical History COPD (chronic obstructive pulmonary disease) Diabetes Steatosis, liver Elevated cholesterol HTN (hypertension) Asthma Osteoarthritis Osteoarthritis of right knee Headache Surgical History Hx of bilateral cataract extraction Hx of section Hx of laparoscopic gastric banding H/O colonoscopy Social History Household Members: None Housing: Apartment Are you a primary customer care consultant to a significant other at home: No Do you presently have visiting nurse or other home services: No Patient Tobacco Use Status: Former Tobacco user Tobacco use type: Cigarette Years Smoked: 35 Second Hand Smoke Exposure: No Use of substances other than those prescribed or required for medical reasons: No Advance Directives: No Advance Directives Information Provided: Yes Do you have a plan to hurt others: No Plan service: No Current occupational status: employed 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 [employer] Meds Allergies Allergy/AdvReac Type Severity Reaction Status Date / Time ibuprofen [IBUPROFEN] Allergy Intermediate exacerbates Verified 02/16/24 00:51 asthma oxaprozin [From DAYPRO] Allergy Intermediate exacerbates Verified 02/16/24 00:51 asthma Penicillins [PCN] Allergy Intermediate RASH Verified 02/16/24 00:51 Active Medications: Current Medications Lactated Ringer's (Lr) 500 mls @ 500 mls/hr IV .Q1H CHUCK Stop: 02/16/24 03:29 Home Medications ?Medication ?Instructions ?Recorded ?Confirmed ?Last Taken ?Type albuterol sulfate 90 mcg/actuation 90 mcg inhalation Q4H PRN 01/20/22 01/24/23 01/31/23 History aerosol inhaler (Ventolin HFA) Shortness Of Breath blood sugar diagnostic (FreeStyle #10 ea 01/20/22 01/04/23 Unknown History Lite Strips) blood-glucose meter (FreeStyle #1 ea 01/20/22 01/04/23 Unknown History [place] Lite kit) fluticasone propionate 50 1 spray intranasal DAILY 01/20/22 01/24/23 Unknown History mcg/actuation nasal spray,suspension lancets 28 gauge (FreeStyle #100 ea 01/20/22 01/04/23 Unknown History Lancets) loratadine 10 mg tablet 10 mg PO DAILY 01/20/22 01/24/23 Unknown History meloxicam 15 mg tablet 15 mg PO DAILY 01/20/22 01/25/23 01/10/23 History tramadol 50 mg tablet 50 mg PO TID PRN Pain 01/20/22 01/24/23 Unknown History atorvastatin 20 mg tablet 20 mg PO DAILY 11/14/22 01/24/23 Unknown History cholecalciferol (vitamin D3) 1,250 1,250 mcg PO QWEEK 01/24/23 01/24/23 Unknown History mcg (50,000 unit) capsule budesonide-formoterol HFA 160 1 inh inhalation BID 01/25/23 01/25/23 Unknown History mcg-4.5 mcg/actuation aerosol inhaler (Symbicort) dupilumab 200 mg/1.14 mL 200 mg subcut Q2W 01/25/23 01/25/23 Unknown History subcutaneous pen injector (Dupixent) oxybutynin chloride 5 mg tablet 10 mg PO BEDTIME 01/25/23 01/31/23 Unknown History dupilumab 300 mg/2 mL subcutaneous mg subcut 04/06/23 Unknown History pen injector (DupixIntegrated Ordering Systems) metformin 500 mg tablet 500 mg PO BID 04/06/23 Unknown History Physical Exam Vital Signs and Narrative: Vital Signs: Last Vital Signs Temp 97.5 F 02/16/24 00:50 Pulse 118 H 02/16/24 01:45 Resp 30 H 02/16/24 01:45 BP 147/76 H 02/16/24 01:45 Pulse Ox 90 L 02/16/24 01:45 O2 Del Method Room Air 02/16/24 01:45 BMI result Body Mass Index 35.7 Middle-aged male lying in bed in mild distress on supplemental oxygen Neck supple, no JVD Regular rate and rhythm, S1-S2 heard Bilateral wheezing present Abdomen soft nontender, no guarding, no rigidity Patient is awake, alert and oriented to self, place, time and person ; no focal motor deficit Psych: Normal mood No pedal edema Results Labs 02/16/24 01:34 02/16/24 05:22 Labs: Laboratory Results - last 24 hr 02/16/24 02/16/24 01:34 01:38 MCV 83.2 MCH 26.3 L MCHC 31.6 RDW 15.2 Plt Count 339 MPV 9.3 L Immature Gran % (Auto) 0.5 H Neut % (Auto) 69.1 Lymph % (Auto) 20.9 [place] % (Auto) 6.5 Eos % (Auto) 2.5 Baso % (Auto) 0.5 Lymph # (Auto) 3.7 [place] # (Auto) 1.2 Eos # (Auto) 0.4 Baso # (Auto) 0.1 Abs Immat Gran (auto) 0.09 H Absolute Neuts (auto) 12.4 H Absolute Nucleated RBC 0.000 Nucleated RBC % (auto) 0.0 VBG pH 7.40 VBG pCO2 49 VBG pO2 51 VBG HCO3 31 H VBG O2 Saturation 77.0 VBG Base Excess 5.7 Anion Gap 14 Estim Creat Clear Calc 94.6 Estimated GFR > 60 Random Glucose 128 H Calcium 10.2 Magnesium 2.6 Total Bilirubin 0.5 Direct Bilirubin 0.2 AST 19 ALT 17 Alkaline Phosphatase 107 Troponin I High Sens < 2.7 B-Natriuretic Peptide < 10 Total Protein 8.2 H Albumin 4.2 Influenza Type A (PCR) NEGATIVE Influenza Type B (PCR) NEGATIVE RSV RNA Qual (PCR) NEGATIVE SARS-CoV-2 RNA (RT-PCR) NEGATIVE Imaging Radiologist's Impressions: Impressions Chest X-Ray 02/16/24 01:13 IMPRESSION: Mildly coarsened appearance of the interstitium, which may reflect airways disease. No focal consolidation identified. Assessment and Plan (1) Hypoxia: Status: Acute (2) Asthma with acute exacerbation: Qualifiers: Asthma persistence: persistent Asthma severity: severe Qualified Code(s): J45.51 - Severe persistent asthma with (acute) exacerbation Status: Acute Plan This is a 64-year-old female with pertinent history of asthma/COPD overlap syndrome not on home oxygen, fvv-[id number] diabetes mellitus, hypertension, mixed hyperlipidemia who presents to the emergency department for evaluation of dyspnea. #. Acute hypoxic respiratory failure due to acute exacerbation of asthma/COPD overlap syndrome: Will admit patient with supplemental oxygen. Initiating systemic steroids. Scheduled and p.r.n. DuoNebs. Continue home inhaler. CT chest pending #. Tachycardia and tachypnea in the setting of above: No sepsis #. Reactive leukocytosis #. Oso-ihqlqsz-qovzmbzas diabetes mellitus: Initiating Accu-Cheks with sliding scale insulin #. Hypertension: Continue home antihypertensives #. Mixed hyperlipidemia: On statin Med rec pending DVT prophylaxis: Lovenox Full code Admit as inpatient and will require two night minimum hospital stay for supplemental oxygen (as above), which is not possible in a lesser acute setting. Quality Stroke Does the patient have a stroke diagnosis?: No VTE Prior VTE?: No VTE Risk Level:: Medical - moderate - high VTE Device Contraindication: Treatment Not Indicated VTE Drug Contraindication: N/A - Med Ordered
[2024-02-16] MEDS: iohexoL 350 MG/ML 100 ML INFUS..BTL 85 ML IV (04:17)
[2024-02-16 05:39] LABS: Basophils Absolute Auto 0.1 X10*3/uL (0.0-0.2); Basophils Percent Auto 0.5 % (0-2); Eosinophils Percent Auto 0.1 % (0-4); Hematocrit 31.1 % (37.0-47.0); Hemoglobin 9.8 g/dl (12.0-16.0); Imm Gran Abs Auto 0.09 X10*3/uL (0.00-0.03); Imm Gran Pct Auto 0.6 % (0.0-0.4); Lymphocytes Absolute Auto 0.6 X10*3/uL (1.2-4.9); Lymphocytes Percent Auto 3.9 % (20-40); MANUAL DIFF FLAG SCAN; Mean Corpuscular HGB Conc 31.5 g/dl (31.0-35.0); Mean Corpuscular Hemoglobin 26.5 pg (27.0-33.0); Mean Corpuscular Volume 84.1 fL (80.0-98.0); Mean Platelet Volume 9.3 fL (9.4-12.3); Monocytes Absolute Auto 0.2 X10*3/uL (0.1-1.2); Monocytes Percent Auto 1.3 % (2-11); Neutrophils Percent Auto 93.6 % (45-73); Platelet Count 292 X10*3/uL (160-400); Red Cell Distribution Width 15.1 % (11.0-16.0); SCAN SMEAR FLAG 1
[2024-02-16 05:56] LABS: Anion Gap 12 (12-20); Blood Urea Nitrogen 15 mg/dL (9-16); Calcium 9.1 mg/dL (8.4-10.2); Carbon Dioxide 30 mmol/L (22-29); Chloride 99 mmol/L (96-108); Estimated Glomerular Filt Rate > 60; Glucose Random 233 mg/dL (60-115); Potassium 3.7 mmol/L (3.3-5.1); Sodium 137 mmol/L (135-145)
[2024-02-16 06:21] LABS: SLIDE REVIEW VERIFIED
[2024-02-16 06:51] LABS: Lactic Acid 1.7 mmol/L (0.5-2.0)
[2024-02-16] MEDS: Albuterol/Iprat 2.5/0.5MG 3 ML AMPUL.NEB INHALE (07:33)
[2024-02-16 07:40] LABS: Glucose, Whole Blood 204 mg/dL (60-115)
[2024-02-16] MEDS: levoFLOXacin/D5W 750 MG/150 ML PIGGYBACK 100 MG IV (07:55)
[2024-02-16] MEDS: predniSONE 20 MG TABLET 40 MG PO (08:02)
[2024-02-16] MEDS: Lactated Ringers 1,000 ML 999 ML IV (08:06)
--- NOTE | 2024-02-16 08:52 | PHA.MEDREC ---
Pharmacy Consult ? Medication Reconciliation Pharmacy has completed the medication reconciliation. Spoke with patient who had a list on their phone. Patient confirmed she is no longer on oxybutin as it gave her blurry eyes.
[2024-02-16] MEDS: Fluticasone/Vilanterol 200/25 BLST.W.DEV 1 PUFF INHALE (11:07)
[2024-02-16] MEDS: levalbuterol HCL 2.5 MG, Ipratropium Bromide 0.5 MG INHALE ×4 (11:07→23:42)
[2024-02-16] MEDS: Fluticasone Propionate Nasal 16 GM SPRAY 1 SPRAY NOSTRIL-B (11:42)
[2024-02-16] MEDS: Atorvastatin Calcium 20 MG TABLET PO (11:43)
[2024-02-16] MEDS: Benzonatate 100 MG CAPSULE PO ×2 (11:43→19:50)
[2024-02-16] MEDS: traMADoL HCL 50 MG TABLET PO (11:43)
[2024-02-16] MEDS: Aspirin Enteric Coated 81 MG TABLET.DR PO (11:43)
[2024-02-16] MEDS: Loratadine 10 MG TABLET PO (11:43)
[2024-02-16] MEDS: Cholecalciferol (Vitamin D3) 10 MCG TABLET PO (11:54)
--- NOTE | 2024-02-16 13:48 | P.PNIM_ITS ---
Subjective Subjective Date of Service: 02/16/24 Interval History: Seen in follow-up for acute asthma/COPD overlap exacerbation Interval history: Still reporting shortness of breath and wheezing, nonproductive cough. She is afebrile and has been weaned from supplemental O2. Review of Systems Review of Systems: Yes all other systems are reviewed and are negative Physical Exam 2 Vital Signs: Vital Signs: Last Vital Signs Temp 98.0 F 02/16/24 08:31 Pulse 104 H 02/16/24 11:08 Resp 14 02/16/24 11:08 BP 114/65 02/16/24 08:31 Pulse Ox 98 02/16/24 08:31 O2 Del Method Nasal Cannula 02/16/24 08:31 O2 Flow Rate 3 02/16/24 08:31 BMI result Body Mass Index 35.7 Constitutional - Awake and Alert, No apparent distress Eyes - PERRLA, EOMI Cardiovascular - S1S2, RRR, No edema Respiratory - Normal lung expansion, Normal respiratory effort, No respiratory distress, bilateral expiratory wheezes and rhonchi, diminished bases Gastrointestinal - NT / ND; +BS; No rebound or guarding Extremities - no calf tenderness bilaterally, no swelling Skin - Warm/Dry Neurological - Alert & oriented x3 Psychological - Appropriate affect Objective Data Active Medications Acetaminophen (Acetaminophen 325 Mg Tablet) 650 mg PO Q6H PRN PRN Reason: Pain, Mild (Pain Scale 1-3), fever or headache Albuterol Sulfate (Albuterol Sulfate 90 Mcg 8 Gm Inhaler) 2 puff INHALE Q4H PRN PRN Reason: shortness of breath or wheezing Aspirin (Aspirin Enteric Coated 81 Mg Tablet.) 81 mg PO DAILY [facility] Last Admin: 02/16/24 11:43 Dose: 81 mg Documented By: TATYANA Atorvastatin Calcium (Atorvastatin Calcium 20 Mg Tablet) 20 mg PO DAILY [facility] Last Admin: 02/16/24 11:43 Dose: 20 mg Documented By: TATYANA Benzonatate (Benzonatate 100 Mg Capsule) 100 mg PO TID PRN PRN Reason: Cough Last Admin: 02/16/24 11:43 Dose: 100 mg Documented By: TATYANA Calcium Carbonate (Calcium Carbonate 750 Mg Tab.Chew) 750 mg PO Q4H PRN PRN Reason: Heartburn Celecoxib (Celecoxib 200 Mg Capsule) 200 mg PO BID [facility] Last Admin: 02/16/24 12:03 Dose: Not Given Documented By: TATYANA Non-Admin Reason: Patient Refused Comments: pt reported she has not taken med in x4 days and states she doesnt want to take it today Levalbuterol HCl 2.5 mg/ (Ipratropium [place] 0.5 mg) 0 mg INHALE RQ4H [facility] Last Admin: 02/16/24 11:07 Dose: 8.5 dose Documented By: NATHALIA Fluticasone Propionate (Fluticasone Propionate Nasal 16 Gm [place]) 1 spray NOSTRIL-B DAILY [facility] Last Admin: 02/16/24 11:42 Dose: 1 spray Documented By: TATYANA Fluticasone/Vilanterol (Fluticasone/Vilanterol 200/25 Blst.W.Dev) 1 puff INHALE RDAILY [facility] Last Admin: 02/16/24 11:07 Dose: 1 puff Documented By: NATHALIA Loratadine (Loratadine 10 Mg Tablet) 10 mg PO DAILY [facility] Last Admin: 02/16/24 11:43 Dose: 10 mg Documented By: TATYANA Magnesium Hydroxide (Milk Of Magnesia 30 Ml Oral.Susp) 30 ml PO DAILY PRN PRN Reason: Constipation Melatonin (Melatonin 3 Mg Tablet) 6 mg PO BEDTIME PRN PRN Reason: Insomnia Ondansetron HCl (Ondansetron Hcl 4 Mg/2 Ml Vial) 4 mg IVPUSH Q8H PRN PRN Reason: Nausea and Vomiting Prednisone (Prednisone 20 Mg Tablet) 40 mg PO DAILY [facility] Last Admin: 02/16/24 08:02 Dose: 40 mg Documented By: TATYANA Sodium Chloride (0.9 % Sodium Chloride Flush 3 Ml Syringe) 3 ml IVFLUSH QSHIFT [facility] Last Admin: 02/16/24 08:09 Dose: Not Given Documented By: TATYANA Non-Admin Reason: IV Running Tramadol HCl (Tramadol Hcl 50 Mg Tablet) 50 mg PO TID PRN PRN Reason: Pain, Moderate(Pain Scale 4-6) Last Admin: 02/16/24 11:43 Dose: 50 mg Documented By: TATYANA Vitamin D (Cholecalciferol (Vitamin D3) 10 Mcg Tablet) 10 mcg PO DAILY [facility] Last Admin: 02/16/24 11:54 Dose: 10 mcg Documented By: TATYANA Labs 02/16/24 05:22 02/16/24 05:22 Labs: Laboratory Results - last 24 hr 02/16/24 02/16/24 02/16/24 01:34 01:38 05:22 MCV 83.2 84.1 MCH 26.3 L 26.5 L MCHC 31.6 31.5 RDW 15.2 15.1 Plt Count 339 292 MPV 9.3 L 9.3 L Immature Gran % (Auto) 0.5 H 0.6 H Neut % (Auto) 69.1 93.6 H Lymph % (Auto) 20.9 3.9 L [place] % (Auto) 6.5 1.3 L Eos % (Auto) 2.5 0.1 Baso % (Auto) 0.5 0.5 Lymph # (Auto) 3.7 0.6 L [place] # (Auto) 1.2 0.2 Eos # (Auto) 0.4 0.0 Baso # (Auto) 0.1 0.1 Abs Immat Gran (auto) 0.09 H 0.09 H Absolute Neuts (auto) 12.4 H 14.0 H Absolute Nucleated RBC 0.000 0.000 Nucleated RBC % (auto) 0.0 0.0 Smear Tech's Comments VERIFIED VBG pH 7.40 VBG pCO2 49 VBG pO2 51 VBG HCO3 31 H VBG O2 Saturation 77.0 VBG Base Excess 5.7 Anion Gap 14 12 Estim Creat Clear Calc 94.6 88.0 Estimated GFR > 60 > 60 POC Glucose Random Glucose 128 H 233 H Lactic Acid Calcium 10.2 9.1 D Magnesium 2.6 Total Bilirubin 0.5 Direct Bilirubin 0.2 AST 19 ALT 17 Alkaline Phosphatase 107 Troponin I High Sens < 2.7 B-Natriuretic Peptide < 10 Total Protein 8.2 H Albumin 4.2 Influenza Type A (PCR) NEGATIVE Influenza Type B (PCR) NEGATIVE RSV RNA Qual (PCR) NEGATIVE SARS-CoV-2 RNA (RT-PCR) NEGATIVE 02/16/24 02/16/24 06:28 07:36 MCV MCH MCHC RDW Plt Count MPV Immature Gran % (Auto) Neut % (Auto) Lymph % (Auto) [place] % (Auto) Eos % (Auto) Baso % (Auto) Lymph # (Auto) [place] # (Auto) Eos # (Auto) Baso # (Auto) Abs Immat Gran (auto) Absolute Neuts (auto) Absolute Nucleated RBC Nucleated RBC % (auto) Smear Tech's Comments VBG pH VBG pCO2 VBG pO2 VBG HCO3 VBG O2 Saturation VBG Base Excess Anion Gap Estim Creat Clear Calc Estimated GFR POC Glucose 204 H Random Glucose Lactic Acid 1.7 Calcium Magnesium Total Bilirubin Direct Bilirubin AST ALT Alkaline Phosphatase Troponin I High Sens B-Natriuretic Peptide Total Protein Albumin Influenza Type A (PCR) Influenza Type B (PCR) RSV RNA Qual (PCR) SARS-CoV-2 RNA (RT-PCR) Assessment and Plan (1) Hypoxia: Status: Acute (2) Asthma with acute exacerbation: Status: Acute (3) Pneumonia: Status: Inactive Plan 64-year-old female with pertinent history of asthma/COPD overlap syndrome not on home oxygen, [id number] diabetes mellitus, hypertension, mixed hyperlipidemia who presents to the emergency department for evaluation of dyspnea. #Acute hypoxic respiratory failure due to acute exacerbation of asthma/COPD overlap syndrome with acute pneumonia -weaned from supplemental O2 -IV methylprednisolone 40 mg b.i.d. -change DuoNebs to Xopenex/Atrovent in setting of tachycardia -continue maintenance inhalers -CTA chest negative for PE but shows tree-in-bud opacities throughout both lungs greatest and lower lobes -initiate ceftriaxone 1 g and azithromycin 500 mg IV daily (initiated 02/15) -strep pneumo antigen, sputum culture, Legionella antigen pending #Tachycardia and tachypnea -due to respiratory failure and asthma/copd exacerbation as well as albuterol use. No sepsis/severe sepsis #Pyv-sbbrnsr-yoxpubdpl diabetes mellitus -POC glucose, diabetic diet -Humalog on sliding scale #Hypertension -not on home antihypertensives, monitor blood pressure # hyperlipidemia -statin DVT prophylaxis: Lovenox Full code Patient requires ongoing inpatient stay due to respiratory failrue in setter on asthma/copd exacerbation with acute pneumonia with ongoing wheezing and shortness of breath and will require ongoing treatment with IV steroids, nebulizers, and IV antibiotics Quality Stroke Does the patient have a stroke diagnosis?: No VTE Prior VTE?: No VTE Risk Level:: Medical - moderate - high VTE Device Contraindication: Treatment Not Indicated VTE Drug Contraindication: N/A - Med Ordered
[2024-02-16] MEDS: cefTRIAXone sodium 1 GM in 0.9 % Sodium Chloride 50 ML IV (14:14)
[2024-02-16 14:33] LABS: Glucose, Whole Blood 138 mg/dL (60-115)
[2024-02-16] MEDS: Azithromycin 500 MG in 0.9 % Sodium Chloride 250 ML 125 MG IV (14:54)
[2024-02-16 16:51] LABS: Glucose, Whole Blood 163 mg/dL (60-115)
[2024-02-16] MEDS: Insulin Lispro 100 UNIT/ML 3 ML VIAL SUBCUT ×2 (17:04→19:50)
[2024-02-16 19:30] LABS: Glucose, Whole Blood 237 mg/dL (60-115)
[2024-02-16] MEDS: Celecoxib 200 MG CAPSULE PO (19:50)
[2024-02-16] MEDS: 0.9 % Sodium Chloride Flush 3 ML SYRINGE IVFLUSH (19:57)
[2024-02-17] VITALS (9 sets, daily range): BP systolic 127–143; BP diastolic 67–97; PULSE 89–117; RESP 8–20; TEMP 36.2–37; O2SAT 92–99
[2024-02-17 07:20] LABS: Glucose, Whole Blood 112 mg/dL (60-115)
[2024-02-17] MEDS: levalbuterol HCL 2.5 MG, Ipratropium Bromide 0.5 MG INHALE ×5 (08:08→22:59)
[2024-02-17] MEDS: methylPREDNISolone Sod Succ 40 MG/ML VIAL IVPUSH ×2 (08:39→16:29)
[2024-02-17] MEDS: Aspirin Enteric Coated 81 MG TABLET.DR PO (08:40)
[2024-02-17] MEDS: guaiFENesin 200 MG/10 ML 10 ML LIQUID PO ×3 (08:40→22:52)
[2024-02-17] MEDS: Celecoxib 200 MG CAPSULE PO ×2 (08:40→22:52)
[2024-02-17] MEDS: 0.9 % Sodium Chloride Flush 3 ML SYRINGE IVFLUSH ×2 (08:40→22:57)
[2024-02-17] MEDS: Atorvastatin Calcium 20 MG TABLET PO (08:40)
[2024-02-17] MEDS: Cholecalciferol (Vitamin D3) 10 MCG TABLET PO (08:40)
[2024-02-17] MEDS: Loratadine 10 MG TABLET PO (08:40)
[2024-02-17] MEDS: Fluticasone Propionate Nasal 16 GM SPRAY 1 SPRAY NOSTRIL-B (09:28)
[2024-02-17 11:12] LABS: Glucose, Whole Blood 144 mg/dL (60-115)
[2024-02-17] MEDS: Fluticasone/Vilanterol 200/25 BLST.W.DEV 1 PUFF INHALE (11:34)
--- NOTE | 2024-02-17 11:45 | MHC.CM.PN ---
IMM DELIVERED. PATIENT LIVES IN AN APT W/ SON AND GRANDCHILDREN. FUNCTIONALLY INDP. HAS A NEBULIZER. PCP VIVIENNE FERNANDEZ MD HCP ON FILE AND VERIFIED. DP: GOAL IS HOME SELF CARE. SON TO TRANSPORT. CM WILL CONTINUE TO FOLLOW.
--- NOTE | 2024-02-17 12:23 | HO.PM.IMPN ---
Subjective Subjective Date of Service: 02/17/24 Interval History: Seen in follow-up for acute asthma/COPD overlap exacerbation, pneumonia Interval history: Still reporting shortness of breath and wheezing, nonproductive cough. Reports chest congestion. She is afebrile and has been weaned from supplemental O2. Review of Systems Review of Systems: Yes all other systems are reviewed and are negative Physical Exam Vital Signs: Vital Signs: Last Vital Signs Temp 98.6 F 02/17/24 08:00 Pulse 102 H 02/17/24 11:34 Resp 18 02/17/24 11:34 BP 133/97 H 02/17/24 08:00 Pulse Ox 93 02/17/24 08:00 O2 Del Method Room Air 02/17/24 08:00 O2 Flow Rate 3 02/16/24 08:31 BMI result Body Mass Index 36.7 Constitutional - Awake and Alert, No apparent distress Eyes - PERRLA, EOMI Cardiovascular - S1S2, RRR, No edema Respiratory - Normal lung expansion, Normal respiratory effort, No respiratory distress, wheezing bilateral upper lobes, diminished bases Gastrointestinal - NT / ND; +BS; No rebound or guarding Extremities - no calf tenderness bilaterally, no swelling Skin - Warm/Dry Neurological - Alert & oriented x3 Psychological - Appropriate affect Objective Data Active Medications Acetaminophen (Acetaminophen 325 Mg Tablet) 650 mg PO Q6H PRN PRN Reason: Pain, Mild (Pain Scale 1-3), fever or headache Albuterol Sulfate (Albuterol Sulfate 90 Mcg 8 Gm Inhaler) 2 puff INHALE Q4H PRN PRN Reason: shortness of breath or wheezing Aspirin (Aspirin Enteric Coated 81 Mg Tablet.) 81 mg PO DAILY [facility] Last Admin: 02/17/24 08:40 Dose: 81 mg Documented By: ALEJANDRO Atorvastatin Calcium (Atorvastatin Calcium 20 Mg Tablet) 20 mg PO DAILY [facility] Last Admin: 02/17/24 08:40 Dose: 20 mg Documented By: ALEJANDRO Benzonatate (Benzonatate 100 Mg Capsule) 100 mg PO TID PRN PRN Reason: Cough Last Admin: 02/16/24 19:50 Dose: 100 mg Documented By: TATUM Calcium Carbonate (Calcium Carbonate 750 Mg Tab.Chew) 750 mg PO Q4H PRN PRN Reason: Heartburn Celecoxib (Celecoxib 200 Mg Capsule) 200 mg PO BID [facility] Last Admin: 02/17/24 08:40 Dose: 200 mg Documented By: ALEJANDRO Levalbuterol HCl 2.5 mg/ (Ipratropium [place] 0.5 mg) 0 mg INHALE RQ4H [facility] Last Admin: 02/17/24 11:33 Dose: 2.5 dose Documented By: JACQUELIN Fluticasone Propionate (Fluticasone Propionate Nasal 16 Gm [place]) 1 spray NOSTRIL-B DAILY [facility] Last Admin: 02/17/24 09:28 Dose: 1 spray Documented By: ALEJANDRO Fluticasone/Vilanterol (Fluticasone/Vilanterol 200/25 Blst.W.Dev) 1 puff INHALE RDAILY [facility] Last Admin: 02/17/24 11:34 Dose: 1 puff Documented By: JACQUELIN Glucose (Glucose Gel 15 Gm Gel..Gram.) 15 gm PO Q15M PRN; Protocol PRN Reason: per Hypoglycemia Standing Ord. Guaifenesin (Guaifenesin 200 Mg/10 Ml 10 Ml Liquid) 10 ml PO Q6H [facility] Last Admin: 02/17/24 08:40 Dose: 10 ml Documented By: ALEJANDRO Ceftriaxone Sodium 1 gm/ (Sodium Chloride) 50 mls @ 100 mls/hr IV Q24H [facility] Last Infusion: 02/16/24 14:47 Dose: Infused Documented By: ALEJANDRO Azithromycin 500 mg/ Sodium (Chloride) 250 mls @ 125 mls/hr IV Q24H [facility] Last Infusion: 02/16/24 17:06 Dose: Infused Documented By: ALEJANDRO Dextrose (D10) 250 mls @ 750 mls/hr IV Q15M PRN; Protocol PRN Reason: per Hypoglycemia Standing Ord. Insulin Human Lispro (Insulin Lispro 100 Unit/Ml 3 Ml Vial) 0 unit SUBCUT QIDACHS [facility]; Protocol Last Admin: 02/17/24 11:14 Dose: Not Given Documented By: ALEJANRDO Non-Admin Reason: No Insulin Coverage Loratadine (Loratadine 10 Mg Tablet) 10 mg PO DAILY [facility] Last Admin: 02/17/24 08:40 Dose: 10 mg Documented By: ALEJANDRO Magnesium Hydroxide (Milk Of Magnesia 30 Ml Oral.Susp) 30 ml PO DAILY PRN PRN Reason: Constipation Melatonin (Melatonin 3 Mg Tablet) 6 mg PO BEDTIME PRN PRN Reason: Insomnia Methylprednisolone Sodium Succinate (Methylprednisolone Sod Succ 40 Mg/Ml Vial) 40 mg IVPUSH Q8H [facility] Last Admin: 02/17/24 08:39 Dose: 40 mg Documented By: ALEJANDRO Ondansetron HCl (Ondansetron Hcl 4 Mg/2 Ml Vial) 4 mg IVPUSH Q8H PRN PRN Reason: Nausea and Vomiting Sodium Chloride (0.9 % Sodium Chloride Flush 3 Ml Syringe) 3 ml IVFLUSH QSHIFT [facility] Last Admin: 02/17/24 08:40 Dose: 3 ml Documented By: ALEJANDRO Tramadol HCl (Tramadol Hcl 50 Mg Tablet) 50 mg PO TID PRN PRN Reason: Pain, Moderate(Pain Scale 4-6) Last Admin: 02/16/24 11:43 Dose: 50 mg Documented By: TATYANA Vitamin D (Cholecalciferol (Vitamin D3) 10 Mcg Tablet) 10 mcg PO DAILY [facility] Last Admin: 02/17/24 08:40 Dose: 10 mcg Documented By: ALEJANDRO Labs 02/16/24 05:22 02/16/24 05:22 Labs: Laboratory Results - last 24 hr 02/16/24 02/16/24 02/16/24 14:30 16:46 19:26 POC Glucose 138 H 163 H 237 H 02/17/24 02/17/24 07:14 11:00 POC Glucose 112 144 H Microbiology Microbiology Results: Microbiology 02/16/24 06:32 Blood Culture - Preliminary Blood - Venous No growth after 24 hours. 02/16/24 06:28 Blood Culture - Preliminary Blood - Venous No growth after 24 hours. Assessment and Plan (1) Hypoxia: Status: Acute (2) Asthma with acute exacerbation: Status: Acute (3) Pneumonia: Status: Inactive Plan 64-year-old female with pertinent history of asthma/COPD overlap syndrome not on home oxygen, [id number]-bfvdccyte diabetes mellitus, hypertension, mixed hyperlipidemia who presents to the emergency department for evaluation of dyspnea. #Acute hypoxic respiratory failure due to acute exacerbation of asthma/COPD overlap syndrome with acute pneumonia -weaned from supplemental O2 -Change to IV methylprednisolone 40 mg t.i.d. -change DuoNebs to Xopenex/Atrovent in setting of tachycardia -continue maintenance inhalers -CTA chest negative for PE but shows tree-in-bud opacities throughout both lungs greatest and lower lobes -ceftriaxone 1 g and azithromycin 500 mg IV daily (initiated 02/15) -strep pneumo antigen, sputum culture, Legionella antigen pending -add guaifenesin for expectorant -follow cbc #Tachycardia and tachypnea -due to respiratory failure and asthma/copd exacerbation as well as albuterol use. No sepsis/severe sepsis #Spc-kiupmqj-nzzwakuzg diabetes mellitus -POC glucose, diabetic diet -Humalog on sliding scale #Hypertension -not on home antihypertensives, monitor blood pressure # hyperlipidemia -statin DVT prophylaxis: Lovenox Full code Patient requires ongoing inpatient stay due to respiratory failure in setter on asthma/copd exacerbation with acute pneumonia with ongoing wheezing and shortness of breath and will require ongoing treatment with IV steroids, nebulizers, and IV antibiotics Quality Stroke Does the patient have a stroke diagnosis?: No VTE Prior VTE?: No VTE Risk Level:: Medical - moderate - high VTE Device Contraindication: Treatment Not Indicated VTE Drug Contraindication: N/A - Med Ordered
[2024-02-17] MEDS: Enoxaparin Sodium 40 MG/0.4 ML SYRINGE SUBCUT (12:56)
[2024-02-17] MEDS: cefTRIAXone sodium 1 GM in 0.9 % Sodium Chloride 50 ML IV (12:56)
[2024-02-17 13:00] LABS: Basophils Percent Auto 0.2 % (0-2); Eosinophils Percent Auto 0.1 % (0-4); Hematocrit 32.1 % (37.0-47.0); Hemoglobin 10.2 g/dl (12.0-16.0); Imm Gran Abs Auto 0.11 X10*3/uL (0.00-0.03); Imm Gran Pct Auto 0.8 % (0.0-0.4); Lymphocytes Absolute Auto 0.8 X10*3/uL (1.2-4.9); Lymphocytes Percent Auto 5.5 % (20-40); MANUAL DIFF FLAG SCAN; Mean Corpuscular HGB Conc 31.8 g/dl (31.0-35.0); Mean Corpuscular Hemoglobin 26.4 pg (27.0-33.0); Mean Corpuscular Volume 83.2 fL (80.0-98.0); Mean Platelet Volume 9.4 fL (9.4-12.3); Monocytes Absolute Auto 0.2 X10*3/uL (0.1-1.2); Monocytes Percent Auto 1.6 % (2-11); Neutrophils Absolute Auto 13.4 x10*3/uL (2.0-8.3); Neutrophils Percent Auto 91.8 % (45-73); Platelet Count 341 X10*3/uL (160-400); Red Blood Count 3.86 X10*6/uL (4.20-5.50); Red Cell Distribution Width 14.9 % (11.0-16.0); SCAN SMEAR FLAG 1; White Blood Count 14.6 X10*3/uL (4.8-10.8)
[2024-02-17 13:19] LABS: SLIDE REVIEW VERIFIED
[2024-02-17] MEDS: Azithromycin 500 MG in 0.9 % Sodium Chloride 250 ML 125 MG IV (13:31)
[2024-02-17 16:23] LABS: Glucose, Whole Blood 262 mg/dL (60-115)
[2024-02-17] MEDS: Insulin Lispro 100 UNIT/ML 3 ML VIAL SUBCUT ×2 (16:29→23:00)
[2024-02-17] MEDS: traMADoL HCL 50 MG TABLET PO (18:44)
[2024-02-17 22:37] LABS: Glucose, Whole Blood 219 mg/dL (60-115)
[2024-02-18] MEDS: methylPREDNISolone Sod Succ 40 MG/ML VIAL IVPUSH ×3 (00:36→15:34)
[2024-02-18 03:29] VITALS: BP 134/66; PULSE 96; RESP 20; TEMP 36.2; O2SAT 95
[2024-02-18] MEDS: guaiFENesin 200 MG/10 ML 10 ML LIQUID PO ×3 (05:42→14:12)
[2024-02-18 07:15] VITALS: BP 137/79; PULSE 88; RESP 18; TEMP 36.3; O2SAT 94
--- NOTE | 2024-02-18 07:25 | PM.DS ---
DS: Providers Provider Date of Service: 02/18/24 Date of admission: 02/16/24 02:21 Date of discharge: 02/18/24 Primary care physician: Angy Veliz MD Attending physician on admission: Sandro Parker Attending physician on discharge: Giovanni Meraz Discharging clinician: Ana Paula Mclaughlin DS: Diagnosis Discharge Diagnosis (1) Hypoxia: Status: Acute (2) Asthma with acute exacerbation: Status: Acute (3) Pneumonia: Status: Inactive DS: Summary Hospital Course Hospital Course: HPI on admission by Dr. Parker 02/17: Chief Complaint: Dyspnea This is a 64-year-old female with pertinent history of asthma/COPD overlap syndrome not on home oxygen, [id number] diabetes mellitus, hypertension, mixed hyperlipidemia who presents to the emergency department for evaluation of dyspnea. Patient states symptoms started 4 days prior to presentation. She has been having dyspnea which is worse with exertion. Also has been having nonproductive cough and wheezing. Patient tried home inhaler without relief. No fever, chills, palpitations, chest pain, abdominal pain, nausea, vomiting, changes in urinary or bowel habits. In the emergency department, patient requiring 2 L supplemental oxygen and was wheezing despite multiple DuoNeb treatments. She was given IV magnesium and IV Solu-Medrol Hospital course: Patient admitted to [facility] [place] for management of acute asthma/COPD exacerbation with acute hypoxemic respiratory failure. CTA of the chest ultimately revealed bilateral tree-in-bud opacities concerning for pneumonia but was negative for PE. She was managed with oral steroids initially but transitioned to IV methylprednisolone given she was unable to be weaned from supplemental O2 with good improvement. She was also treated with scheduled nebulizers and scheduled guaifenesin. Added IV ceftriaxone and azithromycin. Patient received 3 doses of IV ceftriaxone and azithromycin 500 mg. She will be discharged on cefuroxime 500 mg twice daily for an additional 5 days. She is also given 40 mg of prednisone daily x5 days. She did experience tachycardia with scheduled DuoNebs so was transitioned to Xopenex/Atrovent. Ultimately was weaned from supplemental O2 with stable vital signs. She will be discharged with prescription for Xopenex to use as needed for shortness of breath and wheezing. Continue maintenance inhalers. Follow-up with PCP #Acute hypoxic respiratory failure due to acute exacerbation of asthma/COPD overlap syndrome with acute pneumonia -weaned from supplemental O2 -Initially managed with oral prednisone but changed to IV methylprednisolone 40 mg t.i.d. with good imrpovement. Continue prednisone 40mg daily x 5 days -change DuoNebs to Xopenex/Atrovent in setting of tachycardia -continue maintenance inhalers -CTA chest negative for PE but shows tree-in-bud opacities throughout both lungs greatest and lower lobes -ceftriaxone 1 g x 3 doses and azithromycin 500 mg IV x 3 doses. Continue cefuroxime 500mg BID x 5 days -strep pneumo antigen, sputum culture, Legionella antigen pending -continue guaifenesin prn #Tachycardia and tachypnea -due to respiratory failure and asthma/copd exacerbation as well as albuterol use. No sepsis/severe sepsis #Mus-yazexhg-mnbpronrh diabetes mellitus -POC glucose, diabetic diet -Humalog on sliding scale #Hypertension -not on home antihypertensives, blood pressures stable during admission # hyperlipidemia -statin Status at Discharge Functional status at discharge: independent ambulation Overall status at discharge: patient is progressing back to baseline Time Attestation Discharge Coordination Time (in mins): 38 Quality: Safe Use of Opioids Does Pt have an Active Cancer Diagnosis on the Problem List?: No Quality: Stroke Does the patient have a stroke diagnosis?: No Physical Exam Vital Signs: Vital Signs: Last Vital Signs Temp 97.4 F 02/18/24 07:15 Pulse 88 02/18/24 07:15 Resp 18 02/18/24 07:15 BP 137/79 02/18/24 07:15 Pulse Ox 94 02/18/24 07:15 O2 Del Method Room Air 02/18/24 07:15 O2 Flow Rate 3 02/16/24 08:31 BMI result Body Mass Index 36.7 DS: Data Data Completed and Pending Completed studies during hospitalization [Text1]: Procedures Introduction of Anesthetic Agent into Peripheral Nerves and Plexi, Percutaneous Approach (01/31/23) Replacement of Right Knee Joint with Synthetic Substitute, Uncemented, Open Approach (01/31/23) Labs on day of discharge: Laboratory Results - last 24 hr 02/17/24 02/17/24 02/17/24 11:00 12:54 16:18 WBC 14.6 H RBC 3.86 L Hgb 10.2 L Hct 32.1 L MCV 83.2 MCH 26.4 L MCHC 31.8 RDW 14.9 Plt Count 341 MPV 9.4 Immature Gran % (Auto) 0.8 H Neut % (Auto) 91.8 H Lymph % (Auto) 5.5 L Dyer % (Auto) 1.6 L Eos % (Auto) 0.1 Baso % (Auto) 0.2 Lymph # (Auto) 0.8 L Dyer # (Auto) 0.2 Eos # (Auto) 0.0 Baso # (Auto) 0.0 Abs Immat Gran (auto) 0.11 H Absolute Neuts (auto) 13.4 H Absolute Nucleated RBC 0.000 Nucleated RBC % (auto) 0.0 Smear Tech's Comments VERIFIED POC Glucose 144 H 262 H 02/17/24 22:31 WBC RBC Hgb Hct MCV MCH MCHC RDW Plt Count MPV Immature Gran % (Auto) Neut % (Auto) Lymph % (Auto) Dyer % (Auto) Eos % (Auto) Baso % (Auto) Lymph # (Auto) Dyer # (Auto) Eos # (Auto) Baso # (Auto) Abs Immat Gran (auto) Absolute Neuts (auto) Absolute Nucleated RBC Nucleated RBC % (auto) Smear Tech's Comments POC Glucose 219 H Preliminary micro results at discharge 02/16/24 06:32 Blood Culture - Preliminary Blood - Venous No growth after 24 hours. 02/16/24 06:28 Blood Culture - Preliminary Blood - Venous No growth after 24 hours. Discharge Plan Discharge Anticipated Discharge Date/Time: 02/18/24 15:35 Patient Disposition: Home, Self-Care Discharge Diagnosis: Pneumonia, asthma exacerbation, hypoxia Referrals: Angy Pichardo MD [Primary Care Provider] - 1 Week Discharge Medications: New levalbuterol tartrate [Xopenex HFA] 45 mcg/actuation HFA aerosol inhaler 2 puff inhalation Q4-6H PRN (Reason: shortness of breath or wheezing) Qty: 15 0RF prednisone 20 mg tablet 40 mg PO DAILY Qty: 10 0RF guaifenesin 200 mg/5 mL liquid 400 mg PO Q6H PRN (Reason: cough) Qty: 200 0RF cefuroxime axetil 500 mg tablet 500 mg PO BID Qty: 10 0RF Continued celecoxib 200 mg capsule 200 mg PO BID Qty: 60 6RF budesonide-formoterol [Symbicort] 160-4.5 mcg/actuation HFA aerosol inhaler 1 inh INHALATION BID acetaminophen 325 mg Tablet 650 mg PO Q6H PRN (Reason: Pain, Mild (Pain Scale 1-3)) 30 Days Qty: 240 0RF albuterol sulfate 2.5 mg /3 mL (0.083 %) solution for nebulization 2.5 mg inhalation Q6H Qty: 75 0RF aspirin 81 mg Tablet,Delayed Release (Dr/Ec) 81 mg PO DAILY cholecalciferol (vitamin D3) 10 mcg (400 unit) Capsule 10 mcg PO DAILY albuterol sulfate 90 mcg/actuation HFA aerosol inhaler 2 puff inhalation Q4-6H PRN (Reason: shortness of breath or wheezing) Qty: 6.7 0RF loratadine 10 mg tablet 10 mg PO DAILY tramadol 50 mg tablet 50 mg PO TID PRN (Reason: Pain) Hold Instructions: Resume on 03/13/23. fluticasone propionate 50 mcg/actuation spray,suspension 1 spray intranasal DAILY (DME) lancets [FreeStyle Lancets] 28 gauge misc See Rx Instructions topical DAILY Qty: 100 Rx Instructions: As directed (DME) blood-glucose meter [FreeStyle [place] Lite] Kit See Rx Instructions .ROUTE DAILY Qty: 1 Rx Instructions: As directed (DME) FreeStyle Lite Strips Strip See Rx Instructions Not Applicable DAILY Qty: 10 Rx Instructions: As directed atorvastatin 20 mg tablet 20 mg PO DAILY Dupixent Pen 300 mg/2 mL pen injector 300 mg subcut Q2W metformin 500 mg tablet 500 mg PO BID Discharge Orders: Discharge Order (Routine); Ordered 02/18/24 Ordered By: Ana Paula Mclaughlin Diet: Advance to usual diet Activity on Discharge: As tolerated Stand Alone Forms: Patient Portal Discharge page Print Language: Ukrainian Care Plan Goals: Continue treatment for community acquired pneumonia and asthma/copd exacerbation Health Concerns: Pneumonia Asthma/COPD exacerbation Hypoxia Plan of Treatment: Pneumonia/ asthma exacebation -Treated x 3 days with IV ceftriaxone and azithromycin. Completed course of azithromycin. Continue oral cefuroxime 500mg twice daily x 5 more days (10 doses, next dose duet tomorrow am) -Continue additional 5 days of prednisone 40mg starting tomorrow morning -I have prescribed you xopenex (levalbuterol inhaler) to horace for shortness of breath and wheezing. This is less likely to cause elevated heart rates -Can use guaifenesin (robitussin) as needed for cough -Continue maintenance inhalers for asthma/COPD and use DuoNebs as needed Follow up with pcp Assessment: See above, see discharge summary Discharge Date/Time: 02/18/24 16:00
[2024-02-18 07:29] LABS: Glucose, Whole Blood 155 mg/dL (60-115)
[2024-02-18] MEDS: Insulin Lispro 100 UNIT/ML 3 ML VIAL SUBCUT ×2 (07:52→11:43)
[2024-02-18] MEDS: Aspirin Enteric Coated 81 MG TABLET.DR PO (07:52)
[2024-02-18] MEDS: Atorvastatin Calcium 20 MG TABLET PO (07:52)
[2024-02-18] MEDS: Loratadine 10 MG TABLET PO (07:52)
[2024-02-18] MEDS: Cholecalciferol (Vitamin D3) 10 MCG TABLET PO (07:52)
[2024-02-18] MEDS: Celecoxib 200 MG CAPSULE PO (07:52)
[2024-02-18] MEDS: levalbuterol HCL 2.5 MG, Ipratropium Bromide 0.5 MG INHALE ×2 (08:45→14:50)
[2024-02-18 08:46] VITALS: RESP 18; O2SAT 93
[2024-02-18] MEDS: Fluticasone/Vilanterol 200/25 BLST.W.DEV 1 PUFF INHALE (08:46)
[2024-02-18] MEDS: traMADoL HCL 50 MG TABLET PO (10:02)
[2024-02-18] MEDS: Benzonatate 100 MG CAPSULE PO (10:02)
[2024-02-18 11:27] LABS: Glucose, Whole Blood 278 mg/dL (60-115)
[2024-02-18] MEDS: cefTRIAXone sodium 1 GM in 0.9 % Sodium Chloride 50 ML IV (13:31)
[2024-02-18] MEDS: Azithromycin 500 MG in 0.9 % Sodium Chloride 250 ML 125 MG IV (14:10)
[2024-02-18 14:53] VITALS: PULSE 99; RESP 18; O2SAT 94
[2024-02-18 15:38] VITALS: BP 157/93; PULSE 96; RESP 18; TEMP 36.3; O2SAT 95
[2024-02-18 15:46] LABS: Glucose, Whole Blood 149 mg/dL (60-115)
[2024-02-20 23:14] LABS: Strep Pneumo Ag urine Not Detected (Not Detected)
[2024-02-24 06:28] LABS: Legionella Ag Urine Not Detected (Not Detected)
== END 2024-02-18 16:00 | disposition home or self-care (01) | DRG 193 ==
LOC: HO.ED 02:13 → HO.EDOVER 02:47 → HO.S3 12:44
PROVIDERS: Admitting Provider Student in an Organized Health Care Education/Training Program; Emergency Provider Emergency Medicine; PCP Internal Medicine; Visit Provider Physician Assistant
DX: J18.9 Pneumonia, unspecified organism (principal); J96.01 Acute respiratory failure with hypoxia; J44.0 Chronic obstructive pulmonary disease with (acute) lower respiratory infection; J45.51 Severe persistent asthma with (acute) exacerbation; J44.1 Chronic obstructive pulmonary disease with (acute) exacerbation; E78.2 Mixed hyperlipidemia; I10 Essential (primary) hypertension; E11.9 Type 2 diabetes mellitus without complications; Z20.822 Contact with and (suspected) exposure to COVID-19; Z87.891 Personal history of nicotine dependence; Z79.51 Long term (current) use of inhaled steroids; Z79.82 Long term (current) use of aspirin; Z79.84 Long term (current) use of oral hypoglycemic drugs; Z79.620 Long term (current) use of immunosuppressive biologic; Z79.899 Other long term (current) drug therapy
CPT/HCPCS: 0241U; 36415; 71045; 71275; 80048; 80076; 82803; 82947; 83605; 83735; 83880; 84484; 85025; 87040; 87070; 87205; 87449; 87899; 93005; 94640; 99285; J0456; J0696; J1650; J1956; J2919; J3475; J7120; Q9967

== ENCOUNTER → 2024-02-16 00:58 | Outpatient (BNV) | payer OTHER, SELFPAY | PROVIDERS: Admitting Provider Student in an Organized Health Care Education/Training Program; Emergency Provider Emergency Medicine; PCP Internal Medicine; Visit Provider Internal Medicine Cardiovascular Disease | DX: R06.02 Shortness of breath (principal); R00.0 Tachycardia, unspecified | CPT/HCPCS: 93010 ==

== ENCOUNTER → 2024-02-16 02:21 | Outpatient (BNV) | payer OTHER, SELFPAY | PROVIDERS: Admitting Provider Student in an Organized Health Care Education/Training Program; Emergency Provider Emergency Medicine; PCP Internal Medicine; Visit Provider Student in an Organized Health Care Education/Training Program | DX: J96.01 Acute respiratory failure with hypoxia (principal); J45.51 Severe persistent asthma with (acute) exacerbation; J44.1 Chronic obstructive pulmonary disease with (acute) exacerbation; J18.9 Pneumonia, unspecified organism | CPT/HCPCS: 99223; 99232; 99239; 99429 ==

== ENCOUNTER 2024-05-27 08:18 | Inpatient (IN) | payer OTHER, SELFPAY ==
[2024-05-27] VITALS (11 sets, daily range): BP systolic 122–139; BP diastolic 72–88; PULSE 107–127; RESP 16–22; TEMP 36–38.3; O2SAT 92–95; BMI 33.1; BMI 33.4
--- NOTE | ~2024-05-27 | XR_ITS ---
EXAMINATION: XR CHEST CLINICAL INFORMATION: Shortness of breath COMPARISON: Chest radiograph 02/16/2024 TECHNIQUE: Frontal view of the chest was obtained. FINDINGS: The lungs are adequately expanded. Patchy opacities in the right mid and lower lung. Bilateral bronchial wall thickening. No pleural effusions. No pneumothorax. The cardiac mediastinal silhouette is within normal limits. Degenerative changes of the thoracic spine. XR/XR chest 1V IMPRESSION: Bilateral bronchial wall thickening which can be seen with reactive airways disease. Patchy opacities in the right mid and lower lung, concerning for developing infectious or inflammatory process. Electronically signed by: Rod Victoria MD 05/27/2024 09:14 AM [facility]
[2024-05-27] MEDS: Acetaminophen 325 MG TABLET 975 MG PO (08:25)
[2024-05-27 08:35] LABS: MANUAL DIFF FLAG NO
[2024-05-27 08:38] LABS: Basophils Absolute Auto 0.1 X10*3/uL (0.0-0.2); Basophils Percent Auto 0.3 % (0-2); Eosinophils Percent Auto 0.1 % (0-4); Hemoglobin 10.5 g/dl (12.0-16.0); Imm Gran Abs Auto 0.14 X10*3/uL (0.00-0.03); Imm Gran Pct Auto 0.7 % (0.0-0.4); Lymphocytes Absolute Auto 1.1 X10*3/uL (1.2-4.9); Lymphocytes Percent Auto 5.6 % (20-40); Mean Corpuscular HGB Conc 31.8 g/dl (31.0-35.0); Mean Corpuscular Hemoglobin 25.7 pg (27.0-33.0); Mean Corpuscular Volume 80.9 fL (80.0-98.0); Mean Platelet Volume 9.7 fL (9.4-12.3); Monocytes Percent Auto 4.9 % (2-11); Neutrophils Absolute Auto 17.8 x10*3/uL (2.0-8.3); Neutrophils Percent Auto 88.4 % (45-73); Platelet Count 265 X10*3/uL (160-400); Red Blood Count 4.08 X10*6/uL (4.20-5.50); Red Cell Distribution Width 15.7 % (11.0-16.0); White Blood Count 20.1 X10*3/uL (4.8-10.8)
[2024-05-27 09:00] LABS: Alanine Aminotransferase 14 U/L (0-31); Albumin Level 4.1 g/dL (3.5-5.0); Alkaline Phosphatase 98 U/L (39-117); Anion Gap 14 (12-20); Aspartate Amino Transferase 17 U/L (5-31); Bilirubin Total 0.7 mg/dL (0.0-1.0); Blood Urea Nitrogen 9 mg/dL (9-16); Calcium 9.4 mg/dL (8.4-10.2); Carbon Dioxide 25 mmol/L (22-29); Chloride 103 mmol/L (96-108); Creatinine Clr Calc Pharmacy 89.5; Estimated Glomerular Filt Rate > 60; Glucose Random 170 mg/dL (60-115); Potassium 4.1 mmol/L (3.3-5.1); Sodium 138 mmol/L (135-145); Total Protein 7.9 g/dL (6.5-8.0)
[2024-05-27 09:16] LABS: Influenza A PCR NEGATIVE (Negative); Influenza B PCR NEGATIVE (Negative); Resp Syncy Virus RNA Qual PCR NEGATIVE (Negative); SARS COV2 PCR INHOUSE NEGATIVE (Negative)
--- NOTE | 2024-05-27 09:16 | ED_ITS ---
HPI - General Adult General Chief complaint: Upper Respiratory Symptoms Stated complaint: diff breathing Time Seen by Provider: 05/27/24 09:00 Source: patient Mode of arrival: ambulatory Limitations: no limitations History of Present Illness ED Provider: Marianne OBANDO narrative: Patient is a 64-year-old female with history of asthma, COPD, DM presenting to the emergency department with complaint of productive cough and shortness of breath since Monday. Reports fever to 104 at home. Denies any known sick contacts or other sick family members at home. Denies any abdominal pain, nausea, vomiting, diarrhea. Denies chest pain or palpitations. Has been using her inhalers and nebulizer at home with little relief. Complains of some pain to right lower ribs. MD complaint: cough, fever Onset (ago): day(s) Treatments prior to arrival: other Related Data Home Medications ?Medication ?Instructions ?Recorded ?Confirmed blood sugar diagnostic (FreeStyle #10 ea 01/20/22 01/04/23 Lite Strips) blood-glucose meter (FreeStyle #1 ea 01/20/22 01/04/23 [place] Lite kit) fluticasone propionate 50 1 spray intranasal DAILY 01/20/22 02/16/24 mcg/actuation nasal spray,suspension lancets 28 gauge (FreeStyle #100 ea 01/20/22 01/04/23 Lancets) loratadine 10 mg tablet 10 mg PO DAILY 01/20/22 02/16/24 tramadol 50 mg tablet 50 mg PO TID PRN Pain 01/20/22 02/16/24 atorvastatin 20 mg tablet 20 mg PO DAILY 11/14/22 02/16/24 budesonide-formoterol HFA 160 1 inh inhalation BID 01/25/23 02/16/24 mcg-4.5 mcg/actuation aerosol inhaler (Symbicort) dupilumab 300 mg/2 mL subcutaneous 300 mg subcut Q2W 04/06/23 02/16/24 pen injector (Dupixent) metformin 500 mg tablet 500 mg PO BID 04/06/23 02/16/24 aspirin 81 mg tablet,delayed 81 mg PO DAILY 02/16/24 02/16/24 release cholecalciferol (vitamin D3) 10 10 mcg PO DAILY 02/16/24 02/16/24 mcg (400 unit) capsule Previous Rx's ?Medication ?Instructions ?Recorded acetaminophen 325 mg tablet 650 mg (2 x 325 mg) PO Q6H PRN 01/31/23 Pain, Mild (Pain Scale 1-3) 30 days #240 tabs albuterol sulfate 2.5 mg/3 mL 2.5 mg (3 mL) inhalation Q6H #75 mL 01/15/24 (0.083 %) solution for nebulization albuterol sulfate 90 mcg/actuation 2 puff inhalation Q4-6H PRN 02/18/24 aerosol inhaler shortness of breath or wheezing #6.7 grams cefuroxime axetil 500 mg tablet 500 mg PO BID #10 tabs 02/18/24 guaifenesin 200 mg/5 mL oral liquid 400 mg (10 mL) PO Q6H PRN cough 02/18/24 #200 mL levalbuterol tartrate 45 2 puff inhalation Q4-6H PRN 02/18/24 mcg/actuation aerosol inhaler shortness of breath or wheezing (Xopenex HFA) #15 grams prednisone 20 mg tablet 40 mg (2 x 20 mg) PO DAILY #10 tabs 02/18/24 celecoxib 200 mg capsule 200 mg PO BID #60 caps 02/23/24 Allergies Allergy/AdvReac Type Severity Reaction Status Date / Time ibuprofen [IBUPROFEN] Allergy Intermediate exacerbates Verified 05/27/24 08:22 asthma oxaprozin [From DAYPRO] Allergy Intermediate exacerbates Verified 05/27/24 08:22 asthma Penicillins [PCN] Allergy Intermediate RASH Verified 05/27/24 08:22 Review of Systems 2 Review of Systems: As per HPI Yes all other systems are reviewed and are negative Constitutional: Constitutional: Reports as per HPI PMFSH Past Medical History Medical History COPD (chronic obstructive pulmonary disease) Diabetes Steatosis, liver Elevated cholesterol HTN (hypertension) Asthma Osteoarthritis Osteoarthritis of right knee Headache Surgical History Hx of bilateral cataract extraction Hx of section Hx of laparoscopic gastric banding H/O colonoscopy Social History Social History Household Members: Family Housing: Apartment Are you a primary progressive care unit registered nurse to a significant other at home: No Do you presently have visiting nurse or other home services: No Unable to assess alcohol history related to: Unknown Patient Tobacco Use Status: Former Tobacco user Tobacco use type: Cigarette Years Smoked: 35 Second Hand Smoke Exposure: No Use of substances other than those prescribed or required for medical reasons: Unknown Advance Directives: No Advance Directives Information Provided: Yes Do you have a plan to hurt others: No Plan service: No Current occupational status: employed Current occupation: [employer] Physical Exam ED Vital Signs: Vital Signs - 24 hr 05/27/24 08:19 05/27/24 10:04 05/27/24 10:05 Temperature 100.9 F H 100.0 F Pulse Rate 127 H 112 H Respiratory Rate 22 H Blood Pressure 139/88 Pulse Oximetry 92 Oxygen Delivery Method Room Air 05/27/24 10:05 05/27/24 12:01 Temperature 100.0 F Pulse Rate 110 H Respiratory Rate 16 Blood Pressure 122/72 Pulse Oximetry 95 94 Oxygen Delivery Method Room Air Room Air BMI result Body Mass Index 33.1 Vital signs have been reviewed and appear to be correct. Blood pressure normal. Heart rate tachycardic. Respiratory rate normal. Temperature febrile on arrival. Oxygen saturation normal. Const General: cooperative, healthy appearing and no acute distress Orientation/consciousness: oriented to person, oriented to place, oriented to time and patient oriented x3 Limitations: no limitations HENMT Head: Yes normocephalic and Yes atraumatic Ears: external ears normal General nose exam: Normal external nose present Face and sinus: Yes face symmetric Mouth: oropharynx normal and moist mucous membranes Throat: Yes uvula midline Eyes Pupils: Equal, round and reactive pupils present Neck Neck: Yes normal visual inspection and Yes supple Resp Effort & Inspection: normal respiratory effort and able to speak in complete sentences Auscultation: no crackles and wheezes expiratory wheezes, inspiratory wheezes and throughout Cardio Rate: regular rate Rhythm: regular rhythm Heart sounds: S1 normal heart sound present and S2 normal heart sound present GI Palpation (GI): Soft to palpation and nontender Auscultation: normoactive bowel sounds General: Yes no CVA tenderness Back/Spine/Pelvis Back: no CVA tenderness Skin General skin exam: elasticity normal and turgor normal Neuro General: oriented to person, oriented to place, oriented to time, patient oriented x3, moves all extremities, no focal motor deficits and CN's II-XI intact bilaterally Cranial nerves: Yes Equal, round and reactive pupils present Cognition (Neuro): normal cognition Extrem General: Yes full ROM, Yes no pedal edema and Yes no calf tenderness Psych Mental Status: mental status grossly normal Affect: normal affect Thought process: Normal thought process present Medications Administered Discontinued Medications Generic Name Dose Route Start Last Admin Trade Name Lynette PRN Reason Stop Dose Admin Acetaminophen 975 mg 05/27/24 08:24 05/27/24 08:25 Acetaminophen 325 Mg Tablet PO 05/27/24 08:25 975 mg ONCE ONE Administration Azithromycin 500 mg 05/27/24 09:20 05/27/24 09:57 Azithromycin 500 Mg Tablet PO 05/27/24 09:21 500 mg ONCE ONE Administration Ceftriaxone Sodium 1 gm 05/27/24 09:20 05/27/24 09:54 Ceftriaxone Sodium 1 Gm Vial IVPUSH 05/27/24 09:21 1 gm ONCE ONE Administration Albuterol Sulfate 2.5 mg/ 0 mg 05/27/24 09:59 05/27/24 10:04 Albuterol/Ipratropium 3 ml INHALE 05/27/24 10:00 1 dose ONCE ONE Administration Magnesium Sulfate 2 gm in 50 mls @ 25 mls/hr 05/27/24 10:04 05/27/24 10:51 Magnesium Sulfate/H2o IV 05/27/24 12:03 25 mls/hr ONCE ONE Administration Methylprednisolone Sodium Succinate 60 mg 05/27/24 10:08 05/27/24 11:25 Methylprednisolone Sod Succ 125 Mg/2 Ml Vial IVPUSH 05/27/24 10:09 60 mg ONCE ONE Administration Medical Decision Making Medical Decision Making [facility] Narrative: Patient is a 64-year-old female with history of asthma, COPD, DM presenting to the emergency department with complaint of productive cough and shortness of breath since Monday. On exam patient is awake, A+Ox3, VS WNL, afebrile, normal neurological exam without focal deficits, physical exam findings as above. Given reported symptoms and physical exam findings, initial differential includes asthma exacerbation, viral illness, bronchitis, pneumonia. Labs notable for leukocytosis with left shift, anemia similar to prior values, normal lactic, do not suspect sepsis at 09:37. Viral serology negative. EKG shows sinus tachycardia. X-ray chest notable for right mid and lower lower lobe pneumonia. My interpretation is in agreement with the radiologist's interpretation. Blood cultures and antibiotics ordered, as well as breathing treatment, magnesium, and solu-medrol. Given significant leukocytosis, COPD/asthma history feel patient requires inpatient admission which was accepted by Felix Floyd NP. Differential Diagnosis Differential Diagnoses: The differential diagnosis associated with the presentation includes As per [facility] Admission/Observation Consideration of admission/observation: Escalation of care including admission/observation considered Consult Healthcare Provider Management of the patient was discussed with: Hospitalist Lab Data [facility] Lab Attestation statement: I reviewed the patient's lab results. As per [facility] 05/27/24 08:31 05/27/24 08:31 Labs: Lab Results 05/27/24 05/27/24 Range/Units 08:31 09:37 WBC 20.1 H (4.8-10.8) X10*3/uL RBC 4.08 L (4.20-5.50) X10*6/uL Hgb 10.5 L (12.0-16.0) g/dl Hct 33.0 L (37.0-47.0) % MCV 80.9 (80.0-98.0) fL MCH 25.7 L (27.0-33.0) pg MCHC 31.8 (31.0-35.0) g/dl RDW 15.7 (11.0-16.0) % Plt Count 265 (160-400) X10*3/uL MPV 9.7 (9.4-12.3) fL Immature Gran % (Auto) 0.7 H (0.0-0.4) % Neut % (Auto) 88.4 H (45-73) % Lymph % (Auto) 5.6 L (20-40) % Atkinson % (Auto) 4.9 (2-11) % Eos % (Auto) 0.1 (0-4) % Baso % (Auto) 0.3 (0-2) % Lymph # (Auto) 1.1 L (1.2-4.9) X10*3/uL Atkinson # (Auto) 1.0 (0.1-1.2) X10*3/uL Eos # (Auto) 0.0 (0.0-0.4) X10*3/uL Baso # (Auto) 0.1 (0.0-0.2) X10*3/uL Abs Immat Gran (auto) 0.14 H (0.00-0.03) X10*3/uL Absolute Neuts (auto) 17.8 H (2.0-8.3) x10*3/uL Absolute Nucleated RBC 0.000 (0.0-0.012) X10*3/uL Nucleated RBC % (auto) 0.0 (0.0-0.2) /100WBC Sodium 138 (135-145) mmol/L Potassium 4.1 (3.3-5.1) mmol/L Chloride 103 (96-108) mmol/L Carbon Dioxide 25 (22-29) mmol/L Anion Gap 14 (12-20) BUN 9 (9-16) mg/dL Creatinine 0.72 (0.5-1.4) mg/dL Estim Creat Clear Calc 89.5 Estimated GFR > 60 Random Glucose 170 H (60-115) mg/dL Lactic Acid 1.4 (0.5-2.0) mmol/L Calcium 9.4 (8.4-10.2) mg/dL Total Bilirubin 0.7 (0.0-1.0) mg/dL AST 17 (5-31) U/L ALT 14 (0-31) U/L Alkaline Phosphatase 98 (39-117) U/L Total Protein 7.9 (6.5-8.0) g/dL Albumin 4.1 (3.5-5.0) g/dL Influenza Type A (PCR) NEGATIVE (Negative) Influenza Type B (PCR) NEGATIVE (Negative) RSV RNA Qual (PCR) NEGATIVE (Negative) SARS-CoV-2 RNA (RT-PCR) NEGATIVE (Negative) Independent Interpretation I performed an independent interpretation of an: EKG (sinus tachycardia, rate 110bpm, normal MO interval, no significant change from prior) and Plain X-Ray Interpretation: X-ray chest notable for right mid and lower lower lobe pneumonia. Radiology Impression Discussion of test interpretation with radiology: I have reviewed the radiologist's reading. Radiologist Impression: XR/XR chest 1V IMPRESSION: Bilateral bronchial wall thickening which can be seen with reactive airways disease. Patchy opacities in the right mid and lower lung, concerning for developing infectious or inflammatory process. External Record Review External record reviewed: Inpatient record, Office record and Outpatient record Prescription Management I considered prescription management with: Antibiotic and Other Chronic Conditions Patient?s care impacted by: Diabetes and Other Discharge Plan Discharge Prescriptions: No Action celecoxib 200 mg capsule 200 mg PO BID Qty: 60 6RF budesonide-formoterol [Symbicort] 160-4.5 mcg/actuation HFA aerosol inhaler 1 inh INHALATION BID acetaminophen 325 mg Tablet 650 mg PO Q6H PRN (Reason: Pain, Mild (Pain Scale 1-3)) 30 Days Qty: 240 0RF albuterol sulfate 2.5 mg /3 mL (0.083 %) solution for nebulization 2.5 mg inhalation Q6H Qty: 75 0RF aspirin 81 mg Tablet,Delayed Release (Dr/Ec) 81 mg PO DAILY cholecalciferol (vitamin D3) 10 mcg (400 unit) Capsule 10 mcg PO DAILY levalbuterol tartrate [Xopenex HFA] 45 mcg/actuation HFA aerosol inhaler 2 puff inhalation Q4-6H PRN (Reason: shortness of breath or wheezing) Qty: 15 0RF prednisone 20 mg tablet 40 mg PO DAILY Qty: 10 0RF guaifenesin 200 mg/5 mL liquid 400 mg PO Q6H PRN (Reason: cough) Qty: 200 0RF albuterol sulfate 90 mcg/actuation HFA aerosol inhaler 2 puff inhalation Q4-6H PRN (Reason: shortness of breath or wheezing) Qty: 6.7 0RF cefuroxime axetil 500 mg tablet 500 mg PO BID Qty: 10 0RF loratadine 10 mg tablet 10 mg PO DAILY tramadol 50 mg tablet 50 mg PO TID PRN (Reason: Pain) fluticasone propionate 50 mcg/actuation spray,suspension 1 spray intranasal DAILY (DME) lancets [FreeStyle Lancets] 28 gauge misc See Rx Instructions topical DAILY Qty: 100 Rx Instructions: As directed (DME) blood-glucose meter [FreeStyle [place] Lite] Kit See Rx Instructions .ROUTE DAILY Qty: 1 Rx Instructions: As directed (DME) FreeStyle Lite Strips Strip See Rx Instructions Not Applicable DAILY Qty: 10 Rx Instructions: As directed atorvastatin 20 mg tablet 20 mg PO DAILY Dupixent Pen 300 mg/2 mL pen injector 300 mg subcut Q2W metformin 500 mg tablet 500 mg PO BID Print Language: Montserratian
[2024-05-27] MEDS: cefTRIAXone sodium 1 GM VIAL IVPUSH (09:54)
[2024-05-27] MEDS: Azithromycin 500 MG TABLET PO (09:57)
[2024-05-27 10:03] LABS: Lactic Acid 1.4 mmol/L (0.5-2.0)
[2024-05-27] MEDS: Albuterol Sulfate 2.5 MG, Albuterol/Iprat 2.5/0.5MG 3 ML 3 ML INHALE (10:04)
--- NOTE | 2024-05-27 10:04 | ECG_ITS ---
Test Reason : sob Blood Pressure : / mmHG Vent. Rate : 110 BPM Atrial Rate : 110 BPM P-R Int : 132 ms QRS Dur : 090 ms QT Int : 344 ms P-R-T Axes : 041 -18 020 degrees QTc Int : 465 ms Sinus tachycardia Moderate voltage criteria for LVH, may be normal variant ( R in aVL , Eh product ) Borderline ECG When compared with ECG of 16-FEB-2024 02:03, No significant change was found Referred By: Varsha Lopes Electronically Signed By:Catrachito Stout
[2024-05-27] MEDS: Magnesium Sulfate/H2O 2 GM/50 ML PIGGYBACK IV (10:51)
[2024-05-27] MEDS: methylPREDNISolone Sod Succ 125 MG/2 ML VIAL 60 MG IVPUSH (11:25)
--- NOTE | 2024-05-27 11:39 | PC.NURSE ---
upon ambulation trial pt o2 sat went up to 94% and dropped to 92%. Hr stayed 118-120 during trial.
--- NOTE | 2024-05-27 12:50 | P.HPHOSP_ITS ---
History of Present Illness Date of Service: 05/27/24 Attending physician on admission: Giovanni Meraz Chief Complaint: SOB, weakness, fever, cough Patient is a 64-year-old female with a past medical history significant for moderate persistent asthma/COPD overlap syndrome not on home oxygen, nxy-rsryqzj-ammnzxnhc diabetes, hypertension, and mixed hyperlipidemia, who presented to the ED today with cough and shortness of breath x2 days. She reports weakness and right sided chest pain as well. She denies any recent sick contacts. She has been using her nebulizer at home every 4 hours with mild improvement. She reports a subjective fever of 104 at home. She also complains of a right-sided headache. She denies any congestion, runny nose, sore throat, nausea, vomiting, or diarrhea. Review of Systems 2 Constitutional: Constitutional: Denies body ache(s), Denies chills, Reports fever(s) and Reports headache(s) ENT: Reports headache(s), Denies nasal congestion, Denies nasal discharge and Denies sore throat Cardiovascular: Cardiovascular: Reports chest pain, Denies rapid heart rate, Denies leg edema, Denies lightheadedness and Reports dyspnea Respiratory: Respiratory: Reports cough (productive) and Reports dyspnea Gastrointestinal: Gastrointestinal: Denies abdominal pain, Denies constipation, Denies diarrhea, Denies nausea and Denies vomiting Genitourinary: Genitourinary: Denies dysuria Musculoskeletal: Musculoskeletal: Denies myalgias Integumentary/Breasts: Skin/Breast: Denies rash Neurologic: Denies confusion and Reports headache(s) Psychiatric: Psychiatric: Denies confusion [facility] Medical History COPD (chronic obstructive pulmonary disease) Diabetes Steatosis, liver Elevated cholesterol HTN (hypertension) Asthma Osteoarthritis Osteoarthritis of right knee Headache Surgical History Hx of bilateral cataract extraction Hx of section Hx of laparoscopic gastric banding H/O colonoscopy Social History Household Members: Family Housing: Apartment Are you a primary patient care specialist to a significant other at home: No Do you presently have visiting nurse or other home services: No Unable to assess alcohol history related to: Unknown Patient Tobacco Use Status: Former Tobacco user Tobacco use type: Cigarette Years Smoked: 35 Second Hand Smoke Exposure: No Use of substances other than those prescribed or required for medical reasons: Unknown Advance Directives: No Advance Directives Information Provided: Yes Do you have a plan to hurt others: No Plan service: No Current occupational status: employed 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 Allergies Allergy/AdvReac Type Severity Reaction Status Date / Time ibuprofen [IBUPROFEN] Allergy Intermediate exacerbates Verified 05/27/24 08:22 asthma oxaprozin [From DAYPRO] Allergy Intermediate exacerbates Verified 05/27/24 08:22 asthma Penicillins [PCN] Allergy Intermediate RASH Verified 05/27/24 08:22 Home Medications ?Medication ?Instructions ?Recorded ?Confirmed ?Last Taken ?Type blood sugar diagnostic (FreeStyle #10 ea 01/20/22 01/04/23 Unknown History Lite Strips) blood-glucose meter (FreeStyle #1 ea 01/20/22 01/04/23 Unknown History [place] Lite kit) fluticasone propionate 50 1 spray intranasal DAILY 01/20/22 02/16/24 Unknown History mcg/actuation nasal spray,suspension lancets 28 gauge (FreeStyle #100 ea 01/20/22 01/04/23 Unknown History Lancets) loratadine 10 mg tablet 10 mg PO DAILY 01/20/22 02/16/24 Unknown History tramadol 50 mg tablet 50 mg PO TID PRN Pain 01/20/22 02/16/24 Unknown History atorvastatin 20 mg tablet 20 mg PO DAILY 11/14/22 02/16/24 Unknown History budesonide-formoterol HFA 160 1 inh inhalation BID 01/25/23 02/16/24 Unknown History mcg-4.5 mcg/actuation aerosol inhaler (Symbicort) metformin 500 mg tablet 500 mg PO BID 04/06/23 02/16/24 Unknown History aspirin 81 mg tablet,delayed 81 mg PO DAILY 02/16/24 02/16/24 Unknown History release cholecalciferol (vitamin D3) 10 10 mcg PO DAILY 02/16/24 02/16/24 Unknown History mcg (400 unit) capsule dupilumab 300 mg/2 mL subcutaneous 300 mg subcut Q2W 05/27/24 Unknown History pen injector (Dupixent) fluticasone furoate 200 1 ea inhalation DAILY 05/27/24 Unknown History mcg-vilanterol 25 mcg/dose inhalation powder oxybutynin chloride 10 mg 10 mg PO DAILY 05/27/24 Unknown History tablet,extended release 24 hr Physical Exam 2 Vital Signs and Narrative: Vital Signs: Last Vital Signs Temp 100.0 F 05/27/24 10:05 Pulse 112 H 05/27/24 10:05 Resp 16 05/27/24 10:05 BP 122/72 05/27/24 10:05 Pulse Ox 94 05/27/24 12:01 O2 Del Method Room Air 05/27/24 12:01 BMI result Body Mass Index 33.1 General: AOx3, no acute distress HEENT: pain with palpation on right temporal sinus Resp: crackles RLL , no active wheezing, breath sounds diminished CVS: tachy, regular rhythm, normal capillary refill less than 2 seconds upper and lower extremities GI: +BS, NT, no distention Skin: Warm, dry, no mottling Neuro: Cranial nerves II-XII grossly intact bilaterally. Motor grossly intact bilaterally Extremities: No edema Psych: Appropriate affect Const: General: No confusion Orientation/consciousness: No confusion Neuro: General: No confusion Results Labs 05/27/24 08:31 05/27/24 08:31 Labs: Laboratory Results - last 24 hr 05/27/24 05/27/24 08:31 09:37 MCV 80.9 MCH 25.7 L MCHC 31.8 RDW 15.7 Plt Count 265 MPV 9.7 Immature Gran % (Auto) 0.7 H Neut % (Auto) 88.4 H Lymph % (Auto) 5.6 L [place] % (Auto) 4.9 Eos % (Auto) 0.1 Baso % (Auto) 0.3 Lymph # (Auto) 1.1 L [place] # (Auto) 1.0 Eos # (Auto) 0.0 Baso # (Auto) 0.1 Abs Immat Gran (auto) 0.14 H Absolute Neuts (auto) 17.8 H Absolute Nucleated RBC 0.000 Nucleated RBC % (auto) 0.0 Anion Gap 14 Estim Creat Clear Calc 89.5 Estimated GFR > 60 Random Glucose 170 H Lactic Acid 1.4 Calcium 9.4 Total Bilirubin 0.7 AST 17 ALT 14 Alkaline Phosphatase 98 Total Protein 7.9 Albumin 4.1 Influenza Type A (PCR) NEGATIVE Influenza Type B (PCR) NEGATIVE RSV RNA Qual (PCR) NEGATIVE SARS-CoV-2 RNA (RT-PCR) NEGATIVE Imaging Radiologist's Impressions: Impressions Chest X-Ray 05/27/24 08:54 IMPRESSION: Bilateral bronchial wall thickening which can be seen with reactive airways disease. Patchy opacities in the right mid and lower lung, concerning for developing infectious or inflammatory process. Electronically signed by: Rod Victoria MD 05/27/2024 09:14 AM [facility] [employer] Assessment and Plan (1) Sepsis: Status: Acute (2) Community acquired pneumonia: Status: Acute (3) COPD exacerbation: Status: Acute (4) Asthma with acute exacerbation: Qualifiers: Asthma persistence: persistent Asthma severity: severe Qualified Code(s): J45.51 - Severe persistent asthma with (acute) exacerbation Status: Acute (5) Obesity (BMI 30.0-34.9): Status: Acute Plan Patient is a 64-year-old female with a past medical history significant for moderate persistent asthma/COPD overlap syndrome not on home oxygen, cqk-ddnckjb-zydygkoyu diabetes, hypertension, and mixed hyperlipidemia, who presented to the ED today with cough and shortness of breath x2 days. Ddx: COPD/asthma exacerbation. pneumonia, PE, [place], URI, bronchitis sepsis secondary to CAP - CXR with RML and RLL pneumonia - WBC 20,000, lactic normal, blood cx x2 pending - covid/flu/RSV negative - ceftraixone and azithromycin started in ED, will continue - sepsis focused exam done - monitor CBC, BMP acute combined COPD/asthma exacerbation - wheezing on exam initially with improvement with duoneb - will switch to levalbuterol due to tachycardia with ipratroprium Q4H while awake - given solumedrol 60mg in ED, transition to prednisone 40mg QD tomorrow - given IV mag in ED NIDDM - sliding scale insulin - POCs, diabetic diet HTN - no home meds HLD - continue statin full code VTE prophy: lovenox Patient with sepsis secondary to community-acquired pneumonia complicated by acute combined COPD/asthma exacerbation, admission for at least 2 midnights stay for IV antibiotics, breathing treatments and monitoring. Quality Stroke Does the patient have a stroke diagnosis?: No VTE Prior VTE?: No VTE Risk Level:: Medical - moderate - high VTE Device Contraindication: Treatment Not Indicated VTE Drug Contraindication: N/A - Med Ordered
[2024-05-27 14:28] LABS: Estimated Average Glucose 128 mg/dL; Hemoglobin A1C 120.1074 umol/L; Hemoglobin A1c % 6.1 % (<6.0); Total Hemoglobin (HGBA1C) 2818.6227 umol/L
[2024-05-27] MEDS: metFORMIN HCl 500 MG TABLET PO (14:28)
[2024-05-27] MEDS: Enoxaparin Sodium 40 MG/0.4 ML SYRINGE SUBCUT (14:29)
--- NOTE | 2024-05-27 15:09 | PHA.MEDREC ---
Addendum entered by Rand Bolton RPh 05/27/24 15:17: reviewed by [facility]. Original Note: Pharmacy Consult ? Medication Reconciliation Pharmacy has completed the medication reconciliation. Spoke to patient to confirm med list. patient states she is no longer on Symbicort, Celecoxib 200 mg, Flonase , and Oxybutynin 50 mg. patient confirmed Dupixent pen 300 mg [id number] is on Wednesdays last dose was 05/22/24 , however patient says most of the medication feel on the floor. Next dose is 06/05/24,
[2024-05-27] MEDS: Acetaminophen 325 MG TABLET 650 MG PO (15:15)
[2024-05-27] MEDS: levalbuterol HCL 1.25 MG, Ipratropium Bromide 0.5 MG INHALE ×2 (15:34→19:30)
--- NOTE | 2024-05-27 16:29 | PC.NURSE ---
this patient was supposed to go up to the floor upon this nurse taking over at 3pm, it was requested that pt have a poc done which was 216, pts rr equal/non labored- lungs diminished throughout, pt was previously medicated for fever, upon reassessment pt is currently afebrile, denies pain. worklist was completed by this nurse, call bajwa within reach, will continue to monitor
[2024-05-27 16:49] LABS: Glucose, Whole Blood 216 mg/dL (60-115)
[2024-05-27] MEDS: 0.9 % Sodium Chloride Flush 3 ML SYRINGE IVFLUSH (17:12)
[2024-05-27] MEDS: Insulin Lispro 100 UNIT/ML 3 ML VIAL SUBCUT ×2 (17:12→21:09)
[2024-05-27 20:08] LABS: Glucose, Whole Blood 174 mg/dL (60-115)
[2024-05-27] MEDS: Atorvastatin Calcium 20 MG TABLET PO (21:09)
[2024-05-28] VITALS (7 sets, daily range): BP systolic 121–138; BP diastolic 73–86; PULSE 91–109; RESP 16–20; TEMP 36–36.6; O2SAT 93–97
[2024-05-28] MEDS: traMADoL HCL 50 MG TABLET PO ×3 (00:40→21:30)
[2024-05-28] MEDS: 0.9 % Sodium Chloride Flush 3 ML SYRINGE IVFLUSH ×4 (00:41→21:32)
[2024-05-28 06:58] LABS: MANUAL DIFF FLAG NO
[2024-05-28 07:03] LABS: Basophils Percent Auto 0.2 % (0-2); Hematocrit 31.1 % (37.0-47.0); Hemoglobin 9.9 g/dl (12.0-16.0); Imm Gran Pct Auto 0.6 % (0.0-0.4); Lymphocytes Absolute Auto 1.6 X10*3/uL (1.2-4.9); Lymphocytes Percent Auto 9.5 % (20-40); Mean Corpuscular HGB Conc 31.8 g/dl (31.0-35.0); Mean Corpuscular Hemoglobin 25.7 pg (27.0-33.0); Mean Corpuscular Volume 80.8 fL (80.0-98.0); Mean Platelet Volume 10.1 fL (9.4-12.3); Monocytes Absolute Auto 1.1 X10*3/uL (0.1-1.2); Monocytes Percent Auto 6.3 % (2-11); Neutrophils Percent Auto 83.4 % (45-73); Platelet Count 279 X10*3/uL (160-400); Red Blood Count 3.85 X10*6/uL (4.20-5.50); Red Cell Distribution Width 15.6 % (11.0-16.0); White Blood Count 16.8 X10*3/uL (4.8-10.8)
[2024-05-28 07:14] LABS: Glucose, Whole Blood 147 mg/dL (60-115)
[2024-05-28 07:18] LABS: Anion Gap 13 (12-20); Blood Urea Nitrogen 18 mg/dL (9-16); Calcium 9.3 mg/dL (8.4-10.2); Carbon Dioxide 27 mmol/L (22-29); Chloride 104 mmol/L (96-108); Creatinine Clr Calc Pharmacy 102.8; Estimated Glomerular Filt Rate > 60; Glucose Random 144 mg/dL (60-115); Potassium 4.5 mmol/L (3.3-5.1); Sodium 139 mmol/L (135-145)
[2024-05-28] MEDS: predniSONE 20 MG TABLET 40 MG PO (07:56)
[2024-05-28] MEDS: Cholecalciferol (Vitamin D3) 10 MCG TABLET PO (07:56)
[2024-05-28] MEDS: Aspirin Enteric Coated 81 MG TABLET.DR PO (07:57)
[2024-05-28] MEDS: Loratadine 10 MG TABLET PO (07:57)
[2024-05-28] MEDS: Azithromycin 500 MG in 0.9 % Sodium Chloride 250 ML 125 MG IV (07:57)
[2024-05-28] MEDS: cefTRIAXone sodium 1 GM VIAL IVPUSH (07:58)
[2024-05-28] MEDS: levalbuterol HCL 1.25 MG, Ipratropium Bromide 0.5 MG INHALE ×3 (08:38→20:33)
--- NOTE | 2024-05-28 09:27 | P.PNIM_ITS ---
Subjective Subjective Date of Service: 05/28/24 Interval History: Feeling better, shortness of breath improved. Mild intermittent wheezing. Still with mild right-sided headache, also right sided chest pain which started as pain in the back radiating to the right mid lateral chest. Mild intermittent cough. No hemoptysis. No fever, chills, nausea, or vomiting. No overnight events. Constitutional Constitutional: Denies chills, Denies fatigue, Denies fever(s) and Reports headache(s) Eyes Eyes: Denies change in vision ENT Ears, Nose, Mouth, and Throat: Reports headache(s), Denies nasal congestion and Denies nasal discharge Cardiovascular Cardiovascular: Reports chest pain (right sided), Denies rapid heart rate, Denies leg edema and Reports dyspnea on exertion Respiratory Respiratory: Reports dyspnea on exertion Gastrointestinal Gastrointestinal: Denies constipation, Denies diarrhea, Denies nausea and Denies vomiting Genitourinary Genitourinary: Denies dysuria Musculoskeletal Musculoskeletal: Reports back pain Integumentary/Breasts Skin/Breast: Denies rash Neurologic Neurologic: Denies confusion, Reports headache(s) and Denies memory loss Psychiatric Psychiatric: Denies confusion and Denies memory loss Endocrine Endocrine: Denies fatigue Physical Exam 2 Vital Signs: Vital Signs: Last Vital Signs Temp 97.8 F 05/28/24 07:09 Pulse 97 05/28/24 08:41 Resp 18 05/28/24 08:41 BP 138/86 05/28/24 07:09 Pulse Ox 93 05/28/24 07:09 O2 Del Method Room Air 05/28/24 07:09 BMI result Body Mass Index 33.4 General: AOx3, no acute distress Resp: mild wheezing bilaterally. crackles RLL. CVS: tachycardic, regular rhythm. pain with palpation R lateral mid chest. GI: +BS, NT, no distention Skin: Warm, dry Neuro: Cranial nerves II-XII grossly intact bilaterally. Motor grossly intact bilaterally Extremities: No edema Psych: Appropriate affect Const: General: No confusion Orientation/consciousness: No confusion Neuro: General: No confusion Objective Data Active Medications Acetaminophen (Acetaminophen 325 Mg Tablet) 650 mg PO Q6H PRN PRN Reason: Pain, Mild (Pain Scale 1-3), fever or headache Last Admin: 05/27/24 15:15 Dose: 650 mg Documented By: FRANCISCO Aspirin (Aspirin Enteric Coated 81 Mg Tablet.) 81 mg PO DAILY [facility] Last Admin: 05/28/24 07:57 Dose: 81 mg Documented By: TRACEY Atorvastatin Calcium (Atorvastatin Calcium 20 Mg Tablet) 20 mg PO BEDTIME [facility] Last Admin: 05/27/24 21:09 Dose: 20 mg Documented By: INDU Calcium Carbonate (Calcium Carbonate 750 Mg Tab.Chew) 750 mg PO Q4H PRN PRN Reason: Heartburn Ceftriaxone Sodium (Ceftriaxone Sodium 1 Gm Vial) 1 gm IVPUSH DAILY [facility] Last Admin: 05/28/24 07:58 Dose: 1 gm Documented By: TRACEY Levalbuterol HCl 1.25 mg/ (Ipratropium [place] 0.5 mg) 0 mg INHALE RQ4H WHILE AWAKE [facility] Last Admin: 05/28/24 08:38 Dose: 1 dose Documented By: GINETTE Enoxaparin Sodium (Enoxaparin Sodium 40 Mg/0.4 Ml Syringe) 40 mg SUBCUT Q24H [facility] Last Admin: 05/27/24 14:29 Dose: 40 mg Documented By: FRANCISCO Glucose (Glucose Gel 15 Gm Gel..Gram.) 15 gm PO Q15M PRN; Protocol PRN Reason: per Hypoglycemia Standing Ord. Azithromycin 500 mg/ Sodium (Chloride) 250 mls @ 125 mls/hr IV DAILY [facility] Last Admin: 05/28/24 07:57 Dose: 125 mls/hr Documented By: TRACEY Dextrose (D10) 250 mls @ 750 mls/hr IV Q15M PRN; Protocol PRN Reason: per Hypoglycemia Standing Ord. Insulin Human Lispro (Insulin Lispro 100 Unit/Ml 3 Ml Vial) 0 unit SUBCUT QIDACHS [facility]; Protocol Last Admin: 05/28/24 08:34 Dose: Not Given Documented By: TRACEY Non-Admin Reason: No Insulin Coverage Loratadine (Loratadine 10 Mg Tablet) 10 mg PO DAILY [facility] Last Admin: 05/28/24 07:57 Dose: 10 mg Documented By: TRACEY Magnesium Hydroxide (Milk Of Magnesia 30 Ml Oral.Susp) 30 ml PO DAILY PRN PRN Reason: Constipation Melatonin (Melatonin 3 Mg Tablet) 6 mg PO BEDTIME PRN PRN Reason: Insomnia Morphine Sulfate (Morphine Sulfate 4 Mg/Ml Cartridge) 2 mg IVPUSH Q6H PRN; Protocol PRN Reason: Pain, Severe (Pain Scale 7-10) Ondansetron HCl (Ondansetron Hcl 4 Mg/2 Ml Vial) 4 mg IVPUSH Q8H PRN PRN Reason: Nausea and Vomiting Oxycodone HCl (Oxycodone Hcl Immed Release 5 Mg Tablet) 5 mg PO Q6H PRN PRN Reason: Pain, Moderate(Pain Scale 4-6) Prednisone (Prednisone 20 Mg Tablet) 40 mg PO DAILY [facility] Stop: 06/02/24 08:59 Last Admin: 05/28/24 07:56 Dose: 40 mg Documented By: TRACEY Sodium Chloride (0.9 % Sodium Chloride Flush 3 Ml Syringe) 3 ml IVFLUSH QSHIFT [facility] Last Admin: 05/28/24 07:58 Dose: 3 ml Documented By: TRACEY Tramadol HCl (Tramadol Hcl 50 Mg Tablet) 50 mg PO TID PRN PRN Reason: Pain, Moderate(Pain Scale 4-6) Last Admin: 05/28/24 00:40 Dose: 50 mg Documented By: INDU Vitamin D (Cholecalciferol (Vitamin D3) 10 Mcg Tablet) 10 mcg PO DAILY [facility] Last Admin: 05/28/24 07:56 Dose: 10 mcg Documented By: TRACEY Labs 05/28/24 05:22 05/28/24 05:22 Labs: Laboratory Results - last 24 hr 05/27/24 05/27/24 05/27/24 08:31 09:37 16:21 MCV MCH MCHC RDW Plt Count MPV Immature Gran % (Auto) Neut % (Auto) Lymph % (Auto) [place] % (Auto) Eos % (Auto) Baso % (Auto) Lymph # (Auto) [place] # (Auto) Eos # (Auto) Baso # (Auto) Abs Immat Gran (auto) Absolute Neuts (auto) Absolute Nucleated RBC Nucleated RBC % (auto) Anion Gap Estim Creat Clear Calc Estimated GFR POC Glucose 216 H Random Glucose Estimat Average Glucose 128 Hemoglobin A1c % 6.1 H Lactic Acid 1.4 Calcium 05/27/24 05/28/24 05/28/24 20:04 05:22 07:08 MCV 80.8 MCH 25.7 L MCHC 31.8 RDW 15.6 Plt Count 279 MPV 10.1 Immature Gran % (Auto) 0.6 H Neut % (Auto) 83.4 H Lymph % (Auto) 9.5 L [place] % (Auto) 6.3 Eos % (Auto) 0.0 Baso % (Auto) 0.2 Lymph # (Auto) 1.6 [place] # (Auto) 1.1 Eos # (Auto) 0.0 Baso # (Auto) 0.0 Abs Immat Gran (auto) 0.10 H Absolute Neuts (auto) 14.0 H Absolute Nucleated RBC 0.000 Nucleated RBC % (auto) 0.0 Anion Gap 13 Estim Creat Clear Calc 102.8 Estimated GFR > 60 POC Glucose 174 H 147 H Random Glucose 144 H Estimat Average Glucose Hemoglobin A1c % Lactic Acid Calcium 9.3 Assessment and Plan (1) Sepsis: Status: Acute (2) Community acquired pneumonia: Status: Acute (3) COPD exacerbation: Status: Acute (4) Asthma with acute exacerbation: Status: Acute (5) Obesity (BMI 30.0-34.9): Status: Chronic Plan Patient is a 64-year-old female with a past medical history significant for moderate persistent asthma/COPD overlap syndrome not on home oxygen, spf-fvxzdrx-[id number] diabetes, hypertension, and mixed hyperlipidemia, who was admitted for sepsis secondary to community-acquired pneumonia and acute combined COPD/asthma exacerbation. sepsis secondary to CAP - improvement - CXR with RML and RLL pneumonia - WBC improving, blood cultures x2 pending - covid/flu/RSV negative - continue ceftraixone and azithromycin - sepsis focused exam done - monitor CBC, BMP acute combined COPD/asthma exacerbation - improving - improvement with breathing treatments - continue levalbuterol with ipratroprium Q4H while awake - prednisone 40mg QD Right-sided chest pain - reproducible on exam, likely musculoskeletal - tachycardia likely secondary to sepsis and medications NIDDM - sliding scale insulin - POCs, diabetic diet HTN - no home meds HLD - continue statin full code VTE prophy: lovenox Patient with sepsis secondary to community-acquired pneumonia complicated by acute combined COPD/asthma exacerbation, with continued need for admission for IV antibiotics, breathing treatments and monitoring. Quality Stroke Does the patient have a stroke diagnosis?: No VTE Prior VTE?: No VTE Risk Level:: Medical - moderate - high VTE Device Contraindication: Treatment Not Indicated VTE Drug Contraindication: N/A - Med Ordered
[2024-05-28 11:17] LABS: Glucose, Whole Blood 146 mg/dL (60-115)
--- NOTE | 2024-05-28 14:19 | MHC.CM.PN ---
IMM delivered. 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 Functionally independent. Denies use of services. Has a nebulizer. PCP Angy Veliz MD HCP on file and verified DP: Goal is home self care, friend to transport. CM will continue to follow.
[2024-05-28] MEDS: Enoxaparin Sodium 40 MG/0.4 ML SYRINGE SUBCUT (14:27)
[2024-05-28 16:20] LABS: Glucose, Whole Blood 226 mg/dL (60-115)
[2024-05-28] MEDS: Insulin Lispro 100 UNIT/ML 3 ML VIAL SUBCUT ×2 (16:53→21:30)
[2024-05-28 20:15] LABS: Glucose, Whole Blood 171 mg/dL (60-115)
[2024-05-28] MEDS: Atorvastatin Calcium 20 MG TABLET PO (21:30)
[2024-05-29 03:13] VITALS: BP 130/80; PULSE 76; RESP 16; TEMP 36; O2SAT 96
[2024-05-29 07:04] LABS: MANUAL DIFF FLAG NO
[2024-05-29 07:12] LABS: Basophils Percent Auto 0.3 % (0-2); Eosinophils Absolute Auto 0.1 X10*3/uL (0.0-0.4); Eosinophils Percent Auto 0.7 % (0-4); Hematocrit 29.7 % (37.0-47.0); Hemoglobin 9.3 g/dl (12.0-16.0); Imm Gran Abs Auto 0.08 X10*3/uL (0.00-0.03); Imm Gran Pct Auto 0.7 % (0.0-0.4); Lymphocytes Percent Auto 24.4 % (20-40); Mean Corpuscular HGB Conc 31.3 g/dl (31.0-35.0); Mean Corpuscular Hemoglobin 25.5 pg (27.0-33.0); Mean Corpuscular Volume 81.4 fL (80.0-98.0); Monocytes Absolute Auto 0.9 X10*3/uL (0.1-1.2); Monocytes Percent Auto 7.3 % (2-11); Neutrophils Absolute Auto 8.1 x10*3/uL (2.0-8.3); Neutrophils Percent Auto 66.6 % (45-73); Platelet Count 268 X10*3/uL (160-400); Red Blood Count 3.65 X10*6/uL (4.20-5.50); Red Cell Distribution Width 15.4 % (11.0-16.0); White Blood Count 12.2 X10*3/uL (4.8-10.8)
[2024-05-29 07:13] LABS: Glucose, Whole Blood 91 mg/dL (60-115)
[2024-05-29 07:16] VITALS: BP 135/79; PULSE 84; RESP 16; TEMP 37.2; O2SAT 93
[2024-05-29 07:29] LABS: Anion Gap 14 (12-20); Blood Urea Nitrogen 23 mg/dL (9-16); Calcium 9.2 mg/dL (8.4-10.2); Carbon Dioxide 26 mmol/L (22-29); Chloride 104 mmol/L (96-108); Creatinine Clr Calc Pharmacy 96.6; Estimated Glomerular Filt Rate > 60; Glucose Random 96 mg/dL (60-115); Potassium 3.9 mmol/L (3.3-5.1); Sodium 140 mmol/L (135-145)
[2024-05-29] MEDS: Azithromycin 500 MG in 0.9 % Sodium Chloride 250 ML 125 MG IV (07:31)
[2024-05-29] MEDS: predniSONE 20 MG TABLET 40 MG PO (07:34)
[2024-05-29] MEDS: oxyCODONE HCl Immed Release 5 MG TABLET PO (07:35)
[2024-05-29] MEDS: Loratadine 10 MG TABLET PO (07:35)
[2024-05-29] MEDS: cefTRIAXone sodium 1 GM VIAL IVPUSH (07:35)
[2024-05-29] MEDS: Aspirin Enteric Coated 81 MG TABLET.DR PO (07:35)
[2024-05-29] MEDS: Cholecalciferol (Vitamin D3) 10 MCG TABLET PO (07:35)
[2024-05-29] MEDS: levalbuterol HCL 1.25 MG, Ipratropium Bromide 0.5 MG INHALE (08:21)
[2024-05-29 08:22] VITALS: PULSE 84; RESP 16; O2SAT 96
--- NOTE | 2024-05-29 09:39 | P.DS_ITS ---
DS: Providers Provider Date of Service: 05/29/24 Date of admission: 05/27/24 13:44 Date of discharge: 05/29/24 Primary care physician: Angy Veliz MD DS: Diagnosis Discharge Diagnosis (1) Sepsis: Status: Acute (2) Community acquired pneumonia: Status: Acute (3) COPD exacerbation: Status: Acute (4) Asthma with acute exacerbation: Status: Acute (5) Obesity (BMI 30.0-34.9): Status: Chronic DS: Summary Hospital Course Hospital Course: Admission H&P: Patient is a 64-year-old female with a past medical history significant for moderate persistent asthma/COPD overlap syndrome not on home oxygen, [id number] diabetes, hypertension, and mixed hyperlipidemia, who presented to the ED today with cough and shortness of breath x2 days. She reports weakness and right sided chest pain as well. She denies any recent sick contacts. She has been using her nebulizer at home every 4 hours with mild improvement. She reports a subjective fever of 104 at home. She also complains of a right-sided headache. She denies any congestion, runny nose, sore throat, nausea, vomiting, or diarrhea. Hospital course: Patient presented with shortness of breath when admitted due to sepsis secondary to pneumonia and acute combined COPD/asthma exacerbation, treated with steroids, bronchodilators with nebs, doxycycline and azithromycin for pneumonia. Improved over the past few days, leukocytosis improved and no fevers in the past 48 hours. No respiratory difficulty, would like to go home today. We will send home with prednisone 40 mg q.d. for 3 more days to complete a course of 5 days, doxycycline 100 mg b.i.d. for 3 more days to complete a course of 5 days for pneumonia and azithromycin 250 mg q.d. for 3 more days. Continue home inhalers and nebulizer treatments. Status at Discharge Functional status at discharge: independent ambulation Overall status at discharge: patient is progressing back to baseline Time Attestation Discharge Coordination Time (in mins): 40 Quality: Safe Use of Opioids Does Pt have an Active Cancer Diagnosis on the Problem List?: No Quality: Stroke Does the patient have a stroke diagnosis?: No Physical Exam Vital Signs: Vital Signs: Last Vital Signs Temp 99.0 F 05/29/24 07:16 Pulse 84 05/29/24 08:22 Resp 16 05/29/24 08:22 BP 135/79 05/29/24 07:16 Pulse Ox 93 05/29/24 07:16 O2 Del Method Room Air 05/29/24 07:16 BMI result Body Mass Index 33.4 General: AOx3, no acute distress Resp: mild inspiratory wheezing bilaterally CVS: S1, S2, RRR GI: +BS, NT, no distention Skin: Warm, dry Extremities: No edema Psych: Appropriate affect DS: Data Data Completed and Pending Completed studies during hospitalization [Text1]: Procedures Introduction of Anesthetic Agent into Peripheral Nerves and Plexi, Percutaneous Approach (01/31/23) Replacement of Right Knee Joint with Synthetic Substitute, Uncemented, Open Approach (01/31/23) Labs on day of discharge: Laboratory Results - last 24 hr 05/28/24 05/28/24 05/28/24 11:13 16:14 20:10 WBC RBC Hgb Hct MCV MCH MCHC RDW Plt Count MPV Immature Gran % (Auto) Neut % (Auto) Lymph % (Auto) [place] % (Auto) Eos % (Auto) Baso % (Auto) Lymph # (Auto) [place] # (Auto) Eos # (Auto) Baso # (Auto) Abs Immat Gran (auto) Absolute Neuts (auto) Absolute Nucleated RBC Nucleated RBC % (auto) Sodium Potassium Chloride Carbon Dioxide Anion Gap BUN Creatinine Estim Creat Clear Calc Estimated GFR POC Glucose 146 H 226 H 171 H Random Glucose Calcium 05/29/24 05/29/24 05:44 07:05 WBC 12.2 H RBC 3.65 L Hgb 9.3 L Hct 29.7 L MCV 81.4 MCH 25.5 L MCHC 31.3 RDW 15.4 Plt Count 268 MPV 10.0 Immature Gran % (Auto) 0.7 H Neut % (Auto) 66.6 Lymph % (Auto) 24.4 [place] % (Auto) 7.3 Eos % (Auto) 0.7 Baso % (Auto) 0.3 Lymph # (Auto) 3.0 [place] # (Auto) 0.9 Eos # (Auto) 0.1 Baso # (Auto) 0.0 Abs Immat Gran (auto) 0.08 H Absolute Neuts (auto) 8.1 Absolute Nucleated RBC 0.000 Nucleated RBC % (auto) 0.0 Sodium 140 Potassium 3.9 Chloride 104 Carbon Dioxide 26 Anion Gap 14 BUN 23 H Creatinine 0.67 Estim Creat Clear Calc 96.6 Estimated GFR > 60 POC Glucose 91 Random Glucose 96 Calcium 9.2 Preliminary micro results at discharge 05/27/24 09:37 Blood Culture - Preliminary Blood - Venous No growth after 24 hours. 05/27/24 09:37 Blood Culture - Preliminary Blood - Venous No growth after 24 hours. Discharge Plan Discharge Anticipated Discharge Date/Time: 05/29/24 09:53 Patient Disposition: Home, Self-Care Discharge Diagnosis: sepsis secondary to pneumonia and acute combined C OPD/asthma exacerbation Referrals: Angy Pichardo MD [Primary Care Provider] - 1 Week Discharge Medications: New prednisone 20 mg Tablet 40 mg PO DAILY Qty: 3 0RF ipratropium-albuterol 0.5 mg-3 mg(2.5 mg base)/3 mL solution for nebulization 3 ml inhalation Q4H PRN (Reason: shortness of breath or wheezing) Qty: 270 0RF Rx Instructions: until breathing returns to target peak flow/parameters azithromycin 250 mg tablet 250 mg PO DAILY Qty: 3 0RF cefuroxime axetil 500 mg tablet 500 mg PO BID Qty: 6 0RF Continued acetaminophen 325 mg Tablet 650 mg PO Q6H PRN (Reason: Pain, Mild (Pain Scale 1-3)) 30 Days Qty: 240 0RF fluticasone furoate-vilanterol 200-25 mcg/dose blister with device 1 ea INHALATION DAILY Dupixent Pen 300 mg/2 mL pen injector 300 mg subcut Q2W Rx Instructions: Wednesdays next dose 06/05/24 albuterol sulfate 2.5 mg /3 mL (0.083 %) solution for nebulization 2.5 mg inhalation Q6H PRN (Reason: Shortness Of Breath) levalbuterol tartrate [Xopenex HFA] 45 mcg/actuation HFA aerosol inhaler 2 puff inhalation Q4-6H PRN (Reason: shortness of breath or wheezing) Qty: 15 3RF aspirin 81 mg Tablet,Delayed Release (Dr/Ec) 81 mg PO DAILY cholecalciferol (vitamin D3) 10 mcg (400 unit) Capsule 10 mcg PO DAILY loratadine 10 mg tablet 10 mg PO DAILY tramadol 50 mg tablet 50 mg PO TID PRN (Reason: Pain) (DME) lancets [FreeStyle Lancets] 28 gauge misc See Rx Instructions topical DAILY Qty: 100 Rx Instructions: As directed (DME) blood-glucose meter [FreeStyle [place] Lite] Kit See Rx Instructions .ROUTE DAILY Qty: 1 Rx Instructions: As directed (DME) FreeStyle Lite Strips Strip See Rx Instructions Not Applicable DAILY Qty: 10 Rx Instructions: As directed atorvastatin 20 mg tablet 20 mg PO BEDTIME metformin 500 mg tablet 500 mg PO BID Discharge Orders: Discharge Order (Routine); Ordered 05/29/24 Ordered By: Laurence Bellamy Diet: Regular diet Activity on Discharge: As tolerated Stand Alone Forms: Patient Portal Discharge page Print Language: Congolese Care Plan Goals: recovery from sepsis secondary to pneumonia and acute exacerbation of COPD/asthma Health Concerns: sepsis, pneumonia, COPD/asthma exacerbation Plan of Treatment: Take prednisone 40 mg daily for 3 more days starting tomorrow Take azithromycin 500 mg daily for 3 more days starting tomorrow Take cefuroxime 500 mg twice a day starting tomorrow Take albuterol/ipratropium nebulizer treatments every 4 hours as needed for wheezing or shortness of breath Continue home inhalers Follow-up with PCP in 1-2 weeks Assessment: See above Patient Instructions: Pneumonia (DC) Discharge Date/Time: 05/29/24 10:33
--- NOTE | 2024-05-29 10:28 | MHC.CM.PN ---
Per MD rounds, patient medically cleared for dc home self care. Private transport. Can utilize dc lounge. RN aware.
== END 2024-05-29 10:33 | disposition home or self-care (01) | DRG 871 ==
LOC: HO.ED 12:23 → HO.EDOVER 13:46 → HO.S3 14:28
PROVIDERS: Registered Nurse Emergency; Admitting Provider Physician Assistant; Emergency Provider Emergency Medicine; PCP Internal Medicine; Visit Provider Physician Assistant
DX: A41.9 Sepsis, unspecified organism (principal); J18.9 Pneumonia, unspecified organism; J44.0 Chronic obstructive pulmonary disease with (acute) lower respiratory infection; J44.1 Chronic obstructive pulmonary disease with (acute) exacerbation; J45.51 Severe persistent asthma with (acute) exacerbation; E78.2 Mixed hyperlipidemia; E11.9 Type 2 diabetes mellitus without complications; J45.40 Moderate persistent asthma, uncomplicated; Z20.822 Contact with and (suspected) exposure to COVID-19; Z79.51 Long term (current) use of inhaled steroids; Z79.82 Long term (current) use of aspirin; Z79.84 Long term (current) use of oral hypoglycemic drugs; Z79.899 Other long term (current) drug therapy
CPT/HCPCS: 0241U; 36415; 71045; 80048; 80053; 82947; 83036; 83605; 85025; 87040; 93005; 94640; 99285; J0456; J0696; J1650; J2919; J3475

== ENCOUNTER → 2024-05-27 10:04 | Outpatient (BNV) | payer OTHER, SELFPAY | PROVIDERS: Admitting Provider Physician Assistant; Emergency Provider Emergency Medicine; PCP Internal Medicine; Visit Provider Internal Medicine Cardiovascular Disease | DX: R06.02 Shortness of breath (principal); R00.0 Tachycardia, unspecified; R94.31 Abnormal electrocardiogram [ECG] [EKG] | CPT/HCPCS: 93010 ==

== ENCOUNTER → 2024-05-27 13:44 | Outpatient (BNV) | payer OTHER, SELFPAY | PROVIDERS: Admitting Provider Physician Assistant; Emergency Provider Emergency Medicine; PCP Internal Medicine; Visit Provider Physician Assistant | DX: A41.9 Sepsis, unspecified organism (principal); J44.1 Chronic obstructive pulmonary disease with (acute) exacerbation; J45.51 Severe persistent asthma with (acute) exacerbation; J18.9 Pneumonia, unspecified organism; E66.811 Obesity, class 1; Z68.33 Body mass index [BMI] 33.0-33.9, adult | CPT/HCPCS: 99223; 99232; 99239 ==

== ENCOUNTER 2024-06-11 08:28 | Emergency (ER) | payer OTHER, SELFPAY ==
--- NOTE | ~2024-06-11 | XR_ITS ---
EXAMINATION: XR FOOT, LEFT CLINICAL INFORMATION: foot pain on top of foot. Denies trauma COMPARISON: None available. TECHNIQUE: AP, lateral, and oblique views of the left foot. FINDINGS: The bones are diffusely demineralized. Small plantar and dorsal calcaneal spurs. The bones are diffusely demineralized. Degenerative changes with hypertrophic change of the tarsometatarsal joints. Radiopaque marker placed by technologist to indicate the area of concern as indicated by the patient along the dorsal aspect of the metatarsals. XR/XR foot LT 2V IMPRESSION: Normal left foot. Electronically signed by: Nicol Daily MD 06/11/2024 11:13 AM [facility]
[2024-06-11 08:43] VITALS: BP 131/83; PULSE 93; RESP 20; TEMP 36.1; O2SAT 96; BMI 34.2
--- NOTE | 2024-06-11 10:01 | ED_ITS ---
HPI - Extremity Injury (Lower) General Chief Complaint: Extremity Injury, Lower Stated Complaint: Foot pain Time Seen by Provider: 06/11/24 09:03 Source: patient Mode of arrival: ambulatory Limitations: no limitations History of Present Illness ED Provider: DAPHNE NGO PA-C HPI Narrative: 64 year old female with pmhx significant for asthma/ COPD, T2DM presents to the ED today for evaluation of painful bump to the top of her left foot x2 days. Reports surrounding erythema. Reports pain is exacerbated with wearing her shoes. No radiation of pain. Denies known injury or trauma. Denies known insect or tick bite. Denies numbness, tingling, weakness of the LEs. Denies fever, chills. Related Data Home Medications ?Medication ?Instructions ?Recorded ?Confirmed blood sugar diagnostic (FreeStyle #10 ea 01/20/22 05/28/24 Lite Strips) blood-glucose meter (FreeStyle #1 ea 01/20/22 05/28/24 [place] Lite kit) lancets 28 gauge (FreeStyle #100 ea 01/20/22 05/28/24 Lancets) loratadine 10 mg tablet 10 mg PO DAILY 01/20/22 05/27/24 tramadol 50 mg tablet 50 mg PO TID PRN Pain 01/20/22 05/27/24 atorvastatin 20 mg tablet 20 mg PO BEDTIME 11/14/22 05/27/24 metformin 500 mg tablet 500 mg PO BID 04/06/23 05/27/24 aspirin 81 mg tablet,delayed 81 mg PO DAILY 02/16/24 05/27/24 release cholecalciferol (vitamin D3) 10 10 mcg PO DAILY 02/16/24 05/27/24 mcg (400 unit) capsule albuterol sulfate 2.5 mg/3 mL 2.5 mg inhalation Q6H PRN 05/27/24 05/27/24 (0.083 %) solution for nebulization Shortness Of Breath dupilumab 300 mg/2 mL subcutaneous 300 mg subcut Q2W 05/27/24 05/27/24 pen injector (Dupixent) fluticasone furoate 200 1 ea inhalation DAILY 05/27/24 05/27/24 mcg-vilanterol 25 mcg/dose inhalation powder Previous Rx's ?Medication ?Instructions ?Recorded acetaminophen 325 mg tablet 650 mg (2 x 325 mg) PO Q6H PRN 01/31/23 Pain, Mild (Pain Scale 1-3) 30 days #240 tabs azithromycin 250 mg tablet 250 mg PO DAILY #3 tabs 05/29/24 cefuroxime axetil 500 mg tablet 500 mg PO BID #6 tabs 05/29/24 ipratropium 0.5 mg-albuterol 3 mg 3 ml inhalation Q4H PRN shortness 05/29/24 (2.5 mg base)/3 mL nebulization of breath or wheezing #270 mL soln levalbuterol tartrate 45 2 puff inhalation Q4-6H PRN 05/29/24 mcg/actuation aerosol inhaler shortness of breath or wheezing (Xopenex HFA) #15 grams prednisone 20 mg tablet 40 mg (2 x 20 mg) PO DAILY #3 tabs 05/29/24 doxycycline hyclate 100 mg tablet 100 mg PO BID 7 days #14 tabs 06/11/24 Allergies Allergy/AdvReac Type Severity Reaction Status Date / Time ibuprofen [IBUPROFEN] Allergy Intermediate exacerbates Verified 06/11/24 08:44 asthma oxaprozin [From DAYPRO] Allergy Intermediate exacerbates Verified 06/11/24 08:44 asthma Penicillins [PCN] Allergy Intermediate RASH Verified 06/11/24 08:44 Review of Systems 2 Review of Systems: Constitutional: No fever, chills, fatigue, night sweats, weight changes ENT/Mouth: No ear pain, hearing loss, nasal congestion, sinus pain, rhinorrhea, sore throat Eyes: No eye pain, swelling, redness, vision changes, discharge Cardio: No chest pain, palpitations, SEE, orthopnea, peripheral edema Pulm: No SOB, cough, sputum, wheezing, dyspnea, hemoptysis GI: No nausea, vomiting, hematemesis, abdominal pain, diarrhea, constipation, hematochezia, melena : No irregular bleeding, dysuria, frequency, urgency, hesitancy, hematuria, flank pain, urinary flow changes, urinary incontinence or retention MSK: No back pain, neck pain, joint pain, myalgias Skin: No lesions, rashes +redness/swelling to L foot Neuro: No weakness, numbness, paresthesias, LOC, dizziness, headache Psych: No anxiety/panic, depression, SI/HI, AH/VH All other systems reviewed and are negative. PMFSH Past Medical History Attestation statement: The following information was validated with the patient. Source: old records reviewed and nursing notes reviewed Medical History COPD (chronic obstructive pulmonary disease) Diabetes Steatosis, liver Elevated cholesterol HTN (hypertension) Asthma Osteoarthritis Osteoarthritis of right knee Headache Surgical History Hx of bilateral cataract extraction Hx of section Hx of laparoscopic gastric banding H/O colonoscopy Social History Social History Household Members: Family Housing: Apartment Are you a primary residential child care counselor to a significant other at home: No Do you presently have visiting nurse or other home services: No Unable to assess alcohol history related to: Unknown Patient Tobacco Use Status: Former Tobacco user Tobacco use type: Cigarette Years Smoked: 35 Second Hand Smoke Exposure: No Advance Directives: Yes Advance Directives Information Provided: No Advance Directives on File: No Do you have a plan to hurt others: No Plan service: No Current occupational status: employed 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 Afebrile. General: Well appearing, in no acute distress. Skin: Warm, dry, intact. No rashes or lesions. Head: Normocephalic, atraumatic. EENT: Hearing is intact b/l. Conjunctiva clear. Sclera is anicteric. PERRLA. EOM intact. Moist mucous membranes.? Cardiac: Chest wall symmetric. RRR Lungs: Normal respiratory effort without accessory muscle use Ext: + left ankle/ foot without joint effusion. small 1cm area of induration and erythema noted to dorsum of left foot, warm. ttp. no palpable deformities. no pointing, no fluctuance. full ROM intact to ankle of left lower extremity. strength 5/5 intact throughout. sensation intact to light touch. 2+ dp/pt pulses. cap refill <2 seconds. no calf tenderness. no pitting edema. Neuro: AOx3. Normal speech. Ambulating with steady gait. Psych: Appropriate mood and affect. Responds appropriately to questions. Course Course Course Narrative: 1130 -- CBC without leukocytosis or left shift. H&H around baseline and above transfusion threshold. Normocytic anemia when compared to priors. Chemistry without acute electrolyte abnormality requiring intervention. No NATALIYA. Normal liver function. Uric acid WNL. Gout unlikely. X-ray of left foot without fracture. No evidence of osteomyelitis. > exam consistent with overlying skin infection. no evidence of abscess. Will treat for cellulitis. Doxycycline sent to pharmacy for treatment. Advised to take Tylenol and ibuprofen at home for pain/discomfort. Patient has remained stable throughout ED visit today. Discussed worrisome signs and symptoms and when to return to the ED. All questions answered at this time. Patient is agreeable with disposition and stable for discharge. Medical Decision Making Medical Decision Making [facility] Narrative: 64 year old female with pmhx significant for asthma/ COPD, T2DM presents to the ED today for evaluation of painful bump to the top of her left foot x2 days. Vital signs stable. afebrile. she is nontoxic appearing and in NAD. On exam, left ankle/ foot without joint effusion. small 1cm area of induration and erythema noted to dorsum of left foot, warm. ttp. no palpable deformities. no pointing, no fluctuance. full ROM intact to ankle of left lower extremity. strength 5/5 intact throughout. sensation intact to light touch. 2+ dp/pt pulses. cap refill <2 seconds. no calf tenderness. no pitting edema. Differential diagnosis includes cellulitis, arthritis, fracture, gout, pseudo gout, tendonitis, plantar fasciitis. Unlikely NV compromise, threat to limb, compartment syndrome. Plan for labs, imaging, pain control, re-evaluation. Differential Diagnosis Differential Diagnoses: The differential diagnosis associated with the presentation includes as above. Admission/Observation Not indicated. Lab Data [facility] Lab Attestation statement: I reviewed the patient's lab results. as above. 06/11/24 10:23 06/11/24 10:23 Labs: Lab Results 06/11/24 Range/Units 10:23 WBC 7.5 (4.8-10.8) X10*3/uL RBC 3.88 L (4.20-5.50) X10*6/uL Hgb 9.8 L (12.0-16.0) g/dl Hct 31.9 L (37.0-47.0) % MCV 82.2 (80.0-98.0) fL MCH 25.3 L (27.0-33.0) pg MCHC 30.7 L (31.0-35.0) g/dl RDW 15.9 (11.0-16.0) % Plt Count 333 (160-400) X10*3/uL MPV 9.0 L (9.4-12.3) fL Immature Gran % (Auto) 0.1 (0.0-0.4) % Neut % (Auto) 60.8 (45-73) % Lymph % (Auto) 26.4 (20-40) % [place] % (Auto) 8.7 (2-11) % Eos % (Auto) 3.1 (0-4) % Baso % (Auto) 0.9 (0-2) % Lymph # (Auto) 2.0 (1.2-4.9) X10*3/uL [place] # (Auto) 0.7 (0.1-1.2) X10*3/uL Eos # (Auto) 0.2 (0.0-0.4) X10*3/uL Baso # (Auto) 0.1 (0.0-0.2) X10*3/uL Abs Immat Gran (auto) 0.01 (0.00-0.03) X10*3/uL Absolute Neuts (auto) 4.6 (2.0-8.3) x10*3/uL Absolute Nucleated RBC 0.000 (0.0-0.012) X10*3/uL Nucleated RBC % (auto) 0.0 (0.0-0.2) /100WBC Sodium 137 (135-145) mmol/L Potassium 4.3 (3.3-5.1) mmol/L Chloride 103 (96-108) mmol/L Carbon Dioxide 27 (22-29) mmol/L Anion Gap 11 L (12-20) BUN 13 (9-16) mg/dL Creatinine 0.63 (0.5-1.4) mg/dL Estim Creat Clear Calc 104.0 Estimated GFR > 60 Random Glucose 104 (60-115) mg/dL Uric Acid 4.0 (2.4-5.7) mg/dL Calcium 9.1 (8.4-10.2) mg/dL Total Bilirubin 0.5 (0.0-1.0) mg/dL AST 26 (5-31) U/L ALT 17 (0-31) U/L Alkaline Phosphatase 90 (39-117) U/L Total Protein 7.0 (6.5-8.0) g/dL Albumin 3.8 (3.5-5.0) g/dL Independent Interpretation I performed an independent interpretation of an: Plain X-Ray Interpretation: XR left foot w/o fracture Radiology Impression Discussion of test interpretation with radiology: I have reviewed the radiologist's reading. Radiologist Impression: EXAMINATION: XR FOOT, LEFT CLINICAL INFORMATION: foot pain on top of foot. Denies trauma COMPARISON: None available. TECHNIQUE: AP, lateral, and oblique views of the left foot. FINDINGS: The bones are diffusely demineralized. Small plantar and dorsal calcaneal spurs. The bones are diffusely demineralized. Degenerative changes with hypertrophic change of the tarsometatarsal joints. Radiopaque marker placed by technologist to indicate the area of concern as indicated by the patient along the dorsal aspect of the metatarsals. XR/XR foot LT 2V IMPRESSION: Normal left foot. Electronically signed by: Nicol Daily MD 06/11/2024 11:13 AM [facility] External Record Review External record reviewed: Inpatient record, Office record, Outpatient record, Prior outpatient labs, Prior outpatient radiology, Primary care record and Outside ED record Prescription Management I considered prescription management with: Pain Medication and Antibiotic (doxycycline) Chronic Conditions Patient?s care impacted by: Diabetes Social Determinants Patient?s care significantly limited by Social Determinants of Health including: Other Social Determinant of Health Critical Care Time Critical Care Time Critical Care Time: No Discharge Plan Discharge Clinical Impression: Cellulitis of left foot Patient Disposition: Home, Self-Care Instructions: Cellulitis (ED) Additional Instructions: Your blood work today is reassuring. The x-ray of your left foot is normal. You likely have a superficial skin infection. I have sent doxycycline to your pharmacy for treatment. This is an antibiotic. Take this as prescribed, do not miss any doses or stop taking this early. Also continue to take Tylenol and ibuprofen at home for pain/swelling. Follow up with your primary care provider. Return with new or worsening symptoms. In the case of an emergency call 911. Prescriptions: New doxycycline hyclate 100 mg tablet 100 mg PO BID 7 Days Qty: 14 0RF No Action acetaminophen 325 mg Tablet 650 mg PO Q6H PRN (Reason: Pain, Mild (Pain Scale 1-3)) 30 Days Qty: 240 0RF fluticasone furoate-vilanterol 200-25 mcg/dose blister with device 1 ea INHALATION DAILY Dupixent Pen 300 mg/2 mL pen injector 300 mg subcut Q2W Rx Instructions: Wednesdays next dose 06/05/24 albuterol sulfate 2.5 mg /3 mL (0.083 %) solution for nebulization 2.5 mg inhalation Q6H PRN (Reason: Shortness Of Breath) prednisone 20 mg Tablet 40 mg PO DAILY Qty: 3 0RF ipratropium-albuterol 0.5 mg-3 mg(2.5 mg base)/3 mL solution for nebulization 3 ml inhalation Q4H PRN (Reason: shortness of breath or wheezing) Qty: 270 0RF Rx Instructions: until breathing returns to target peak flow/parameters azithromycin 250 mg tablet 250 mg PO DAILY Qty: 3 0RF cefuroxime axetil 500 mg tablet 500 mg PO BID Qty: 6 0RF levalbuterol tartrate [Xopenex HFA] 45 mcg/actuation HFA aerosol inhaler 2 puff inhalation Q4-6H PRN (Reason: shortness of breath or wheezing) Qty: 15 3RF aspirin 81 mg Tablet,Delayed Release (Dr/Ec) 81 mg PO DAILY cholecalciferol (vitamin D3) 10 mcg (400 unit) Capsule 10 mcg PO DAILY loratadine 10 mg tablet 10 mg PO DAILY tramadol 50 mg tablet 50 mg PO TID PRN (Reason: Pain) (DME) lancets [FreeStyle Lancets] 28 gauge misc See Rx Instructions topical DAILY Qty: 100 Rx Instructions: As directed (DME) blood-glucose meter [FreeStyle [place] Lite] Kit See Rx Instructions .ROUTE DAILY Qty: 1 Rx Instructions: As directed (DME) FreeStyle Lite Strips Strip See Rx Instructions Not Applicable DAILY Qty: 10 Rx Instructions: As directed atorvastatin 20 mg tablet 20 mg PO BEDTIME metformin 500 mg tablet 500 mg PO BID Referrals: Angy Pichardo MD [Primary Care Provider] - Print Language: Danish
[2024-06-11 10:29] LABS: Basophils Absolute Auto 0.1 X10*3/uL (0.0-0.2); Basophils Percent Auto 0.9 % (0-2); Eosinophils Absolute Auto 0.2 X10*3/uL (0.0-0.4); Eosinophils Percent Auto 3.1 % (0-4); Hematocrit 31.9 % (37.0-47.0); Hemoglobin 9.8 g/dl (12.0-16.0); Imm Gran Abs Auto 0.01 X10*3/uL (0.00-0.03); Imm Gran Pct Auto 0.1 % (0.0-0.4); Lymphocytes Percent Auto 26.4 % (20-40); MANUAL DIFF FLAG NO; Mean Corpuscular HGB Conc 30.7 g/dl (31.0-35.0); Mean Corpuscular Hemoglobin 25.3 pg (27.0-33.0); Mean Corpuscular Volume 82.2 fL (80.0-98.0); Monocytes Absolute Auto 0.7 X10*3/uL (0.1-1.2); Monocytes Percent Auto 8.7 % (2-11); Neutrophils Absolute Auto 4.6 x10*3/uL (2.0-8.3); Neutrophils Percent Auto 60.8 % (45-73); Platelet Count 333 X10*3/uL (160-400); Red Blood Count 3.88 X10*6/uL (4.20-5.50); Red Cell Distribution Width 15.9 % (11.0-16.0); White Blood Count 7.5 X10*3/uL (4.8-10.8)
[2024-06-11 10:54] LABS: Anion Gap 11 (12-20)
[2024-06-11 10:57] LABS: Alanine Aminotransferase 17 U/L (0-31); Albumin Level 3.8 g/dL (3.5-5.0); Alkaline Phosphatase 90 U/L (39-117); Aspartate Amino Transferase 26 U/L (5-31); Bilirubin Total 0.5 mg/dL (0.0-1.0); Blood Urea Nitrogen 13 mg/dL (9-16); Calcium 9.1 mg/dL (8.4-10.2); Carbon Dioxide 27 mmol/L (22-29); Chloride 103 mmol/L (96-108); Estimated Glomerular Filt Rate > 60; Glucose Random 104 mg/dL (60-115); Potassium 4.3 mmol/L (3.3-5.1); Sodium 137 mmol/L (135-145)
[2024-06-11 11:40] VITALS: BP 131/83; PULSE 93; RESP 20; TEMP 36.1; O2SAT 96
== END 2024-06-11 11:40 | disposition home or self-care (01) ==
PROVIDERS: Physician Assistant Medical; Emergency Provider Emergency Medicine; PCP Internal Medicine
DX: L03.116 Cellulitis of left lower limb (principal); M79.672 Pain in left foot; Z87.891 Personal history of nicotine dependence; Z79.899 Other long term (current) drug therapy
CPT/HCPCS: 36415; 73620; 80053; 84550; 85025; 99282; 99283

== ENCOUNTER 2024-11-11 07:58 | Inpatient (IN) | payer OTHER, SELFPAY ==
[2024-11-11] VITALS (10 sets, daily range): BP systolic 128–152; BP diastolic 66–94; PULSE 105–121; RESP 16–24; TEMP 36.3–37.2; O2SAT 92–99; BMI 40.4; BMI 37.0
--- NOTE | ~2024-11-11 | XR_ITS ---
EXAMINATION: XR CHEST CLINICAL INFORMATION: dyspnea COMPARISON: None available. TECHNIQUE: Frontal view of the chest was obtained. FINDINGS: No significant abnormality is noted involving the heart, lungs, mediastinum, bony thorax or soft tissues. XR/XR chest 1V IMPRESSION: Unremarkable chest examination. Electronically signed by: Guy Novak MD 11/11/2024 08:33 AM EDT RP
--- NOTE | 2024-11-11 08:07 | ECG_ITS ---
Test Reason : sob Blood Pressure : */* mmHG Vent. Rate : 107 BPM Atrial Rate : 107 BPM P-R Int : 138 ms QRS Dur : 88 ms QT Int : 350 ms P-R-T Axes : 50 -21 26 degrees QTcB Int : 467 ms Sinus tachycardia Moderate voltage criteria for LVH, may be normal variant ( R in aVL , [place] product ) Borderline ECG When compared with ECG of 27-May-2024 10:01, No significant change was found Referred By: Generic ED Physician Electronically Signed By: Catrachito Stout
[2024-11-11 08:29] LABS: MANUAL DIFF FLAG NO
[2024-11-11 08:32] LABS: Basophils Absolute Auto 0.1 X10*3/uL (0.0-0.2); Basophils Percent Auto 0.7 % (0-2); Eosinophils Absolute Auto 0.3 X10*3/uL (0.0-0.4); Eosinophils Percent Auto 2.2 % (0-4); Hematocrit 32.6 % (37.0-47.0); Hemoglobin 10.1 g/dl (12.0-16.0); Imm Gran Abs Auto 0.05 X10*3/uL (0.00-0.03); Imm Gran Pct Auto 0.4 % (0.0-0.4); Lymphocytes Absolute Auto 1.5 X10*3/uL (1.2-4.9); Lymphocytes Percent Auto 11.5 % (20-40); Mean Corpuscular Hemoglobin 25.3 pg (27.0-33.0); Mean Corpuscular Volume 81.5 fL (80.0-98.0); Mean Platelet Volume 9.2 fL (9.4-12.3); Monocytes Absolute Auto 0.7 X10*3/uL (0.1-1.2); Monocytes Percent Auto 5.2 % (2-11); Neutrophils Absolute Auto 10.7 x10*3/uL (2.0-8.3); Platelet Count 288 X10*3/uL (160-400); Red Cell Distribution Width 15.7 % (11.0-16.0); White Blood Count 13.3 X10*3/uL (4.8-10.8)
[2024-11-11 08:50] LABS: Anion Gap 12 (12-20); Blood Urea Nitrogen 13 mg/dL (9-16); Calcium 8.9 mg/dL (8.4-10.2); Carbon Dioxide 28 mmol/L (22-29); Chloride 103 mmol/L (96-108); Creatinine Clr Calc Pharmacy 93.3; Estimated Glomerular Filt Rate > 60; Glucose Random 135 mg/dL (60-115); Potassium 4.1 mmol/L (3.3-5.1); Sodium 139 mmol/L (135-145)
[2024-11-11 08:59] LABS: Troponin-I High Sensitivity < 2.7 ng/L (<3.5-17.0)
--- OUTSIDE RECORDS SUMMARY | 2024-11-11 09:33 | XMS_ITS ---
Author Organization [facility] Address [address] [place] [address] Care Team Providers Care Signal Worker Name Role Phone VIVIENNE CROUCH Primary Care Provider Sahara Huerta Unavailable [phone] REASON FOR VISIT Records from Dr Raman Encounters Encounter Location Date Provider Diagnosis [facility] [address] [place] [address] [address] [place] [address] 11/20/2023 Sahara Chen Plan Of Treatment Next Appt Details Provider Name:Sahara pereira, 12/04/2024 11:00:00 AM, [address], [address], [place], [address], Progress Notes * CATHY MINAYADOB:1960 (63 yo F)Acc No.[id number]:11/20/2023 Patient:?CATHY MIANYA :1960???Age:63 Y???Sex:Female Address:[address] [place] [address], [address] [place] [address], [id number] * true * Date:? Generated for Printi ng/Fakirsteng/eTransmitting on:?11/11/2024 09:33 AM EDT
--- OUTSIDE RECORDS SUMMARY | 2024-11-11 09:33 | XMS_ITS | Data Portability ---
Author Organization [place] [facility] Address [address] [place] [phone] Care Team Providers Care Electronic Commerce Specialist Name Role Phone VIVIENNE CROUCH Primary Care Provider Assessment Encounter Date Assessment Date Assessment LastModified by Organization Details LastModified Time 06/19/2022 06/19/2022 Ms Jackson is a [age] yo female new to whose CC is my stomach hurts when I cough, lay down or get up No F/C/N/V. She had 3 normal solid stools yesterday, no blood or mucous. No urinary sx. She sts it does not hurt to touch it and if fact if she pushes on her stomach while coughing, there is no pain. DDX: includes but is not limited to Muscle strain most likely, as there is no pain to palpation, the tenderness occurs only with movement, change in position, or cough, and is felt in the left mid quadrant. Hernia is not palpated in the mid line or laterally. Diverticulitis, she has diverticulosis noted on her last colonoscopy but has never had diverticulitis and currently has no increase in stools, no diarrhea, no blood. The discomfort is not continuous. No back pain to suggest pneumonia, and she does not feel unwell overall. UTI is doubtful, no urinary symptoms, no CVA tenderness. [email or web address] Not available 06/19/2022 12:53:23 Plan of Treatment Reminders Order Date Submit Date Provider Last Modified By Organization Details Last Modified Time Details Appointments None record ed. Lab None record ed. Referral None record ed. Procedures None record ed. Surgeries None record ed. Imaging None record ed. Medication Orders None record ed. Patient TargetsNo targets recorded. Patient InstructionsNo instructions recorded. Reason for Referral None Reported. Medical Equipment None Reported. Allergies Allergen ID Allergen Name Allergen Category Reaction Reaction Severity Criticality Documentation Date Start Date Code Code System Note Provider Name and Address Organization Details Recorded Time 263475 ibuprofen medicatio n Not available Not available Not available 06/19/2022 5640 RxNorm agita stephany her asthm a TRISTAN Caraballo [address], [facility] [place], [address], [place] [facility] 12:17:01 [id number] Product containin g penicilli n (product) medicatio n rash Not available Not available 06/19/2022 71224 8001 SNOMED TRISTAN Caraballo [address], [place], [address], [place] [facility] 12:17:21 [id number] Daypro medicatio n Not available Not available Not available 06/19/2022 13252 1 RxNorm TRISTAN Caraballo [address], [place], [address], [place] [facility] 12:17:39 Medications Name Sig Start Date Stop Date Status Note LastModified by Organization Details LastModified Time atorvastati n 20 mg tablet TAKE 1 TABLET BY MOUTH EVERY DAY active Not Available Not Available No t Available oxybutynin chloride ER 10 mg tablet,exte nded release 24 hr TAKE 1 TABLET BY MOUTH EVERY DAY active Not Available Not Available No t Available albuterol sulfate 1.25 mg/3 mL solution for nebulizatio n Inhale 3 mL 3 times a day by inhalatio n route. active Not Available Not Available No t Available meloxicam 15 mg tablet TAKE 1 TABLET BY MOUTH EVERY DAY active Not Available Not Available No t Available prednisone 20 mg tablet PLEASE SEE ATTACHED FOR DETAILED DIRECTION S active Not Available Not Available No t Available tramadol 50 mg tablet TAKE 1 TABLET BY MOUTH EVERY 8 HOURS NEEDED FOR PAIN active Not Available Not Available No t Available montelukast 10 mg tablet TAKE 1 TABLET BY MOUTH EVERY DAY FOR 90 DAYS active Not Available Not Available No t Available fluticasone propionate 50 mcg/actuati on nasal spray,suspe nsion SPRAY 1 SPRAY IN EACH NOSTRIL NASALLY ONCE A DAY active Not Available Not Available No t Available loratadine 10 mg tablet TAKE 1 TABLET BY MOUTH EVERY DAY FOR 90 DAYS active Not Available Not Available No t Available Ventolin HFA 90 mcg/actuati on aerosol inhaler TAKE 2 PUFFS BY MOUTH EVERY 6 HOURS NEEDED active Not Available Not Available No t Available cholecalcif jean paul (vitamin D3) 1,250 mcg (50,000 unit) capsule TAKE 1 CAPSULE BY MOUTH EVERY WEEK active Not Available Not Available No t Available FreeStyle [place] Lite kit USE TO CHECK GLUCOSE ONCE DAILY, DX E11.9 active Not Available Not Available No t Available Incruse Ellipta 62.5 mcg/actuati on powder for inhalation INHALE 1 PUFF INTO THE LUNGS EVERY DAY FOR 30 DAYS active Not Available Not Available No t Available Breo Ellipta 200 mcg-25 mcg/dose powder for inhalation INHALE 1 PUFF INTO THE LUNGS EVERY DAY active Not Available Not Available No t Available Paxlovid 300 mg (150 mg x 2)-100 mg tablets in a dose pack TAKE 2 NIRMATREL VIR (150MG TABLETS) WITH 1 RITONAVIR (100 MG TABLET) TWICE A DAY FOR 5 DAYS 06/19 completed Not Available Not Available Not Available Vitals Date Recorded Body temperature Heart rate Respiratory rate Oxygen saturation Oxygen saturation in Arterial blood by Pulse oximetry Systolic blood pressure Diastolic blood pressure Provider Name and Address Organization Details Last Updated DateTime 2 98.2 [degF] 89 /min 18 /min 96 % 96 % 128 mm[Hg] 78 mm[Hg] Not Available [facility] 2 12:23:26 Social History None recorded. Functional Status None recorded. Mental Status None recorded. Family History Nothing Reported. Medical History No medical history recorded. Gynecological HistoryNo gynecological history recorded. Obstetrics History GPAL:G 0 P 0 0 0 0 Past Encounters Encounter ID Performer Location Encounter Start Date Encounter Closed Date Diagnosis/Indication Diagnosis SNOMED-CT Code Diagnosis ICD10 Code Diagnosis Note [id number] TRISTAN Caraballo [facility] [address] [place] [phone] 06/19/2022 11:56:50 06/20/2022 18:28:36 Abdominal pain 45817194 R10.9 began yesterday when she coughs, changes position. No fever chills, . the pain is left middle quadrant. No diarrhea, no urinary symptoms. She is currently being treated for exacerbati on of asthma, and is having increased coughing. PE there is no TTP of the entire abdomen. No palpable hernia with valsalva.g iven sign and symptoms of diverticul itis (not suspected today) she will follow up with her PCP. Health Concerns Section Related Observation LastModified by Organization Harjinder ls LastModified Time None Recorded Concern Status LastModified by Organization Details LastModified Time None Recorded Advance Directives Directive None Recorded Payers Encounter Date Sequence Insurance Name Policy Number Policy Maurer Covered Member ID Maurer Member ID Guarantor Name 06/19/2022 1 [facility] - DOS PRIOR TO 2022 - DUAL ELIGIBLE (MEDICARE REPLACEMENT/ADV ANTAGE - HMO) Nohemi Jackson [id number] Nohemi Jackson Notes Date Note Type Note Provider Name and Address Organization Details Recorded Time 06/19/2022 text/html Started with cough 6 days go, had COVID booster 4 days ago and on 3 days ago cough worsened, no fever, (did not measure) and her cough has been productive yellow mucous. She called her PCP day who prescribed prednisone for her , no antibiotics. Yesterday she began having pain Left mid abdomen only when she is coughing, when she changes position. sts it is worse today. She sts BM was yesterday x 3 . No diarrhea. 2 days ago urinary frequency, normal amounts. no back pain. no blood in urine or stool. No urinary frequency today. The pain in her abdomen is only with movement or couging, does not hurt to press it. TRISTAN Caraballo [address], [place], [address], [place] [facility] 06/19/2022 12:53:35 OBGyn Episode No OBEpisode recorded.
--- OUTSIDE RECORDS SUMMARY | 2024-11-11 09:33 | XMS_ITS ---
Author Organization [employer] [facility] Address [address] [place] [address] Care Team Providers Care Motor Vehicle Licence Examiner Name Role Phone VIVIENNE CROUCH Primary Care Provider Sahara Huerta Unavailable [phone] Allergies Allergen (clinical drug ingredient) Drug/Non Drug Allergy documented on EMR Reaction Allergy Type Onset Date Status PENICILLIN REDNESS/ITCHING Drug Allergy Active oxaprozin Daypro Unknown Drug Allergy Active ibuprofen IBUPROFEN HEADACHES Drug Allergy Active Results Component Value Reference Range Notes Urinalysis Reviewed date:12/04/2023 02:26:57 PM Interpretation: Performing Lab: Notes/Report: PH 7.0 PROTEIN TRACE GLUCOSE NEG BLOOD NEG [id number] IGP No Culture 30 Plus Reviewed date:12/07/2023 04:21:17 PM Interpretation: Performing Lab:[facility], [address], [address], [place], Phone - [phone], Director - [facility] Notes/Report: Clinical Information:[id number] Dates / Results....11/30/22,LGSIL NEGHRHPV Other..............Post Menopausal No. of containers..01 ThinPrep Vial DIAGNOSIS: NEGATIVE FOR INTRAEPITHELIAL LESION OR MALIGNANCY. CELLULAR CHANGES ASSOCIATED WITH ATROPHY ARE PRESENT. Specimen adequacy: Satisfactory for evaluation. Endocervical component may not be distinguished in cases of atrophy. Clinician provided ICD10: Z0 1.419 Performed by: Star lacey, Sub Plant Manager ([facility]) . . Note: The Pap smear is a screening test designed to aid in the detection of premalignant and malignant conditions of the uterine cervix. It is not a diagnostic procedure and should not be used as the sole means of detecting cervical cancer. Both false-positive and false-negative reports do occur. . Test Methodology: TN The Thin Prep(R) Extension Worker was unable to read this specimen. Therefore a manual review was performed. HPV Aptima Negative Negative This nucleic acid amplification test detects fourteen high-risk HPV types (16,18,31,33,35,39,45,51,52,56,58 ,59,66,68) without differentiation. HPV Genotype Reflex Criteria not met, HPV Genotype not performed. PDF Report Reviewed date:12/07/2023 04:21:03 PM Interpretation: Performing Lab:[facility], [address], [address], [place], Phone - [phone], Director - [facility] Notes/Report: Clinical Information:[id number] Dates / Results....11/30/22,LGSIL NEGHRHPV Other..............Post Menopausal No. of containers..01 ThinPrep Vial REASON FOR VISIT Annual CLIENT TECHNICAL PROFESSIONAL Physical, Annual CLIENT TECHNICAL PROFESSIONAL Physical 60-85+ Medications Medication SIG (Take, Route, Frequency, Duration) Notes Start Date End Date Status Baby Aspirin 12/04/2023 Active Budesonide-Formoterol Fumarate 160-4.5 MCG/ACT Inhalation for 30 Days Active Celecoxib 200 MG Oral for 30 Days Active oxyBUTYnin Chloride ER 10MG ER 1 ORAL daily for -3 07/25/2013 Active EPINEPHrine 0.3 MG/0.3ML Injection for 30 Active Loratadine 10 MG TAKE 1 TABLET BY MOUTH EVERY DAY FOR 90 DAYS Oral for 73 Active traMADol HCl 50MG 1 ORAL twice daily for -3 Cisco-MJ 07/25/2013 Active Atorvastatin Calcium 20 MG Oral for 90 Active Albuterol 90 MCG 2 Inhalation q6h for -3 06/28/2012 Active metFORMIN HCl 500 MG 1 tablet with a kris l Orally Once a day Active Dupixent 200 MG/1.14ML as directed Subcutaneous Unknown Dose/Starting today 01/09/23 Active Social History Tobacco Use: Social History Observation Description Date Details (start date - stop date) Former Smoker NA - NA Tobacco Use/Smoking Question Answer Notes Are you a former smoker How long has it been since you last smoked? > 10 years Alcohol Screen (Audit-C) Question Answer Notes Did you have a drink containing alcohol in the p ast year? No Points 0 Interpretation Negative Sexual History Question Answer Notes Had sex in the past 12 months (vaginal, oral, or anal)? No Vital Signs Temperature 97.3 degrees Fahrenheit 12/04/19 24 Blood pressure systolic 128 mm Hg 12/04/19 24 Blood pressure diastolic 84 mm Hg 024 Height 64 in 12/04/2023 Weight 215 lbs 12/04/2023 BMI 36.9 kg/m2 12/04/2023 Encounters Encounter Location Date Provider Diagnosis Total [address] [place] [address] 12/04/2023 Sahara Chen Encounter for gynecological examination (general) (routine) without abnormal findings Z01.419 ; Encounter for screening mammogram for malignant neoplasm of breast Z12.31 ; Encounter for screening for osteoporosis Z13.820 and Low grade squamous intraepithelial lesion on cytologic smear of cervix (LGSIL) R87.612 Assessments Encounter Date Diagnosis (ICD Code) Assessment Notes Treatment Notes Treatment Clinical Notes Section Notes 12/04/2023 Encounter for gynecological examination (general) (routine) without abnormal findings (ICD-10 - Z01.419) PAP TEST WITH HPV TYPING (BLIND) WAS OBTAINED. PELVIC ULTRASOUND WAS ORDERED TO CHECK UTERUS AND OVARIES. 12/04/2023 Encounter for screening mammogram for malignant neoplasm of breast (ICD-10 - Z12.31) REGULAR MAMMOGRAMS AND SBE'S WERE RECOMMENDED. 12/04/2023 Encounter for screening for osteoporosis (ICD-10 - Z13.820) BONE DENSITY WAS ORDERED. 12/04/2023 Low grade squamous intraepithelial lesion on cytologic smear of cervix (LGSIL) (ICD-10 - R87.612) DISCUSSED PREVIOUS PAP TEST REPORT AND IMPLICATIONS OF LSIL. REPEAT PAP TEST WITH HPV TYPING WAS OBTAINED. IF ABNORMAL, WILL REFER TO CLIENT TECHNICAL PROFESSIONAL ONCOLOGY. Plan Of Treatment Treatment Notes Assessment Notes Encounter for gynecological examination (general) (routine) without abnormal findings PAP TEST WITH HPV TYPING (BLIND) WAS OBTAINED. PELVIC ULTRASOUND WAS ORDERED TO CHECK UTERUS AND OVARIES. Encounter for screening mamm ogram for malignant neoplasm of breast REGULAR MAMMOGRAMS AND SBE'S WERE RECOMMENDED. Encounter for screening for osteoporosis BONE DENSITY WAS ORDERED. Low grade squamous intraepit helial lesion on cytologic smear of cervix (LGSIL) DISCUSSED PREVIOUS PAP TEST REPORT AND IMPLICATIONS OF LSIL. REPEAT PAP TEST WITH HPV TYPING WAS OBTAINED. IF ABNORMAL, WILL REFER TO CLIENT TECHNICAL PROFESSIONAL ONCOLOGY. Pending Test Test Name Order Date MAMMOGRAM, SCREENING 12/04/2023 BONE DENSITY 12/04/2023 MM Digital Mammo Screening 12/04/2023 Next Appt Details Follow Up: 1 Year, Reason: Provider Name:Sahara pereira, 12/04/2024 11:00:00 AM, [address] [facility], [address], [place], [address], Progress Notes * CATHY MINAYADOB:1960 (63 yo F)Acc No.[id number]:12/04/2023 PROGRESS NOTES Patient:?CATHY MINAYA Appointment Provider:?Sahara pereira M.D. :1960???Age:63 Y???Sex:Female D ate:12/04/2023 Address:[address] [place], [place] [id number] Pcp:VIVIENNE FERNANDEZ Subjective: * Chief Complaints: * ???Annual CLIENT TECHNICAL PROFESSIONAL PhysicalAnnual CLIENT TECHNICAL PROFESSIONAL Physical 60-85+ * HPI: ???New/Follow-up Patient Consult:? ACE LOST HER 3RD TO SUICIDE.? SHE WAS WITH A NEW PARTNER FOR 6 YEARS BUT THEY PARTED WAYS 3 YEARS AGO.? SHE IS NOT? SEXUALLY ACTIVE. SHE WILL BE GAINING CUSTODY OF HER 2 GRANDSONS AGES 7 (KRISTINA) AND 6 (SHONDA) WHOSE MOTHER IS A DRUG ADDICT.? THESE ARE SONS OF HER SON WHO IS NOT INTO DRUGS.?? ACE WAS SEEN HERE IN 2014 AND AGAIN IN 2022.? HER LAST PAP TEST IN 2022 SHOWED LSIL, NEG HPV.? SHE HAS HAD 5 C/SECTIONS AND HER CERVIX COULD NOT BE VISUALIZED.? COLPOSCOPY COULD NOT BE DONE.? WE WILL REPEAT HER PAP TEST TODAY AND IF ABNORMAL, WILL REFER TO CLIENT TECHNICAL PROFESSIONAL ONCOLOGY. HER LAST MAMMOGRAM DONE IN APR 2023 SHOWED BREASTS ARE NOT DENSE AND WAS NORMAL. SHE HAS NOT HAD A BMD DONE YET.? WE WILL ORDER ONE THIS YEAR. SHE HAD A COLONOSCOPY DONE IN 2016. MODERNA X 4. ???Annual:? Patient presents for annual exam, ages 60-85, postmenopausal. ?General Health Maintenance:?Current breast complaints:?no breast pain, mass, discharge, or skin changes ?Urinary problems:?patient reports no urinary health problems or bowel health problems ?Calcium intake:?takes adequate calcium via diet and supplementation ?Significant CLIENT TECHNICAL PROFESSIONAL problems:?no significant manager agriculture symptoms or problems * ROS:?general:?no?chest pain.?no?palpitations.?no?headache.?no?cough.?no?shortness of breath.?no?fever.?no?unexplained weight loss.?no?nausea/vomiting.?no?change in bowel movements.?no blood in stool.?no?genitourinary complaints.?no?skin complaints.? * Medical History:? * Dry Pan Feeder History:?/ Para?5/5.?Sexual activity?not currently sexually active.?Last Pap Smear:?11/30/22 LGSIL, NEG HRHPV, 2011.?Mammogram:?05/10/23 Breast Tissue is Almost Entirely Fatty, 04/29/22, Breast Tissue is Almost Entirely Fatty.?LMP and menses?[place].?Colonoscopy?2016.?Bone Density:?Unknown.? * OB History:?Total pregnancies?5.?Total living children?5.?(s)?5.? * Surgical History:?Colonscopy x 5 Lab Band Laparoscopic Removal of Adjustable Gastric Restrive Device and Port L KNEE REPLACEMENT * Hospitalization/Major Diagno stic Procedure:?See Surgical Hx * Family History:?Mother: dece ased.?Father: alive, Prostate Cancer.?3 brother(s) , 3 sister(s) - healthy. .? * Social History:?Tobacco Use:?Tobacco Use/Smoking?Are you a?former smoker ?How long has it been since you last smoked??> 10 years ???Sexual History:?Sexual History?Had sex in the past 12 months (vaginal, oral, or anal)??No ?Details of Sexual History?Are you sexually active??No ???Drugs/Alcohol:?Drugs?Have you used drugs other than those for medical reasons in the past 12 months??No ?Alcohol Screen (Audit-C)?Did you have a drink containing alcohol in the past year??No ?Points?0 ?Interpretation?Negative ???Miscellaneous:?Children: yes, 5. ?Exercise: no. ?Home smoke detector use: yes. ?Marital status: . ?Natural support system: yes. 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 ?Sexually active: no. * Medications:?TakingmetFORMIN HCl 500 MG Tablet 1 tablet with a meal Orally Once a day Dupixent 200 MG/1.14ML Solution Prefilled Syringe as directed Subcutaneous , Notes to Pharmacist: Unknown Dose/Starting today 01/09/23traMADol HCl 50MG 1 ORAL twice daily , Notes to Pharmacist: Cisco-MJAtorvastatin Calcium 20 MG Tablet Oral EPINEPHrine 0.3 MG/0.3ML Solution Auto-injector Injection Loratadine 10 MG Tablet TAKE 1 TABLET BY MOUTH EVERY DAY FOR 90 DAYS Oral Albuterol 90 MCG 17GM 2 Inhalation q6h oxyBUTYnin Chloride ER 10MG ER 30 1 ORAL daily Celecoxib 200 MG Capsule Oral Baby Aspirin Budesonide-Formoterol Fumarate 160-4.5 MCG/ACT Aerosol Inhalation Taking metFORMIN HCl 500 MG Tablet 1 tablet with a meal Orally Once a day Taking Dupixent 200 MG/1.14ML Solution Prefilled Syringe as directed Subcutaneous , Notes to Pharmacist: Unknown Dose/Starting today 01/09/23Taking traMADol HCl 50MG 1 ORAL twice daily , Notes to Pharmacist: Cisco-MJTaking Atorvastatin Calcium 20 MG Tablet Oral Taking EPINEPHrine 0.3 MG/0.3ML Solution Auto-injector Injection Taking Loratadine 10 MG Tablet TAKE 1 TABLET BY MOUTH EVERY DAY FOR 90 DAYS Oral Taking Albuterol 90 MCG 17GM 2 Inhalation q6h Taking oxyBUTYnin Chloride ER 10MG ER 30 1 ORAL daily Taking Celecoxib 200 MG Capsule Oral Taking Baby Aspirin Taking Budesonide-Formoterol Fumarate 160-4.5 MCG/ACT Aerosol Inhalation DiscontinuedMeloxicam 15 MG Tablet Oral Medication List reviewed and reconciled with the patientDiscontinued Meloxicam 15 MG Tablet Oral Medication List reviewed and reconciled with the patient * Allergies:?PENICILLIN: REDNE SS/ITCHING - AllergyIBUPROFEN: HEADACHES - AllergyDaypro: Unknown - Allergyno[Allergies Verified] Objective: * Vitals:?Ht: 64 in, Wt:215lbs , BMI:36.9Index, BP:128/84mm Hg, Temp:97.3F. * Examination: ???General Exam: ?CONSTITUTIONAL:?General Appearance:?alert, in no acute distress, normal, well nourished ?NECK/THYROID:?Inspection/Palpation:?normal ?Thyroid:?normal size and shape ?RESPIRATORY:?Auscultation: clear to auscultation bilaterally, Respiratory Effort: normal.?CARDIOVASCULAR:?Auscultation: regular rate and rhythm.?BREAST, Right:?Inspection/Palpation:?no discharge, no masses present, no nipple retraction, no skin changes, no skin dimpling, no tenderness, no lymphadenopathy, no axillary mass, no axillary tenderness ?BREAST, Left:?Inspection/Palpation:?no discharge, no masses present, no nipple retraction, no skin changes, no skin dimpling, no tenderness, no lymphadenopathy, no axillary mass, no axillary tenderness ?GASTROINTESTINAL:?Abdomen:?no masses, nontender, nondistended ?Liver and Spleen:?normal ?Hernias:?no hernias present, no inguinal adenopathy ?MUSCULOSKELETAL:?Inspection/Palpation:?no clubbing, cyanosis, or edema ?SKIN:?Skin:?normal ?NEURO/PSYCH:?Orientation:?time , place, person ?Mood/Affect:?normal?Genitourinary: ?EXTERNAL GENITALIA:?External Genitalia:?normal, no lesions ?VAGINA:?Vagina:?normal appearance, no abnormal discharge, no lesions ?BLADDER:?Bladder:?no mass, nontender ?URETHRA:?Urethra:?no erythema or lesions present ?CERVIX:?Cervix:?NOT VISUALIZED, DISPLACED ANTERIORLY BEHIND SYMPHYSIS PUBIS DUE TO 5 PREVIOUS C/SECTIONS ?UTERUS:?Uterus:?nontender, normal contour, normal mobility, normal size ?ADNEXA:?Adnexa:?no masses, no tenderness ?ANUS AND PERINEUM:?Anus/Perineum:?visually normal??? Assessment: * Assessment: 1.?Encounter for gynecologic al examination (general) (routine) without abnormal findings - Z01.419?2.?Encounter for screening mammogram for malignant neoplasm of breast - Z12.31?3.?Encounter for screening for osteoporosis - Z13.820?4.?Low grade squamous intraepithelial lesion on cytologic smear of cervix (LGSIL) - R87.612? Plan: * Treatment: ?LAB: Urinalysis (Collection Date & Time - 12/04/2023)* ? Value Reference Range ?PH 7.0 * ?PROTEIN TRACE * ?GLUCOSE NEG * ?BLOOD NEG Notes: PAP TEST WITH HPV TYPING (BLIND) WAS OBTAINED. PELVIC ULTRASOUND WAS ORDERED TO CHECK UTERUS AND OVARIES.??2.?Encounter for screening mammogram for malignant neoplasm of breast?Imaging: MM Digital Mammo Screening Notes: REGULAR MAMMOGRAMS AND SBE'S WERE RECOMMENDED.??3.?Encounter for screening for osteoporosis?Imaging: BONE DENSITY Notes: BONE DENSITY WAS ORDERED.??4.?Low grade squamous intraepithelial lesion on cytologic smear of cervix (LGSIL)? Notes: DISCUSSED PREVIOUS PAP TEST REPORT AND IMPLICATIONS OF LSIL. REPEAT PAP TEST WITH HPV TYPING WAS OBTAINED. IF ABNORMAL, WILL REFER TO CLIENT TECHNICAL PROFESSIONAL ONCOLOGY.?? * Imaging:? * ?Imaging: MAMMOGRAM, SCR EENING * Procedure Codes:? * Preventive Medicine:? ??YOUR PREVENTIVE WELLNESS PLAN:?Osteoporosis prevention?Calcium, D, strength training.?Breast Cancer Screening (Mammogram):?annually.?Cervical Cancer Screening (Pap Smear):?q 3 years with HPV screen.?Colorectal Cancer Screening:?q 10 years.? * Follow Up:?1 Year * Images: Billing Information: * Visit Code:? [id number] Preventive Care Est Pt. Age 65 and over. * Procedure Codes:? * Sign off status: Completed true * Appointment Provider:?Sahara Chen M.D. Date:?12/04/2023 Generated for Sarwat baron/Catrachita/eTransmitting on:?11/11/2024 09:33 AM EDT History and Physical Notes * HPI (History of Present Illness) Category Sub-Category Detail Notes Category Not es New/Follow-up Patient Consult ACE LOST HER 3RD TO SUICIDE. SHE WAS WITH A NEW PARTNER FOR 6 YEARS BUT THEY PARTED WAYS 3 YEARS AGO. SHE IS NOT SEXUALLY ACTIVE. SHE WILL BE GAINING CUSTODY OF HER 2 GRANDSONS AGES 7 (KRISTINA) AND 6 (SHONDA) WHOSE MOTHER IS A DRUG ADDICT. THESE ARE SONS OF HER SON WHO IS NOT INTO DRUGS. ACE WAS SEEN HERE IN 2014 AND AGAIN IN 2022. HER LAST PAP TEST IN 2022 SHOWED LSIL, NEG HPV. SHE HAS HAD 5 C/SECTIONS AND HER CERVIX COULD NOT BE VISUALIZED. COLPOSCOPY COULD NOT BE DONE. WE WILL REPEAT HER PAP TEST TODAY AND IF ABNORMAL, WILL REFER TO CLIENT TECHNICAL PROFESSIONAL ONCOLOGY. HER LAST MAMMOGRAM DONE IN APR 2023 SHOWED BREASTS ARE NOT DENSE AND WAS NORMAL. SHE HAS NOT HAD A BMD DONE YET. WE WILL ORDER ONE THIS YEAR. SHE HAD A COLONOSCOPY DONE IN 2015. MODERNA X 4. Annual General Health Maintenance: Current breast complaints:: no breast pain, mass, discharge, or skin changes Urinary problems:: patient r eports no urinary health problems or bowel health problems Calcium intake:: takes adequ ate calcium via diet and supplementation Significant CLIENT TECHNICAL PROFESSIONAL problems:: n o significant manager agriculture symptoms or problems Examination Category Sub-Category Detail Notes Category Not es General Exam CONSTITUTIONAL: General Appearan ce:: alert, in no acute distress, normal, well nourished NECK/THYROID: Thyroid:: normal size and shape Inspection/Palpation:: normal RESPIRATORY: Auscultation: clear to auscultation bilaterally, Respiratory Effort: normal CARDIOVASCULAR: Auscultation: regula r rate and rhythm GASTROINTESTINAL: Hernias:: no hernias present, no inguinal adenopathy Liver and Spleen:: normal Abdomen:: no masses, nontender, nondiste nded MUSCULOSKELETAL: Inspection/Palpation:: no clubb ing, cyanosis, or edema SKIN: Skin:: normal NEURO/PSYCH: Mood/Affect:: normal Orientation:: time , place, person BREAST, Right: Inspection/Palpation :: no discharge, no masses present, no nipple retraction, no skin changes, no skin dimpling, no tenderness, no lymphadenopathy, no axillary mass, no axillary tenderness BREAST, Left: Inspection/Palpation :: no discharge, no masses present, no nipple retraction, no skin changes, no skin dimpling, no tenderness, no lymphadenopathy, no axillary mass, no axillary tenderness Genitourinary EXTERNAL GENITALIA: External Genitalia:: nor mal, no lesions VAGINA: Vagina:: normal appe arance, no abnormal discharge, no lesions BLADDER: Bladder:: no mass, nontender URETHRA: Urethra:: no erythem a or lesions present CERVIX: Cervix:: NOT VISUALIZED, DISPLACED ANTERIORLY BEHIND SYMPHYSIS PUBIS DUE TO 5 PREVIOUS C/SECTIONS UTERUS: Uterus:: nontender, normal contour, normal mobility, normal size ADNEXA: Adnexa:: no masses, no tendernes s ANUS AND PERINEUM: Anus/Perineum:: visually norm al
--- OUTSIDE RECORDS SUMMARY | 2024-11-11 09:34 | XMS_ITS | Patient Health Record ---
Author Organization [facility] Address [address] [place] [address] Care Team Providers Care Alpine Guide Name Role Phone VIVIENNE CROUCH Primary Care Provider Sahara Huerta Unavailable [phone] Allergies Allergen (clinical drug ingredient) Drug/Non Drug Allergy documented on EMR Reaction Allergy Type Onset Date Status PENICILLIN REDNESS/ITCHING Drug Allergy Active oxaprozin Daypro Unknown Drug Allergy Active ibuprofen IBUPROFEN HEADACHES Drug Allergy Active Results Component Value Reference Range Notes Urinalysis Reviewed date:12/04/2023 02:26:57 PM Interpretation: Performing Lab: Notes/Report: PH 7.0 PROTEIN TRACE GLUCOSE NEG BLOOD NEG [id number] IGP No Culture 30 Plus Reviewed date:12/07/2023 04:21:17 PM Interpretation: Performing Lab:Abis[facility] Madden [address], [address], [place], Phone - [phone], Director - [facility] Notes/Report: Clinical Information:[id number] Dates / Results....11/30/22,LGSIL NEGHRHPV Other..............Post Menopausal No. of containers..01 ThinPrep Vial DIAGNOSIS: NEGATIVE FOR INTRAEPITHELIAL LESION OR MALIGNANCY. CELLULAR CHANGES ASSOCIATED WITH ATROPHY ARE PRESENT. Specimen adequacy: Satisfactory for evaluation. Endocervical component may not be distinguished in cases of atrophy. Clinician provided ICD10: Z0 1.419 Performed by: Star lacey Body Worker (ASCP) . . Note: The Pap smear is a screening test designed to aid in the detection of premalignant and malignant conditions of the uterine cervix. It is not a diagnostic procedure and should not be used as the sole means of detecting cervical cancer. Both false-positive and false-negative reports do occur. . Test Methodology: [facility] The Thin Prep(R) Lower In Supervisor was unable to read this specimen. Therefore a manual review was performed. HPV Aptima Negative Negative This nucleic acid amplification test detects fourteen high-risk HPV types (16,18,31,33,35,39,45,51,52,56,58 ,59,66,68) without differentiation. HPV Genotype Reflex Criteria not met, HPV Genotype not performed. PDF Report Reviewed date:12/07/2023 04:21:03 PM Interpretation: Performing Lab:[facility] [place], [address], [address], [place], Phone - [phone], Director - [facility] Notes/Report: Clinical Information:[id number] Dates / Results....11/30/22,LGSIL NEGHRHPV Other..............Post Menopausal No. of containers..01 ThinPrep Vial Reason For Referral No Information Medications Medication SIG (Take, Route, Frequency, Duration) Notes Start Date End Date Status EPINEPHrine 0.3 MG/0.3ML Injection for 30 Active Loratadine 10 MG TAKE 1 TABLET BY MOUTH EVERY DAY FOR 90 DAYS Oral for 73 Active traMADol HCl 50MG 1 ORAL twice daily for -3 [employer] 07/25/2013 Active Atorvastatin Calcium 20 MG Oral for 90 Active metFORMIN HCl 500 MG 1 tablet with a kris l Orally Once a day Active Dupixent 200 MG/1.14ML as directed Subcutaneous Unknown Dose/Starting today 01/09/23 Active Baby Aspirin 12/04/2023 Active Budesonide-Formoterol Fumarate 160-4.5 MCG/ACT Inhalation for 30 Days Active Celecoxib 200 MG Oral for 30 Days Active Albuterol 90 MCG 2 Inhalation q6h for -3 06/28/2012 Active oxyBUTYnin Chloride ER 10MG ER 1 ORAL daily for -3 07/25/2013 Active Social History Tobacco Use: Social History [...] 12 months (vaginal, oral, or anal)? No Problems Problem Type SNOMED Code ICD Code Onset Dates Problem Status W/U Status Risk Notes Problem Postmenopausal bleeding (69379559) Postmenopausal bleeding (N95.0) Active confirmed Problem Essential hypertension (61138150) Essential (primary) hypertension (I10) Active confirmed Problem Hyperlipidemia (48978996) Hyperlipidemia, unspecified (E78.5) Active confirmed Problem Asthma (998493023) Other asthma (J45.998) Active confirmed Problem Osteoarthritis (388522054) Unspecified osteoarthritis, unspecified site (M19.90) Active confirmed Problem Congenital hiatus hernia (48883790) Congenital hiatus hernia (Q40.1) Active confirmed Problem Menopause (710510290) Menopausal and female climacteric states (N95.1) Active confirmed Problem Asthma (disorder) (193269917) Asthma, unspecified, unspecified status (493.90) Active confirmed Major Problem Urinary tract infectious disease (disorder) (33004718) Urinary tract infection, site not specified (599.0) Active confirmed Diag Problem Female genital organ symptoms (537165525) Other specified symptom associated with female genital organs (625.8) Active confirmed Major Problem Postmenopausal bleeding (65687069) Postmenopausal bleeding (627.1) Active confirmed Diag Problem Menopausal symptom (33399109) Symptomatic menopausal or female climacteric states (627.2) Active confirmed Major Problem Urinary incontinence (422772070) Unspecified urinary incontinence (788.30) Active confirmed Diag Problem Right lower quadrant pain (504286149) Abdominal pain, right lower quadrant (789.03) Active confirmed Diag Problem Left lower quadrant pain (202351480) Abdominal pain, left lower quadrant (789.04) Active confirmed Diag Problem Gynecological examination normal (780572525391592) Routine gynecological examination (V72.31) Active confirmed Major Problem Screening for malignant neoplasm of colon (675018585) Special screening for malignant neoplasms, colon (V76.51) Active confirmed Major Vital Signs Temperature 97.3 degrees Fahrenheit 12/04/2023 Blood pressure diastolic 84 mm Hg 12/04/2023 Height 64 in 12/04/2023 Blood pressure systolic 128 mm Hg 12/04/2023 Weight 215 lbs 12/04/2023 BMI 36.9 kg/m2 12/04/2023 Encounters Encounter Location Date Provider Diagnosis [address] [address] 12/15/2023 Sahara Chen [address] [address] 12/04/2023 Sahara Chen Encounter for gynecological examination (general) (routine) without abnormal findings Z01.419 ; Encounter for screening mammogram for malignant neoplasm of breast Z12.31 ; Encounter for screening for osteoporosis Z13.820 and Low grade squamous intraepithelial lesion on cytologic smear of cervix (LGSIL) R87.[address] [address] 11/20/2023 Sahara Chen Assessments Encounter Date Diagnosis (ICD Code) Assessment [...] WAS OBTAINED. IF ABNORMAL, WILL REFER TO [facility]. Plan Of Treatment Pending Test Test Name Order Date MAMMOGRAM, SCREENING 11/30/2022 MAMMOGRAM, SCREENING 12/04/2023 COMPLETE URINALYSIS 11/30/2022 URINE CULTURE 11/30/2022 BONE DENSITY 11/30/2022 BONE DENSITY 12/04/2023 MM Digital Mammo Screening 12/04/2023 MM Digital Mammo Screening 11/30/2022 Next Appt Details Provider Name:Sahara pereira, 12/04/2024 11:00:00 AM, [address], [address], [place], [address], Insurance Providers Payer Name Payer Address Payer Phone Subscriber Number Group Number Insured Name Patient Relationship to Insured Coverage Start Date Coverage End Date [facility] [address] [place] [id number] CATHY MINAYA Self - patient is the insured Medical (General) History Medical History History ICD Code Other asthma J45.998 Postmenopausal bleeding N95.0 Menopausal and female climacteric states N95.1 Essential (primary) hypertension I10 Unspecified osteoarthritis, unspecified site M19.90 Hyperlipidemia, unspecified E78.5 Congenital hiatus hernia Q40.1 Low grade squamous intraepit helial lesion on cytologic smear of cervix (LGSIL) R87.612 Surgical History Surgery Date(Month/Year) Colonscopy x 5 Lab Band Laparoscopic Removal of Adjustable Gastr ic Restrive Device and Port L KNEE REPLACEMENT Hospitalization History Reason Date(Month/Year) See Surgical Hx
--- OUTSIDE RECORDS SUMMARY | 2024-11-11 09:34 | XMS_ITS ---
Author Organization [facility] Address [address] [place] [address] Care Team Providers Care Complex Care Nurse Name Role Phone VIVIENNE CROUCH Primary Care Provider Jossy Sahara Alford Unavailable [phone] REASON FOR VISIT ULTRA- TAW CK OVARIES Encounters Encounter Location Date Provider Diagnosis [facility] [employer] [address] [address] 12/15/2023 Sahara Chen Plan Of Treatment Next Appt Details Provider Name:Sahara pereira, 12/04/2024 11:00:00 AM, [address] [place] [address], [address], [place], [address], Progress Notes * CATHY MINAYADOB:1960 (64 yo F)Acc No.[id number]:12/15/2023 PROGRESS NOTES Patient:?CATHY MINAYA Appointment Provider:?Sahara pereira M.D. :1960???Age:63 Y???Sex:Female D ate:12/15/2023 Address:[address] [place], [place] [id number] Pcp:VIVIENNE FERNANDEZ Subjective: * Chief Complaints: * ???1. ULTRA- TAW CK OVARIES. * Medical History:? Objective: * Vitals:? Assessment: Plan: * Treatment: * Images: Billing Information: * Visit Code:? * Procedure Codes:? * Electronic signature of Nathan Chen MD on 11/11/2024 at 09:33 AM EDT Sign off status: Pending * Appointment Provider:?Sahara Chen M.D. Date:?12/15/2023 Generated for Sarwat baron/Catrachita/Dimitri on:?11/11/2024 09:33 AM EDT
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
--- NOTE | 2024-11-11 09:37 | ED.SOB ---
HPI - SOB/Dyspnea General Chief Complaint: Dyspnea Stated Complaint: asthma Time Seen by Provider: 11/11/24 09:18 Source: patient, RN notes reviewed and old records reviewed Mode of arrival: ambulatory History of Present Illness ED Provider: China Milner PA-C HPI Narrative: 64-year-old female with a past medical history of COPD, diabetes, HTN, asthma, osteoarthritis, presenting to the ED complaining of dry cough, and SOB since yesterday afternoon. Admits to using neb machine and inhalers at home without relief. Denies recent steroid use. Does report sick contact. Denies fever, chills, pedal edema, recent travel, calf pain, chest pain Related Data Home Medications ?Medication ?Instructions ?Recorded ?Confirmed blood sugar diagnostic (FreeStyle #10 ea 01/20/22 05/28/24 Lite Strips) blood-glucose meter (FreeStyle #1 ea 01/20/22 05/28/24 Cantril Lite kit) lancets 28 gauge (FreeStyle #100 ea 01/20/22 05/28/24 Lancets) loratadine 10 mg tablet 10 mg PO DAILY 01/20/22 05/27/24 tramadol 50 mg tablet 50 mg PO TID PRN Pain 01/20/22 05/27/24 atorvastatin 20 mg tablet 20 mg PO BEDTIME 11/14/22 05/27/24 metformin 500 mg tablet 500 mg PO BID 04/06/23 05/27/24 aspirin 81 mg tablet,delayed 81 mg PO DAILY 02/16/24 05/27/24 release cholecalciferol (vitamin D3) 10 10 mcg PO DAILY 02/16/24 05/27/24 mcg (400 unit) capsule albuterol sulfate 2.5 mg/3 mL 2.5 mg inhalation Q6H PRN 05/27/24 05/27/24 (0.083 %) solution for nebulization Shortness Of Breath dupilumab 300 mg/2 mL subcutaneous 300 mg subcut Q2W 05/27/24 05/27/24 pen injector (Dupixent) fluticasone furoate 200 1 ea inhalation DAILY 05/27/24 05/27/24 mcg-vilanterol 25 mcg/dose inhalation powder Previous Rx's ?Medication ?Instructions ?Recorded acetaminophen 325 mg tablet 650 mg (2 x 325 mg) PO Q6H PRN 01/31/23 Pain, Mild (Pain Scale 1-3) 30 days #240 tabs azithromycin 250 mg tablet 250 mg PO DAILY #3 tabs 05/29/24 cefuroxime axetil 500 mg tablet 500 mg PO BID #6 tabs 05/29/24 ipratropium 0.5 mg-albuterol 3 mg 3 ml inhalation Q4H PRN shortness 05/29/24 (2.5 mg base)/3 mL nebulization of breath or wheezing #270 mL soln levalbuterol tartrate 45 2 puff inhalation Q4-6H PRN 05/29/24 mcg/actuation aerosol inhaler shortness of breath or wheezing (Xopenex HFA) #15 grams prednisone 20 mg tablet 40 mg (2 x 20 mg) PO DAILY #3 tabs 05/29/24 doxycycline hyclate 100 mg tablet 100 mg PO BID 7 days #14 tabs 06/11/24 Allergies Allergy/AdvReac Type Severity Reaction Status Date / Time ibuprofen [IBUPROFEN] Allergy Intermediate exacerbates Verified 11/11/24 08:06 asthma oxaprozin [From DAYPRO] Allergy Intermediate exacerbates Verified 11/11/24 08:06 asthma Penicillins [PCN] Allergy Intermediate RASH Verified 11/11/24 08:06 Review of Systems Review of Systems: Yes all other systems are reviewed and are negative Constitutional: Constitutional: Reports as per [facility] Past Medical History Attestation statement: The following information was validated with the patient. Source: old records reviewed Medical History COPD (chronic obstructive pulmonary disease) Diabetes Steatosis, liver Elevated cholesterol HTN (hypertension) Asthma Osteoarthritis Osteoarthritis of right knee Headache Surgical History Hx of bilateral cataract extraction Hx of section Hx of laparoscopic gastric banding H/O colonoscopy Social History Social History Household Members: Family Housing: Apartment Are you a primary livestock caretaker to a significant other at home: No Do you presently have visiting nurse or other home services: No Unable to assess alcohol history related to: Unknown Patient Tobacco Use Status: Former Tobacco user Tobacco use type: Cigarette Years Smoked: 35 Second Hand Smoke Exposure: No Advance Directives: No Advance Directives Information Provided: Yes Do you have a plan to hurt others: No Plan service: No Current occupational status: employed Current occupation: [employer] Physical Exam Vital Signs: Vital Signs: Last Vital Signs Temp 98.9 F 11/11/24 14:11 Pulse 121 H 11/11/24 14:11 Resp 16 11/11/24 14:11 BP 152/94 H 11/11/24 14:11 Pulse Ox 93 11/11/24 14:11 O2 Del Method Room Air 11/11/24 14:11 BMI result Body Mass Index 40.4 Const: General: cooperative, healthy appearing and no acute distress Orientation/consciousness: patient oriented x3 Limitations: no limitations HEENT: Head: Yes normal to inspection and Yes atraumatic Ears: hearing grossly normal bilaterally General nose exam: Normal external nose present Face and sinus: Yes normal facial exam Eyes: General: appearance normal, both eyes and all related structures EOM: EOMs intact bilaterally Neck: Neck: Yes normal visual inspection and Yes no meningeal signs Resp: Effort & Inspection: normal respiratory effort and no respiratory distress Auscultation: wheezes expiratory wheezes and throughout Cardio: Rate: regular rate Heart sounds: S1 normal heart sound present and S2 normal heart sound present Skin: Rashes: no rashes Wounds: no wounds Neuro: General: patient oriented x3, tone normal and no meningeal signs Cranial nerves: Yes CN's II-XII intact bilaterally Gait exam (Neuro): Normal gait present Extrem: General: Yes normal to inspection, Yes no pedal edema and Yes no calf tenderness Course Course Course Narrative: -1053--mild leukocytosis of 13.3. H&H at patient's baseline. Troponin negative -chest x-ray unremarkable > on re-evaluation patient is still diffusely wheezy. We will give IV magnesium & additional DuoNeb and re-evaluate -1350-- on re-evaluation patient is still with diffuse expiratory wheeze. Agreeable for admission Medications Administered Discontinued Medications Generic Name Dose Route Start Last Admin Trade Name Freq PRN Reason Stop Dose Admin Levalbuterol HCl 3.75 mg/ 0 mg 11/11/24 09:40 11/11/24 09:43 Ipratropium [place] 0.5 mg INHALE 11/11/24 09:41 1 dose ONCE ONE Administration Levalbuterol HCl 2.5 mg/ 0 mg 04/28/25 12:05 11/11/24 12:07 Ipratropium [place] 0.5 mg INHALE 11/11/24 12:06 1 dose ONCE ONE Administration Magnesium Sulfate 2 gm in 50 mls @ 25 mls/hr 11/11/24 10:51 11/11/24 13:01 Magnesium Sulfate/H2o IV 11/11/24 12:50 Infused ONCE ONE Infusion Methylprednisolone Sodium Succinate 60 mg 11/11/24 09:31 11/11/24 10:07 Methylprednisolone Sod Succ 125 Mg/2 Ml Vial IVPUSH 11/11/24 09:32 60 mg ONCE ONE Administration Medical Decision Making Medical Decision Making MDM Narrative: 64-year-old female with a past medical history of COPD, diabetes, HTN, asthma, osteoarthritis, presenting to the ED complaining of dry cough, and SOB since yesterday afternoon. On exam tachycardic likely from albuterol use [employer] rather than severe sepsis, talking in complete sentences, NAD, diffuse expiratory wheeze noted throughout, no pedal edema or calf tenderness. Concern for asthma/COPD exacerbation vs viral illness vs pneumonia. Lower suspicion for ACS, PE or DVT. Low suspicion for severe sepsis Plan: EKG, labs, CXR, viral testing, ED bronch protocol, IV Solu-Medrol, re-evaluate Please refer to course for remaining clinical decision making, interpretation of labs/imaging results, and discussions with consultants and/or family members. Differential Diagnosis Differential Diagnoses: The differential diagnosis associated with the presentation includes As above Admission/Observation Consideration of admission/observation: Escalation of care including admission/observation considered Consult Healthcare Provider Management of the patient was discussed with: Hospitalist Lab Data [facility] Lab Attestation statement: I reviewed the patient's lab results. 11/11/24 08:16 11/11/24 08:16 Labs: Lab Results 11/11/24 11/11/24 11/11/24 Range/Units 07:45 08:16 10:32 WBC 13.3 H (4.8-10.8) X10*3/uL RBC 4.00 L (4.20-5.50) X10*6/uL Hgb 10.1 L (12.0-16.0) g/dl Hct 32.6 L (37.0-47.0) % MCV 81.5 (80.0-98.0) fL MCH 25.3 L (27.0-33.0) pg MCHC 31.0 (31.0-35.0) g/dl RDW 15.7 (11.0-16.0) % Plt Count 288 (160-400) X10*3/uL MPV 9.2 L (9.4-12.3) fL Immature Gran % (Auto) 0.4 (0.0-0.4) % Neut % (Auto) 80.0 H (45-73) % Lymph % (Auto) 11.5 L (20-40) % [place] % (Auto) 5.2 (2-11) % Eos % (Auto) 2.2 (0-4) % Baso % (Auto) 0.7 (0-2) % Lymph # (Auto) 1.5 (1.2-4.9) X10*3/uL [place] # (Auto) 0.7 (0.1-1.2) X10*3/uL Eos # (Auto) 0.3 (0.0-0.4) X10*3/uL Baso # (Auto) 0.1 (0.0-0.2) X10*3/uL Abs Immat Gran (auto) 0.05 H (0.00-0.03) X10*3/uL Absolute Neuts (auto) 10.7 H (2.0-8.3) x10*3/uL Absolute Nucleated RBC 0.000 (0.0-0.012) X10*3/uL Nucleated RBC % (auto) 0.0 (0.0-0.2) /100WBC Sodium 139 (135-145) mmol/L Potassium 4.1 (3.3-5.1) mmol/L Chloride 103 (96-108) mmol/L Carbon Dioxide 28 (22-29) mmol/L Anion Gap 12 (12-20) BUN 13 (9-16) mg/dL Creatinine 0.64 (0.5-1.4) mg/dL Estim Creat Clear Calc 93.3 Estimated GFR > 60 POC Glucose (60-115) mg/dL Random Glucose 135 H (60-115) mg/dL Estimat Average Glucose Cancelled Hemoglobin A1c % Cancelled Calcium 8.9 (8.4-10.2) mg/dL Troponin I High Sens < 2.7 (<3.5-17.0) ng/L Urine Color Cancelled Urine Appearance Cancelled Urine pH Cancelled Ur Specific [place] Cancelled Urine Protein Cancelled Urine Glucose (UA) Cancelled Urine Ketones Cancelled Urine Blood Cancelled Urine Nitrite Cancelled Ur Leukocyte Esterase Cancelled Urine RBC Cancelled Urine WBC Cancelled Urine WBC Clumps Cancelled Ur Squamous Epith Cells Cancelled Ur Transition Epith Cell Cancelled Ur Renal Epithelial Cell Cancelled Calcium Oxalate Crystal Cancelled Leucine Crystals Cancelled Cystine Crystals Cancelled Tyrosine Crystals Cancelled Other Crystals Cancelled Urine Bacteria Cancelled Urine Parasites Cancelled Bilirubin Casts Cancelled Epithelial Casts Cancelled Fatty Casts Cancelled Hyaline Casts Cancelled Granular Casts Cancelled Waxy Casts Cancelled Broad Casts Cancelled RBC Casts Cancelled WBC Casts Cancelled Other Casts Cancelled Urine Trichomonas Cancelled Urine Yeast Cancelled Urine Creatinine Cancelled Urine Microalbumin Cancelled Microalb/Creat Ratio Cancelled Influenza Type A (PCR) NEGATIVE (Negative) Influenza Type B (PCR) NEGATIVE (Negative) RSV RNA Qual (PCR) NEGATIVE (Negative) SARS-CoV-2 RNA (RT-PCR) NEGATIVE (Negative) 11/11/24 Range/Units 13:55 WBC (4.8-10.8) X10*3/uL RBC (4.20-5.50) X10*6/uL Hgb (12.0-16.0) g/dl Hct (37.0-47.0) % MCV (80.0-98.0) fL MCH (27.0-33.0) pg MCHC (31.0-35.0) g/dl RDW (11.0-16.0) % Plt Count (160-400) X10*3/uL MPV (9.4-12.3) fL Immature Gran % (Auto) (0.0-0.4) % Neut % (Auto) (45-73) % Lymph % (Auto) (20-40) % [place] % (Auto) (2-11) % Eos % (Auto) (0-4) % Baso % (Auto) (0-2) % Lymph # (Auto) (1.2-4.9) X10*3/uL [place] # (Auto) (0.1-1.2) X10*3/uL Eos # (Auto) (0.0-0.4) X10*3/uL Baso # (Auto) (0.0-0.2) X10*3/uL Abs Immat Gran (auto) (0.00-0.03) X10*3/uL Absolute Neuts (auto) (2.0-8.3) x10*3/uL Absolute Nucleated RBC (0.0-0.012) X10*3/uL Nucleated RBC % (auto) (0.0-0.2) /100WBC Sodium (135-145) mmol/L Potassium (3.3-5.1) mmol/L Chloride (96-108) mmol/L Carbon Dioxide (22-29) mmol/L Anion Gap (12-20) BUN (9-16) mg/dL Creatinine (0.5-1.4) mg/dL Estim Creat Clear Calc Estimated GFR POC Glucose 222 H (60-115) mg/dL Random Glucose (60-115) mg/dL Estimat Average Glucose Hemoglobin A1c % Calcium (8.4-10.2) mg/dL Troponin I High Sens (<3.5-17.0) ng/L Urine Color Urine Appearance Urine pH Ur Specific [place] Urine Protein Urine Glucose (UA) Urine Ketones Urine Blood Urine Nitrite Ur Leukocyte Esterase Urine RBC Urine WBC Urine WBC Clumps Ur Squamous Epith Cells Ur Transition Epith Cell Ur Renal Epithelial Cell Calcium Oxalate Crystal Leucine Crystals Cystine Crystals Tyrosine Crystals Other Crystals Urine Bacteria Urine Parasites Bilirubin Casts Epithelial Casts Fatty Casts Hyaline Casts Granular Casts Waxy Casts Broad Casts RBC Casts WBC Casts Other Casts Urine Trichomonas Urine Yeast Urine Creatinine Urine Microalbumin Microalb/Creat Ratio Influenza Type A (PCR) (Negative) Influenza Type B (PCR) (Negative) RSV RNA Qual (PCR) (Negative) SARS-CoV-2 RNA (RT-PCR) (Negative) Independent Interpretation I performed an independent interpretation of an: EKG (My interpretation EKG sinus tachycardia rate of 107. LA interval 138. QTC 467. No significant change when compared to prior. No STEMI) and Plain X-Ray Radiology Impression Discussion of test interpretation with radiology: I have reviewed the radiologist's reading. External Record Review External record reviewed: Inpatient record, Office record, Outpatient record, Prior outpatient labs, Prior outpatient radiology, Primary care record and Outside ED record Tests considered The following testing was considered but not selected: As above Prescription Management I considered prescription management with: Antibiotic Chronic Conditions Patient?s care impacted by: Other (Asthma/COPD) Social Determinants Patient?s care significantly limited by Social Determinants of Health including: Other Social Determinant of Health Critical Care Time Critical Care Time Critical Care Time: Yes Total Critical Care Time: 45 Attestation: I have personally provided critical care time exclusive of time spent on separately billable procedures. Time includes review of lab data, radiology results, discussion with consultants, and monitoring for potential decompensation. Intervention performed as documented. Discharge Plan Discharge Clinical Impression: Asthma with COPD with exacerbation Patient Disposition: Admitted As Inpatient
[2024-11-11] MEDS: levalbuterol HCL 3.75 MG, Ipratropium Bromide 0.5 MG INHALE (09:43)
[2024-11-11] MEDS: methylPREDNISolone Sod Succ 125 MG/2 ML VIAL 60 MG IVPUSH (10:07)
[2024-11-11] MEDS: Magnesium Sulfate/H2O 2 GM/50 ML PIGGYBACK IV (11:16)
[2024-11-11 11:17] LABS: Influenza A PCR NEGATIVE (Negative); Influenza B PCR NEGATIVE (Negative); Resp Syncy Virus RNA Qual PCR NEGATIVE (Negative); SARS COV2 PCR INHOUSE NEGATIVE (Negative)
[2024-11-11] MEDS: levalbuterol HCL 2.5 MG, Ipratropium Bromide 0.5 MG INHALE (12:07)
--- NOTE | 2024-11-11 13:56 | PC.NURSE ---
pt alerted this RN that she did not want a 3rd breathing tx because it was making her too shakey, Provider aware, plan in place was to admit if she did not want a 3rd treatment. Pt in agreement with that plan, POC checked as she is a diabetic, and did not take her metformin this morning and or has not had a lot to eat today, POC 222. Diet order placed for pt at this time.
[2024-11-11 13:59] LABS: Glucose, Whole Blood 222 mg/dL (60-115)
[2024-11-11] MEDS: 0.9 % Sodium Chloride 1,000 ML 999 ML IV (14:20)
--- NOTE | 2024-11-11 14:37 | PHA.MEDREC ---
Pharmacy Consult ? Medication Reconciliation Pharmacy has completed the medication reconciliation. Spoke to patient at bedside, she knows her home meds. She says she takes her Dupixent injection every two weeks on Wednesdays and it is due this week. She also endorsed that she stopped prednisone and also that she thinks the Xopenex made her sick and she stopped taking it.
--- NOTE | 2024-11-11 14:48 | PC.NURSE ---
report given to overflow- pt to be transported to Overflow 1
--- NOTE | 2024-11-11 15:14 | P.HPHOSP_ITS ---
History of Present Illness Date of Service: 11/11/24 Attending physician on admission: [facility] Chief Complaint: SOB Pt is a 64-year-old female with a PMH significant for?asthma/COPD overlap syndrome not on home O2, vnq-oeuvclp-qzaxkcxrk type 2 diabetes, HTN, and HLD who presents to the ED with?SOB and SEE x2 days. Pt reports symptoms began yesterday evening when she began experiencing mild sore throat and persistent nonproductive cough. Pt used her nebulizer at home that night and then went to sleep. This morning when she woke reports significantly worsened symptoms and that she simply couldn't breath or talk. Minimal relief from home inhalers. Pt denies sick contacts but admits has seasonal allergies. No fever or chills. Denies nausea, vomiting, abdominal pain. No chest pain/pressure, palpitations. After treatment in the ED pt reports his breathing much better than before and able to speak. No longer experiencing significant SOB at rest, but still with exertion such as walking to the bathroom. In the ED pt was tachycardic up to 121, tachypneic up to 24, and hypertensive up to 152/94. Satting at 93% on RA. Labs were significant for chronic leukocytosis of 13.3 (similar to previous), stable normocytic anemia of 10.1/32.6, and glucose 222. No significant electrolyte abnormalities. Renal function WNL. Troponin negative. Tested negative for flu, COVID, RSV. CXR unremarkable. EKG demonstrated sinus tachycardia of 107 without significant ischemic changes similar to prior. Pt was treated in the ED with Xopenex, Solu- Medrol, Mag sulfate, and IVF. Pt is admitted to the hospital for treatment of acute asthma/COPD overlap exacerbation. Review of Systems 2 Review of Systems: Negative except for that which is stated in the [facility] Medical History COPD (chronic obstructive pulmonary disease) Diabetes Steatosis, liver Elevated cholesterol HTN (hypertension) Asthma Osteoarthritis Osteoarthritis of right knee Headache Surgical History Hx of bilateral cataract extraction Hx of section Hx of laparoscopic gastric banding H/O colonoscopy Social History Household Members: Family Housing: Apartment Are you a primary day care worker to a significant other at home: No Do you presently have visiting nurse or other home services: No Unable to assess alcohol history related to: Unknown Patient Tobacco Use Status: Former Tobacco user Tobacco use type: Cigarette Years Smoked: 35 Second Hand Smoke Exposure: No Advance Directives: No Advance Directives Information Provided: Yes Do you have a plan to hurt others: No Plan Nutrition Risks: No Nutritional Risk service: No Current occupational status: employed 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 Allergies Allergy/AdvReac Type Severity Reaction Status Date / Time ibuprofen [IBUPROFEN] Allergy Intermediate exacerbates Verified 11/11/24 08:06 asthma oxaprozin [From DAYPRO] Allergy Intermediate exacerbates Verified 11/11/24 08:06 asthma Penicillins [PCN] Allergy Intermediate RASH Verified 11/11/24 08:06 Active Medications: Current Medications Sodium Chloride (Ns) 1,000 mls @ 999 mls/hr IV .Q1H1M [facility] Stop: 11/11/24 15:15 Last Admin: 11/11/24 14:20 Dose: 999 mls/hr Doxycycline Hyclate 100 mg/ (Sodium Chloride) 250 mls @ 166.67 mls/hr IV Q12H [facility] Home Medications ?Medication ?Instructions ?Recorded ?Confirmed ?Last Taken ?Type blood sugar diagnostic (FreeStyle #10 ea 01/20/22 05/28/24 Unknown History Lite Strips) blood-glucose meter (FreeStyle #1 ea 01/20/22 05/28/24 Unknown History [place] Lite kit) lancets 28 gauge (FreeStyle #100 ea 01/20/22 05/28/24 Unknown History Lancets) loratadine 10 mg tablet 10 mg PO DAILY 01/20/22 11/11/24 11/10/24 21:00 History tramadol 50 mg tablet 50 mg PO TID PRN Pain 01/20/22 11/11/24 11/10/24 21:00 History atorvastatin 20 mg tablet 20 mg PO BEDTIME 11/14/22 11/11/24 11/10/24 21:00 History metformin 500 mg tablet 500 mg PO BID 04/06/23 11/11/24 11/10/24 21:00 History aspirin 81 mg tablet,delayed 81 mg PO DAILY 02/16/24 11/11/24 11/10/24 21:00 History release cholecalciferol (vitamin D3) 10 10 mcg PO DAILY 02/16/24 11/11/24 11/10/24 21:00 History mcg (400 unit) capsule albuterol sulfate 2.5 mg/3 mL 2.5 mg inhalation Q6H PRN 05/27/24 11/11/24 11/10/24 21:00 History (0.083 %) solution for nebulization Shortness Of Breath dupilumab 300 mg/2 mL subcutaneous 300 mg subcut Q2W 05/27/24 11/11/24 10/30/24 History pen injector (Dupixent) fluticasone furoate 200 1 ea inhalation DAILY 05/27/24 11/11/24 11/10/24 21:00 History mcg-vilanterol 25 mcg/dose inhalation powder Physical Exam 2 Vital Signs and Narrative: Vital Signs: Last Vital Signs Temp 98.9 F 11/11/24 14:11 Pulse 121 H 11/11/24 14:11 Resp 16 11/11/24 14:11 BP 152/94 H 11/11/24 14:11 Pulse Ox 93 11/11/24 14:11 O2 Del Method Room Air 11/11/24 14:11 BMI result Body Mass Index 40.4 General: AOx3, no acute distress Resp: Diffuse mild expiratory wheezing CVS: S1, S2, regular rate, tachycardic GI: +BS, NT, no distention Skin: Warm, dry Neuro: Cranial nerves II-XII grossly intact bilaterally. Motor grossly intact bilaterally Extremities: No edema Psych: Appropriate affect Results Labs 11/11/24 08:16 11/11/24 08:16 Labs: Laboratory Results - last 24 hr 11/11/24 11/11/24 11/11/24 07:45 08:16 10:32 MCV 81.5 MCH 25.3 L MCHC 31.0 RDW 15.7 Plt Count 288 MPV 9.2 L Immature Gran % (Auto) 0.4 Neut % (Auto) 80.0 H Lymph % (Auto) 11.5 L Mckenzie % (Auto) 5.2 Eos % (Auto) 2.2 Baso % (Auto) 0.7 Lymph # (Auto) 1.5 Mckenzie # (Auto) 0.7 Eos # (Auto) 0.3 Baso # (Auto) 0.1 Abs Immat Gran (auto) 0.05 H Absolute Neuts (auto) 10.7 H Absolute Nucleated RBC 0.000 Nucleated RBC % (auto) 0.0 Anion Gap 12 Estim Creat Clear Calc 93.3 Estimated GFR > 60 POC Glucose Random Glucose 135 H Estimat Average Glucose Cancelled Hemoglobin A1c % Cancelled Calcium 8.9 Urine Color Cancelled Urine Appearance Cancelled Urine pH Cancelled Ur Specific [place] Cancelled Urine Protein Cancelled Urine Glucose (UA) Cancelled Urine Ketones Cancelled Urine Blood Cancelled Urine Nitrite Cancelled Ur Leukocyte Esterase Cancelled Urine RBC Cancelled Urine WBC Cancelled Urine WBC Clumps Cancelled Ur Squamous Epith Cells Cancelled Ur Transition Epith Cell Cancelled Ur Renal Epithelial Cell Cancelled Calcium Oxalate Crystal Cancelled Leucine Crystals Cancelled Cystine Crystals Cancelled Tyrosine Crystals Cancelled Other Crystals Cancelled Urine Bacteria Cancelled Urine Parasites Cancelled Bilirubin Casts Cancelled Epithelial Casts Cancelled Fatty Casts Cancelled Hyaline Casts Cancelled Granular Casts Cancelled Waxy Casts Cancelled Broad Casts Cancelled RBC Casts Cancelled WBC Casts Cancelled Other Casts Cancelled Urine Trichomonas Cancelled Urine Yeast Cancelled Urine Creatinine Cancelled Urine Microalbumin Cancelled Microalb/Creat Ratio Cancelled Influenza Type A (PCR) NEGATIVE Influenza Type B (PCR) NEGATIVE RSV RNA Qual (PCR) NEGATIVE SARS-CoV-2 RNA (RT-PCR) NEGATIVE 11/11/24 13:55 MCV MCH MCHC RDW Plt Count MPV Immature Gran % (Auto) Neut % (Auto) Lymph % (Auto) Mckenzie % (Auto) Eos % (Auto) Baso % (Auto) Lymph # (Auto) Mckenzie # (Auto) Eos # (Auto) Baso # (Auto) Abs Immat Gran (auto) Absolute Neuts (auto) Absolute Nucleated RBC Nucleated RBC % (auto) Anion Gap Estim Creat Clear Calc Estimated GFR POC Glucose 222 H Random Glucose Estimat Average Glucose Hemoglobin A1c % Calcium Urine Color Urine Appearance Urine pH Ur Specific [place] Urine Protein Urine Glucose (UA) Urine Ketones Urine Blood Urine Nitrite Ur Leukocyte Esterase Urine RBC Urine WBC Urine WBC Clumps Ur Squamous Epith Cells Ur Transition Epith Cell Ur Renal Epithelial Cell Calcium Oxalate Crystal Leucine Crystals Cystine Crystals Tyrosine Crystals Other Crystals Urine Bacteria Urine Parasites Bilirubin Casts Epithelial Casts Fatty Casts Hyaline Casts Granular Casts Waxy Casts Broad Casts RBC Casts WBC Casts Other Casts Urine Trichomonas Urine Yeast Urine Creatinine Urine Microalbumin Microalb/Creat Ratio Influenza Type A (PCR) Influenza Type B (PCR) RSV RNA Qual (PCR) SARS-CoV-2 RNA (RT-PCR) Imaging Radiologist's Impressions: Impressions Chest X-Ray 11/11/24 08:22 IMPRESSION: Unremarkable chest examination. Electronically signed by: Guy Novak MD 11/11/2024 08:33 AM EDT RP Assessment and Plan (1) Asthma with COPD with exacerbation: Status: Acute Plan Pt is a 64-year-old female with a PMH significant for?asthma/COPD overlap syndrome not on home O2, don-jtrsgoh-qpirhgeqn type 2 diabetes, seasonal allergies, HTN, and HLD who presents to the ED with?SOB and SEE x2 days. Pt is admitted to the hospital for treatment of acute asthma/COPD overlap exacerbation. Acute asthma/COPD exacerbation SOB, SEE, difficulty speaking, wheezing since yesterday, worse this morning Symptoms continue especially with exertion despite treatments in the ED Will treat with Xopenex, Solu-Medrol, guaifenesin No sepsis: Tachycardia secondary to updrafts, leukocytosis chronic; CXR negative for underlying pneumonia Exacerbation likely secondary to seasonal allergies Will empirically cover with doxycycline for pleiotropic effects, started 11/11/2024 Continue loratadine Monitor respiratory status Hwd-pwzbyfm-wtibptchi type 2 diabetes Sliding-scale insulin Hold metformin HLD Continue statin Full Code Attending:?Dr. Van DVT Prophylaxis: Lovenox Pt will require a hospitalization of at least two nights for treatment of?acute asthma/COPD exacerbation requiring treatment with bronchodilators, IV steroids, and empiric treatment IV antibiotics. Quality Stroke Does the patient have a stroke diagnosis?: No VTE Prior VTE?: No VTE Risk Level:: Medical - low VTE Device Contraindication: Treatment Not Indicated VTE Drug Contraindication: N/A - Med Ordered
[2024-11-11] MEDS: Doxycycline Hyclate 100 MG in 0.9 % Sodium Chloride 250 ML 166.67 MG IV (16:07)
[2024-11-11] MEDS: Enoxaparin Sodium 40 MG/0.4 ML SYRINGE SUBCUT (16:14)
[2024-11-11] MEDS: Acetaminophen 325 MG TABLET 650 MG PO (16:14)
[2024-11-11 17:05] LABS: Glucose, Whole Blood 307 mg/dL (60-115)
[2024-11-11] MEDS: 0.9 % Sodium Chloride Flush 3 ML SYRINGE IVFLUSH ×2 (17:10→20:28)
[2024-11-11] MEDS: levalbuterol HCL 1.25 MG/3 ML VIAL.NEB INHALE ×2 (17:33→18:46)
[2024-11-11] MEDS: Insulin Lispro 100 UNIT/ML 3 ML VIAL SUBCUT ×2 (17:50→20:27)
[2024-11-11 20:18] LABS: Glucose, Whole Blood 197 mg/dL (60-115)
[2024-11-12 04:00] VITALS: BP 166/85; PULSE 102; RESP 18; TEMP 36.3; O2SAT 94
[2024-11-12] MEDS: Doxycycline Hyclate 100 MG in 0.9 % Sodium Chloride 250 ML 166.67 MG IV (05:02)
[2024-11-12] MEDS: guaiFENesin DM 200/20/10 ML 10 ML SYRUP PO (05:03)
[2024-11-12 05:11] VITALS: PULSE 96; RESP 18; O2SAT 95
[2024-11-12] MEDS: levalbuterol HCL 1.25 MG/3 ML VIAL.NEB INHALE (05:11)
[2024-11-12 07:39] VITALS: BP 140/90; PULSE 95; RESP 16; TEMP 36.1; O2SAT 95
[2024-11-12 07:49] LABS: Glucose, Whole Blood 120 mg/dL (60-115)
[2024-11-12] MEDS: methylPREDNISolone Sod Succ 40 MG/ML VIAL IVPUSH (08:54)
[2024-11-12] MEDS: 0.9 % Sodium Chloride Flush 3 ML SYRINGE IVFLUSH (08:54)
--- NOTE | 2024-11-12 12:12 | P.DS_ITS ---
DS: Providers Provider Date of Service: 11/12/24 Date of admission: 11/11/24 14:01 Date of discharge: 11/12/24 Primary care physician: Angy Veliz MD Attending physician on discharge: Bernadette Cantor Discharging clinician: Bernadette Cantor DS: Diagnosis Discharge Diagnosis (1) Asthma with COPD with exacerbation: Status: Acute DS: Summary Hospital Course Hospital Course: HPI:64-year-old female with a PMH significant for?asthma/COPD overlap syndrome not on home O2, bkw-byamsww-xjjmwiqub type 2 diabetes, HTN, and HLD who presents to the ED with?SOB and SEE x2 days. Pt reports symptoms began yesterday evening when she began experiencing mild sore throat and persistent nonproductive cough. Pt used her nebulizer at home that night and then went to sleep. This morning when she woke reports significantly worsened symptoms and that she simply couldn't breath or talk. Minimal relief from home inhalers. Pt denies sick contacts but admits has seasonal allergies. No fever or chills. Denies nausea, vomiting, abdominal pain. No chest pain/pressure, palpitations. After treatment in the ED pt reports his breathing much better than before and able to speak. No longer experiencing significant SOB at rest, but still with exertion such as walking to the bathroom. In the ED pt was tachycardic up to 121, tachypneic up to 24, and hypertensive up to 152/94. Satting at 93% on RA. Labs were significant for chronic leukocytosis of 13.3 (similar to previous), stable normocytic anemia of 10.1/32.6, and glucose 222. No significant electrolyte abnormalities. Renal function WNL. Troponin negative. Tested negative for flu, COVID, RSV. CXR unremarkable. EKG demonstrated sinus tachycardia of 107 without significant ischemic changes similar to prior. Pt was treated in the ED with Xopenex, Solu- Medrol, Mag sulfate, and IVF. Pt is admitted to the hospital for treatment of acute asthma/COPD overlap exacerbation. Hospital course:64-year-old female with a PMH significant for?asthma/COPD overlap syndrome not on home O2, rnv-essnpst-nxkjzwowd type 2 diabetes, seasonal allergies, HTN, and HLD who presents to the ED with?SOB and SEE x2 days. Pt is admitted to the hospital for treatment of acute asthma(mild intermittent)/COPD overlap exacerbation: Patient was admitted sob ,mild leucocytosis , chest x-ray negative,given steroid, nebs, IV antibiotics: Patient improved, short of breath , now at baseline. Patient will be going home with p.o. prednisone 40 mg daily for 4 days, doxycycline 100 mg p.o. b.i.d. for 6 more days.moniter cbc outpatient. Patient was strongly advised to follow outpatient. plan: continue p.o. prednisone 40 mg daily for 4 days, doxycycline 100 mg p.o. b.i.d. for 6 more days.moniter cbc outpatient. follow up with pcp outpatient. Above management discussed with the patient detail length she understand and in agreement with the above plan, time spent 40 minute. Time Attestation Total time managing care of this patient today: 40 mintues. Discharge Coordination Time (in mins): 40 minute Quality: Safe Use of Opioids Does Pt have an Active Cancer Diagnosis on the Problem List?: No Quality: Stroke Does the patient have a stroke diagnosis?: No Physical Exam Vital Signs: Vital Signs: Last Vital Signs Temp 97.0 F 11/12/24 07:39 Pulse 95 11/12/24 07:39 Resp 16 11/12/24 07:39 BP 140/90 H 11/12/24 07:39 Pulse Ox 95 11/12/24 07:39 O2 Del Method Room Air 11/12/24 07:39 BMI result Body Mass Index 37.0 General: AOx3, no acute distress Resp: Air entry fair, no rales or wheezing CVS: S1, S2, RRR GI: +BS, NT, no distention Skin: Warm, dry Extremities: No edema or cyanosis. DS: Data Data Completed and Pending Completed studies during hospitalization [Text1]: Procedures Introduction of Anesthetic Agent into Peripheral Nerves and Plexi, Percutaneous Approach (01/31/23) Replacement of Right Knee Joint with Synthetic Substitute, Uncemented, Open Approach (01/31/23) Labs on day of discharge: Laboratory Results - last 24 hr 11/11/24 11/11/24 11/11/24 13:55 17:02 20:12 POC Glucose 222 H 307 H 197 H 11/12/24 07:38 POC Glucose 120 H Imaging Chest x-ray: Radiologist's impression: ITS Impressions Chest X-Ray 11/11/24 08:22 IMPRESSION: Unremarkable chest examination. Electronically signed by: Guy Novak MD 11/11/2024 08:33 AM EDT RP Discharge Plan Discharge Anticipated Discharge Date/Time: 11/12/24 12:05 Patient Disposition: Home, Self-Care Discharge Diagnosis: copd execerebation Referrals: Angy Pichardo MD [Primary Care Provider] - 1 Week Discharge Medications: New prednisone 20 mg Tablet 40 mg PO DAILY Qty: 8 0RF doxycycline monohydrate 100 mg Capsule 100 mg PO Q12H Qty: 12 0RF Continued fluticasone furoate-vilanterol 200-25 mcg/dose blister with device 1 ea INHALATION DAILY Dupixent Pen 300 mg/2 mL pen injector 300 mg subcut Q2W Rx Instructions: Wednesdays next dose 06/05/24 albuterol sulfate 2.5 mg /3 mL (0.083 %) solution for nebulization 2.5 mg inhalation Q6H PRN (Reason: Shortness Of Breath) ipratropium-albuterol 0.5 mg-3 mg(2.5 mg base)/3 mL solution for nebulization 3 ml inhalation Q4H PRN (Reason: shortness of breath or wheezing) Qty: 270 0RF Rx Instructions: until breathing returns to target peak flow/parameters aspirin 81 mg Tablet,Delayed Release (Dr/Ec) 81 mg PO DAILY cholecalciferol (vitamin D3) 10 mcg (400 unit) Capsule 10 mcg PO DAILY loratadine 10 mg tablet 10 mg PO DAILY tramadol 50 mg tablet 50 mg PO TID PRN (Reason: Pain) (DME) lancets [FreeStyle Lancets] 28 gauge misc See Rx Instructions topical DAILY Qty: 100 Rx Instructions: As directed (DME) blood-glucose meter [FreeStyle [place] Lite] Kit See Rx Instructions .ROUTE DAILY Qty: 1 Rx Instructions: As directed (DME) FreeStyle Lite Strips Strip See Rx Instructions Not Applicable DAILY Qty: 10 Rx Instructions: As directed atorvastatin 20 mg tablet 20 mg PO BEDTIME metformin 500 mg tablet 500 mg PO BID Discharge Orders: Discharge Order (Routine); Ordered 11/12/24 Ordered By: Bernadette Cantor Diet: Advance to usual diet Activity on Discharge: As tolerated Stand Alone Forms: Patient Portal Discharge page Print Language: Welsh Care Plan Goals: 64-year-old female with a PMH significant for?asthma/COPD overlap syndrome not on home O2, roy-botwkkh-uystzdkgg type 2 diabetes, seasonal allergies, HTN, and HLD who presents to the ED with?SOB and SEE x2 days. Pt is admitted to the hospital for treatment of acute asthma(mild intermittent)/COPD overlap exacerbation: Patient was admitted sob ,mild leucocytosis , chest x-ray negative,given steroid, nebs, IV antibiotics: Patient improved, short of breath , now at baseline. Patient will be going home with p.o. prednisone 40 mg daily for 4 days, doxycycline 100 mg p.o. b.i.d. for 6 more days.moniter cbc outpatient. Patient was strongly advised to follow outpatient. Health Concerns: As above. Plan of Treatment: As above. Assessment: As above Discharge Date/Time: 11/12/24 12:52
--- NOTE | 2024-11-12 12:15 | MHC.CM.PN ---
Patient's first language is Amharic. However, fluent in Greenlandic and declines seo intern. [facility] delivered. 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 Functionally independent. Denies use of services. Has a nebulizer. PCP Angy Veliz MD HCP on file and verified DP: Medically cleared for dc home self care. Friend to transport. RN aware.
[2024-11-12 12:45] VITALS: BP 143/73; PULSE 103; RESP 18; TEMP 36.7; O2SAT 95
== END 2024-11-12 12:52 | disposition home or self-care (01) | DRG 191 ==
LOC: HO.ED 13:58 → HO.EDOVER 14:12 → HO.S3 15:22
PROVIDERS: Internal Medicine; Physician Assistant; Admitting Provider Internal Medicine; Emergency Provider Emergency Medicine Emergency Medical Services; PCP Internal Medicine; Visit Provider Internal Medicine
DX: J44.1 Chronic obstructive pulmonary disease with (acute) exacerbation (principal); J45.901 Unspecified asthma with (acute) exacerbation; I10 Essential (primary) hypertension; E11.9 Type 2 diabetes mellitus without complications; E78.5 Hyperlipidemia, unspecified; Z20.822 Contact with and (suspected) exposure to COVID-19; Z79.51 Long term (current) use of inhaled steroids; Z79.82 Long term (current) use of aspirin; Z79.84 Long term (current) use of oral hypoglycemic drugs; Z79.899 Other long term (current) drug therapy
CPT/HCPCS: 0241U; 36415; 71045; 80048; 82947; 84484; 85025; 93005; 94640; 99285; J1271; J1650; J2919; J3475

== ENCOUNTER → 2024-11-11 08:07 | Outpatient (BNV) | payer OTHER, SELFPAY | PROVIDERS: PCP Internal Medicine; Visit Provider Radiology Diagnostic Radiology | DX: R06.00 Dyspnea, unspecified (principal) | CPT/HCPCS: 71045 ==

== ENCOUNTER → 2024-11-11 08:07 | Outpatient (BNV) | payer OTHER, SELFPAY | PROVIDERS: Emergency Provider Emergency Medicine Emergency Medical Services; PCP Internal Medicine; Visit Provider Internal Medicine Cardiovascular Disease | DX: R00.0 Tachycardia, unspecified (principal) | CPT/HCPCS: 93010 ==

== ENCOUNTER → 2024-11-11 14:01 | Outpatient (BNV) | payer OTHER, SELFPAY | PROVIDERS: Admitting Provider Internal Medicine; Emergency Provider Emergency Medicine Emergency Medical Services; PCP Internal Medicine; Visit Provider Internal Medicine | DX: J44.1 Chronic obstructive pulmonary disease with (acute) exacerbation (principal); J45.901 Unspecified asthma with (acute) exacerbation; E11.9 Type 2 diabetes mellitus without complications | CPT/HCPCS: 99222; 99239 ==

== ENCOUNTER 2024-12-02 14:11 | Outpatient (REF) | payer OTHER, SELFPAY ==
--- NOTE | ~2024-12-02 | XR_ITS ---
EXAMINATION: XR KNEE, RIGHT CLINICAL INFORMATION: M25.561 - Pain in right knee COMPARISON: January 31, 2023. TECHNIQUE: AP view both knees, lateral and sunrise projection of the right knee. FINDINGS: There is a metallic prosthesis with a femoral and tibial component well-seated in the osseous structures. There is loosening both femoral and tibial osseous structures adjacent to the prosthesis. No gross malalignment. No acute cortical disruption. There is joint space narrowing involving the medial lateral compartment, left knee with marginal osteophyte formation lateral femoral condyle and lateral tibial plateau. XR/XR knee RT 3V IMPRESSION: Loosening in the left femoral and tibial prosthetic components. Bicompartmental osteoarthrosis left knee. Electronically signed by: Mykel Sanchez MD 12/02/2024 02:32 PM EDT
== END 2024-12-02 14:12 | disposition home or self-care (01) ==
LOC: HO.HOSX 14:11
PROVIDERS: PCP Internal Medicine; Visit Provider Orthopaedic Surgery
DX: T84.032A Mechanical loosening of internal right knee prosthetic joint, initial encounter (principal); M25.561 Pain in right knee
CPT/HCPCS: 73562; 99212

== ENCOUNTER 2024-12-02 14:11 | Outpatient (AMB) | payer OTHER, SELFPAY ==
--- NOTE | 2024-12-02 14:12 | MHC.OFFVIS ---
Intake Visit Reasons: OV-s/p- RT TKA 02/01/23 pain NE-discuss options Intake Note: Nohemi a 63 year old female who presents today for a follow up of her right knee. Hx of right TKA, DOS 02/01/23. Patient reports that she had been having increased pain, this pain is felt with nurse behavioral health care. She has increased pain with ambulation of stairs. She takes Tylenol which give temporary releif. Currently her pain has improved. She also has pain in the left knee. Allergies ibuprofen [IBUPROFEN] Allergy (Intermediate, Verified 11/11/24 08:06) exacerbates asthma oxaprozin [From DAYPRO] Allergy (Intermediate, Verified 11/11/24 08:06) exacerbates asthma Penicillins [PCN] Allergy (Intermediate, Verified 11/11/24 08:06) RASH HPI HPI OV-s/p- RT TKA 02/01/23 pain NE-discuss options: Details: Nohemi a 63 year old female who presents today for a follow up of her right knee. Hx of right TKA, DOS 02/01/23. Patient reports that she had been having increased pain, this pain is felt with nurse behavioral health care. She has increased pain with ambulation of stairs. She takes Tylenol which give temporary relief. Currently her pain has improved. She also has pain in the left knee. [facility] Medical History COPD (chronic obstructive pulmonary disease) Diabetes Steatosis, liver Elevated cholesterol HTN (hypertension) Asthma Osteoarthritis Osteoarthritis of right knee Headache Surgical History Hx of bilateral cataract extraction Hx of section Hx of laparoscopic gastric banding H/O colonoscopy Social History Household Members: Children Housing: Condominium Are you a primary day care aide to a significant other at home: No Do you presently have visiting nurse or other home services: No Unable to assess alcohol history related to: Unknown Patient Tobacco Use Status: Former Tobacco user Tobacco use type: Cigarette Years Smoked: 35 Second Hand Smoke Exposure: No service: No Current occupational status: employed 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 Right total knee arthroplasty in expected post operative position with no hardware complications or evidence of loosening Assessment & Plan Assessment & Plan (1) Postoperative stiffness of total knee replacement: Code(s): T84.89XA - Other specified complication of internal orthopedic prosthetic devices, implants and grafts, initial encounter; M25.669 - Stiffness of unspecified knee, not elsewhere classified; Z96.659 - Presence of unspecified artificial knee joint Category: Medical Plan: Nohemi has mild stiffness with flexion but I recommend continued attempts at weight loss and strengthening. She is currently taking GLP 1 agonist. Follow up 6 months for re-evaluation. No orthopedic intervention warranted at this time. Orders: Orders XR knee RT 3V Today M25.561 - Pain in right knee Coding Level of Care Code Est Pt Level 3 (17568) Diagnoses Postoperative stiffness of total knee replacement T84.89XA; M25.669; Z96.659
--- OUTSIDE RECORDS SUMMARY | 2024-12-02 14:23 | XMS_ITS | Patient Health Record ---
Author Organization [facility] Address [address] [address] Care Team Providers Care Recreational Specialist Name Role Phone Angy Stockton M.D Primary Care Provider Unavailable Jorge Ngo Unavailable [phone] Allergies Allergen (clinical drug ingredient) Drug/Non Drug [...] W/U Status Risk Notes Problem Viral wart (03144822) Other viral warts (B07.8) Active confirmed Problem Pain in left foot (47150889238656 7) Pain in left foot (M79.672) Active confirmed Problem [id number] Skin disease (L98.9) Active confirmed Plan Of Treatment No Information Insurance Providers Payer Name Payer Address Payer Phone Subscriber Number Group Number Insured Name Patient Relationship to Insured Coverage Start Date Coverage End Date [facility] [employer] Claims [address] [place] [id number] [phone] [id number] Nohemi Jackson Self - patient is the [...]
--- OUTSIDE RECORDS SUMMARY | 2024-12-02 14:23 | XMS_ITS ---
Author Organization [employer] [facility] ([facility] Address [address] [place] [address] Care Team Providers Care Malted Milk Masher Name Role Phone VIVIENNE CROUCH Primary Care Provider Jossy Sahara Alford Unavailable [phone] REASON FOR VISIT ULTRA- TAW CK OVARIES Encounters Encounter Location Date Provider Diagnosis [facility] [employer] [address] [address] 12/15/2023 Sahara Chen Plan Of Treatment Next Appt Details Provider Name:Sahara pereira, 12/04/2024 11:00:00 AM, [address] [place] [address], [address], [place], [address], Progress Notes * CATHY MINAYADOB:1960 (64 yo F)Acc No.[id number]:12/15/2023 PROGRESS NOTES Patient:?CATHY MINAYA Appointment Provider:?Sahara pereira M.D. :1960???Age:63 Y???Sex:Female D ate:12/15/2023 Address:[address] [place], [place] [id number] Pcp:VIVIENNE FERNANDEZ Subjective: * Chief Complaints: * ???1. ULTRA- TAW CK OVARIES. * Medical History:? Objective: * Vitals:? Assessment: Plan: * Treatment: * Images: Billing Information: * Visit Code:? * Procedure Codes:? * Electronic signature of Nathan Chen MD on 12/02/2024 at 02:23 PM EDT Sign off status: Pending * Appointment Provider:?Sahara Chen M.D. Date:?12/15/2023 Generated for Sarwat baron/Catrachita/Dimitri on:?12/02/2024 02:23 PM EDT
--- OUTSIDE RECORDS SUMMARY | 2024-12-02 14:23 | XMS_ITS | Patient Health Record ---
[facility] Organization [facility] Address [address] [place] [address] Care Team Providers Care District Representative Name Role Phone VIVIENNE CROUCH Primary Care Provider Sahara Huerta Unavailable [phone] Allergies Allergen (clinical drug ingredient) Drug/Non Drug Allergy documented on EMR Reaction Allergy Type Onset Date Status PENICILLIN REDNESS/ITCHING Drug Allergy Active oxaprozin Daypro Unknown Drug Allergy Active ibuprofen IBUPROFEN HEADACHES Drug Allergy Active Results Component Value Reference Range Notes Urinalysis Reviewed date:12/04/2023 02:26:57 PM Interpretation: Performing Lab: Notes/Report: PH 7.0 PROTEIN TRACE GLUCOSE NEG BLOOD NEG [id number] IGP No Culture 30 Plus Reviewed date:12/07/2023 04:21:17 PM Interpretation: Performing Lab:[facility], [address], [address], [place], Phone - [phone], Director - [facility] Notes/Report: Clinical Information:[id number] Dates / Results....11/30/22,LGSIL NEGHRHPV Other..............Post Menopausal No. of containers..01 ThinPrep Vial DIAGNOSIS: NEGATIVE FOR INTRAEPITHELIAL LESION OR MALIGNANCY. CELLULAR CHANGES ASSOCIATED WITH ATROPHY ARE PRESENT. Specimen adequacy: Satisfactory for evaluation. Endocervical component may not be distinguished in cases of atrophy. Clinician provided ICD10: Z0 1.419 Performed by: Star lacey Billing Customer Service Representative (ASCP) . . Note: The Pap smear is a screening test designed to aid in the detection of premalignant and malignant conditions of the uterine cervix. It is not a diagnostic procedure and should not be used as the sole means of detecting cervical cancer. Both false-positive and false-negative reports do occur. . Test Methodology: [facility] The Thin Prep(R) Supervisor Special Education was unable to read this specimen. Therefore a manual review was performed. HPV Aptima Negative Negative This nucleic acid amplification test detects fourteen high-risk HPV types (16,18,31,33,35,39,45,51,52,56,58 ,59,66,68) without differentiation. HPV Genotype Reflex Criteria not met, HPV Genotype not performed. PDF Report Reviewed date:12/07/2023 04:21:03 PM Interpretation: Performing Lab:[facility] [place], [address], [address], [place], Phone - [phone], Director - [facility] Notes/Report: Clinical Information:[id number] Dates / Results....11/30/22,LGSIL NEGHRHPV Other..............Post Menopausal No. [...] W/U Status Risk Notes Problem Postmenopausal bleeding (72068019) Postmenopausal bleeding (N95.0) Active confirmed Problem Essential hypertension (67885934) Essential (primary) hypertension (I10) Active confirmed Problem Hyperlipidemia (07682693) Hyperlipidemia, unspecified (E78.5) Active confirmed Problem Asthma (644191204) Other asthma (J45.998) Active confirmed Problem Osteoarthritis (953950891) Unspecified osteoarthritis, unspecified site (M19.90) Active confirmed Problem Congenital hiatus hernia (30204583) Congenital hiatus hernia (Q40.1) Active confirmed Problem Menopause (383500726) Menopausal and female climacteric states (N95.1) Active confirmed Problem Asthma (disorder) (392603369) Asthma, unspecified, unspecified status (493.90) Active confirmed Major Problem Urinary tract infectious disease (disorder) (67726480) Urinary tract infection, site not specified (599.0) Active confirmed Diag Problem Female genital organ symptoms (591498992) Other specified symptom associated with female genital organs (625.8) Active confirmed Major Problem Postmenopausal bleeding (58694100) Postmenopausal bleeding (627.1) Active confirmed Diag Problem Menopausal symptom (66413621) Symptomatic menopausal or female climacteric states (627.2) Active confirmed Major Problem Urinary incontinence (441556967) Unspecified urinary incontinence (788.30) Active confirmed Diag Problem Right lower quadrant pain (032484966) Abdominal pain, right lower quadrant (789.03) Active confirmed Diag Problem Left lower quadrant pain (425607488) Abdominal pain, left lower quadrant (789.04) Active confirmed Diag Problem Gynecological examination normal (668931890797720) Routine gynecological examination (V72.31) Active confirmed Major Problem Screening for malignant neoplasm of colon (954151980) Special screening for malignant neoplasms, colon (V76.51) Active confirmed Major Vital Signs Temperature 97.3 degrees Fahrenheit 12/04/2023 Blood pressure diastolic 84 mm Hg 12/04/2023 Height 64 in 12/04/2023 Blood pressure systolic 128 mm Hg 12/04/2023 Weight 215 lbs 12/04/2023 BMI 36.9 kg/m2 12/04/2023 Encounters Encounter Location Date Provider Diagnosis [facility] [email or web address] [place] [address] 12/15/2023 Sahara Chen [facility] [email or web address] [place] [address] 12/04/2023 Sahara Chen Encounter for gynecological examination [...] WAS OBTAINED. IF ABNORMAL, WILL REFER TO PROGRAMMER NUMERICAL CONTROL ONCOLOGY. Plan Of Treatment Pending Test Test Name Order Date MAMMOGRAM, SCREENING 11/30/2022 MAMMOGRAM, SCREENING 12/04/2023 COMPLETE URINALYSIS 11/30/2022 URINE CULTURE 11/30/2022 BONE DENSITY 11/30/2022 BONE DENSITY 12/04/2023 MM Digital Mammo Screening 12/04/2023 MM Digital Mammo Screening 11/30/2022 Next Appt Details Provider Name:Sahara pereira, 12/04/2024 11:00:00 AM, [email or web address], [address], [place], [address], Insurance Providers Payer Name Payer Address Payer Phone Subscriber Number Group Number Insured Name Patient Relationship to Insured Coverage Start Date Coverage End Date [facility] [address] [place] [phone] [id number] CATHY MINAYA Self - patient is the [...]
== END 2024-12-02 14:49 | disposition home or self-care (01) ==
LOC: HO.HOS 14:12
PROVIDERS: PCP Internal Medicine; Visit Provider Orthopaedic Surgery
DX: T84.89XA Other specified complication of internal orthopedic prosthetic devices, implants and grafts, initial encounter (principal); M25.661 Stiffness of right knee, not elsewhere classified; Z96.651 Presence of right artificial knee joint
CPT/HCPCS: 99213

== ENCOUNTER → 2024-12-02 14:17 | Outpatient (BNV) | payer OTHER, SELFPAY | PROVIDERS: PCP Internal Medicine; Visit Provider Radiology Diagnostic Radiology | DX: M25.561 Pain in right knee (principal) | CPT/HCPCS: 73562 ==

== ENCOUNTER 2025-06-05 09:43 | Outpatient (AMB) | payer OTHER, SELFPAY ==
--- OUTSIDE RECORDS SUMMARY | 2023-12-15 04:30 | XMS_ITS ---
Author Organization [facility] [place] Address [address] [place] [address] Care Team Providers Care Microcomputer Technician Name Role Phone VIVIENNE CROUCH Primary Care Provider Jossy Sahara Alford Unavailable [phone] REASON FOR VISIT ULTRA- TAW CK OVARIES Encounters Encounter Location Date Provider Diagnosis [facility] [address] [place] [address] 12/15/2023 Sahara Chen Plan Of Treatment Next Appt Details Provider Name:Sahara pereira, 12/12/2025 10:20:00 AM, [address], [address], [place], [address], Progress Notes * RAEGANKAVITHA MONROECHENDOB:1960 (65 yo F)Acc No.[id number]:12/15/2023 PROGRESS NOTES Patient: CATHY COLUNGA Appointment Provider: Jemma Chen M.D. :1960 A ge:63 Y S ex:Female Date:12/15/2023 Address:[address] [place], [place] [id number] Pcp:VIVIENNE FERNANDEZ Subjective: * Chief Complaints: * 1 . ULTRA- TAW CK OVARIES. * Medical History: Objective: * Vitals: Assessment: Plan: * Treatment: * Images: Billing Information: * Visit Code: * Procedure Codes: * Electronic signature of Nathan Chen MD on 06/05/2025 at 01:49 PM EST Sign off status: Pending * Appointment Provider: Jemma Chen M.D. Date: 0 12/15/2023 Generated for Sarwat baron/Catrachita/Dimitri on: 1 08/05/2024 01:49 PM EST
--- NOTE | 2025-06-05 10:07 | MHC.OFFVIS ---
Intake Visit Reasons: OV-s/p- RT TKA 02/01/23 pain f/u Intake Note: Nohemi is a 65 year old female who presents today for a follow up of her Right Knee s/p Right TKA 02/01/23. Patient reports that she is doing better and has not concerns at this time. Allergies ibuprofen (IBUPROFEN) Allergy (Intermediate, Verified 11/11/24 08:06) exacerbates asthma oxaprozin (From DAYPRO) Allergy (Intermediate, Verified 11/11/24 08:06) exacerbates asthma Penicillins (PCN) Allergy (Intermediate, Verified 11/11/24 08:06) RASH HPI HPI OV-s/p- RT TKA 02/01/23 pain f/u: Details: Nohemi is a 65 year old female who presents today for a follow up of her Right Knee s/p Right TKA 02/01/23. Patient reports that she is doing better and has not concerns at this time. She is not sure why she didn'c cancel. She states she can walk comfortably and has some difficulty in flexion that is not new. She occasionally has soreness. [facility] Medical History COPD (chronic obstructive pulmonary disease) Diabetes Steatosis, liver Elevated cholesterol HTN (hypertension) Asthma Osteoarthritis Osteoarthritis of right knee Headache Surgical History Hx of bilateral cataract extraction Hx of section Hx of laparoscopic gastric banding H/O colonoscopy Social History Household Members: Children 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 There is ne effusion and stable ligamentous exam. DP+2 Results Reviewed Results Reviewed: I personally reviewed relevant radiographs. Right total knee arthroplasty in expected post operative position with no hardware complications or evidence of loosening Assessment & Plan Assessment & Plan (1) Status post total knee replacement, right: Code(s): Z96.651 - Presence of right artificial knee joint Category: Surgical Plan: Right knee is doing well. There is no swelling and stable ligamentous exam. There is some mild underlying stiffness and hyperflexion that has been present since surgery. She is not in need of anything at this time but can always see me if problems arise. Coding Level of Care Code Est Pt Level 3 (64998) Diagnoses Status post total knee replacement, right Z96.651
--- OUTSIDE RECORDS SUMMARY | 2025-06-05 13:49 | XMS_ITS | Patient Health Record ---
Author Organization [facility] Address [address] [place] [address] Care Team Providers Care Wheat Washer Name Role Phone VIVIENNE CROUCH Primary Care Provider Sahara Huerta Unavailable [phone] Allergies Allergen (clinical drug ingredient) Drug/Non Drug Allergy documented on EMR Reaction Allergy Type Onset Date Status PENICILLIN REDNESS/ITCHING Drug Allergy Active oxaprozin Daypro Unknown Drug Allergy Active ibuprofen IBUPROFEN HEADACHES Drug Allergy Active Results Component Value Reference Range Notes PDF Report Reviewed date:12/17/2024 06:39:16 PM Interpretation: Performing Lab:[facility], [address], Phone - [phone], Director - Farida Notes/Report: Clinical Information:SRC: PDF Report Reviewed date:12/06/2024 08:33:32 AM Interpretation: Performing Lab:[facility], [address], [address], [place], Phone - [phone], Director - Bridget Notes/Report: Clinical Information:vag/cerv odalys [id number] Dates / Results....12/04/23 Other..............Post Menopausal No. of containers..01 ThinPrep Vial [id number] IGP No Culture 30 Plus Reviewed date:12/06/2024 08:35:28 AM Interpretation: Performing Lab:[facility], [address], [address], [place], Phone - [phone], Director - Bridget Notes/Report: Clinical Information:vag/cerv odalys [id number] Dates / Results....12/04/23 Other..............Post Menopausal No. of containers..01 ThinPrep Vial DIAGNOSIS: NEGATIVE FOR INTRAEPITHELIAL LESION OR MALIGNANCY. CELLULAR CHANGES ASSOCIATED WITH ATROPHY ARE PRESENT. Specimen adequacy: Satisfactory for evaluation. Endocervical component may not be distinguished in cases of atrophy. Clinician provided ICD10: Z0 1.419 Performed by: Carlyle Saavedra , Tool Room Supervisor (ASCP) . . Note: The Pap smear is a screening test designed to aid in the detection of premalignant and malignant conditions of the uterine cervix. It is not a diagnostic procedure and should not be used as the sole means of detecting cervical cancer. Both false-positive and false-negative reports do occur. . Test Methodology: This liquid based ThinPrep(R) pap test was screened with the use of an image guided system. HPV Aptima Negative Negative This nucleic acid amplification test detects fourteen high-risk HPV types (16,18,31,33,35,39,45,51,52,56 ,58,59,66,68) without differentiation. HPV Genotype Reflex Criteria not met, HPV Genotype not performed. Urine Culture, Routine-[id number] Reviewed date:12/17/2024 06:47:25 PM Interpretation: Performing Lab:[facility], [address] [place] [address], Phone - [phone], Director - Farida Notes/Report: Clinical Information:SRC: Clinical Information:SRC: Urine Culture, Routine Final report Result 1 Mixed urogenital shar 25,000-50,000 colony forming units per mL Urinalysis, Complete-[id number] Reviewed date:12/20/2024 10:12:54 AM Interpretation: Performing Lab:[facility], [address] [place] [address], Phone - [phone], Director - Farida Notes/Report: Clinical Information:SRC: Clinical Information:SRC: Specific [place] 1.017 1.005-1.030 pH 8.0 5.0-7.5 Urine-Color Yellow Yellow Appearance Clear Clear WBC Esterase Negative Negative Protein Negative Negative/Trace Glucose Negative Negative Ketones Negative Negative Occult Blood Negative Negative Bilirubin Negative Negative Urobilinogen,Semi-Qn 0.2 0.2-1.0 mg/dL Nitrite, Urine Negative Negative Microscopic Examination Micr oscopic follows if indicated. Microscopic Examination See below: Micr oscopic was indicated and was performed. WBC None seen 0 - 5 /hpf RBC None seen 0 - 2 /hpf Epithelial Cells (non renal) None seen 0 - 10 /hpf Casts None seen None seen /lpf Bacteria None seen None seen/Few Urinalysis Reviewed date:12/04/2024 12:31:39 PM Interpretation: Performing Lab: Notes/Report: PH 5.0 PROTEIN small GLUCOSE Neg BLOOD Mod Reason For Referral No Information Medications Medication SIG (Take, Route, Frequency, Duration) Notes Start Date End Date Status Loratadine 10 MG TAKE 1 TABLET BY MOUTH EVERY DAY FOR 90 DAYS Oral; Duration: 73 Active Albuterol 90 MCG 2 Inhalation q6h; Duration: -3 06/28/2012 Active EPINEPHrine 0.3 MG/0.3ML Injection; Duration: 30 Active Baby Aspirin 12/04/2023 Active Mounjaro 2.5 MG/0.5ML as directed Subcutaneous Active Budesonide-Formoterol Fumarate 160-4.5 MCG/ACT Inhalation; Duration: 30 Days Active traMADol HCl 50MG 1 ORAL twice daily; Duration: -3 [employer]-MJ 07/25/2013 Active Atorvastatin Calcium 20 MG Oral; Duration: 90 Active metFORMIN HCl 500 MG 1 tablet with a kris l Orally Once a day Active Dupixent 200 MG/1.14ML as directed Subcutaneous Unknown Dose/Starting today 01/09/23 Active Social History Tobacco Use: Social History Observation Description Date Details (start date - stop date) Former Smoker NA - NA Sexual History Question Answer Notes Had sex in the past 12 months (vaginal, oral, or anal)? No AUDIT-C (Standard) Question Answer Notes Did you have a drink containing alcohol in the p ast year? No Points 0 Interpretation Negative Tobacco Control (Standard) Question Answer Notes Tobacco use: Former smoker How long has it been since you last smoked? Grea ter than 10 years Problems Problem Type SNOMED Code ICD Code Onset Dates Problem Status W/U Status Risk Notes Problem Postmenopausal bleeding (47315703) Postmenopausal bleeding (N95.0) Active confirmed Problem Essential hypertension (20851161) Essential (primary) hypertension (I10) Active confirmed Problem Hyperlipidemia (10906633) Hyperlipidemia, unspecified (E78.5) Active confirmed Problem Asthma (896447312) Other asthma (J45.998) Active confirmed Problem Osteoarthritis (084600039) Unspecified osteoarthritis, unspecified site (M19.90) Active confirmed Problem Congenital hiatus hernia (46675665) Congenital hiatus hernia (Q40.1) Active confirmed Problem Menopause (944150765) Menopausal and female climacteric states (N95.1) Active confirmed Problem Asthma (disorder) (314782398) Asthma, unspecified, unspecified status (493.90) Active confirmed Major Problem Urinary tract infectious disease (disorder) (24157328) Urinary tract infection, site not specified (599.0) Active confirmed Diag Problem Female genital organ symptoms (403054047) Other specified symptom associated with female genital organs (625.8) Active confirmed Major Problem Postmenopausal bleeding (96764969) Postmenopausal bleeding (627.1) Active confirmed Diag Problem Menopausal symptom (28396681) Symptomatic menopausal or female climacteric states (627.2) Active confirmed Major Problem Urinary incontinence (751718823) Unspecified urinary incontinence (788.30) Active confirmed Diag Problem Right lower quadrant pain (190788568) Abdominal pain, right lower quadrant (789.03) Active confirmed Diag Problem Left lower quadrant pain (121041162) Abdominal pain, left lower quadrant (789.04) Active confirmed Diag Problem Gynecological examination normal (667884243093952) Routine gynecological examination (V72.31) Active confirmed Major Problem Screening for malignant neoplasm of colon (504791401) Special screening for malignant neoplasms, colon (V76.51) Active confirmed Major Vital Signs Temperature 98.0 degrees Fahrenheit 12/04/2024 Blood pressure diastolic 80 mm Hg 12/04/2024 Height 64 in 12/04/2024 Blood pressure systolic 138 mm Hg 12/04/2024 Weight 215 lbs 12/04/2024 BMI 36.9 kg/m2 12/04/2024 Encounters Encounter Location Date Provider Diagnosis Total [address] [place] [address] 12/04/2024 Sahara Chen Encounter for gynecological examination (general) (routine) without abnormal findings Z01.419 ; Encounter for screening mammogram for malignant neoplasm of breast Z12.31 ; Other microscopic hematuria R31.29 ; Other specified disorders of bone density and structure, multiple sites M85.89 and Personal history of other diseases of the female genital tract Z87.42 [facility] [address] [place] [address] 12/04/2024 Sahara Chen Assessments Encounter Date Diagnosis (ICD Code) Assessment Notes Treatment Notes Treatment Clinical Notes Section Notes 12/04/2024 Encounter for gynecological examination (general) (routine) without abnormal findings (ICD-10 - Z01.419) PAP TEST WITH HPV TYPING WAS OBTAINED. 12/04/2024 Encounter for screening mammogram for malignant neoplasm of breast (ICD-10 - Z12.31) REGULAR MAMMOGRAMS AND SBE'S WERE RECOMMENDED. 12/04/2024 Other microscopic hematuria (ICD-10 - R31.29) OFFICIAL UA AND URINE C/S WERE ORDERED. 12/04/2024 Other specified disorders of bone density and structure, multiple sites (ICD-10 - M85.89) DISCUSSED HER LAST BMD RESULTS AND OSTEOPENIA AND ITS IMPACT ON HER HEALTH. ADEQUATE CALCIUM AND VIT D. WEIGHT BEARING EXERCISES. REPEAT BMD IN 2025. 12/04/2024 Personal history of other diseases of the female genital tract (ICD-10 - Z87.42) DISCUSSED PREVIOUSLY ABNORMAL PAP TEST IN 2022, LSIL. PAP TEST WITH HPV TYPING WAS REPEATED TODAY AND IF ABNORMAL, WILL REFER TO BLOOD DONOR RECRUITER SUPERVISOR ONCOLOGY. Plan Of Treatment Pending Test Test Name Order Date MAMMOGRAM, SCREENING 11/30/2022 MAMMOGRAM, SCREENING 12/04/2023 MAMMOGRAM, SCREENING 12/04/2024 COMPLETE URINALYSIS 11/30/2022 URINE CULTURE 11/30/2022 BONE DENSITY 11/30/2022 BONE DENSITY 12/04/2023 MM Digital Mammo Screening 11/30/2022 MM Digital Mammo Screening 12/04/2024 MM Digital Mammo Screening 12/04/2023 Next Appt Details Provider Name:Sahara Zayas [email or web address], 12/12/2025 10:20:00 AM, [address], [address], [place], [address], Insurance Providers Payer Name Payer Address Payer Phone Subscriber Number Group Number Insured Name Patient Relationship to Insured Coverage Start Date Coverage End Date [facility] [address] [place] [id number] CATHY MINAYA Self - patient is the insured Medical (General) History Medical History History ICD Code Other asthma J45.998 Postmenopausal bleeding N95.0 Menopausal and female climacteric states N95.1 Essential (primary) hypertension I10 Unspecified osteoarthritis, unspecified site M19.90 Hyperlipidemia, unspecified E78.5 Congenital hiatus hernia Q40.1 Low grade squamous intraepit helial lesion on cytologic smear of cervix (LGSIL) R87.612 Other specified disorders of bone densit y and structure, multiple sites M85.89 Surgical History Surgery Date(Month/Year) Colonscopy x 5 Lab Band Laparoscopic Removal of Adjustable Gastr ic Restrive Device and Port L KNEE REPLACEMENT Hospitalization History Reason Date(Month/Year) See Surgical Hx
--- OUTSIDE RECORDS SUMMARY | 2025-06-05 13:50 | XMS_ITS ---
Author Organization [facility] Care Team Providers Care Acoustical Material Worker Name Role Phone Glenda Sheppard Unavailable Unavailable Andres Cruz Unavailable Unavailable Yoli French Unavailable Unavailable Roberto Lawler Unavailable Unavailable Mendoza Collins Unavailable Unavailable Loreto Grey Unavailable Unavailable Allergies and adverse reactions Code CodeSystem Substance Reaction Severity StartDate Concern Status Daypro Moderate 02/03/2023 active 5640 RXNORM Ibuprofen Moderate 02/03/[address] Penicillins Moderate 02/03/2023 acti ve Care Team Name Role Address Phone Organization Dates Mendoza Collins PCP [address] [facility] [address], [place], [address], [facility] (Office): : [facility] 02/03/2023 - 02/17/2023 Glenda Sheppard [address] [facility] [address] [facility] [address], [place], [address], [facility] (Office): : [facility] 02/03/2023 - 02/17/2023 Andres Cruz [address] [place] [address], [facility], [facility] (Office): [facility] 02/03/2023 - 02/17/2023 Yoli French [address] [facility], [place], [address], [place] (Office): : [facility] 02/03/2023 - 02/17/2023 Roberto Lawler [address] [place] [address], [place], [address], [place] (Office): [facility] 02/03/2023 - 02/17/2023 Loreto Cohntacho [address], [place], [address], [place] (Office): : [facility] 02/03/2023 - 02/17/2023 Immunizations Immunization Status Vaccine Details Vaccine Code CodeSystem Date Notes TB 1 Step Mantoux (PPD) completed tuberculin skin test; unspecified formulation lotNumber: [id number] expiry: 03/17/2024 Given 0.1 ml Left Forearm intradermally 98 CVX created date: 02/04/2023 consent date: 02/03/2023 administer ed date: 02/03/2023 Influenza (high dose) completed Influenza, high-dose, split virus, trivalent, injectable, preservative free 135 CVX created date: 02/06/2023 administer ed date: 05/19/2022 COVID-19 Vaccine Dose 1 completed unknown vaccine or immune globulin 999 CVX created date: 02/06/2023 administer ed date: 10/14/2020 Pulled from [employer] COVID-19 Vaccine Dose 2 completed unknown vaccine or immune globulin 999 CVX created date: 02/06/2023 administer ed date: 11/26/2020 Pulled from [employer] SARS-COV(COVID- 19) booster completed unknown vaccine or immune globulin 999 CVX created date: 02/06/2023 administer ed date: 06/14/2021 Pulled from [employer] SARS-COV(COVID- 19) booster completed unknown vaccine or immune globulin 999 CVX created date: 02/06/2023 administer ed date: 05/31/2021 Pulled from [employer] PCV20 completed Pneumococcal conjugate vaccine 20-valent (PCV20), polysaccharide [id number] conjugate, adjuvant, preservative free lotNumber: [id number] expiry: 03/17/2024 Mfg: pfizer Given 0.5 ml Left Deltoid intramuscularly 216 CVX created date: 02/06/2023 consent date: 02/06/2023 administer ed date: 02/07/2023 Educated by Iona Galaviz on 02/06/2023 Mental Status Section Date Assessment Total Score Description 02/17/2023 BIMS 15 cognitively int act CAM 0 No delirium ind icated PHQ-9 00 02/08/2023 BIMS 15 cognitively int act CAM 0 No delirium ind icated PHQ-9 00 Insurance Providers Problems Problem # Description Date of onset Resolved Date Code CodeSystem Concern Status 1 HYPERLIPIDEMIA, UNSPECIFIED 02/14/[address] active 2 AFTERCARE FOLLOWING JOINT REPLACEMENT SURGERY 02/03/[address] active 3 DIFFICULTY IN WALKING, NOT ELSEWHERE CLASSIFIED 02/03/[address] active 4 MUSCLE WEAKNESS (GENERALIZED) 02/03/[address] active 5 OBESITY, UNSPECIFIED 02/03/[address] active 6 OTHER REDUCED MOBILITY 02/03/[address] active 7 OTHER SEASONAL ALLERGIC RHINITIS 02/03/[address] active 8 OVERACTIVE BLADDER 02/03/2023 450283640 SNOMED C T active 9 PRESENCE OF UNSPECIFIED ARTIFICIAL KNEE JOINT 02/03/[address] active 10 TYPE 2 DIABETES MELLITUS WITH OTHER SPECIFIED COMPLICATION 02/03/[address] active 11 UNILATERAL PRIMARY OSTEOARTHRITIS, RIGHT KNEE 02/03/[address] active 12 UNSPECIFIED ASTHMA, UNCOMPLICATED 02/03/[address] active Reason for Referral No Reasons for Referral Entered Social History Social History Observation Description Start Date End Date Code Code System Current Smoking Status Tobacco smoking consumption unknown 043860549 SNOMED CT Sex Assigned At Female 1960 21886-9 INC Gender Identity Sexual Orientation Vital Signs Code Code System Vitals Name Values and Units Timing Information 9279-1 LOINC Respiratory Rate Value=18.0 Units=/m in 02/17/2023 30273-9 [facility] O2 % dC Oximetry Value=95.0 Units= % 02/17/2023 8310-5 [facility] Body Temperature Value=97.5 Units= F 02/17/2023 8867-4 [facility] Heart rate Value=87.0 Units=/min 10/2022 8462-4 [facility] Blood Pressure-Diastolic Value=78 Un its=mmHg 02/17/2023 8480-6 [facility] Blood Pressure-Systolic Qozjh=446 Un its=mmHg 02/17/2023 44166-0 [facility] Pain Level Value=0.0 02/17/2023 41664-2 [facility] Weight Kiwzt=988.2 Units=Lbs 08/2022 2339-0 [facility] Blood Sugar Mkbxx=284.0 Units=mg/dL 02/08/2023 8302-2 [facility] Height Value=64.0 Units=Inches 02/07/2023
--- OUTSIDE RECORDS SUMMARY | 2025-06-05 13:50 | XMS_ITS | Patient Health Record ---
Author Organization [facility] Address [address] [place] [address] Care Team Providers Care Landscape Crew Member Name Role Phone Angy Stockton M.D Primary Care Provider Unavailable Jorge Melton Unavailable [phone] Allergies Allergen (clinical drug ingredient) Drug/Non Drug Allergy documented on EMR Reaction Allergy Type Onset Date Status aspirin Aspirin Unknown Drug Allergy Active Penicillin rash Drug Allergy Active Reason For Referral No Information Medications Medication SIG (Take, Route, Frequency, Duration) Notes Start Date End Date Status Loratadine 10 MG 1 tablet Orally Once a day; Duration: 30 day(s) Active Montelukast Sodium 10 MG 1 tablet Orally Once a day; Duration: 30 day(s) Active Incruse Ellipta 62.5 MCG/INH 1 puff Inhalation Once a day Active oxyBUTYnin Active Meloxicam 15 MG 1 tablet Orally Once a day; Duration: 30 day(s) Active Vitamin D3 Active Atorvastatin Calcium 20 MG 1 tablet Oral ly Once a day; Duration: 30 day(s) Active Ventolin HFA Active Breo [...] W/U Status Risk Notes Problem Viral wart (39921133) Other viral warts (B07.8) Active confirmed Problem Pain in left foot (640826286930 107) Pain in left foot (M79.672) Active confirmed Problem Skin disease (07995916) Skin disease (L98.9) Active confirmed Plan Of Treatment No Information Insurance Providers Payer Name Payer Address Payer Phone Subscriber Number Group Number Insured Name Patient Relationship to Insured Coverage Start Date Coverage End Date [facility] [employer] Claims [address] [place] [id number] Nohemi Jackson Self - patient is the [...]
== END 2025-06-05 10:43 | disposition home or self-care (01) ==
LOC: HO.HOS 09:44
PROVIDERS: PCP Internal Medicine; Visit Provider Orthopaedic Surgery
DX: Z47.89 Encounter for other orthopedic aftercare (principal); Z96.651 Presence of right artificial knee joint
CPT/HCPCS: 99213

== ENCOUNTER → 2025-06-05 09:43 | Outpatient (BNVA) | payer OTHER, SELFPAY | PROVIDERS: PCP Internal Medicine; Visit Provider Orthopaedic Surgery | DX: Z98.890 Other specified postprocedural states (principal); Z96.651 Presence of right artificial knee joint | CPT/HCPCS: 99212 ==